=== PATIENT | male | born 1975 | race Caucasian/White ===

== ENCOUNTER 2016-02-01 12:52 | Outpatient (RCR) | payer MEDICARE, MEDICAID ==
[~2016-02-01 12:52] MED LIST: AC325T; AC325T PO; AC500T PO; ACET325T49 PO; ACET500C4 PO; ACHD5005 PO; ALPR.25T PO; ALPR0.2550 PO; AMIT25TA9 PO; AMOX500C2 PO; BACL10TA PO; BALS750C PO; CEFP250T3 PO; CIPR500T78 PO; CLAR-19 PO; CNC1KV INJ; CPR500T; CYAN100053 IJ; DIPH-424 PO; DOXY25TA46 PO; ECHINACEA PO; FAMO-144 PO; FAMO10TA43 PO; FAMO20TA5 PO; FERR-84 PO; FERR240T9 PO; GABA-488 PO; GABA600T2 PO; GABAPENTIN PO; GFCD10B PO; GFN600TCR PO; GUAI100S PO; HYDR-31; HYDR-34 PO; HYDR-3454 PO; HYDR-3816 PO; HYOS0.1216 PO; IBUP800T26 PO; IRON PO; KCL20TCR; LEVO250T11 PO; LORA1TAB PO; LVF500T; MAGN400T29 PO; MAGN400T6 PO; MERCAPTOPURINE; METH4TAB PO; METR500T PO; MSL250CCR; MSL250CCR PO; MULT-187 PO; MULT-974 PO; MULT1TAB53 PO; MULT1TAB59 PO; Mercaptopurine; NF-ESOM40C; OMEP20CA12 PO; OMEP20CA6 PO; OMEP40CA36 PO; OXYC-109 PO; OXYC-12 PO; OXYC1TAB87 PO; OXYCOTIN PO; PHEN-640 PO; PNT40TEC PO; POLY17PO6 PO; PRD10T PO; PRD20T PO; PRD5T PO; PRED10TA PO; PRED20TA PO; PRILOSEC; PRM25T PO; SCR1T1 PO; SODI100G DT; SODI100P15 PO; SUCR1TAB PO; TRM50T PO; TYLENOL; ZLP5T; ZLP5T PO; ZOLP5TAB6 PO; [UNRECOGNIZED DRUG - CODE] DT; [UNRECOGNIZED DRUG - CODE] PO; [UNRECOGNIZED DRUG - OTHER]; blue goo TOP; iron PO
--- OUTSIDE RECORDS SUMMARY | 2016-02-01 12:56 | XMS REPORT | Continuity of Care Document ---
Author Author [facility] Organization [facility] Address Unknown Phone Unavailable Care Team Providers Care Dress Operator Name Role Phone Julio Jo III PCP [phone] Source Comments Some departments are not documenting in the electronic medical record. If you do not see the information that you expected, contact Release of Information in the Health Information Management department at [phone] for further assistance in locating additional records.[facility] Active Allergies and Adverse Reactions Allergen Noted Date Severity Reactions Comments Adhesive Tape (Rosins) 12/25/2013 ITCHING Fortaz 12/25/2013 UNKNOWN Latex 12/25/2013 UNKNOWN Sulfa (Sulfonamide 12/25/2013 UNKNOWN Antibiotics) Current Medications Prescription Sig. Disp. Refills Start End Date Status Date acetaminophen (TYLENOL) Take 1,000 mg by mouth Active 500 mg tablet every 6 hours as needed. ALPRAZolam (XANAX) 0.25 Take 0.25 mg by mouth Active mg tablet three times daily as needed. cyanocobalamin (VITAMIN Inject 1,000 mcg to Active B-12, RUBRAMIN) 1,000 area(s) as directed every mcg/mL injection 30 days. guaiFENesin LA (MUCINEX) Take 600-1,200 mg by Active 600 mg tablet mouth twice daily as needed. MULTIVITAMIN WITH Take 1 Tab by mouth Active MINERALS (MULTIVITAMIN & daily. MINERAL FORMULA PO) Ferrous Sulfate 134 mg Take 1 Tab by mouth Active (27 mg iron) tab daily. Echinacea 400 mg cap Take 1 Cap by mouth. Active omeprazole DR(+) Take 40 mg by mouth Active (PRILOSEC) 40 mg capsule daily. sucralfate (CARAFATE) 1 Take 1 g by mouth three Active gram tablet times daily. zolpidem (AMBIEN) 5 mg Take 5 mg by mouth at Active tablet bedtime as needed. balsalazide(+) (COLAZAL) Take 2,250 mg by mouth Active 750 mg cap three times daily. oxyCODONE-acetaminophen Take 1 Tab by mouth every 20 Tab 0 01/10/20 Active (PERCOCET; ENDOCET) 6 hours as needed Max 12 14 10-325 mg tablet tabs/day Active Problems Problem Noted Date Impulse control disorder, unspecified 01/01/2014 Crohn disease (HCC) 12/25/2013 Social History Tobacco Use Types Packs/Day Years Used Date Current Every Day Smoker Cigarettes 0.5 Started: 12/25/1998 Tobacco Cessation: Ready to Quit: Yes; Counseling Given: Yes Comments: Alcohol Use Drinks/Week oz/Week Comments Yes 2 Standard 1.0 Social drinks or equivalent Last Filed Vital Signs Vital Sign Reading Time Taken Blood Pressure 110/70 01/09/2014 11:20 AM LUBRICATING SPECIALIST Pulse 78 01/09/2014 11:20 AM LUBRICATING SPECIALIST Temperature 36.6 C (97.8 F) 01/09/2014 11:20 AM LUBRICATING SPECIALIST Respiratory Rate - - Height 1.753 m (5' 9") 12/25/2013 8:09 PM CDT Weight 50.803 kg (112 lb) 01/08/2014 4:00 AM LUBRICATING SPECIALIST Body Mass Index 16.53 01/08/2014 4:00 AM LUBRICATING SPECIALIST Oxygen Saturation 100% 01/09/2014 11:20 AM LUBRICATING SPECIALIST Plan of Care Health Maintenance Due Date Last Done Comments Physical (Comprehensive) 1984 Exam Pertussis Vaccine 1988 Tetanus Vaccine 1994 Influenza Vaccine 10/27/2015 Results from Last 3 Months Not on file
[2016-02-01 13:24] LABS: BASOPHILS % (AUTO) 0 % (0-10); EOSINOPHILS % (AUTO) 0 % (0-10); LYMPHOCYTES # (AUTO) 1.7 X 10^3 (1.0-4.0); LYMPHOCYTES % (AUTO) 11 % (12-44); MEAN CORPUSCULAR HEMOGLOBIN 34 PG (25-34); MEAN CORPUSCULAR HGB CONC 35 G/DL (32-36); MEAN CORPUSCULAR VOLUME 98 FL (80-99); MEAN PLATELET VOLUME 9.2 FL (7.4-10.4); MONOCYTES # (AUTO) 0.8 X 10^3 (0.0-1.0); MONOCYTES % (AUTO) 5 % (0-12); NEUTROPHILS % (AUTO) 83 % (42-75); PLATELET COUNT 391 10^3/uL (130-400); RED BLOOD COUNT 4.59 10^6/uL (4.35-5.85); RED CELL DISTRIBUTION WIDTH 15.1 % (10.0-14.5); WHITE BLOOD COUNT 14.5 10^3/uL (4.3-11.0)
[2016-02-01 14:02] LABS: ALANINE AMINOTRANSFERASE 19 U/L (0-55); ANION GAP 9 MMOL/L (5-14); ASPARTATE AMINO TRANSFERASE 15 U/L (5-34); BILIRUBIN,TOTAL 0.3 MG/DL (0.1-1.0); BLOOD UREA NITROGEN 6 MG/DL (7-18); BUN/CREATININE RATIO 9; CARBON DIOXIDE 27 MMOL/L (21-32); CHLORIDE 108 MMOL/L (98-107); GFR ESTIMATED > 60; GLUCOSE 96 MG/DL (70-105); LACTATE DEHYDROGENASE 154 U/L (125-220); POTASSIUM 3.6 MMOL/L (3.6-5.0); SODIUM 144 MMOL/L (135-145)
== END 2016-05-01 | disposition home or self-care (01) ==
LOC: ONC 12:52
PROVIDERS: ATTEND Internal Medicine Hematology & Oncology
DX: C85.80 Other specified types of non-Hodgkin lymphoma, unspecified site (principal); D50.9 Iron deficiency anemia, unspecified; E53.8 Deficiency of other specified B group vitamins; K50.90 Crohn's disease, unspecified, without complications; K21.9 Gastro-esophageal reflux disease without esophagitis; D47.3 Essential (hemorrhagic) thrombocythemia; D72.829 Elevated white blood cell count, unspecified; Z92.21 Personal history of antineoplastic chemotherapy; Z79.899 Other long term (current) drug therapy
CPT/HCPCS: 36415; 80053; 83615; 85025; 99213

== ENCOUNTER → 2016-03-19 | Outpatient (CLI) | payer MEDICARE, MEDICAID ==
[~2016-03-19] MED LIST changes: +ADAL40PE2 SQ; +ASCO-262 PO; +BUDE9TAB PO; +DICY10CA59 PO; +DOCU-143 PO; +FAMO20TA3 PO; +HYDR-3812 PO; +MESA800T PO; +METO10TA3 PO; +PRED5TAB PO
--- OUTSIDE RECORDS SUMMARY | 2016-03-19 12:04 | XMS REPORT | Continuity of Care Document ---
Author Author [facility] Organization [facility] Address Unknown Phone Unavailable Care Team Providers Care Sound Cutter Name Role Phone Julio Jo III PCP [phone] Source Comments Some departments are not documenting in the electronic medical record. If you do not see the information that you expected, contact Release of Information in the Health Information Management department at [phone] for further assistance in locating additional records.[facility] Active Allergies and Adverse Reactions Allergen Noted [...] Taken Blood Pressure 110/70 01/09/2014 11:20 AM GRAIN OILSEED OR PASTURE FARM MANAGER Pulse 78 01/09/2014 11:20 AM GRAIN OILSEED OR PASTURE FARM MANAGER Temperature 36.6 C (97.8 F) 01/09/2014 11:20 AM GRAIN OILSEED OR PASTURE FARM MANAGER Respiratory Rate - - Height 1.753 m (5' 9") 12/25/2013 8:09 PM CDT Weight 50.803 kg (112 lb) 01/08/2014 4:00 AM GRAIN OILSEED OR PASTURE FARM MANAGER Body Mass Index 16.53 01/08/2014 4:00 AM GRAIN OILSEED OR PASTURE FARM MANAGER Oxygen Saturation 100% 01/09/2014 11:20 AM GRAIN OILSEED OR PASTURE FARM MANAGER Plan of Care Health Maintenance Due Date Last Done Comments Physical (Comprehensive) 1984 Exam Pertussis Vaccine 1988 Tetanus Vaccine 1994 Influenza Vaccine 10/27/2015 Results from Last 3 Months Not on file
--- NOTE | 2016-03-19 13:02 | Diagnostic Imaging Report ---
EXAMINATION: Scrotal ultrasound. INDICATION: Right testicular lump. FINDINGS: Spectral and color flow imaging of the testicles was performed. There are no prior studies available for comparison. Both testicles are identified. The right testicle measures 3.2 x 1.8 x 2.1 cm while the left testicle is estimated to be 3.6 x 1.6 x 2.2 cm. There is no evidence for a solid testicular mass and there is good blood flow to each testicle. There is no sign of torsion. There is no solid or cystic mass involving the epididymides. There is no evidence for epididymitis either. There is no hydrocele formation. IMPRESSION: There is no evidence for a solid testicular mass and there is no sign of torsion. Dictated by: Dictated on workstation # [id number]
== END ==
LOC: RAD 12:00
PROVIDERS: ATTEND Internal Medicine
DX: N50.9 Disorder of male genital organs, unspecified (principal)
CPT/HCPCS: 76870

== ENCOUNTER → 2016-03-30 | Outpatient (CLI) | payer MEDICARE, MEDICAID ==
--- OUTSIDE RECORDS SUMMARY | 2016-03-30 14:50 | XMS REPORT | Continuity of Care Document ---
Author Author [facility] Organization [facility] Address Unknown Phone Unavailable Care Team Providers Care Infectious Disease Technician Name Role Phone Julio Jo III PCP [phone] Source Comments Some departments are not documenting in the electronic medical record. If you do not see the information that you expected, contact Release of Information in the Health Information Management department at [phone] for further assistance in locating additional records.[facility] Active Allergies and Adverse Reactions Allergen Noted [...] Taken Blood Pressure 110/70 01/09/2014 11:20 AM QUALITY CONTROL HEAD Pulse 78 01/09/2014 11:20 AM QUALITY CONTROL HEAD Temperature 36.6 C (97.8 F) 01/09/2014 11:20 AM QUALITY CONTROL HEAD Respiratory Rate - - Height 1.753 m (5' 9") 12/25/2013 8:09 PM CDT Weight 50.803 kg (112 lb) 01/08/2014 4:00 AM QUALITY CONTROL HEAD Body Mass Index 16.53 01/08/2014 4:00 AM QUALITY CONTROL HEAD Oxygen Saturation 100% 01/09/2014 11:20 AM QUALITY CONTROL HEAD Plan of Care Health Maintenance Due Date Last Done Comments Physical (Comprehensive) 1984 Exam Pertussis Vaccine 1988 Tetanus Vaccine 1994 Influenza Vaccine 10/27/2015 Results from Last 3 Months Not on file
--- NOTE | 2016-03-30 16:12 | Diagnostic Imaging Report ---
INDICATION: Pararectal mass. EXAMINATION: Ultrasound was performed in the routine fashion between the scrotum and anus. FINDINGS: There is a cystic lesion measuring 1.5 x 1.0 x 1.0 cm. There is no solid mass. IMPRESSION: 1.5 x 1.0 cm cyst in the area of clinical question between the scrotum and anus. Dictated by: Dictated on workstation # [id number]
== END ==
LOC: RAD 14:45
PROVIDERS: ATTEND Surgery
DX: K62.9 Disease of anus and rectum, unspecified (principal)
CPT/HCPCS: 76999

== ENCOUNTER → 2016-04-05 | Outpatient (CLI) | payer MEDICARE, MEDICAID ==
--- OUTSIDE RECORDS SUMMARY | 2016-04-05 10:24 | XMS REPORT | Continuity of Care Document ---
Author Author [facility] Organization [facility] Address Unknown Phone Unavailable Care Team Providers Care .Net Architect Name Role Phone Julio Jo III PCP [phone] Source Comments Some departments are not documenting in the electronic medical record. If you do not see the information that you expected, contact Release of Information in the Health Information Management department at [phone] for further assistance in locating additional records.[facility] Active Allergies and Adverse Reactions Allergen Noted [...] Taken Blood Pressure 110/70 01/09/2014 11:20 AM WELT POCKET MACHINE OPERATOR Pulse 78 01/09/2014 11:20 AM WELT POCKET MACHINE OPERATOR Temperature 36.6 C (97.8 F) 01/09/2014 11:20 AM WELT POCKET MACHINE OPERATOR Respiratory Rate - - Height 1.753 m (5' 9") 12/25/2013 8:09 PM CDT Weight 50.803 kg (112 lb) 01/08/2014 4:00 AM WELT POCKET MACHINE OPERATOR Body Mass Index 16.53 01/08/2014 4:00 AM WELT POCKET MACHINE OPERATOR Oxygen Saturation 100% 01/09/2014 11:20 AM WELT POCKET MACHINE OPERATOR Plan of Care Health Maintenance Due Date Last Done Comments Physical (Comprehensive) 1984 Exam Pertussis Vaccine 1988 Tetanus Vaccine 1994 Influenza Vaccine 10/27/2015 Results from Last 3 Months Not on file
== END ==
LOC: RAD 10:20
PROVIDERS: ATTEND Surgery
DX: K62.89 Other specified diseases of anus and rectum (principal)

== ENCOUNTER → 2016-04-11 | Outpatient (CLI) | payer MEDICARE, MEDICAID ==
[~2016-04-11] MED LIST changes: +GADOBUTROL 7.5 MMOL/7.5 ML (GADAVIST) VIAL IV ONE
--- OUTSIDE RECORDS SUMMARY | 2016-04-11 09:23 | XMS REPORT | Continuity of Care Document ---
Author Author [facility] Organization [facility] Address Unknown Phone Unavailable Care Team Providers Care Forge Shop Machine Repairer Name Role Phone Julio Jo III PCP [phone] Source Comments Some departments are not documenting in the electronic medical record. If you do not see the information that you expected, contact Release of Information in the Health Information Management department at [phone] for further assistance in locating additional records.[facility] Active Allergies and Adverse Reactions Allergen Noted [...] Taken Blood Pressure 110/70 01/09/2014 11:20 AM PHYSICAL THERAPY AIDES TEACHER Pulse 78 01/09/2014 11:20 AM PHYSICAL THERAPY AIDES TEACHER Temperature 36.6 C (97.8 F) 01/09/2014 11:20 AM PHYSICAL THERAPY AIDES TEACHER Respiratory Rate - - Height 1.753 m (5' 9") 12/25/2013 8:09 PM CDT Weight 50.803 kg (112 lb) 01/08/2014 4:00 AM PHYSICAL THERAPY AIDES TEACHER Body Mass Index 16.53 01/08/2014 4:00 AM PHYSICAL THERAPY AIDES TEACHER Oxygen Saturation 100% 01/09/2014 11:20 AM PHYSICAL THERAPY AIDES TEACHER Plan of Care Health Maintenance Due Date Last Done Comments Physical (Comprehensive) 1984 Exam Pertussis Vaccine 1988 Tetanus Vaccine 1994 Influenza Vaccine 10/27/2015 Results from Last 3 Months Not on file
--- NOTE | 2016-04-11 12:28 | Diagnostic Imaging Report ---
PROCEDURE: MRI pelvis with and without contrast. TECHNIQUE: Multiplanar, multisequence MRI of the pelvis was performed with and without contrast. INDICATION: Perianal cyst. Painful to sit or walk. FINDINGS: There is a 1.3 x 0.8 x 1 cm cystic lesion seen abutting the right side aspect of the bulbar urethra near the root of the penis in the perineum. This is stable compared to 03/15/2015 exam. This may represent a Cowper's duct cyst or a small urethral diverticulum. The prostate is not significantly enlarged. The urinary bladder appears unremarkable. There is no free fluid or fluid collection in the pelvis. The osseous structures appear unremarkable. There is no fluid collection in the perineum or pelvis to suggest an abscess. Trace amount of fluid in the scrotum is probably physiologic. 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 Dictated by: Dictated on workstation # [id number]
== END ==
LOC: RAD 09:20
PROVIDERS: ATTEND Surgery
DX: K62.89 Other specified diseases of anus and rectum (principal)
CPT/HCPCS: 72197

== ENCOUNTER 2016-06-11 14:12 | Outpatient (CLI) | payer MEDICARE, MEDICAID ==
[~2016-06-11] VITALS: Ht 175.3 cm; Wt 62.2 kg
[~2016-06-11 14:12] MED LIST changes: -ADAL40PE2 SQ; -ASCO-262 PO; -BUDE9TAB PO; -DICY10CA59 PO; -DOCU-143 PO; -FAMO20TA3 PO; -GADOBUTROL 7.5 MMOL/7.5 ML (GADAVIST) VIAL IV ONE; -HYDR-3812 PO; -MESA800T PO; -METO10TA3 PO; -PRED5TAB PO
[2016-06-11 14:18] VITALS: BP 118/77
[2016-06-11] MEDS ORDERED: METO10TA3 PO (15:07)
[2016-06-11] MEDS ORDERED: FAMO20TA3 PO (15:07)
[2016-06-11] MEDS ORDERED: ADAL40PE2 SQ (15:07)
[2016-06-11] MEDS ORDERED: DOCU-143 PO (15:07)
[2016-06-11] MEDS ORDERED: PRED5TAB PO (15:07)
[2016-06-11] MEDS ORDERED: BUDE9TAB PO (15:07)
[2016-06-11] MEDS ORDERED: MESA800T PO (15:07)
[2016-06-11] MEDS ORDERED: DICY10CA59 PO (15:07)
[2016-06-11] MEDS ORDERED: ASCO-262 PO (15:07)
== END 2016-06-11 14:46 | disposition home or self-care (01) ==
LOC: PREOP 14:12
PROVIDERS: ATTEND Surgery
DX: Z01.818 Encounter for other preprocedural examination (principal); Z11.2 Encounter for screening for other bacterial diseases; K62.89 Other specified diseases of anus and rectum
CPT/HCPCS: 87081

== ENCOUNTER 2016-06-15 08:04 | Day surgery (SDC) | payer MEDICARE, MEDICAID ==
[~2016-06-15] VITALS: Ht 175.3 cm; Wt 62.2 kg
[~2016-06-15 08:04] MED LIST changes: +ADAL40PE2 SQ; +ASCO-262 PO; +BUDE9TAB PO; +DICY10CA59 PO; +DOCU-143 PO; +FAMO20TA3 PO; +MESA800T PO; +METO10TA3 PO; +PRED5TAB PO
--- NOTE | 2016-06-15 08:17 | Progress Note-Pre Operative ---
Pre-Operative Progress Note H&P Reviewed The H&P was reviewed, patient examined and no changes noted. Date H&P Reviewed: Jun 15, 2016 Time H&P Reviewed: 08:16 Pre-Operative Diagnosis: perianal cyst MIRA CARO DO Jun 15, 2016 8:17 am
[2016-06-15] MEDS ORDERED: CLINDAMYCIN 600 MG/NS 50 ML IVPB IV ONE (08:30)
[2016-06-15 08:40] VITALS: BP 116/91
[2016-06-15] MEDS: LACTATED RINGERS 1,000 ML IV PRN ×2 (08:40→09:42)
[2016-06-15] MEDS ORDERED: proPOfol 200 MG/20 ML (DIPRIVAN) VIAL IV ONE (08:59)
[2016-06-15] MEDS ORDERED: SEVOFLURANE (ULTANE) 15 ML INHAL SOLN ONE ×4 (08:59→09:38)
[2016-06-15] MEDS ORDERED: LIDOCAINE PF 2% 10 ML (XYLOCAINE) AMP ONE (08:59)
[2016-06-15] MEDS ORDERED: MIDAZOLAM 2 MG/2 ML (VERSED) VIAL ONE (09:00)
[2016-06-15] MEDS ORDERED: fentaNYL INJECTION 100 MCG/2 ML AMP ONE (09:00)
[2016-06-15] MEDS ORDERED: BUP/EPI 0.25% 1:200,000 (MARCAINE) 30 ML VIAL ONE (09:04)
[2016-06-15] MEDS ORDERED: BUPIVACAINE 0.25% 30 ML (SENSORCAINE) VIAL ONE (09:15)
[2016-06-15] MEDS ORDERED: LIDOCAINE 1% INJ 20 ML (XYLOCAINE) VIAL ONE (09:15)
[2016-06-15] MEDS ORDERED: HYDROCORTISONE 100 MG/2 ML (Solu-CORTEF) VIAL ONE (09:21)
[2016-06-15] MEDS ORDERED: LACTATED RINGERS 2,000 ML IV ONE (09:38)
[2016-06-15] MEDS ORDERED: ONDANSETRON 4 MG/2 ML (SDV) Z0FRAN ONE (09:38)
[2016-06-15] MEDS ORDERED: BUPIVACAINE 0.25% 30 ML (SENSORCAINE) VIAL INJ ONE (09:45)
[2016-06-15] MEDS ORDERED: LIDOCAINE 1% INJ 20 ML (XYLOCAINE) VIAL INJ ONE (09:45)
[2016-06-15] MEDS ORDERED: NEO/POLY/BAC (NEOSPORIN) OINT 15 GM TUBE ONE (09:51)
--- NOTE | 2016-06-15 10:05 | Progress Note-Post Operative ---
Post-Operative Progess Note Surgeon (s)/Propagator Laborer (s) Surgeon MIRA CARO DO Propagator Laborer: TAMANNA NWAGWU Pre-Operative Diagnosis perianal cyst Post-Operative Diagnosis SAME Post-Op Procedure Note Date of Procedure: Jun 15, 2016 Name of Procedure Performed: EXCISION PERIANAL CYST [id number] Description of the Procedure: SEE NOTE Findings of the Procedure SEE NOTE Anesthesia Type GENERAL Estimated blood loss (mL): MINIMAL Specimen(s) collected/removed CYST MIRA CARO DO Jun 15, 2016 10:05 am
[2016-06-15] MEDS ORDERED: morphine INJ 10 MG/ML 1ML (SYR OR VIAL) ONE (10:10)
[2016-06-15] MEDS: morphine INJ 10 MG/ML 1ML (SYR OR VIAL) IVP PRN ×2 (10:14→10:23)
[2016-06-15] MEDS ORDERED: HYDR-3812 PO (10:15)
--- NOTE | 2016-06-15 10:18 | Discharge Inst-Simple/Standard ---
Discharge Inst-Standard Discharge Medications New, Converted or Re-Newed RX: RX on Chart Patient Instructions/Follow Up Plan of Care/Instructions/FU: Follow up with Dr. Vega in 2 weeks Take a tub bath or a shower for a few minutes after each bowel movement. Keep wound clean and dry. If any questions or concerns or changes, call the clinic Activity as Tolerated: No Discharge Diet: No Restrictions Other Inst to Patient Follow up Appt: Make appointment for 2 weeks. Instructions: No lifting greater than 10 pounds. No strenuous activity. May shower in 24 hours, no tub bath or soaking. Use incentive spirometer at home as directed. No Smoking Skin/Wound Care: Take a tub bath or a shower for a few minutes after each bowel movement. Keep wound clean and dry. Symptoms to Report: Appetite Changes, Extremity Discoloration, Numbness/Tingling, Swelling Increased , Bleeding Excessive, Eyesight Changes, Pain Increased, Urine Color Change, Constipation(Persistent), Fever over 101 degree F, Pain/Pressure in chest, Urinating Difficulty, Cough Up/Vomit Blood, Heart Beat Irreg/Pounding, Pain/ Pressure in jaw, Vaginal Bleeding Increase, Cramps in feet or legs, Lightheadedness, Pain/Pressure in shoulder, Diarrhea(Persistent), Memory Changes Suddenly, Questions/Concerns, Weight gain consecutive days, Dizziness/ Fainting, Nausea/Vomiting, Shortness of Breath, Weight gain over 2 pounds If questions or concerns contact your physician Or seek help at emergency department. NIELS JONES APRN Jun 15, 2016 10:18 am
[2016-06-15] MEDS: HYDROmorphone (DILAUDID) 2 MG/ML VIAL IVP PRN ×2 (10:30→10:40)
[2016-06-15] MEDS ORDERED: HYDROmorphone (DILAUDID) 2 MG/ML VIAL IVP PRN (10:30)
[2016-06-15] MEDS ORDERED: ONDANSETRON 4 MG/2 ML (SDV) Z0FRAN IVP PRN ×2 (10:30→10:45)
[2016-06-15] MEDS ORDERED: HYDROmorphone (DILAUDID) 2 MG/ML VIAL ONE (10:41)
[2016-06-15] MEDS ORDERED: KETOROLAC 30 MG/ML VIAL IVP ONE (10:45)
[2016-06-15] MEDS ORDERED: fentaNYL INJECTION 100 MCG/2 ML AMP IVP PRN (10:45)
[2016-06-15] MEDS ORDERED: morphine INJ 10 MG/ML 1ML (SYR OR VIAL) IVP PRN (10:45)
[2016-06-15 11:15] VITALS: BP 126/76
[2016-06-15] MEDS ORDERED: HYDROcodone/APAP 5 MG/325 MG (LORTAB) TAB PO ONE (11:30)
[2016-06-15 11:45] VITALS: BP 112/77
[2016-06-15 12:15] VITALS: BP 118/78
--- NOTE | 2016-06-15 14:59 | OPERATIVE REPORT ---
DATE OF SERVICE: 06/15/2016 PREOPERATIVE DIAGNOSIS: Perianal cyst. POSTOPERATIVE DIAGNOSIS: Perianal cyst. PROCEDURE: Excision perianal cyst 1.5 x 1 x 1 cm subcutaneous tissue. SURGEON: Dr. Vega ANESTHESIA: General. ESTIMATED BLOOD LOSS: Minimal. BEAMING INSPECTOR: Norman Gaxiola assisted with retraction, dissection and closure. INDICATIONS: The patient is a 41-year-old male who had a cyst previously drained in this area. He had an MRI demonstrating a cyst. He was seen by urology due to location and they recommended removal by general surgery. The patient was explained the risks and benefits of procedure and wished to proceed. Consent was on chart. PROCEDURE: The patient was taken to the operating suite, was placed in lithotomy position. He was prepped and draped in sterile fashion. Timeout was performed. local anesthetic of 0.5% Marcaine and 1% lidocaine in 50:50 ratio was used to anesthetize the area. An elliptical incision was made around the cystic area. Also there is a small divot in the skin which was from previous incision and drainage which was removed. Cautery was used to dissect down around the cystic area and removed. Overall size approximately 1.5 x 1 x 1 cm. There still feels to be a little bit of scar tissue present but the palpable mass has been removed. The patient had the wound irrigated with copious amounts of irrigation. The skin was then closed using 3-0 chromic in simple interrupted fashion. The area was washed and dried and sterile bandage was applied. The patient tolerated the procedure well without any complications and was taken to the recovery room in stable condition. Job ID: [id number] DocumentID: [id number] Dictated Date: 06/15/2016 10:55:24 Distribution Accounting Clerk Date: 06/15/2016 11:07:29 Dictated By: DO AGUSTÍN JAUREGUI
== END 2016-06-15 12:15 | disposition home or self-care (01) ==
LOC: SDC 08:04
PROVIDERS: ATTEND Surgery
DX: K62.89 Other specified diseases of anus and rectum (principal)
CPT/HCPCS: 88304; 94664

== ENCOUNTER 2017-01-30 13:17 | Outpatient (RCR) | payer MEDICARE, MEDICAID ==
[~2017-01-30 13:17] MED LIST changes: -HYDR-3816 PO
== END 2017-04-30 | disposition home or self-care (01) ==
LOC: ONC 13:17
PROVIDERS: ATTEND Internal Medicine Hematology & Oncology
DX: C85.80 Other specified types of non-Hodgkin lymphoma, unspecified site (principal); D50.9 Iron deficiency anemia, unspecified; E53.8 Deficiency of other specified B group vitamins; K50.90 Crohn's disease, unspecified, without complications; K21.9 Gastro-esophageal reflux disease without esophagitis; D47.3 Essential (hemorrhagic) thrombocythemia; D72.829 Elevated white blood cell count, unspecified; Z92.21 Personal history of antineoplastic chemotherapy; Z79.899 Other long term (current) drug therapy
CPT/HCPCS: 99213

== ENCOUNTER 2017-06-05 15:54 | Inpatient (IN) | payer MEDICARE, MEDICAID ==
[~2017-06-05] VITALS: Ht 175.3 cm; Wt 65.5 kg
[2017-06-05] VITALS (9 sets, daily range): BP systolic 96–117; BP diastolic 54–89
[~2017-06-05 15:54] MED LIST changes: -DOXY25TA46 PO; +UNISOM25 M1 PO
--- NOTE | 2017-06-05 16:12 | ED General ---
General Stated Complaint: 102.6 TEMP Source of Information: Patient Exam Limitations: No Limitations History of Present Illness Date Seen by Provider: Jun 05, 2017 Time Seen by Provider: 16:02 Initial Comments Here by CLAUDIA from Dr. Jo's office. Patient apparently was seen there today for fever and cough. He was found to have a blood pressure of 70/30 and a fever of 102.6 with a heart rate in the 120. Patient was recommended to be evaluated in the ER and he opted to come by POV. Patient arrives with a blood pressure in the 70s over 40s with respiratory distress. Does have history of Crohn's disease and is on Humira. Patient complains of cough and shortness of breath. Does admit to fever. Apparently has been sick for a couple of days. Denies nausea or vomiting. Timing/Duration: 2-3 Days, Getting Worse Severity: Moderate, Severe Associated Systoms: No Chest Pain; Cough, Fever/Chills; No Nausea/Vomiting; Shortness of Air, Weakness Allergies and Home Medications Allergies Coded Allergies: ceftazidime (Verified Allergy, Intermediate, RASH, 06/15/16) nalbuphine (Unverified Allergy, Mild, RASH, 03/29/06) Iodinated Contrast Media - Oral and (Verified Allergy, Unknown, HIVES, 05/01) Sulfa (Sulfonamide Antibiotics) (Verified Allergy, Unknown, 03/29/06) latex (Verified Allergy, Unknown, 05/03/15) strawberry (Unverified Allergy, Unknown, 12/18/13) FROM UNCODED ALLERGIES Uncoded Allergies: TAPE (Allergy, Unknown, 03/29/06) Home Medications Acetaminophen 325 Mg Tablet, 650 MG PO Q6H PRN for PAIN/FEVER, (Reported) take 2 (325mg) TABS Adalimumab 40 Mg/0.8 Ml Pen.ij.kit, 40 MG SQ every other week, (Reported) Ascorbate Calcium 500 Mg Tablet, 500 MG PO DAILY, (Reported) Budesonide 9 Mg Tabdr...er, 9 MG PO DAILY, (Reported) Cyanocobalamin 1,000 Mcg/Ml Inj, 1,000 MCG INJ MONTHLY, (Reported) Dicyclomine HCl 10 Mg Capsule, 10 MG PO ACHS, (Reported) Docusate Sodium 100 Mg Capsule, 100 MG PO BID, (Reported) Doxylamine Succinate 25 Mg Tablet, 25 MG PO HS PRN for SLEEP, (Reported) Famotidine 20 Mg Tablet, 20 MG PO HS, (Reported) Gabapentin 600 Mg Tablet, 600 MG PO TID, (Reported) Hydrocodone Bit/Acetaminophen 1 Each Tablet, 1 EA PO Q4-6HR PRN for PAIN- MODERATE TO SEVERE Prescribed by: NIELS PATEL NWAGW on 06/15/16 1015 Lorazepam 1 Mg Tablet, 1.5 MG PO HS, (Reported) take 1 1/2 of 1 mg tab Magnesium Oxide 400 Mg Tablet, 400 MG PO DAILY, (Reported) Mesalamine 800 Mg Tablet.dr, 2,400 MG PO BID, (Reported) take 3 (800mg) tabs Metoclopramide HCl 10 Mg Tablet, 10 MG PO ACHS, (Reported) Multivitamin 1 Each Tablet, 1 TAB PO DAILY, (Reported) Omeprazole 40 Mg Capsule.dr, 40 MG PO BID, (Reported) Polyethylene Glycol 3350 17 Gm Powd.pack, 17 GM PO BID PRN for CONSTIPATION Prescribed by: ALON LUNA on 05/19/15 2217 Prednisone 5 Mg Tablet, 5 MG PO DAILY, (Reported) Sucralfate 1 Gm Tablet, 1 GM PO TID, (Reported) Patient Home Medication List Home Medication List Reviewed: Yes Review of Systems Constitutional: see HPI, chills, fever, weakness EENTM: no symptoms reported Respiratory: see HPI, cough, dyspnea on exertion, short of breath, wheezing Cardiovascular: no symptoms reported Gastrointestinal: No abdominal pain, No nausea, No vomiting Genitourinary: no symptoms reported Musculoskeletal: back pain; No muscle pain Skin: change in color (redness over the body) Psychiatric/Neurological: Denies Headache, Denies Numbness; Weakness Hematologic/Lymphatic: No Symptoms Reported All Other Systems Reviewed Negative Unless Noted: Yes Past Nqqwdcn-Egrrjf-Zpnkax Hx Past Med/Social Hx: Reviewed Nursing Past Med/Soc Hx Patient Social History Alcohol Use: Occasionally Uses Alcohol Beverage of Choice: Beer Recreational Drug Use: No Smoking Status: Current Everyday Smoker Type Used: Cigarettes Recent Foreign Travel: No Contact w/Someone Who Travel: No Recent Hopitalizations: No Immunizations Up To Date Date of Pneumonia Vaccine: Feb 25, 2015 Date of Influenza Vaccine: Feb 25, 2015 Seasonal Allergies Seasonal Allergies: No Past Medical History Surgeries: Yes Abdominal, Appendectomy, Bowel Surgery, Gallbladder Respiratory: No Neurological: Yes Traumatic Brain Injury Reproductive Disorders: No Sexually Transmitted Disease: No Gastrointestinal: Yes Crohns Disease Musculoskeletal: Yes Arthritis Cancer: Yes Lymphoma Personality Disorder Adverse Reaction/Blood Tranf: No Family Medical History Reviewed Nursing Family Hx No Family History of: Abdominal aortic aneurysm [place]'s disease Alcoholism Aphasia Cancer Cancer of colon Cataract Chest pain Congenital heart disease Congestive heart failure Cystic fibrosis Dementia Dysphagia Family history: Allergy Family history: Alzheimer's disease Family history: Arthritis Family history: Asthma Family history: Breast disease Family history: Cardiovascular disease Family history: Coronary thrombosis Family history: Diabetes mellitus Family history: Gastrointestinal disease Family history: Glaucoma Family history: Hypertension Family history: Osteoporosis Family history: Thyroid disorder Headache Hearing loss Heart disease Hereditary disease History of - anemia History of - disorder History of - respiratory disease History of drug abuse Human immunodeficiency virus (HIV) seropositivity Hypercholesterolemia Infertile Kidney disease Malignant neoplasm of lung Myocardial infarction Parkinson's disease Prostate cancer Psychotic disorder Seizure disorder Stroke Tuberculosis Visual impairment No Pertinent Family Hx Physical Exam-Suspected Sepsis Physical Exam Vital Signs Vital Signs - First Documented 06/05/17 16:17 Temp 101.7 Pulse 145 Resp 28 B/P (MAP) 75/47 (56) Pulse Ox 94 O2 Delivery Nasal Cannula O2 Flow Rate 2.00 Capillary Refill : General Appearance: Moderate Distress, Thin Eyes: Bilateral Eye PERRL, Bilateral Eye EOMI, Bilateral Eye Other (redness of the eyes bilateral) HEENT: PERRL/EOMI, Other (dry mucous membranes) Neck: Full Range of Motion, Non Tender, Supple Respiratory: Crackles, Expiration, Inspiration, Respiratory Distress Cardiovascular: No Murmur, Tachycardia Gastrointestinal: Non Tender, Soft Back: No CVA Tenderness, Other Extremity: Normal Range of Motion, Non Tender Neurologic/Psychiatric: Alert, Oriented x3, No Motor/Sensory Deficits Skin: normal color, warm/dry Focused Exam Lactate Level 06/05/17 16:15: Lactic Acid Level 3.98*H 06/05/17 18:15: Lactic Acid Level 2.08*H Lactic Acid Level Laboratory Tests Test 06/05/17 16:15 06/05/17 18:15 Lactic Acid Level 3.98 MMOL/L (0.50-2.00) *H 2.08 MMOL/L (0.50-2.00) *H Procedures/Interventions Lumen: triple Central Line Procedure: betadine prep Position: internal jugular (R) Anesthesia: Lidocaine Volume Anesthetic (ccs): 4 Complications: none Post Position: sutured, good blood return, position confirmed w/ CXR Place the ultrasound guidance time 1 stick with good flash and flush. Sutured. Tolerated procedure well with no complications. Chest x-ray confirms good position without pneumothorax. Progress/Results/Core Measures Suspected Sepsis SIRS Temperature: Pulse: Respiratory Rate: Laboratory Tests 06/05/17 16:15: White Blood Count 43.3*H Blood Pressure / Mean: 06/05/17 16:15: Lactic Acid Level 3.98*H 06/05/17 18:15: Lactic Acid Level 2.08*H Laboratory Tests 06/05/17 16:15: Creatinine 1.54H, INR Comment 1.0, Platelet Count 259, Total Bilirubin 1.1H Results/Orders Lab Results Laboratory Tests Test 06/05/17 16:15 06/05/17 18:15 Range/Units White Blood Count 43.3 *H 4.3-11.0 10^3/uL Red Blood Count 4.10 L 4.35-5.85 10^6/uL Hemoglobin 14.8 13.3-17.7 G/DL Hematocrit 41 40-54 % Mean Corpuscular Volume 100 H 80-99 FL Mean Corpuscular Hemoglobin 36 H 25-34 PG Mean Corpuscular Hemoglobin Concent 36 32-36 G/DL Red Cell Distribution Width 15.4 H 10.0-14.5 % Platelet Count 259 130-400 10^3/uL Mean Platelet Volume 10.3 7.4-10.4 FL Neutrophils (%) (Auto) 85 H 42-75 % Lymphocytes (%) (Auto) 6 L 12-44 % Monocytes (%) (Auto) 10 0-12 % Eosinophils (%) (Auto) 0 0-10 % Basophils (%) (Auto) 0 0-10 % Neutrophils # (Auto) 36.6 H 1.8-7.8 X 10^3 Lymphocytes # (Auto) 2.5 1.0-4.0 X 10^3 Monocytes # (Auto) 4.1 H 0.0-1.0 X 10^3 Eosinophils # (Auto) 0.0 0.0-0.3 10^3/uL Basophils # (Auto) 0.1 0.0-0.1 10^3/uL Neutrophils % (Manual) 50 % Lymphocytes % (Manual) 11 % Monocytes % (Manual) 11 % Eosinophils % (Manual) 0 % Basophils % (Manual) 1 % Metamyelocytes % 1 % Band Neutrophils 26 % Target Cells SLIGHT [place] Bodies MODERATE Prothrombin Time 13.7 12.2-14.7 SEC INR Comment 1.0 0.8-1.4 Activated Partial Thromboplast Time 34 24-35 SEC Sodium Level 133 L 135-145 MMOL/L Potassium Level 3.4 L 3.6-5.0 MMOL/L Chloride Level 95 L 98-107 MMOL/L Carbon Dioxide Level 19 L 21-32 MMOL/L Anion Gap 19 H 5-14 MMOL/L Blood Urea Nitrogen 15 7-18 MG/DL Creatinine 1.54 H 0.60-1.30 MG/DL Estimat Glomerular Filtration Rate 50 BUN/Creatinine Ratio 10 Glucose Level 84 70-105 MG/DL Lactic Acid Level 3.98 *H 2.08 *H 0.50-2.00 MMOL/L Calcium Level 8.4 L 8.5-10.1 MG/DL Total Bilirubin 1.1 H 0.1-1.0 MG/DL Aspartate Amino Transf (AST/SGOT) 24 5-34 U/L Alanine Aminotransferase (ALT/SGPT) 27 0-55 U/L Alkaline Phosphatase 85 40-136 U/L Total Protein 6.9 6.4-8.2 GM/DL Albumin 4.1 3.2-4.5 GM/DL My Orders Orders - ALON LUNA MD Cbc With Automated Diff (06/05/17 16:) Comprehensive Metabolic Panel (06/05/17 16:) Lactic Acid Analyzer (06/05/17 16:) Blood Culture (06/05/17 16:) Sputum Culture (06/05/17 16:) Ua Culture If Indicated (06/05/17 16:) Protime With Inr (06/05/17 16:) Partial Thromboplastin Time (06/05/17 16:) Chest 1 View, Ap/Pa Only (06/05/17 16:) O2 (06/05/17 16:) Saline Lock/Iv-Start (06/05/17 16:) Saline Lock/Iv-Start (06/05/17 16:01) Vital Signs Adult Sepsis Patie Q1H (06/05/17 16:01) Remove Rings In Anticipation O (06/05/17 16:01) Saline Lock/Iv-Start (06/05/17 16:01) Ns Iv 1000 Ml (Sodium Chloride 0.9%) (06/05/17 16:01) Manual Differential (06/05/17 16:15) Saline Lock/Iv-Start (06/05/17 16:51) Ns Iv 1000 Ml (Sodium Chloride 0.9%) (06/05/17 16:51) Norepinephrine (Levophed) (06/05/17 17:00) Ns (Ivpb) (Sodium Chloride 0.9%) (06/05/17 16:49) Norepinephrine (Levophed) (06/05/17 16:49) Piperacillin Sodium/Tazobactam (Zosyn Vi (06/05/17 17:30) Chest 1 View, Ap/Pa Only (06/05/17 17:30) Albuterol/Ipra Inhalation Soln (Duoneb I (06/05/17 17:30) Svn Sm Volume Nebulizer Rt-Rfs (06/05/17 17:30) Morphine Injection (Morphine Injection (06/05/17 17:35) Medications Given in ED Current Medications Medications Dose Ordered Sig/Sudheer Route Start Time Stop Time Status Last Admin Dose Admin Albuterol/ Ipratropium 3 ml ONCE ONCE INH 06/05/17 17:30 06/05/17 17:32 DC 06/05/17 18:01 3 ML Piperacillin Sod/ Tazobactam Sod 4.5 gm/Dextrose 100 ml @ 200 mls/hr ONCE ONCE IV 06/05/17 17:30 06/05/17 17:59 DC 06/05/17 17:51 200 MLS/HR Vital Signs/I&O 06/05/17 06/05/17 06/05/17 06/05/17 16:17 16:27 17:25 18:01 Temp 101.7 100.9 Pulse 145 134 Resp 28 30 B/P (MAP) 75/47 (56) 100/73 Pulse Ox 94 94 93 95 O2 Delivery Nasal Cannula Nasal Cannula Nasal Cannula Nasal Cannula O2 Flow Rate 2.00 2.00 2.00 4.00 4/11/18 18:23 Pulse 132 Resp 24 B/P (MAP) 100/59 Pulse Ox 92 O2 Delivery Nasal Cannula O2 Flow Rate 4.00 Capillary Refill : Progress Note : Progress Note Seen and evaluated. Septic shock order set initiated as patient's initial blood pressure is 70s over 40s. Normal saline 2 L bolus initiated which will exceeded the 30 mL/kg requirement. Monitor patient. Lactic acid noted to be elevated. Patient has declining blood pressure despite fluids. Patient will require pressors. Central line required. Consents signed and on chart. Central line placed at 1730. Tolerated procedure well with no complications. Third liter of normal saline initiated. Patient has been placed on O2 due to declining oxygen saturations. Does have history of COPD. RT DuoNeb ordered. Patient has been complaining of back pain throughout ER stay. Levophed started at 5 mcg/m and morphine 4 mg IV ordered. I did discuss the case with Dr. Jimenez at 1749. She accepts patient for admission. Dr. Schulz is unavailable for consult currently in eICU will be consulted. All findings concerns were discussed with the patient's mother who agrees with the plan. Patient's status is no compressions but mother is okay with the intubation if needed. She also understands the critical nature of this patient and that despite aggressive therapy, this may have poor outcome. She is more concerned about patient's comfort and understands the critical nature and aggressive therapy may not work. She would consider palliative and/or comfort care if deemed appropriate by the medical provider. Diagnostic Imaging Diagonstic Imaging: Xray Plain Films/CT/US/NM/MRI: chest Comments %(RAD)RES..mtdd.print.filter("cj")[facility] %(RAD)RES..mtdd.print.filter("cj")[place], [place] NAME: CATRACHO BEASLEY [facility] REC#: [id number] PT STATUS: REG ER : 1975 PHYSICIAN: ALON LUNA MD ADMIT DATE: 06/05/17/ER Draft Date of Exam:06/05/17 CHEST 1 VIEW, AP/PA ONLY INDICATION: Fever and cough. COMPARISON: 12/22/2014. FINDINGS: A single frontal view of the chest was obtained. The heart size is normal. The pulmonary vessels appear unremarkable. There is no pneumothorax, mediastinal widening, or pleural fluid. There are findings suggestive of COPD. There is moderate infiltrate in the left upper lobe. There is suspicion for minimal infiltrate seen in the lingula as well. There is a 12 mm nodular density in the medial right lower lung adjacent to the descending interlobar artery which may represent overlapping soft tissues; however, a nodule is not entirely excluded. The right lung is otherwise clear. IMPRESSION: 1. There is new left upper lobe and minimal lingular pneumonia. A short-term followup study is recommended to document resolution. 2. There is a 12 mm nodular density in the medial right lung base, possibly related to overlapping structures; however, a pulmonary nodule is not excluded. This area should be reevaluated at the time of the followup exam. If the findings do not resolve, a CT scan may be warranted. Report given to Dr. Luna at 4:42 p.m. 06/05/2017/kathy Dictated on workstation # [id number] Dict: 06/05/17 1632 Trans: 06/05/17 1704 [id number] Interpreted by: ILIANA BOO DO Electronically signed by: Diagonstic Imaging: Xray Plain Films/CT/US/NM/MRI: chest Comments NAME: CATRACHO BEASLEY [facility] REC#: [id number] PT STATUS: REG ER : 1975 PHYSICIAN: ALON LUNA MD ADMIT DATE: 06/05/17/ER Signed Date of Exam: 06/05/17 CHEST 1 VIEW, AP/PA ONLY INDICATION: Central line placement. COMPARISON: 06/05/2017 at 4:52 PM. FINDINGS: Right IJ central venous catheter has tip terminating at the superior cavoatrial junction. No pneumothorax. Left upper lobe heterogeneous consolidations are again noted. No pleural effusion or pneumothorax. Heart is normal in size. Numerous surgical clips are present in the left upper quadrant of the abdomen. IMPRESSION: 1. Appropriately positioned right IJ central venous catheter tip near the superior cavoatrial junction. No pneumothorax. 2. Left upper lobe heterogeneous consolidations are likely due to pneumonia superimposed on emphysema. Dictated by: Dictated on workstation # [id number] Dict: 06/05/171741 Trans: 06/05/171747 Interpreted by: VERONICA ALBA MD Electronically signed by: VERONICA ALBA MD 06/05/171747 Departure Communication (Admissions) Time/Spoke to Admitting Phy: 17:49 Impression Primary Impression: Septic shock Additional Impressions: Pneumonia Qualified Codes: J18.1 - Lobar pneumonia, unspecified organism Hypoxia Disposition: ADMITTED INPATIENT Condition: Critical Admissions Decision to Admit Reason: Admit from ER (General) Decision to Admit/Date: Jun 05, 2017 Time/Decision to Admit Time: 17:49 Departure-Patient Inst. Referrals: JUSTICE JO DO (PCP/Family) Primary Care Physician ALON LUNA MD Jun 05, 2017 16:12
[2017-06-05 16:21] LABS: BASOPHILS # (AUTO) 0.1 10^3/uL (0.0-0.1); BASOPHILS % (AUTO) 0 % (0-10); EOSINOPHILS % (AUTO) 0 % (0-10); HEMATOCRIT 41 % (40-54); HEMOGLOBIN 14.8 G/DL (13.3-17.7); LYMPHOCYTES # (AUTO) 2.5 X 10^3 (1.0-4.0); LYMPHOCYTES % (AUTO) 6 % (12-44); MEAN CORPUSCULAR HEMOGLOBIN 36 PG (25-34); MEAN CORPUSCULAR HGB CONC 36 G/DL (32-36); MEAN CORPUSCULAR VOLUME 100 FL (80-99); MEAN PLATELET VOLUME 10.3 FL (7.4-10.4); MONOCYTES # (AUTO) 4.1 X 10^3 (0.0-1.0); MONOCYTES % (AUTO) 10 % (0-12); NEUTROPHILS # (AUTO) 36.6 X 10^3 (1.8-7.8); NEUTROPHILS % (AUTO) 85 % (42-75); PLATELET COUNT 259 10^3/uL (130-400); RED CELL DISTRIBUTION WIDTH 15.4 % (10.0-14.5)
[2017-06-05 16:29] LABS: WHITE BLOOD COUNT 43.3 10^3/uL (4.3-11.0)
[2017-06-05 16:32] LABS: PROTHROMBIN TIME PATIENT 13.7 SEC (12.2-14.7)
[2017-06-05] MEDS: NS IV 1000 ML 1,000 ML IV SCH ×4 (16:32→20:20)
[2017-06-05 16:42] LABS: ALBUMIN 4.1 GM/DL (3.2-4.5); BILIRUBIN,TOTAL 1.1 MG/DL (0.1-1.0); CALCIUM 8.4 MG/DL (8.5-10.1); CREATININE SERUM 1.54 MG/DL (0.60-1.30); POTASSIUM 3.4 MMOL/L (3.6-5.0); TOTAL PROTEIN 6.9 GM/DL (6.4-8.2)
--- NOTE | 2017-06-05 16:43 | Diagnostic Imaging Report ---
INDICATION: Fever and cough. COMPARISON: 12/22/2014. FINDINGS: A single frontal view of the chest was obtained. The heart size is normal. The pulmonary vessels appear unremarkable. There is no pneumothorax, mediastinal widening, or pleural fluid. There are findings suggestive of COPD. There is moderate infiltrate in the left upper lobe. There is suspicion for minimal infiltrate seen in the lingula as well. There is a 12 mm nodular density in the medial right lower lung adjacent to the descending interlobar artery which may represent overlapping soft tissues; however, a nodule is not entirely excluded. The right lung is otherwise clear. IMPRESSION: 1. There is new left upper lobe and minimal lingular pneumonia. A short-term followup study is recommended to document resolution. 2. There is a 12 mm nodular density in the medial right lung base, possibly related to overlapping structures; however, a pulmonary nodule is not excluded. This area should be reevaluated at the time of the followup exam. If the findings do not resolve, a CT scan may be warranted. Report given to Dr. Yanes at 4:42 p.m. 06/05/2017/cb Dictated by: Dictated on workstation # [id number]
[2017-06-05 16:49] LABS: BAND NEUTROPHILS 26 %; BASOPHILS % (MANUAL) 1 %; EOSINOPHILS % (MANUAL) 0 %; LYMPHOCYTES % (MANUAL) 11 %; METAMYELOCYTES % 1 %; MONOCYTES % (MANUAL) 11 %; NEUTROPHILS % (MANUAL) 50 %
[2017-06-05] MEDS ORDERED: NOREPINEPHRINE 4 MG/4 ML (LEVOPHED) AMP IV ONE (16:49)
[2017-06-05] MEDS ORDERED: NS (IVPB) 250 ML ONE (16:49)
[2017-06-05 16:50] LABS: HOWELL-JOLLY BODIES MODERATE; TARGET CELLS SLIGHT
[2017-06-05] MEDS ORDERED: NOREPINEPHRINE 4 MG in NS (IVPB) 250 ML IV SCH (17:00)
[2017-06-05] MEDS ORDERED: PIPERACILLIN SODIUM/TAZOBACTAM 4.5 GM in D5W 100 ML IVPB 100 ML IV ONE (17:30)
[2017-06-05] MEDS ORDERED: RT-ALBUTEROL/IPRATROPIUM 3 ML (DUONEB) VIAL INH ONE (17:30)
[2017-06-05] MEDS ORDERED: morphine INJ 10 MG/ML 1ML (SYR OR VIAL) IVP STA (17:35)
--- NOTE | 2017-06-05 17:47 | Diagnostic Imaging Report ---
INDICATION: Central line placement. COMPARISON: 06/05/2017 at 4:52 PM. FINDINGS: Right IJ central venous catheter has tip terminating at the superior cavoatrial junction. No pneumothorax. Left upper lobe heterogeneous consolidations are again noted. No pleural effusion or pneumothorax. Heart is normal in size. Numerous surgical clips are present in the left upper quadrant of the abdomen. IMPRESSION: 1. Appropriately positioned right IJ central venous catheter tip near the superior cavoatrial junction. No pneumothorax. 2. Left upper lobe heterogeneous consolidations are likely due to pneumonia superimposed on emphysema. Dictated by: Dictated on workstation # [id number]
[2017-06-05] MEDS ORDERED: morphine INJ 4 MG/ML 1 ML (VIAL/SYRINGE) IV PRN (19:30)
[2017-06-05] MEDS ORDERED: CATHETER FLUSH 10 ML SYR IV PRN (19:30)
[2017-06-05] MEDS ORDERED: VANCOMYCIN 1500 MG/NS 500 ML IVPB IV NR ×2 (19:30)
[2017-06-05] MEDS ORDERED: ONDANSETRON 4 MG/2 ML (SDV) Z0FRAN IV PRN (19:30)
[2017-06-05] MEDS ORDERED: NS IV PRN (19:30)
[2017-06-05] MEDS ORDERED: LIDOCAINE UROJET 2% GEL 10 ML PKG ONE (19:43)
[2017-06-05] MEDS ORDERED: fentaNYL INJECTION 100 MCG/2 ML AMP ONE (21:13)
[2017-06-05] MEDS ORDERED: RT-ALBUTEROL/IPRATROPIUM 3 ML (DUONEB) VIAL INH PRN (21:15)
[2017-06-05] MEDS: fentaNYL INJECTION 100 MCG/2 ML AMP IVP PRN ×2 (21:20→23:19)
[2017-06-05] MEDS: RT-ALBUTEROL/IPRATROPIUM 3 ML (DUONEB) VIAL INH SCH (21:58)
[2017-06-06] VITALS (27 sets, daily range): BP systolic 95–136; BP diastolic 62–91
[2017-06-06] MEDS: NOREPINEPHRINE 4 MG in NS (IVPB) 250 ML IV SCH ×3 (00:07→22:11)
[2017-06-06] MEDS: PIPERACILLIN SODIUM/TAZOBACTAM 4.5 GM in NS (IVPB) 100 ML IV SCH ×3 (00:07→16:26)
[2017-06-06] MEDS: NS IV 1000 ML 1,000 ML IV SCH ×6 (00:08→21:14)
[2017-06-06] MEDS: fentaNYL INJECTION 100 MCG/2 ML AMP IVP PRN ×12 (00:13→22:58)
[2017-06-06 00:48] LABS: BILIRUBIN,URINE NEGATIVE (NEGATIVE); CLARITY,URINE CLEAR; COLOR,URINE YELLOW; GLUCOSE, URINE (UA) NEGATIVE (NEGATIVE); KETONES,URINE NEGATIVE (NEGATIVE); LEUKOCYTE ESTERASE ,URINE NEGATIVE (NEGATIVE); NITRITE,URINE NEGATIVE (NEGATIVE); PH,URINE 5 (5-9); PROTEIN,URINE NEGATIVE (NEGATIVE); UROBILINOGEN,URINE NORMAL (NORMAL)
[2017-06-06 00:59] LABS: BACTERIA,URINE NEGATIVE /HPF; RBC,URINE RARE /HPF; SQUAMOUS EPITHELIAL CELL,UR RARE /HPF
[2017-06-06] MEDS: RT-ALBUTEROL/IPRATROPIUM 3 ML (DUONEB) VIAL INH SCH ×6 (01:03→22:31)
[2017-06-06] MEDS: PHENYLEPHRINE INJECTION 10 MG in NS (IVPB) 250 ML IV SCH ×6 (01:52→21:14)
[2017-06-06 03:48] LABS: BASOPHILS # (AUTO) 0.1 10^3/uL (0.0-0.1); BASOPHILS % (AUTO) 0 % (0-10); EOSINOPHILS % (AUTO) 0 % (0-10); HEMATOCRIT 34 % (40-54); HEMOGLOBIN 12.2 G/DL (13.3-17.7); LYMPHOCYTES # (AUTO) 1.7 X 10^3 (1.0-4.0); LYMPHOCYTES % (AUTO) 4 % (12-44); MEAN CORPUSCULAR HEMOGLOBIN 36 PG (25-34); MEAN CORPUSCULAR HGB CONC 36 G/DL (32-36); MEAN CORPUSCULAR VOLUME 101 FL (80-99); MONOCYTES % (AUTO) 6 % (0-12); NEUTROPHILS # (AUTO) 42.9 X 10^3 (1.8-7.8); NEUTROPHILS % (AUTO) 90 % (42-75); PLATELET COUNT 222 10^3/uL (130-400); RED BLOOD COUNT 3.38 10^6/uL (4.35-5.85); RED CELL DISTRIBUTION WIDTH 15.6 % (10.0-14.5)
[2017-06-06 03:55] LABS: WHITE BLOOD COUNT 47.6 10^3/uL (4.3-11.0)
[2017-06-06 04:00] LABS: ABG BASE EXCESS -3.8 MMOL/L (-2.5-2.5); ABG OXYGEN SATURATION 93 % (94-100); ABG PCO2 38 MMHG (35-45); ABG PH 7.36 (7.37-7.43); ABG PO2 73 MMHG (79-93); ABG TCO2 21.9 MMOL/L (21.0-31.0)
[2017-06-06 04:01] LABS: ALLENS TEST YES-POS; INSPIRED O2 40% BIPAP; PATIENT TEMP 98.3; VENTILATOR NO
[2017-06-06 04:14] LABS: ALANINE AMINOTRANSFERASE 27 U/L (0-55); ALBUMIN 3.3 GM/DL (3.2-4.5); ALKALINE PHOSPHATASE 66 U/L (40-136); BILIRUBIN,TOTAL 0.8 MG/DL (0.1-1.0); BUN/CREATININE RATIO 13; CALCIUM 6.8 MG/DL (8.5-10.1); CARBON DIOXIDE 18 MMOL/L (21-32); CHLORIDE 111 MMOL/L (98-107); CREATININE SERUM 0.61 MG/DL (0.60-1.30); GFR ESTIMATED > 60; GLUCOSE 113 MG/DL (70-105); MAGNESIUM 1.1 MG/DL (1.8-2.4); PHOSPHORUS 2.9 MG/DL (2.3-4.7); POTASSIUM 3.4 MMOL/L (3.6-5.0); SODIUM 139 MMOL/L (135-145); TOTAL PROTEIN 5.4 GM/DL (6.4-8.2)
[2017-06-06] MEDS: MAGNESIUM 1 GM/100 ML IVPB 100 ML IV SCH ×4 (06:21→10:38)
[2017-06-06] MEDS: POTASSIUM CL 10MEQ/50ML IVPB 50 ML IV SCH ×2 (06:21→07:45)
--- NOTE | 2017-06-06 08:08 | Diagnostic Imaging Report ---
INDICATION: Pneumonia COMPARISON: 06/05/2017 FINDINGS: A midlung infiltrate on the left showed progressive extend from prior. This is likely some increasing and developing infrahilar infiltrate in the right lower lung as a new finding. Background COPD chronic. A right IJ is at the lower SVC. IMPRESSION: Findings suggest worsened bilateral pneumonia greater left. Dictated by: Dictated on workstation # [id number]
--- NOTE | 2017-06-06 10:56 | History & Physical-Hospitalist ---
History of Present Illness HPI/Chief Complaint CC: Septic shock HPI: This is a 42-year-old white male with history of traumatic brain injury that has a guardian and Crohn's disease on immunosuppressants presented to the ER with altered mental status and hypoxia. He was found to have septic shock with blood pressure of systolic of 60 hypoxia that improved on IV fluid resuscitation and pressor therapy. Patient did not require intubation and he is a DO NOT RESUSCITATE given the quality of life he has had in the past and the suffering that may cause him for lack of quality of life return. He is much improved today still has a cough and I reviewed chest x-ray and labs with white count noted to be about the same as yesterday. He does smoke so smoking cessation counseling initiated. Home medication reconciliation is yet to be completed. He reports chronic low back pain. His primary care provider is Dr. Jo. He reports a cough that is been present for about a week that worsened with fever and declined rapidly. Source: patient, RN/MD, caregiver Exam Limitations: no limitations Date Seen 06/06/17 Time Seen by Provider: 10:00 Attending Physician Contreras Jo DO PCP Contreras Jo DO Referring Physician Date of Admission Jun 05, 2017 at 18:12 Home Medications & Allergies Home Medications Reviewed patient Home Medication Reconciliation performed by pharmacy medication reconciliations mobile sales technician and/or nursing. Patients Allergies have been reviewed. Allergies Allergies Coded Allergies ceftazidime (Verified Allergy, Intermediate, RASH, 06/15/16) nalbuphine (Unverified Allergy, Mild, RASH, 03/29/06) Iodinated Contrast- Oral and IV Dye (Verified Allergy, Unknown, HIVES, 05/02/15) Sulfa (Sulfonamide Antibiotics) (Verified Allergy, Unknown, 03/29/06) latex (Verified Allergy, Unknown, 05/03/15) strawberry (Unverified Allergy, Unknown, 12/18/13) FROM UNCODED ALLERGIES Uncoded Allergies TAPE ( Allergy, Unknown, 03/29/06) Past Glblhtq-Roukwf-Beksfc Hx Past Med/Social Hx: Reviewed Nursing Past Med/Soc Hx, Reviewed and Corrections made Patient Social History Marrital Status: single Employed/Student: unemployed Alcohol Use: Occasionally Uses Number of Drinks Today: AA Alcohol Beverage of Choice: Beer Recreational Drug Use: No Smoking Status: Current Everyday Smoker Type Used: Cigarettes Physical Abuse Screen: No Sexual Abuse: No Recent Foreign Travel: No Contact w/other who traveled: No Recent Hopitalizations: No Recent Infectious Disease Expo: No Immunizations Up To Date Date of Pneumonia Vaccine: Feb 25, 2015 Date of Influenza Vaccine: Feb 25, 2015 Seasonal Allergies Seasonal Allergies: No Past Medical History Surgeries: Abdominal, Appendectomy, Bowel Surgery, Gallbladder Respiratory: COPD Neurological: Traumatic Brain Injury Reproductive: No Sexually Transmitted Disease: No Gastrointestinal: Crohns Disease Musculoskeletal: Arthritis, Fractures Cancer: Lymphoma 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 ) Adverse Reaction to Blood Allen: No Family History Reviewed Nursing Family Hx No Family History of: Abdominal aortic aneurysm Ankit's disease Alcoholism Aphasia Cancer Cancer of colon Cataract Chest pain Congenital heart disease Congestive heart failure Cystic fibrosis Dementia Dysphagia Family history: Allergy Family history: Alzheimer's disease Family history: Arthritis Family history: Asthma Family history: Breast disease Family history: Cardiovascular disease Family history: Coronary thrombosis Family history: Diabetes mellitus Family history: Gastrointestinal disease Family history: Glaucoma Family history: Hypertension Family history: Osteoporosis Family history: Thyroid disorder Headache Hearing loss Heart disease Hereditary disease History of - anemia History of - disorder History of - respiratory disease History of drug abuse Human immunodeficiency virus (HIV) seropositivity Hypercholesterolemia Infertile Kidney disease Malignant neoplasm of lung Myocardial infarction Parkinson's disease Prostate cancer Psychotic disorder Seizure disorder Stroke Tuberculosis Visual impairment Diabetes Review of Systems Constitutional: see HPI, chills, diaphoresis, dizziness, fever, malaise EENTM: no symptoms reported Respiratory: cough, short of breath, wheezing Cardiovascular: no symptoms reported Gastrointestinal: loss of appetite, nausea Genitourinary: decreased output Musculoskeletal: back pain Skin: no symptoms reported Psychiatric/Neurological: No Symptoms Reported All Other Systems Reviewed Negative Unless Noted: Yes Physical Exam Physical Exam Vital Signs Vital Signs - First Documented 06/05/17 06/05/17 16:17 19:55 Temp 101.7 Pulse 145 Resp 28 B/P (MAP) 75/47 (56) Pulse Ox 94 O2 Delivery Nasal Cannula O2 Flow Rate 2.00 FiO2 70 Capillary Refill : Less Than 3 Seconds General Appearance: No Apparent Distress, WD/WN, Anxious, Chronically ill HEENT: PERRL/EOMI, Normal ENT Inspection, Pharynx Normal Neck: Full Range of Motion, Normal Inspection, Non Tender, Supple Respiratory: Crackles, Decreased Breath Sounds, Wheezing Cardiovascular: Regular Rate, Rhythm, No Edema, No Gallop, No JVD, No Murmur, Normal Peripheral Pulses Gastrointestinal: Normal Bowel Sounds, No Organomegaly, Non Tender, Soft Back: Normal Inspection, No CVA Tenderness, No Vertebral Tenderness Extremity: Normal Capillary Refill, Normal Inspection, Normal Range of Motion, Non Tender, No Calf Tenderness Neurologic/Psychiatric: Alert, No Motor/Sensory Deficits, Normal Mood/Affect, riffler tender II-XII Norm as Tested, Other (chronic poor recall) Results Results/Procedures Labs Laboratory Tests 06/05/17 16:15 06/06/17 03:30 Patient resulted labs reviewed. Assessment/Plan Admission Diagnosis Assessment: Septic shock Pneumonia History of lymphoma with ruptured intestine Crohn's disease on immunosuppressants Current smoker Severe leukocytosis Plan: Continue IV fluids Broad-spectrum antibiotics Maintain ICU status High risk for intubation DO NOT RESUSCITATE noted and will abide by that but short-term intubation if the possibility of recovery is approved Smoking cessation Reconcile home meds but hold immunosuppressants Admission Status: Inpatient Order (span 2 midnights) Reason for Inpatient Admission: septic shock from pneumonia Diagnosis/Problems Diagnosis/Problems (1) Septic shock Status: Acute (2) Pneumonia Status: Acute Qualifiers: Pneumonia type: due to unspecified organism Laterality: bilateral Lung location: lower lobe of lung Qualified Codes: J18.1 - Lobar pneumonia, unspecified organism (3) Smoker Status: Chronic (4) Crohn disease Status: Chronic Qualifiers: Gastrointestinal tract location: unspecified location Digestive disease complication type: unspecified complication Qualified Codes: K50.919 - Crohn' s disease, unspecified, with unspecified complications (5) Immunosuppressed status Status: Chronic (6) Personal history of lymphoma Status: Chronic (7) Leukocytosis Status: Acute Qualifiers: Leukocytosis type: leukemoid reaction Qualified Codes: D72.823 - Leukemoid reaction Clinical Quality Measures DVT/VTE Risk/Contraindication: Risk Factor Score Per Nursin RFS Level Per Nursing on Admit: 1=Low/No VTE PPX MEHDI AMBROCIO DO Jun 06, 2017 10:56
--- OUTSIDE RECORDS SUMMARY | 2017-06-06 11:10 | XMS REPORT | Clinical Summary ---
Author Author [facility] Organization [facility] Address Unknown Phone Unavailable Care Team Providers Care Manager Search Name Role Phone Contreras Jo MD PCP Anum Bain MD Unavailable Yarely Patterson RN Unavailable Unavailable Source Comments Some departments are not documenting in the electronic medical record. If you do not see the information that you expected, contact Release of Information in the Health Information Management department at [phone] for further assistance in locating additional records.[facility] Allergies Active Allergy Reactions Severity Noted Date Comments Adhesive Tape (Rosins) ITCHING 12/25/2013 Ceftazidime UNKNOWN 12/25/2013 Latex UNKNOWN 12/25/2013 Sulfa (Sulfonamide UNKNOWN 12/25/2013 Antibiotics) Current Medications Prescription Sig. Disp. Refills [...] disorder, unspecified 01/01/2014 Crohn disease (HCC) 12/25/2013 Family History * Patient is adopted Medical History Relation Name Comments Ulcerative Colitis Mother Relation Name Status Comments Mother Social History Tobacco Use Types Packs/Day Years Used Date Current Every Day Smoker Cigarettes 0.5 Started: 12/25/1998 Tobacco Cessation: Ready to Quit: Yes; Counseling Given: Yes Alcohol Use Drinks/Week oz/Week Comments Yes 2 Standard 1.0 Social drinks or equivalent Sex Assigned at Date Recorded Not on file Last Filed Vital Signs Vital Sign Reading Time Taken Blood Pressure 110/70 01/09/2014 11:20 AM [employer] Pulse 78 01/09/2014 11:20 AM [employer] Temperature 36.6 C (97.8 F) 01/09/2014 11:20 AM [employer]IST Respiratory Rate - - Oxygen Saturation 100% 01/09/2014 11:20 AM [employer]IST Inhaled Oxygen - - Concentration Weight 50.8 kg (112 lb) 01/08/2014 4:00 AM [employer] G[employer]IST Height 175.3 cm (5' 9") 12/25/2013 8:09 PM CDT Body Mass Index 16.54 01/08/2014 4:00 AM [employer] Plan of Treatment Health Maintenance Due Date Last Done Comments PHYSICAL (COMPREHENSIVE) 1984 EXAM PERTUSSIS VACCINE 1988 HIV SCREENING 1992 TETANUS VACCINE 1994 INFLUENZA VACCINE 11/25/2017 Results Not on filefrom Last 3 Months
[2017-06-06] MEDS ORDERED: DICY10CA12 PO (11:14)
[2017-06-06] MEDS ORDERED: MESA800T3 PO (11:14)
[2017-06-06] MEDS ORDERED: POLY17PO6 PO (11:14)
[2017-06-06] MEDS ORDERED: HYOS-20 PO (11:14)
[2017-06-06] MEDS ORDERED: PRD10T PO (11:14)
[2017-06-06] MEDS ORDERED: ADAL40PE SC (11:14)
--- OUTSIDE RECORDS SUMMARY | 2017-06-06 11:19 | XMS REPORT | Continuity of Care Document ---
Author Author [facility] Organization [facility] Address Unknown Phone Unavailable Allergies Active Description Code Type Severity Reaction Onset Reported/Identified Relationship to Patient Clinical Status Yes nalbuphine [id number] Drug Allergy Mild RASH 03/29/2006 Yes ceftazidime [id number] Drug Allergy Unknown N/A 03/29/2006 Yes ceftazidime (anhydrous) [id number] Drug Allergy Unknown N/A 03/29/2006 Yes Sulfa (Sulfonamide Antibiotics) [id number] Drug Allergy Unknown N/A 2006 Yes TAPE TAPE Unknown N/A 03/29/2006 Yes strawberry [id number] Drug Allergy Unknown N/A 12/18/2013 Yes Iodinated Contrast Media - IV Dye [id number] Drug Allergy Unknown HIVES 08/2015 Yes Iodinated Contrast Media - Oral and [id number] Drug Allergy Unknown HIVES 05/02/2015 Yes Iodinated Contrast- Oral and IV Dye [id number] Drug Allergy Unknown HIVES 05/02/2015 Yes latex [id number] Drug Allergy Unknown N/A 05/03/2015 Yes ceftazidime [id number] Drug Allergy Moderate RASH 06/15/2016 Medications There is no data. Problems Date Dx Coded Attending Type Code Diagnosis Diagnosed By 11/17/2008 Ot 200.73 11/17/2008 Ot 266.2 11/17/2008 Ot 555.9 11/17/2008 Ot 579.3 11/17/2008 Ot V45.72 12/29/2008 Ot 723.1 12/29/2008 Ot V57.1 01/19/2009 Ot 202.00 01/19/2009 Ot 555.9 01/19/2009 Ot 579.3 01/19/2009 Ot V45.72 01/19/2009 Ot V58.69 04/23/2009 Ot 555.9 04/23/2009 Ot 569.3 11/16/2009 Ot 555.9 11/16/2009 Ot 560.1 11/16/2009 Ot 789.09 11/26/2009 Ot 263.9 11/26/2009 Ot 555.9 11/26/2009 Ot 936 11/26/2009 Ot E000.8 11/26/2009 Ot E915 11/26/2009 Ot V10.79 11/26/2009 Ot V15.81 04/29/2010 Ot 202.80 04/29/2010 Ot 263.9 04/29/2010 Ot 305.00 04/29/2010 Ot 305.1 04/29/2010 Ot 555.2 04/29/2010 Ot 936 04/29/2010 Ot E915 04/29/2010 Ot V15.81 05/19/2010 Ot 202.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 SOLID ORGAN U 05/19/2010 Ot 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 05/19/2010 Ot 301.51 CHR FACTITIOUS ILLNESS 05/19/2010 Ot 301.7 ANTISOCIAL PERSONALITY 05/19/2010 Ot 305.00 ALCOHOL ABUSE-UNSPEC 05/19/2010 Ot 305.1 TOBACCO USE DISORDER 05/19/2010 Ot 305.80 ANTIDEPRESS ABUSE-UNSPEC 05/19/2010 Ot 307.52 PICA 05/19/2010 Ot 555.0 REG ENTERITIS , SM INTEST 05/19/2010 Ot 569.41 RECTAL ANAL ULCER 05/19/2010 Ot 863.45 RECTUM INJURY-CLOSED 05/19/2010 Ot 936 FB IN INTESTINE COLON 05/19/2010 Ot E958.8 SUICIDE/SELF -INJURY NEC 05/19/2010 Ot V45.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 05/19/2010 Ot V45.79 ACQRD ABSENCE OF OTH ORGAN 05/19/2010 Ot V88.11 ACQUIRED TOTAL ABSENCE OF PANCREAS 03/22/2011 Ot 465.9 ACUTE URI NOS 03/22/2011 Ot 780.96 GENERALIZED PAIN 03/22/2011 Ot 786.2 COUGH 03/22/2011 Ot 789.09 ABDOMINAL PAIN, OTHER SPECIFIED SITE 03/22/2011 Ot 791.9 ABN URINE FINDINGS NEC 03/22/2011 Ot V58.69 OTH MED,LT, CURRENT USE 04/24/2011 Ot 202.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 SOLID ORGAN U 04/24/2011 Ot 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 04/24/2011 Ot 300.00 ANXIETY STATE NOS 04/24/2011 Ot 301.9 PERSONALITY DISORDER NOS 04/24/2011 Ot 305.03 ALCOHOL ABUSE-IN REMISS 04/24/2011 Ot 555.0 REG ENTERITIS , SM INTEST 04/24/2011 Ot 799.4 CACHEXIA 04/24/2011 Ot V15.82 HISTORY OF TOBACCO USE 04/24/2011 Ot V45.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 07/10/2011 Ot 112.0 THRUSH 07/10/2011 Ot 202.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 SOLID ORGAN U 07/10/2011 Ot 276.51 DEHYDRATION 07/10/2011 Ot 555.9 REGIONAL ENTERITIS NOS 07/10/2011 Ot V58.69 OTH MED,LT, CURRENT USE 07/10/2011 Ot V87.41 PERSONAL HISTORY OF ANTINEOPLASTIC CHEMO 01/19/2013 ADDIS MENDOZA, EVELINA Arrington Ot 211.4 BENIGN NEOPL RECTUM/ANUS 01/19/2013 ADDIS MENDOZA, EVELINA Arrington Ot 555.9 REGIONAL ENTERITIS NOS 02/20/2013 JUSTICE SAHA DO Ot 202.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 SOLID ORGAN U 02/20/2013 JUSTICE SAHA DO Ot 238.71 ESSENTIAL THROMBOCYTHEMIA 02/20/2013 JUSTICE SAHA DO Ot 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 02/20/2013 JUSTICE SAHA DO Ot 263.1 MALNUTRITION MILD DEGREE 02/20/2013 JUSTICE SAHA DO Ot 276.8 HYPOPOTASSEMIA 02/20/2013 JUSTICE SAHA DO Ot 285.1 AC POSTHEMORRHAG ANEMIA 02/20/2013 JUSTICE SAHA DO Ot 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 02/20/2013 JUSTICE SAHA DO Ot 458.9 HYPOTENSION NOS 02/20/2013 JUSTICE SAHA DO Ot 530.11 REFLUX ESOPHAGITIS 02/20/2013 JUSTICE SAHA DO Ot 530.20 ULCER OF ESOPHAGUS W/O BLEEDING 02/20/2013 JUSTICE SAHA DO Ot 533.40 CHR PEPTIC ULCER W HEM 02/20/2013 JUSTICE SAHA DO Ot 535.50 UNSP GASTRITIS GASTRODUODENITIS W/O ME 02/20/2013 JUSTICE SAHA DO Ot 555.9 REGIONAL ENTERITIS NOS 02/20/2013 JUSTICE SAHA DO Ot 560.1 PARALYTIC ILEUS 02/20/2013 JUSTICE SAHA DO Ot 568.0 PERITONEAL LGOAVWEUC-KIDD-PP/INF 02/20/2013 JUSTICE SAHA DO Ot 575.11 CHRONIC CHOLECYSTITIS 02/20/2013 JUSTICE SAHA DO Ot 997.49 OTHER DIGESTIVE SYSTEM COMPLICATIONS 02/20/2013 JUSTICE SAHA DO Ot E932.0 ADV EFF CORTICOSTEROIDS 02/20/2013 JUSTICE SAHA DO Ot V15.82 HISTORY OF TOBACCO USE 02/20/2013 JUSTICE SAHA DO Ot V45.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 03/12/2013 FINN MILLER DO Ot 238.71 ESSENTIAL THROMBOCYTHEMIA 03/12/2013 FINN MILLER DO Ot 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 03/12/2013 FINN MILLER DO Ot 263.1 MALNUTRITION MILD DEGREE 03/12/2013 FINN MILLER DO Ot 280.9 IRON DEFIC ANEMIA NOS 03/12/2013 FINN MILLER DO Ot 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 03/12/2013 FINN MILLER DO Ot 305.00 ALCOHOL ABUSE-UNSPEC 03/12/2013 FINN MILLER DO Ot 305.1 TOBACCO USE DISORDER 03/12/2013 FINN MILLER DO Ot 555.9 REGIONAL ENTERITIS NOS 03/12/2013 FINN MILLER DO Ot 566 ANAL RECTAL ABSCESS 03/12/2013 FINN MILLER DO Ot 729.1 MYALGIA AND MYOSITIS NOS 03/12/2013 FINN MILLER DO Ot E932.0 ADV EFF CORTICOSTEROIDS 03/12/2013 FINN MILLER DO Ot V10.79 HX-LYMPHATIC MALIGN NEC 03/12/2013 FINN MILLER DO Ot V12.71 PERSONAL HISTORY OF PEPTIC ULCER DISEASE 03/12/2013 FINN MILLER DO Ot V58.65 LONG-TERM(CURRENT)USE OF STEROIDS 05/11/2013 MICHELLE RIZZO MD Ot 202.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 SOLID ORGAN U 05/11/2013 MICHELLE RIZZO MD Ot 238.71 ESSENTIAL THROMBOCYTHEMIA 05/11/2013 MICHELLE RIZZO MD Ot 266.2 B-COMPLEX DEFIC NEC 05/11/2013 MICHELLE RIZZO MD Ot 280.9 IRON DEFIC ANEMIA NOS 05/11/2013 MICHELLE RIZZO MD Ot 288.60 LEUKOCYTOSIS, UNSPECIFIED 05/11/2013 MICHELLE RIZZO MD Ot 530.81 ESOPHAGEAL REFLUX 05/11/2013 MICHELLE RIZZO MD Ot 555.9 REGIONAL ENTERITIS NOS 05/11/2013 MICHELLE RIZZO MD Ot 787.02 NAUSEA ALONE 05/11/2013 MICHELLE RIZZO MD Ot V58.69 OTH MED,LT,CURRENT USE 05/18/2013 ADDIS MENDOZA, EVELINA Arrington Ot 535.50 UNSP GASTRITIS GASTRODUODENITIS W/O ME 05/18/2013 ADDIS MENDOZA, EVELINA Arrington Ot V12.71 PERSONAL HISTORY OF PEPTIC ULCER DISEASE 08/25/2013 MICHELLE RIZZO MD Ot 202.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 SOLID ORGAN U 08/25/2013 MICHELLE RIZZO MD Ot 238.71 ESSENTIAL THROMBOCYTHEMIA 08/25/2013 MICHELLE RIZZO MD Ot 266.2 B-COMPLEX DEFIC NEC 08/25/2013 MICHELLE RIZZO MD Ot 280.9 IRON DEFIC ANEMIA NOS 08/25/2013 MICHELLE RIZZO MD Ot 288.60 LEUKOCYTOSIS, UNSPECIFIED 08/25/2013 MICHELLE RIZZO MD Ot 530.81 ESOPHAGEAL REFLUX 08/25/2013 MICHELLE RIZZO MD Ot 555.9 REGIONAL ENTERITIS NOS 08/25/2013 MICHELLE RIZZO MD Ot V58.69 OTH MED,LT,CURRENT USE 08/25/2013 MICHELLE RIZZO MD Ot V87.41 PERSONAL HISTORY OF ANTINEOPLASTIC CHEMO 12/25/2013 JUSTICE SAHA DO Ot 202.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 SOLID ORGAN U 12/25/2013 JUSTICE SAHA DO Ot 263.1 MALNUTRITION MILD DEGREE 12/25/2013 JUSTICE SAHA DO Ot 280.9 IRON DEFIC ANEMIA NOS 12/25/2013 JUSTICE SAHA DO Ot 301.9 PERSONALITY DISORDER NOS 12/25/2013 JUSTICE SAHA DO Ot 305.1 TOBACCO USE DISORDER 12/25/2013 SAHA DO, JUSTICE J Ot 555.0 REG ENTERITIS, SM INTEST 12/25/2013 JUSTICE SAHA DO Ot 560.89 INTESTINAL OBSTRUCT NEC 12/25/2013 JUSTICE SAHA DO Ot 560.9 12/25/2013 JUSTICE SAHA DO Ot 780.52 INSOMNIA, UNSPECIFIED 12/25/2013 JUSTICE SAHA DO Ot 799.02 HYPOXEMIA 12/25/2013 JUSTICE SAHA DO Ot 799.4 CACHEXIA 12/25/2013 JUSTICE SAHA DO Ot V45.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 02/04/2014 MATTHIAS MENDOZA, MICHELLE Ot 202.80 02/04/2014 MATTHIAS MENDOZA, MICHELLE Ot 238.71 02/04/2014 MATTHIAS MENDOZA, MICHELLE Ot 266.2 02/04/2014 MATTHIAS MENDOZA, MICHELLE Ot 280.9 02/04/2014 MATTHIAS MENDOZA, MICHELLE Ot 288.60 02/04/2014 MATTHIAS MENDOZA, MICHELLE Ot 530.81 02/04/2014 MATTHIAS MENDOZA, MICHELLE Ot 555.9 02/04/2014 MATTHIAS MENDOZA, MICHELLE Ot V58.69 02/04/2014 MATTHIAS MENDOZA, MICHELLE Ot V87.41 02/10/2014 MATTHIAS MENDOZA, MICHELLE Ot 202.80 02/10/2014 MATTHIAS MENDOZA, MICHELLE Ot 238.71 02/10/2014 MATTHIAS MENDOZA, MICHELLE Ot 266.2 02/10/2014 MATTHIAS MENDOZA, MICHELLE Ot 280.9 02/10/2014 MATTHIAS MENDOZA, MICHELLE Ot 288.60 02/10/2014 MATTHIAS MENDOZA, [facility] Ot 530.81 02/10/2014 MATTHIAS MENDOZA, [facility] Ot 555.9 02/10/2014 MATTHIAS MENDOZA, [facility] Ot V58.69 02/10/2014 MATTHIAS MENDOZA, MICHELLE Ot V87.41 02/11/2014 MATTHIAS MENDOZA, [employer] Ot 202.80 02/11/2014 MATTHIAS MENDOZA, [employer] Ot 238.71 02/11/2014 MATTHIAS MENDOZA, [employer] Ot 266.2 02/11/2014 MATTHIAS MENDOZA, [facility] Ot 280.9 02/11/2014 MATTHIAS MENDOZA, [employer] Ot 288.60 02/11/2014 MATTHIAS MENDOZA, [facility]ITT[facility] Ot 530.81 02/11/2014 MATTHIAS MENDOZA, [facility]ITT[facility] Ot 555.9 02/11/2014 MATTHIAS MENDOZA, [facility]ITT[facility] Ot V58.69 02/11/2014 MATTHIAS MENDOZA, [facility]ITT[facility] Ot V87.41 03/25/2014 MATTHIAS MENDOZA, [facility]ITT[facility] Ot 202.80 03/25/2014 MATTHIAS MENDOZA, [facility]ITT[facility] Ot 238.71 03/25/2014 MATTHIAS MENDOZA, [facility]ITT[facility] Ot 266.2 03/25/2014 MATTHIAS MENDOZA, [facility] Ot 280.9 03/25/2014 MATTHIAS MENDOZA, [facility] Ot 288.60 03/25/2014 MATTHIAS MENDOZA, [facility]ITT[facility] Ot 530.81 03/25/2014 MATTHIAS MENDOZA, [facility] Ot 555.9 03/25/2014 MATTHIAS MENDOZA, [facility] Ot V58.69 03/25/2014 MATTHIAS MENDOZA, [facility]ITT[facility] Ot V87.41 03/26/2014 MATTHIAS MENDOZA, [facility]ITT[facility] Ot 202.80 03/26/2014 MATTHIAS MENDOZA, [facility]ITT[facility] Ot 238.71 03/26/2014 MATTHIAS MENDOZA, [facility]ITT[facility] Ot 266.2 03/26/2014 MATTHIAS MENDOZA, [facility]ITT[facility] Ot 280.9 03/26/2014 MATTHIAS MENDOZA, [facility]ITT[facility] Ot 288.60 03/26/2014 MATTHIAS MENDOZA, [facility] Ot 530.81 03/26/2014 MATTHIAS MENDOZA, [facility]ITT[facility] Ot 555.9 03/26/2014 MATTHIAS MENDOZA, [facility]ITT[facility] Ot V58.69 03/26/2014 MATTHIAS MENDOZA, BRITT[facility]OLINE Ot V87.41 04/21/2014 Ot 200.73 04/21/2014 Ot 266.2 04/21/2014 Ot 555.9 04/21/2014 Ot 579.3 04/21/2014 Ot V45.72 04/21/2014 Ot 721.3 04/21/2014 Ot 202.80 04/21/2014 Ot 266.2 04/21/2014 Ot 555.9 04/21/2014 Ot 579.3 04/21/2014 Ot V58.69 04/21/2014 Ot 571.8 04/21/2014 Ot 789.00 04/21/2014 Ot 202.80 04/21/2014 Ot 555.9 04/21/2014 Ot 579.3 04/21/2014 Ot V58.69 04/21/2014 Ot 202.80 04/21/2014 Ot 288.60 04/21/2014 Ot 555.9 04/21/2014 Ot 579.3 04/21/2014 Ot V58.69 04/21/2014 Ot 202.80 04/21/2014 Ot 287.5 04/21/2014 Ot 288.60 04/21/2014 Ot 300.00 04/21/2014 Ot 555.9 04/21/2014 Ot V58.69 04/21/2014 Ot V87.41 04/21/2014 Ot 202.80 04/21/2014 Ot 789.00 04/21/2014 Ot 486 04/21/2014 Ot 555.9 04/21/2014 ADDIS MENDOZA, EVELINA Arrington Ot V72.84 04/21/2014 FINN MILLER DO Ot 566 04/21/2014 ADDIS MENDOZA, EVELINA Arrington Ot V72.84 04/21/2014 MATTHIAS MENDOZA, MICHELLE Ot 202.80 04/21/2014 MATTHIAS MENDOZA, MICHELLE Ot 238.71 04/21/2014 MATTHIAS MENDOZA, MICHELLE Ot 266.2 04/21/2014 MATTHIAS MENDOZA, MICHELLE Ot 280.9 04/21/2014 MATTHIAS MENDOZA, MICHELLE Ot 288.60 04/21/2014 MATTHIAS MENDOZA, [employer] Ot 530.81 04/21/2014 MATTHIAS MENDOZA, [facility] Ot 555.9 04/21/2014 MATTHIAS MENDOZA, [employer] Ot V58.69 04/21/2014 MATTHIAS MENDOZA, [employer] Ot V87.41 04/21/2014 ADDIS MENDOZA, EVELINA Arrington Ot V72.84 05/11/2014 MATTHIAS MENDOZA, [employer]OL[employer] Ot 202.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 SOLID ORGAN U 05/11/2014 MATTHIAS MENDOZA, MICHELLE Ot 238.71 ESSENTIAL THROMBOCYTHEMIA 05/11/2014 MATTHIAS MENDOZA, MICHELLE Ot 266.2 B-COMPLEX DEFIC NEC 05/11/2014 MATTHIAS MENDOZA, MICHELLE Ot 280.9 IRON DEFIC ANEMIA NOS 05/11/2014 MATTHIAS MENDOZA, MICHELLE Ot 288.60 LEUKOCYTOSIS, UNSPECIFIED 05/11/2014 MATTHIAS MENDOZA, MICHELLE Ot 530.81 ESOPHAGEAL REFLUX 05/11/2014 MATTHIAS MENDOZA, [facility] Ot 555.9 REGIONAL ENTERITIS NOS 05/11/2014 MATTHIAS MENDOZA, [facility] Ot V58.69 OT MED,LT,CURRENT USE 05/11/2014 MATTHIAS MENDOZA, [facility] Ot V87.41 PERSONAL HISTORY OF ANTINEOPLASTIC CHEMO 05/20/2014 Ot 555.0 05/20/2014 Ot 789.00 06/02/2014 Ot 721.3 06/02/2014 Ot 202.80 06/02/2014 Ot 266.2 06/02/2014 Ot 555.9 06/02/2014 Ot 579.3 06/02/2014 Ot V58.69 06/02/2014 Ot 571.8 06/02/2014 Ot 789.00 06/02/2014 Ot 202.80 06/02/2014 Ot 555.9 06/02/2014 Ot 579.3 06/02/2014 Ot V58.69 06/02/2014 Ot 202.80 06/02/2014 Ot 288.60 06/02/2014 Ot 555.9 06/02/2014 Ot 579.3 06/02/2014 Ot V58.69 06/02/2014 Ot 202.80 06/02/2014 Ot 287.5 06/02/2014 Ot 288.60 06/02/2014 Ot 300.00 06/02/2014 Ot 555.9 06/02/2014 Ot V58.69 06/02/2014 Ot V87.41 06/02/2014 Ot 202.80 06/02/2014 Ot 789.00 06/02/2014 Ot 486 06/02/2014 Ot 555.9 06/02/2014 ADDIS MENDOZA, EVELINA Arrington Ot V72.84 06/02/2014 FINN MILLER DO Ot 566 06/02/2014 ADDIS MENDOZA, EVELINA Arrington Ot V72.84 06/02/2014 ADDIS MENDOZA, EVELINA Arrington Ot V72.84 06/02/2014 Ot 555.0 06/02/2014 Ot 789.00 06/02/2014 MATTHIAS MENDOZA, [facility] Ot 202.80 06/02/2014 MATTHIAS MENDOZA, [facility] Ot 238.71 06/02/2014 MATTHIAS MENDOZA, [facility] Ot 266.2 06/02/2014 MATTHIAS MENDOZA, BRITT-CAROLINE Ot 280.9 06/02/2014 MATTHIAS MENDOZA, BRITT-CAROLINE Ot 288.60 06/02/2014 MATTHIAS MENDOZA, BRITT[facility]CAROLINE Ot 530.81 06/02/2014 MATTHIAS MENDOZA, BRITT[facility]CAROLINE Ot 555.9 06/02/2014 MATTHIAS MENDOZA, BRITT-CAROLINE Ot V58.69 06/02/2014 MATTHIAS MENDOZA, BRITT[facility]CAROLINE Ot V87.41 06/29/2014 FINN MILLER DO Ot 789.00 07/28/2014 ADDIS MENDOZA, EVELINA Arrington Ot 535.50 UNSP GASTRITIS GASTRODUODENITIS W/O ME 07/28/2014 ADDIS MENDOZA, EVELINA Arrington Ot 783.21 LOSS OF WEIGHT 07/29/2014 MATTHIAS MENDOZA, [facility]OL[facility] Ot 202.80 07/29/2014 MATTHIAS MENDOZA, [employer] Ot 238.71 07/29/2014 MATTHIAS MENDOZA, MICHELLE Ot 266.2 07/29/2014 MATTHIAS MENDOZA, BRITT-CAROLINE Ot 280.9 07/29/2014 MATTHIAS MENDOZA, BRITT[facility]CAROLINE Ot 288.60 07/29/2014 MATTHIAS MENDOZA, BRITT-CAROLINE Ot 530.81 07/29/2014 MATTHIAS MENDOZA, BRITT-CAROLINE Ot 555.9 07/29/2014 MATTHIAS MENDOZA, BRITT-CAROLINE Ot V58.69 07/29/2014 MATTHIAS MENDOZA, [employer] Ot V87.41 08/04/2014 MATTHIAS MENDOZA, [employer] Ot 202.80 08/04/2014 MATTHIAS MENDOZA, [employer]WIND[employer]OLINE Ot 238.71 08/04/2014 MATTHIAS MENDOZA, BRITT-CAROLINE Ot 266.2 08/04/2014 MATTHIAS MENDOZA, BRITT-CAROLINE Ot 280.9 08/04/2014 MATTHIAS MENDOZA, BRITT-CAROLINE Ot 288.60 08/04/2014 MATTHIAS MENDOZA, BRITT-CAROLINE Ot 530.81 08/04/2014 MATTHIAS MENDOZA, BRITT-CAROLINE Ot 555.9 08/04/2014 MATTHIAS MENDOZA, BRITT-CAROLINE Ot V58.69 08/04/2014 MATTHIAS MENDOZA, BRITT-CAROLINE Ot V87.41 08/05/2014 MATTHIAS MENDOZA, BRITT-CAROLINE Ot 202.80 08/05/2014 MATTHIAS MENDOZA, BRITT-CAROLINE Ot 238.71 08/05/2014 MATTHIAS MENDOZA, BRITT-CAROLINE Ot 266.2 08/05/2014 MATTHIAS MENDOZA, BRITT-CAROLINE Ot 280.9 08/05/2014 MATTHIAS MENDOZA, BRITT-CAROLINE Ot 288.60 08/05/2014 MATTHIAS MENDOZA, BRITT-CAROLINE Ot 530.81 08/05/2014 MATTHIAS MENDOZA, BRITT-CAROLINE Ot 555.9 08/05/2014 MATTHIAS MENDOZA, BRITT-CAROLINE Ot V58.69 08/05/2014 MATTHIAS MENDOZA, BRITT[facility]CAROLINE Ot V87.41 08/17/2014 FINN MILLER DO Ot 789.00 09/14/2014 GIUSEPPE PEREZ Ot 692.6 DERMATITIS DUE TO PLANT 09/16/2014 MATTHIAS MENDOZA, BRITT-CAROLINE Ot 202.80 09/16/2014 MATTHIAS MENDOZA, BRITT-CAROLINE Ot 238.71 09/16/2014 MATTHIAS MENDOZA, BRITT-CAROLINE Ot 266.2 09/16/2014 MATTHIAS MENDOZA, BRITT-CAROLINE Ot 280.9 09/16/2014 MATTHIAS MENDOZA, BRITT-CAROLINE Ot 288.60 09/16/2014 MATTHIAS MENDOZA, BRITT[facility]ORLINE Ot 530.81 09/16/2014 MATTHIAS MENDOZA, BRITT-CAROLINE Ot 555.9 09/16/2014 MATTHIAS MENDOZA, BRITT-CAROLINE Ot V58.69 09/16/2014 MATTHIAS MENDOZA, BRITT-CAROLINE Ot V87.41 09/24/2014 MATTHIAS MENDOZA, BRITT-CAROLINE Ot 202.80 09/24/2014 MATTHIAS MENDOZA, BRITT-CAROLINE Ot 238.71 09/24/2014 MATTHIAS MENDOZA, BRITT-CAROLINE Ot 266.2 09/24/2014 MATTHIAS MENDOZA, BRITT-CAROLINE Ot 280.9 09/24/2014 MATTHIAS MENDOZA, BRITT-CAROLINE Ot 288.60 09/24/2014 MATTHIAS MENDOZA, BRITT-CAROLINE Ot 530.81 09/24/2014 MATTHIAS MENDOZA, BRITT-CAROLINE Ot 555.9 09/24/2014 MATTHIAS MENDOZA, BRITT-CAROLINE Ot V58.69 09/24/2014 MATTHIAS MENDOZA, BRITT-CAROLINE Ot V87.41 10/11/2014 Ot 202.80 10/11/2014 Ot 266.2 10/11/2014 Ot 555.9 10/11/2014 Ot 579.3 10/11/2014 Ot V58.69 10/11/2014 Ot 571.8 10/11/2014 Ot 789.00 10/11/2014 Ot 202.80 10/11/2014 Ot 555.9 10/11/2014 Ot 579.3 10/11/2014 Ot V58.69 10/11/2014 Ot 202.80 10/11/2014 Ot 288.60 10/11/2014 Ot 555.9 10/11/2014 Ot 579.3 10/11/2014 Ot V58.69 10/11/2014 Ot 202.80 10/11/2014 Ot 287.5 10/11/2014 Ot 288.60 10/11/2014 Ot 300.00 10/11/2014 Ot 555.9 10/11/2014 Ot V58.69 10/11/2014 Ot V87.41 10/11/2014 Ot 202.80 10/11/2014 Ot 789.00 10/11/2014 Ot 486 10/11/2014 Ot 555.9 10/11/2014 ADDIS MENDOZA, EVELINA Arrington Ot V72.84 10/11/2014 FINN MILLER DO Ot 566 10/11/2014 ADDIS MENDOZA, EVELINA Arrington Ot V72.84 10/11/2014 ADDIS MENDOZA, EVELINA Arrington Ot V72.84 10/11/2014 Ot 555.0 10/11/2014 Ot 789.00 10/11/2014 MATTHIAS MENDOZA, [facility]ER[facility]OLINE Ot 202.80 10/11/2014 MATTHIAS MENDOZA, [facility] Ot 238.71 10/11/2014 MATTHIAS MENDOZA, [facility] Ot 266.2 10/11/2014 MATTHIAS MENDOZA, [facility] Ot 280.9 10/11/2014 MATTHIAS MENDOZA, [facility] Ot 288.60 10/11/2014 MATTHIAS MENDOZA, [facility] Ot 530.81 10/11/2014 MATTHIAS MENDOZA, [facility] Ot 555.9 10/11/2014 MATTHIAS MENDOZA, [facility] Ot V58.69 10/11/2014 MATTHIAS MENDOZA, [facility] Ot V87.41 10/11/2014 FINN MILLER DO Ot 789.00 10/11/2014 ADDIS MENDOZA, EVELINA Arrington Ot V72.84 10/11/2014 JUSTICE SAHA DO Ot 692.9 10/15/2014 JUSTICE SAHA DO Ot 041.86 HELICOBACTER PYLORI [H. 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 10/15/2014 JUSTICE SAHA DO Ot 305.1 TOBACCO USE DISORDER 10/15/2014 JUSTICE SAHA DO Ot 490 BRONCHITIS NOS 10/15/2014 JUSTICE SAHA DO Ot 535.50 UNSP GASTRITIS GASTRODUODENITIS W/O ME 10/15/2014 JUSTICE SAHA DO Ot 789.06 10/15/2014 JUSTICE SAHA DO, Ot V12.79 PERSONAL HISTORY OTH SPEC DIGESTIVE SYST 10/15/2014 JUSTICE SAHA DO, Ot V45.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 10/15/2014 JUSTICE SAHA DO, Ot V58.65 LONG-TERM(CURRENT)USE OF STEROIDS 11/02/2014 MICHELLE RIZZO MD Ot 202.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 SOLID ORGAN U 11/02/2014 MICHELLE RIZZO MD Ot 238.71 ESSENTIAL THROMBOCYTHEMIA 11/02/2014 MICHELLE RIZZO MD Ot 266.2 B-COMPLEX DEFIC NEC 11/02/2014 MICHELLE RIZZO MD Ot 280.9 IRON DEFIC ANEMIA NOS 11/02/2014 MICHELLE RIZZO MD Ot 288.60 LEUKOCYTOSIS, UNSPECIFIED 11/02/2014 MICHELLE RIZZO MD Ot 530.81 ESOPHAGEAL REFLUX 11/02/2014 MICHELLE RIZZO MD Ot 555.9 REGIONAL ENTERITIS NOS 11/02/2014 MICHELLE RIZZO MD Ot V58.69 OTH MED,LT,CURRENT USE 11/02/2014 MICHELLE RIZZO MD Ot V87.41 PERSONAL HISTORY OF ANTINEOPLASTIC CHEMO 11/02/2014 JUSTICE SAHA DO Ot 692.9 11/04/2014 JUSTICE SAHA DO Ot 692.9 11/16/2014 JUSTICE SAHA DO Ot 041.86 11/16/2014 JUSTICE SAHA DO, Ot 202.80 11/16/2014 JUSTICE SAHA DO Ot 255.0 11/16/2014 JUSTICE SAHA DO Ot 263.1 11/16/2014 JUSTICE SAHA DO Ot 305.1 11/16/2014 JUSTICE SAHA DO Ot 530.81 11/16/2014 JUSTICE SAHA DO Ot 535.50 11/16/2014 JUSTICE SAHA DO Ot 555.9 11/16/2014 JUSTICE SAHA DO Ot V10.05 11/16/2014 JUSTICE SAHA DO Ot V12.71 11/16/2014 JUSTICE SAHA DO Ot V45.72 11/16/2014 JUSTICE SAHA DO Ot V45.79 11/16/2014 JUSTICE SAHA DO Ot V58.65 11/16/2014 JUSTICE SAHA DO Ot V87.41 11/16/2014 JUSTICE SAHA DO Ot V88.12 11/16/2014 JUSTICE SAHA DO Ot 041.86 HELICOBACTER PYLORI [H. 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 11/16/2014 JUSTICE SAHA DO Ot 530.81 ESOPHAGEAL REFLUX 11/16/2014 JUSTICE SAHA DO Ot 535.50 UNSP GASTRITIS GASTRODUODENITIS W/O ME 11/16/2014 JUSTICE SAHA DO Ot 555.9 REGIONAL ENTERITIS NOS 11/16/2014 JUSTICE SAHA DO Ot V10.05 HX OF COLONIC MALIGNANCY 11/16/2014 JUSTICE SAHA DO Ot V12.71 PERSONAL HISTORY OF PEPTIC ULCER DISEASE 11/16/2014 JUSTICE SAHA DO Ot V45.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 11/16/2014 JUSTICE ASHA DO Ot V45.79 ACQRD ABSENCE OF OTH ORGAN 11/16/2014 JUSTICE SAHA DO Ot V58.65 LONG-TERM(CURRENT)USE OF STEROIDS 11/16/2014 JUSTICE SAHA DO Ot V87.41 PERSONAL HISTORY OF ANTINEOPLASTIC CHEMO 11/16/2014 JUSTICE SAHA DO Ot 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 12/22/2014 Ot 202.80 12/22/2014 Ot 266.2 12/22/2014 Ot 555.9 12/22/2014 Ot 579.3 12/22/2014 Ot V58.69 12/22/2014 Ot 571.8 12/22/2014 Ot 789.00 12/22/2014 Ot 202.80 12/22/2014 Ot 555.9 12/22/2014 Ot 579.3 12/22/2014 Ot V58.69 12/22/2014 Ot 202.80 12/22/2014 Ot 288.60 12/22/2014 Ot 555.9 12/22/2014 Ot 579.3 12/22/2014 Ot V58.69 12/22/2014 Ot 202.80 12/22/2014 Ot 287.5 12/22/2014 Ot 288.60 12/22/2014 Ot 300.00 12/22/2014 Ot 555.9 12/22/2014 Ot V58.69 12/22/2014 Ot V87.41 12/22/2014 Ot 202.80 12/22/2014 Ot 789.00 12/22/2014 Ot 486 12/22/2014 Ot 555.9 12/22/2014 ADDIS MENDOZA, EVELINA Arrington Ot V72.84 12/22/2014 FINN MILLER DO Ot 566 12/22/2014 ADDIS MENDOZA, EVELINA Arrington Ot V72.84 12/22/2014 EVELINA MANCINI MD Ot V72.84 12/22/2014 Ot 555.0 12/22/2014 Ot 789.00 12/22/2014 FINN MILLER DO Ot 789.00 12/22/2014 EVELINA MANCINI MD Ot V72.84 12/22/2014 JUSTICE SAHA DO Ot 692.9 12/22/2014 MATTHIAS MENDOZA, BALWINDER-CAROLINE Ot 202.80 12/22/2014 MATTHIAS MENDOZA, BRITT-CAROLINE Ot 238.71 12/22/2014 MATTHIAS MENDOZA, BALWINDER-CAROLINE Ot 266.2 12/22/2014 MATTHIAS MENDOZA, BRITT-CAROLINE Ot 280.9 12/22/2014 MATTHIAS MENDOZA, BRITT-CAROLINE Ot 288.60 12/22/2014 MATTHIAS MENDOZA, BRITT-CAROLINE Ot 530.81 12/22/2014 MATTHIAS MENDOZA, BALWINDER-CAROLINE Ot 555.9 12/22/2014 MATTHIAS MENDOZA, BALWINDER-CAROLINE Ot V58.69 12/22/2014 MATTHIAS MENDOZA, MICHELLE Ot V87.41 01/12/2015 JUSTICE SAHA DO Ot Z00.00 01/14/2015 ADDIS MENDOZA, EVELINA Arrington Ot K50.90 CROHN'S DISEASE, UNSPECIFIED, WITHOUT CO 01/14/2015 ADDIS MENDOZA, EVELINA Arrington Ot K60.3 ANAL FISTULA 01/26/2015 MATTHIAS MENDOZA, MICHELLE Ot 202.80 01/26/2015 MATTHIAS MENDOZA, BALWINDER-CAROLINE Ot 238.71 01/26/2015 MATTHIAS MENODZA, BALWINDER-CAROLINE Ot 266.2 01/26/2015 MATTHIAS MENDOZA, MICHELLE Ot 280.9 01/26/2015 MATTHIAS MENDOZA, MICHELLE Ot 288.60 01/26/2015 MATTHIAS MENDOZA, BALWINDER-CAROLINE Ot 530.81 01/26/2015 MATTHIAS MENDOZA, BALWINDER-CAROLINE Ot 555.9 01/26/2015 MATTHIAS MENDOZA, BALWINDER-CAROLINE Ot V58.69 01/26/2015 MATTHIAS MENDOZA, BALWINDER-CAROLINE Ot V87.41 01/28/2015 JUSTICE SAHA DO Ot Z00.00 02/03/2015 MATTHIAS MENDOZA, BALWINDER-CAROLINE Ot 202.80 02/03/2015 MATTHIAS MENDOZA, BALWINDER-CAROLINE Ot 238.71 02/03/2015 MATTHIAS MENDOZA, BALWINDER-CAROLINE Ot 266.2 02/03/2015 MATTHIAS MENDOZA, BRITT-CAROLINE Ot 280.9 02/03/2015 MATTHIAS MENDOZA, BALWINDER-CAROLINE Ot 288.60 02/03/2015 MATTHIAS MENDOZA, BALWINDER-CAROLINE Ot 530.81 02/03/2015 MATTHIAS MENDOZA, BRITT-CAROLINE Ot 555.9 02/03/2015 MATTHIAS MENDOZA, MICHELLE Ot V58.69 02/03/2015 MATTHIAS MENDOZA, MICHELLE Ot V87.41 03/23/2015 MATTHIAS MENDOZA, MICHELLE Ot C85.80 03/23/2015 MATTHIAS MENDOZA, MICHELLE Ot D47.3 03/23/2015 MATTHIAS MENDOZA, MICHELLE Ot D50.9 03/23/2015 MATTHIAS MENDOZA, MICHELLE Ot D72.829 03/23/2015 MATTHIAS MENDOZA, MICHELLE Ot E53.8 03/23/2015 MATTHIAS MENDOZA, MICHELLE Ot K21.9 03/23/2015 MATTHIAS MENDOZA, MICHELLE Ot K50.90 03/23/2015 MATTHIAS MENDOZA, MICHELLE Ot Z79.899 03/23/2015 MATTHIAS MENDOZA, MICHELLE Ot Z92.21 04/08/2015 ADDIS MENDOZA, EVELINA Arrington Ot K61.1 04/13/2015 ADDIS MENDOZA, EVELINA Arrington Ot K61.1 05/03/2015 MATTHIAS MENDOZA, MICHELLE Castro 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, UNSPE 05/03/2015 MATTHIAS MENDOZA, MICHELLE Ot D47.3 ESSENTIAL (HEMORRHAGIC) THROMBOCYTHEMIA 05/03/2015 MATTHIAS MENDOZA, IMCHELLE Ot D50.9 IRON DEFICIENCY ANEMIA, UNSPECIFIED 05/03/2015 MATTHIAS MENDOZA, MICHELLE Ot D72.829 ELEVATED WHITE BLOOD CELL COUNT, UNSPECI 05/03/2015 MATTHIAS MENDOZA, MICHELLE Ot 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 05/03/2015 MATTHIAS MENDOZA, MICHELLE Ot K21.9 GASTRO-ESOPHAGEAL REFLUX DISEASE WITHOUT 05/03/2015 MATTHIAS MENDOZA, MICHELLE Ot K50.90 CROHN'S DISEASE, UNSPECIFIED, WITHOUT CO 05/03/2015 MATTHIAS MENDOZA, MICHELLE Castro 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 05/03/2015 MATTHIAS MENDOZA, MICHELLE Ot Z92.21 PERSONAL HISTORY OF ANTINEOPLASTIC CHEMO 05/03/2015 LIZZ MENDOZA, RACHAEL Hong Ot N50.8 OTHER SPECIFIED DISORDERS OF MALE GENITA 05/06/2015 MATTHIAS MENDOZA, MICHELLE Ot C85.80 05/06/2015 MATTHIAS MENDOZA, MICHELLE Ot D47.3 05/06/2015 MATTHIAS MENDOZA, MICHELLE Ot D50.9 05/06/2015 MATTHIAS MENDOZA, MICHELLE Ot D72.829 05/06/2015 MATTHIAS MENDOZA, MICHELLE Ot E53.8 05/06/2015 MATTHIAS MENDOZA, MICHELLE Ot K21.9 05/06/2015 MATTHIAS MENDOZA, MICHELLE Ot K50.90 05/06/2015 MATTHIAS MENDOZA, MICHELLE Ot Z79.899 05/06/2015 MATTHIAS MENDOZA, MIHCELLE Ot Z92.21 05/19/2015 JEREMY MENDOZA, ALON Blanco Ot F17.210 NICOTINE DEPENDENCE, CIGARETTES, UNCOMPL 05/19/2015 JEREMY MENDOZA, ALON Blanco Ot F79 UNSPECIFIED INTELLECTUAL DISABILITIES 05/19/2015 JEREMY MENDOZA, ALON Blanco Ot K50.90 CROHN'S DISEASE, UNSPECIFIED, WITHOUT CO 05/19/2015 JEREMY MENDOZA, ALON Blanco Ot K59.00 CONSTIPATION, UNSPECIFIED 05/19/2015 JEREMY MENDOZA, ALON Blanco Ot K76.9 LIVER DISEASE, UNSPECIFIED 05/19/2015 Ot 202.80 05/19/2015 Ot 555.9 05/19/2015 Ot 579.3 05/19/2015 Ot V58.69 05/19/2015 Ot 202.80 05/19/2015 Ot 288.60 05/19/2015 Ot 555.9 05/19/2015 Ot 579.3 05/19/2015 Ot V58.69 05/19/2015 Ot 202.80 05/19/2015 Ot 287.5 05/19/2015 Ot 288.60 05/19/2015 Ot 300.00 05/19/2015 Ot 555.9 05/19/2015 Ot V58.69 05/19/2015 Ot V87.41 05/19/2015 Ot 202.80 05/19/2015 Ot 789.00 05/19/2015 Ot 486 05/19/2015 Ot 555.9 05/19/2015 ADDIS MENDOZA, EVELINA Arrington Ot V72.84 05/19/2015 FINN MILLER DO Ot 566 05/19/2015 ADDIS MENDOZA, EVELINA Arrington Ot V72.84 05/19/2015 ADDIS MENDOZA, EVELINA Arrington Ot V72.84 05/19/2015 Ot 555.0 05/19/2015 Ot 789.00 05/19/2015 FINN MILLER DO Ot 789.00 05/19/2015 ADDIS MENDOZA, EVELINA Arrington Ot V72.84 05/19/2015 YIFAN GREENWOOD, JUSTICE Kim Ot 692.9 05/19/2015 YIFAN GREENWOOD, JUSTICE Kim Ot Z00.00 05/19/2015 ADDIS MENDOZA, EVELINA Arrington Ot Z01.818 05/19/2015 ADDIS MENDOZA, EVELINA M Ot K60.3 05/19/2015 ADDIS MENDOZA, EVELINA M Ot K61.0 05/19/2015 ADDIS MENDOZA, EVELINA M Ot K61.1 05/19/2015 LIZZ MENDOZA, RACHAEL Hong Ot N36.1 05/19/2015 LIZZ MENDOZA, RACHAEL A Ot Z01.818 05/19/2015 LIZZ MENDOZA, RACHAEL A Ot Z11.2 05/19/2015 MATTHIAS MENDOZA, [facility] Ot C85.80 05/19/2015 MATTHIAS MENDOZA, [facility] Ot D47.3 05/19/2015 MATTHIAS MENDOZA, [facility] Ot D50.9 05/19/2015 MATTHIAS MENDOZA, [facility] Ot D72.829 05/19/2015 MATTHIAS MENDOZA, [facility] Ot E53.8 05/19/2015 MATTHIAS MENDZOA, [facility] Ot K21.9 05/19/2015 MATTHIAS MENDOZA, [facility] Ot K50.90 05/19/2015 MATTHIAS MENDOZA, [facility] Ot Z79.899 05/19/2015 MATTHIAS MENDOZA, [facility] Ot Z92.21 05/20/2015 JEREMY MENDOZA, ALON D Ot F17.210 05/20/2015 JEREMY MENDOZA, ALON D Ot F79 05/20/2015 JEREMY MENDOZA, ALON D Ot K50.90 05/20/2015 JEREMY MENDOZA, ALON D Ot K59.00 05/20/2015 JEREMY MENDOZA, ALON D Ot K76.9 05/23/2015 Ot 202.80 05/23/2015 Ot 555.9 05/23/2015 Ot 579.3 05/23/2015 Ot V58.69 05/23/2015 Ot 202.80 05/23/2015 Ot 288.60 05/23/2015 Ot 555.9 05/23/2015 Ot 579.3 05/23/2015 Ot V58.69 05/23/2015 Ot 202.80 05/23/2015 Ot 287.5 05/23/2015 Ot 288.60 05/23/2015 Ot 300.00 05/23/2015 Ot 555.9 05/23/2015 Ot V58.69 05/23/2015 Ot V87.41 05/23/2015 Ot 202.80 05/23/2015 Ot 789.00 05/23/2015 Ot 486 05/23/2015 Ot 555.9 05/23/2015 ADDIS MENDOZA, EVELINA M Ot V72.84 05/23/2015 FINN MILLER DO Ot 566 05/23/2015 ADDIS MENDOZA, EVELINA M Ot V72.84 05/23/2015 ADDIS MENDOZA, EVELINA M Ot V72.84 05/23/2015 Ot 555.0 05/23/2015 Ot 789.00 05/23/2015 FINN MILLER DO Ot 789.00 05/23/2015 ADDIS MENDOZA, EVELINA M Ot V72.84 05/23/2015 JUSTICE SAHA DO Ot 692.9 05/23/2015 JUSTICE SAHA DO Ot Z00.00 05/23/2015 ADDIS MENDOZA, EVELINA M Ot Z01.818 05/23/2015 ADDIS MENDOZA, EVELINA M Ot K60.3 05/23/2015 ADDIS MENDOZA, EVELINA M Ot K61.0 05/23/2015 ADDIS MENDOZA, EVELINA M Ot K61.1 05/23/2015 LIZZ MENDOZA, RACHAEL Hong Ot N36.1 05/23/2015 LIZZ MENDOZA, RACHAEL A Ot Z01.818 05/23/2015 LIZZ MENDOZA, RACHAEL A Ot Z11.2 05/23/2015 MATTHIAS MENDOZA, [facility] Ot C85.80 05/23/2015 MATTHIAS MENDOZA, [facility] Ot D47.3 05/23/2015 MATTHIAS MENDOZA, [facility] Ot D50.9 05/23/2015 MATTHIAS MENDOZA, [facility] Ot D72.829 05/23/2015 MATTHIAS MENDOZA, [facility] Ot E53.8 05/23/2015 MATTHIAS MENDOZA, [facility] Ot K21.9 05/23/2015 MATTHIAS MENDOZA, [facility] Ot K50.90 05/23/2015 MATTHIAS MENDOZA, [facility] Ot Z79.899 05/23/2015 MATTHIAS MENDOZA, [facility] Ot Z92.21 05/24/2015 JUSITCE SAHA DO Ot K59.00 06/16/2015 JUSTCIE SAHA DO Ot K59.00 CONSTIPATION, UNSPECIFIED 06/24/2015 JUSTICE SAHA DO Ot K59.00 CONSTIPATION, UNSPECIFIED 09/26/2015 Ot 555.9 REGIONAL ENTERITIS NOS 09/26/2015 Ot 569.3 11/15/2015 Ot 202.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 SOLID ORGAN U 11/15/2015 Ot 287.5 THROMBOCYTOPENIA NOS 11/15/2015 Ot 288.60 LEUKOCYTOSIS , UNSPECIFIED 11/15/2015 Ot 300.00 ANXIETY STATE NOS 11/15/2015 Ot 555.9 REGIONAL ENTERITIS NOS 11/15/2015 Ot V58.69 OTH MED,LT, CURRENT USE 11/15/2015 Ot V87.41 PERSONAL HISTORY OF ANTINEOPLASTIC CHEMO 11/15/2015 Ot 202.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 SOLID ORGAN U 11/15/2015 Ot 789.00 ABDOMINAL PAIN, UNSPECIFIED SITE 11/15/2015 Ot 486 PNEUMONIA, ORGANISM NOS 11/15/2015 Ot 555.9 REGIONAL ENTERITIS NOS 11/15/2015 ADDIS MENDOZA, EVELINA Arrington Ot V72.84 EXAM PRE-OPERATIVE NOS 11/15/2015 FINN MILLER DO Ot 566 ANAL RECTAL ABSCESS 11/15/2015 ADDIS MENDOZA, EVELINA Arrington Ot V72.84 EXAM PRE-OPERATIVE NOS 11/15/2015 ADDIS MENDOZA, EVELINA Arrington Ot V72.84 EXAM PRE-OPERATIVE NOS 11/15/2015 Ot 555.0 REG ENTERITIS , SM INTEST 11/15/2015 Ot 789.00 ABDOMINAL PAIN, UNSPECIFIED SITE 11/15/2015 FINN MILLER DO Ot 789.00 ABDOMINAL PAIN, UNSPECIFIED SITE 11/15/2015 ADDIS MENDOZA, EVELINA Arrington Ot V72.84 EXAM PRE-OPERATIVE NOS 11/15/2015 JUSTICE SAHA DO Ot 692.9 DERMATITIS NOS 11/15/2015 JUSTICE SAHA DO Ot Z00.00 ENCNTR FOR GENERAL ADULT MEDICAL EXAM W/ 11/15/2015 ADDIS MENDOZA, EVELINA Arrington Ot Z01.818 ENCOUNTER FOR OTHER PREPROCEDURAL EXAMIN 11/15/2015 ADDIS MENDOZA, EVELINA Arrington Ot K60.3 ANAL FISTULA 11/15/2015 ADDIS MENDOZA, EVELINA Arrington Ot K61.0 ANAL ABSCESS 11/15/2015 ADDIS MENDOZA, EVELINA Arrington Ot K61.1 RECTAL ABSCESS 11/15/2015 LIZZ MENDOZA, RACHAEL Hong Ot N36.1 URETHRAL DIVERTICULUM 11/15/2015 LIZZ MENDOZA, RACHAEL Hong Ot Z01.818 ENCOUNTER FOR OTHER PREPROCEDURAL EXAMIN 11/15/2015 LIZZ MENDOZA, RACHAEL Hong Ot Z11.2 ENCOUNTER FOR SCREENING FOR OTHER BACTER 11/15/2015 MICHELLE RIZZO MD, Ot 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, UNSPE 11/15/2015 MICHELLE RIZZO MD Ot D47.3 ESSENTIAL (HEMORRHAGIC) THROMBOCYTHEMIA 11/15/2015 MICHELLE RIZZO MD Ot D50.9 IRON DEFICIENCY ANEMIA, UNSPECIFIED 11/15/2015 MICHELLE RIZZO MD Ot D72.829 ELEVATED WHITE BLOOD CELL COUNT, UNSPECI 11/15/2015 MICHELLE RIZZO MD Ot 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 11/15/2015 MICHELLE RIZZO MD Ot K21.9 GASTRO-ESOPHAGEAL REFLUX DISEASE WITHOUT 11/15/2015 MICHELLE RIZZO MD Ot K50.90 CROHN'S DISEASE, UNSPECIFIED, WITHOUT CO 11/15/2015 MICHELLE RIZZO MD Ot Z79.899 OTHER LONG-TERM (CURRENT) DRUG THERAPY 11/15/2015 MICHELLE RIZZO MD Ot Z92.21 PERSONAL HISTORY OF ANTINEOPLASTIC CHEMO 11/15/2015 JUSTICE SAHA DO Ot K59.00 CONSTIPATION, UNSPECIFIED 11/15/2015 MITESH WARNER APRN Ot K59.00 CONSTIPATION, UNSPECIFIED 11/15/2015 MITESH WARNER APRN Ot Z90.49 ACQUIRED ABSENCE OF OTHER SPECIFIED PART 11/16/2015 MITESH WARNER APRN Ot K59.00 CONSTIPATION, UNSPECIFIED 11/16/2015 WARNER, PETER J [employer]ATE Ot Z90.49 ACQUIRED ABSENCE OF OTHER SPECIFIED PART 11/17/2015 DEON MENDOZA, YI Hope Ot F17.210 NICOTINE DEPENDENCE, CIGARETTES, UNCOMPL 11/17/2015 DEON MENDOZA, YI Hope Ot F79 UNSPECIFIED INTELLECTUAL DISABILITIES 11/17/2015 YI CHAVARRIA MD Ot K50.90 CROHN'S DISEASE, UNSPECIFIED, WITHOUT CO 11/17/2015 YI CHAVARRIA MD Ot K59.00 CONSTIPATION, UNSPECIFIED 11/17/2015 YI CHAVARRIA MD Ot Z90.49 ACQUIRED ABSENCE OF OTHER SPECIFIED PART 11/21/2015 Ot 202.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 SOLID ORGAN U 11/21/2015 Ot 287.5 THROMBOCYTOPENIA NOS 11/21/2015 Ot 288.60 LEUKOCYTOSIS , UNSPECIFIED 11/21/2015 Ot 300.00 ANXIETY STATE NOS 11/21/2015 Ot 555.9 REGIONAL ENTERITIS NOS 11/21/2015 Ot V58.69 OTH MED,LT, CURRENT USE 11/21/2015 Ot V87.41 PERSONAL HISTORY OF ANTINEOPLASTIC CHEMO 11/21/2015 Ot 202.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 SOLID ORGAN U 11/21/2015 Ot 789.00 ABDOMINAL PAIN, UNSPECIFIED SITE 11/21/2015 Ot 486 PNEUMONIA, ORGANISM NOS 11/21/2015 Ot 555.9 REGIONAL ENTERITIS NOS 11/21/2015 ADDIS MENDOZA, EVELINA Arrington Ot V72.84 EXAM PRE-OPERATIVE NOS 11/21/2015 FINN MILLER DO Ot 566 ANAL RECTAL ABSCESS 11/21/2015 ADDIS MENDOZA, EVELINA Arrington Ot V72.84 EXAM PRE-OPERATIVE NOS 11/21/2015 ADDIS MENDOZA, EVELINA Arrington Ot V72.84 EXAM PRE-OPERATIVE NOS 11/21/2015 Ot 555.0 REG ENTERITIS , SM INTEST 11/21/2015 Ot 789.00 ABDOMINAL PAIN, UNSPECIFIED SITE 11/21/2015 FINN MILLER DO Ot 789.00 ABDOMINAL PAIN, UNSPECIFIED SITE 11/21/2015 ADDIS MENDOZA, EVELINA Arrington Ot V72.84 EXAM PRE-OPERATIVE NOS 11/21/2015 JUSTICE SAHA DO Ot 692.9 DERMATITIS NOS 11/21/2015 JUSTICE SAHA DO Ot Z00.00 ENCNTR FOR GENERAL ADULT MEDICAL EXAM W/ 11/21/2015 ADDIS MENDOZA, EVELINA Arrington Ot Z01.818 ENCOUNTER FOR OTHER PREPROCEDURAL EXAMIN 11/21/2015 ADDIS MENDOZA, EVELINA Arrington Ot K60.3 ANAL FISTULA 11/21/2015 ADDIS MENDOZA, EVELINA Arrington Ot K61.0 ANAL ABSCESS 11/21/2015 ADDIS MENDOZA, EVELINA Arrington Ot K61.1 RECTAL ABSCESS 11/21/2015 LIZZ MENDOZA, RACHAEL Hong Ot N36.1 URETHRAL DIVERTICULUM 11/21/2015 LIZZ MENDOZA, RACHAEL Hong Ot Z01.818 ENCOUNTER FOR OTHER PREPROCEDURAL EXAMIN 11/21/2015 RACHAEL ZAMUDIO MD Ot Z11.2 ENCOUNTER FOR SCREENING FOR OTHER BACTER 11/21/2015 MICHELLE RIZZO MD, Ot 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, UNSPE 11/21/2015 MICHELLE RIZZO MD, Ot D47.3 ESSENTIAL (HEMORRHAGIC) THROMBOCYTHEMIA 11/21/2015 MICHELLE RIZZO MD Ot D50.9 IRON DEFICIENCY ANEMIA, UNSPECIFIED 11/21/2015 MICHELLE RIZZO MD Ot D72.829 ELEVATED WHITE BLOOD CELL COUNT, UNSPECI 11/21/2015 MICHELLE RIZZO MD Ot 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 11/21/2015 MICHELLE RIZZO MD Ot K21.9 GASTRO-ESOPHAGEAL REFLUX DISEASE WITHOUT 11/21/2015 MICHELLE RIZZO MD, Ot K50.90 CROHN'S DISEASE, UNSPECIFIED, WITHOUT CO 11/21/2015 MICHELLE RIZZO MD, Ot Z79.899 OTHER LONG-TERM (CURRENT) DRUG THERAPY 11/21/2015 MICHELLE RIZZO MD Ot Z92.21 PERSONAL HISTORY OF ANTINEOPLASTIC CHEMO 11/21/2015 JUSTICE SAHA DO Ot K59.00 CONSTIPATION, UNSPECIFIED 11/22/2015 YI CHAVARRIA MD Ot F17.210 NICOTINE DEPENDENCE, CIGARETTES, UNCOMPL 11/22/2015 YI CHAVARRIA MD Ot F79 UNSPECIFIED INTELLECTUAL DISABILITIES 11/22/2015 YI CHAVARRIA MD Ot K50.90 CROHN'S DISEASE, UNSPECIFIED, WITHOUT CO 11/22/2015 YI CHAVARRIA MD Ot K59.00 CONSTIPATION, UNSPECIFIED 11/22/2015 YI CHAVARRIA MD Ot Z90.49 ACQUIRED ABSENCE OF OTHER SPECIFIED PART 01/31/2016 MICHELLE RIZZO MD, Ot 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, UNSPE 01/31/2016 MICHELLE RIZZO MD, Ot D47.3 ESSENTIAL (HEMORRHAGIC) THROMBOCYTHEMIA 01/31/2016 MICHELLE RIZZO MD, Ot D50.9 IRON DEFICIENCY ANEMIA, UNSPECIFIED 01/31/2016 MICHELLE RIZZO MD, Ot D72.829 ELEVATED WHITE BLOOD CELL COUNT, UNSPECI 01/31/2016 MICHELLE RIZZO MD Ot 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 01/31/2016 MICHELLE RIZZO MD, Ot K21.9 GASTRO-ESOPHAGEAL REFLUX DISEASE WITHOUT 01/31/2016 MICHELLE RIZZO MD, Ot K50.90 CROHN'S DISEASE, UNSPECIFIED, WITHOUT CO 01/31/2016 MICHELLE RIZOZ MD, Ot 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 01/31/2016 MICHELLE RIZZO MD, Ot Z92.21 PERSONAL HISTORY OF ANTINEOPLASTIC CHEMO 02/02/2016 MICHELLE RIZZO MD, Ot 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, UNSPE 02/02/2016 MICHELLE RIZZO MD Ot D47.3 ESSENTIAL (HEMORRHAGIC) THROMBOCYTHEMIA 02/02/2016 MICHELLE RIZZO MD, Ot D50.9 IRON DEFICIENCY ANEMIA, UNSPECIFIED 02/02/2016 MICHELLE RIZZO MD, Ot D72.829 ELEVATED WHITE BLOOD CELL COUNT, UNSPECI 02/02/2016 MICHELLE RIZZO MD, Ot 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 02/02/2016 MICHELLE RIZZO MD, Ot K21.9 GASTRO-ESOPHAGEAL REFLUX DISEASE WITHOUT 02/02/2016 MICHELLE RIZZO MD, Ot K50.90 CROHN'S DISEASE, UNSPECIFIED, WITHOUT CO 02/02/2016 MICHELLE RIZZO MD, Ot Z79.899 OTHER LONG-TERM (CURRENT) DRUG THERAPY 02/02/2016 MICHELLE RIZZO MD Ot Z92.21 PERSONAL HISTORY OF ANTINEOPLASTIC CHEMO 03/19/2016 Ot 202.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 SOLID ORGAN U 03/19/2016 Ot 287.5 THROMBOCYTOPENIA NOS 03/19/2016 Ot 288.60 LEUKOCYTOSIS , UNSPECIFIED 03/19/2016 Ot 300.00 ANXIETY STATE NOS 03/19/2016 Ot 555.9 REGIONAL ENTERITIS NOS 03/19/2016 Ot V58.69 OTH MED,LT, CURRENT USE 03/19/2016 Ot V87.41 PERSONAL HISTORY OF ANTINEOPLASTIC CHEMO 03/19/2016 Ot 202.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 SOLID ORGAN U 03/19/2016 Ot 789.00 ABDOMINAL PAIN, UNSPECIFIED SITE 03/19/2016 Ot 486 PNEUMONIA, ORGANISM NOS 03/19/2016 Ot 555.9 REGIONAL ENTERITIS NOS 03/19/2016 ADDIS MENDOZA, EVELINA Arrington Ot V72.84 EXAM PRE-OPERATIVE NOS 03/19/2016 FINN MILLER DO Ot 566 ANAL RECTAL ABSCESS 03/19/2016 ADDIS MENDOZA, EVELINA Arrington Ot V72.84 EXAM PRE-OPERATIVE NOS 03/19/2016 ADDIS MENDOZA, EVELINA Arrington Ot V72.84 EXAM PRE-OPERATIVE NOS 03/19/2016 Ot 555.0 REG ENTERITIS , SM INTEST 03/19/2016 Ot 789.00 ABDOMINAL PAIN, UNSPECIFIED SITE 03/19/2016 FINN MILLER DO Ot 789.00 ABDOMINAL PAIN, UNSPECIFIED SITE 03/19/2016 ADDIS MENDOZA, EVELINA Arrington Ot V72.84 EXAM PRE-OPERATIVE NOS 03/19/2016 JUSTICE SAHA DO Ot 692.9 DERMATITIS NOS 03/19/2016 JUSTICE SAHA DO Ot Z00.00 ENCNTR FOR GENERAL ADULT MEDICAL EXAM W/ 03/19/2016 ADDIS MENDOZA, EVELINA Arrington Ot Z01.818 ENCOUNTER FOR OTHER PREPROCEDURAL EXAMIN 03/19/2016 ADDIS MENDOZA, EVELINA Arrington Ot K60.3 ANAL FISTULA 03/19/2016 ADDIS MENDOZA, EVELINA Arrington Ot K61.0 ANAL ABSCESS 03/19/2016 ADDIS MENDOZA, EVELINA Arrington Ot K61.1 RECTAL ABSCESS 03/19/2016 LIZZ MENDOZA, RACHAEL Hong Ot N36.1 URETHRAL DIVERTICULUM 03/19/2016 LIZZ MENDOZA, RACHAEL Hong Ot Z01.818 ENCOUNTER FOR OTHER PREPROCEDURAL EXAMIN 03/19/2016 LIZZ MENDOZA, RACHAEL Hong Ot Z11.2 ENCOUNTER FOR SCREENING FOR OTHER BACTER 03/19/2016 MATTHIAS MENDOZA, MICHELLE Ot 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, UNSPE 03/19/2016 MICHELLE RIZZO MD, Ot D47.3 ESSENTIAL (HEMORRHAGIC) THROMBOCYTHEMIA 03/19/2016 MICHELLE RIZZO MD, Ot D50.9 IRON DEFICIENCY ANEMIA, UNSPECIFIED 03/19/2016 MICHELLE RIZZO MD, Ot D72.829 ELEVATED WHITE BLOOD CELL COUNT, UNSPECI 03/19/2016 MICHELLE RIZZO MD, Ot 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 03/19/2016 MICHELLE RIZZO MD, Ot K21.9 GASTRO-ESOPHAGEAL REFLUX DISEASE WITHOUT 03/19/2016 MICHELLE RIZZO MD, Ot K50.90 CROHN'S DISEASE, UNSPECIFIED, WITHOUT CO 03/19/2016 MICHELLE RIZZO MD, Ot Z79.899 OTHER LONG-TERM (CURRENT) DRUG THERAPY 03/19/2016 MICHELLE RIZZO MD, Ot Z92.21 PERSONAL HISTORY OF ANTINEOPLASTIC CHEMO 03/19/2016 JUSTICE SAHA DO Ot K59.00 CONSTIPATION, UNSPECIFIED 03/20/2016 MICHELLE RIZZO MD, Ot 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, UNSPE 03/20/2016 MICHELLE RIZZO MD, Ot D47.3 ESSENTIAL (HEMORRHAGIC) THROMBOCYTHEMIA 03/20/2016 MICHELLE RIZZO MD, Ot D50.9 IRON DEFICIENCY ANEMIA, UNSPECIFIED 03/20/2016 MICHELLE RIZZO MD, Ot D72.829 ELEVATED WHITE BLOOD CELL COUNT, UNSPECI 03/20/2016 MICHELLE RIZZO MD, Ot 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 03/20/2016 MICHELLE RIZZO MD, Ot K21.9 GASTRO-ESOPHAGEAL REFLUX DISEASE WITHOUT 03/20/2016 MICHELLE RIZZO MD, Ot K50.90 CROHN'S DISEASE, UNSPECIFIED, WITHOUT CO 03/20/2016 MICHELLE RIZZO MD, Ot Z79.899 OTHER LONG-TERM (CURRENT) DRUG THERAPY 03/20/2016 MICHELLE RIZZO MD, Ot Z92.21 PERSONAL HISTORY OF ANTINEOPLASTIC CHEMO 03/20/2016 JUSTICE SAHA DO Ot N50.9 DISORDER OF MALE GENITAL ORGANS, UNSPECI 03/23/2016 MICHELLE RIZZO MD, Ot 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, UNSPE 03/23/2016 MICHELLE RIZZO MD, Ot D47.3 ESSENTIAL (HEMORRHAGIC) THROMBOCYTHEMIA 03/23/2016 MICHELLE RIZZO MD, Ot D50.9 IRON DEFICIENCY ANEMIA, UNSPECIFIED 03/23/2016 MICHELLE RIZZO MD, Ot D72.829 ELEVATED WHITE BLOOD CELL COUNT, UNSPECI 03/23/2016 MICHELLE RIZZO MD, Ot 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 03/23/2016 MICHELLE RIZZO MD, Ot K21.9 GASTRO-ESOPHAGEAL REFLUX DISEASE WITHOUT 03/23/2016 MICHELLE RIZZO MD, Ot K50.90 CROHN'S DISEASE, UNSPECIFIED, WITHOUT CO 03/23/2016 MICHELLE RIZZO MD, Ot 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 03/23/2016 MICHELLE RIZZO MD, Ot Z92.21 PERSONAL HISTORY OF ANTINEOPLASTIC CHEMO 04/05/2016 MIRA CARO DO Ot K62.9 DISEASE OF ANUS AND RECTUM, UNSPECIFIED 04/10/2016 MIRA CARO DO Ot K62.89 OTHER SPECIFIED DISEASES OF ANUS AND REC 04/12/2016 MIRA CARO DO Ot K62.89 OTHER SPECIFIED DISEASES OF ANUS AND REC 04/18/2016 JUSTICE SAHA DO Ot N50.9 DISORDER OF MALE GENITAL ORGANS, UNSPECI 04/23/2016 MIRA CARO DO Ot K62.9 DISEASE OF ANUS AND RECTUM, UNSPECIFIED 04/23/2016 JUSTICE SAHA DO Ot N50.9 DISORDER OF MALE GENITAL ORGANS, UNSPECI 04/26/2016 MIRA CARO DO Ot K62.9 DISEASE OF ANUS AND RECTUM, UNSPECIFIED 05/01/2016 MICHELLE RIZZO MD, Ot 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, UNSPE 05/01/2016 MICHELLE RIZZO MD, Ot D47.3 ESSENTIAL (HEMORRHAGIC) THROMBOCYTHEMIA 05/01/2016 MICHELLE RIZZO MD, Ot D50.9 IRON DEFICIENCY ANEMIA, UNSPECIFIED 05/01/2016 MICHELLE RIZZO MD, Ot D72.829 ELEVATED WHITE BLOOD CELL COUNT, UNSPECI 05/01/2016 MICHELLE RIZZO MD, Ot 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 05/01/2016 MATTHIAS MENDOZA, MICHELLE Ot K21.9 GASTRO-ESOPHAGEAL REFLUX DISEASE WITHOUT 05/01/2016 MATTHIAS MENDOZA, MICHELLE Ot K50.90 CROHN'S DISEASE, UNSPECIFIED, WITHOUT CO 05/01/2016 MICHELLE RIZZO MD Ot 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 05/01/2016 MICHELLE RIZZO MD Ot Z92.21 PERSONAL HISTORY OF ANTINEOPLASTIC CHEMO 05/09/2016 MIRA CARO DO Ot K62.89 OTHER SPECIFIED DISEASES OF ANUS AND REC 06/11/2016 MIRA CARO DO Ot K62.89 OTHER SPECIFIED DISEASES OF ANUS AND REC 06/11/2016 MIRA CARO DO Ot Z01.818 ENCOUNTER FOR OTHER PREPROCEDURAL EXAMIN 06/11/2016 MIRA CARO DO Ot Z11.2 ENCOUNTER FOR SCREENING FOR OTHER BACTER 06/13/2016 MIRA CARO DO Ot K62.89 OTHER SPECIFIED DISEASES OF ANUS AND REC 06/13/2016 MIRA CARO DO Ot Z01.818 ENCOUNTER FOR OTHER PREPROCEDURAL EXAMIN 06/13/2016 MIRA CARO DO Ot Z11.2 ENCOUNTER FOR SCREENING FOR OTHER BACTER 06/15/2016 Ot 789.00 ABDOMINAL PAIN, UNSPECIFIED SITE 06/15/2016 Ot 486 PNEUMONIA, ORGANISM NOS 06/15/2016 Ot 555.9 REGIONAL ENTERITIS NOS 06/15/2016 ADDIS MENDOZA, EVELINA Arrington Ot V72.84 EXAM PRE-OPERATIVE NOS 06/15/2016 FINN MILLER DO Ot 566 ANAL RECTAL ABSCESS 06/15/2016 ADDIS MENDOZA, EVELINA Arrington Ot V72.84 EXAM PRE-OPERATIVE NOS 06/15/2016 EVELINA MANCINI MD Ot V72.84 EXAM PRE-OPERATIVE NOS 06/15/2016 Ot 555.0 REG ENTERITIS , SM INTEST 06/15/2016 Ot 789.00 ABDOMINAL PAIN, UNSPECIFIED SITE 06/15/2016 FINN MILLER DO Ot 789.00 ABDOMINAL PAIN, UNSPECIFIED SITE 06/15/2016 ADDIS MENDOZA, EVELINA Arrington Ot V72.84 EXAM PRE-OPERATIVE NOS 06/15/2016 JUSTICE SAHA DO Ot 692.9 DERMATITIS NOS 06/15/2016 JUSTICE SAHA DO Ot Z00.00 ENCNTR FOR GENERAL ADULT MEDICAL EXAM W/ 06/15/2016 ADDIS MENDOZA, EVELINA Arrington Ot Z01.818 ENCOUNTER FOR OTHER PREPROCEDURAL EXAMIN 06/15/2016 ADDIS MENDOZA, EVELINA Arrington Ot K60.3 ANAL FISTULA 06/15/2016 ADDIS MENDOZA, EVELINA Arrington Ot K61.0 ANAL ABSCESS 06/15/2016 ADDIS MENDOZA, EVELINA Arrington Ot K61.1 RECTAL ABSCESS 06/15/2016 LIZZ MENDOZA, RACHAEL Hong Ot N36.1 URETHRAL DIVERTICULUM 06/15/2016 LIZZ MENDOZA, RACHAEL Hong Ot Z01.818 ENCOUNTER FOR OTHER PREPROCEDURAL EXAMIN 06/15/2016 LIZZ MENDOZA, RACHAEL Hong Ot Z11.2 ENCOUNTER FOR SCREENING FOR OTHER BACTER 06/15/2016 JUSTICE SAHA DO Ot K59.00 CONSTIPATION, UNSPECIFIED 06/15/2016 JUSTICE SAHA DO Ot N50.9 DISORDER OF MALE GENITAL ORGANS, UNSPECI 06/15/2016 MIRA CARO DO Ot K62.9 DISEASE OF ANUS AND RECTUM, UNSPECIFIED 06/15/2016 MIRA CARO DO Ot K62.89 OTHER SPECIFIED DISEASES OF ANUS AND REC 06/15/2016 MIRA CARO DO Ot K62.89 OTHER SPECIFIED DISEASES OF ANUS AND REC 06/15/2016 MICHELLE RIZZO MD, Ot 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, UNSPE 06/15/2016 MICHELLE RIZZO MD, Ot D47.3 ESSENTIAL (HEMORRHAGIC) THROMBOCYTHEMIA 06/15/2016 MICHELLE RIZZO MD, Ot D50.9 IRON DEFICIENCY ANEMIA, UNSPECIFIED 06/15/2016 MICHELLE RIZZO MD, Ot D72.829 ELEVATED WHITE BLOOD CELL COUNT, UNSPECI 06/15/2016 MICHELLE RIZZO MD, Ot 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 06/15/2016 MICHELLE RIZZO MD, Ot K21.9 GASTRO-ESOPHAGEAL REFLUX DISEASE WITHOUT 06/15/2016 MICHELLE RIZZO MD, Ot K50.90 CROHN'S DISEASE, UNSPECIFIED, WITHOUT CO 06/15/2016 MICHELLE RIZZO MD, Ot 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 06/15/2016 MICHELLE RIZZO MD Ot Z92.21 PERSONAL HISTORY OF ANTINEOPLASTIC CHEMO 06/15/2016 MICHELLE RIZZO MD, Ot 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, UNSPE 06/15/2016 MICHELLE RIZZO MD, Ot D47.3 ESSENTIAL (HEMORRHAGIC) THROMBOCYTHEMIA 06/15/2016 MICHELLE RIZZO MD, Ot D50.9 IRON DEFICIENCY ANEMIA, UNSPECIFIED 06/15/2016 MICHELLE RIZZO MD, Ot D72.829 ELEVATED WHITE BLOOD CELL COUNT, UNSPECI 06/15/2016 MICHELLE RIZZO MD Ot 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 06/15/2016 MICHELLE RIZZO MD, Ot K21.9 GASTRO-ESOPHAGEAL REFLUX DISEASE WITHOUT 06/15/2016 MICHELLE RIZZO MD, Ot K50.90 CROHN'S DISEASE, UNSPECIFIED, WITHOUT CO 06/15/2016 MICHELLE RIZZO MD, Ot Z79.899 OTHER LONG-TERM (CURRENT) DRUG THERAPY 06/15/2016 MICHELLE RIZZO MD, Ot Z92.21 PERSONAL HISTORY OF ANTINEOPLASTIC CHEMO 06/15/2016 MIRA CARO DO Ot K62.89 OTHER SPECIFIED DISEASES OF ANUS AND REC 06/17/2016 MIRA CARO DO Ot K62.89 OTHER SPECIFIED DISEASES OF ANUS AND REC 06/17/2016 MIRA CARO DO Ot Z01.818 ENCOUNTER FOR OTHER PREPROCEDURAL EXAMIN 06/17/2016 MIRA CARO DO Ot Z11.2 ENCOUNTER FOR SCREENING FOR OTHER BACTER 06/21/2016 MIRA CARO DO Ot K62.89 OTHER SPECIFIED DISEASES OF ANUS AND REC 07/26/2016 Ot 555.9 REGIONAL ENTERITIS NOS 07/26/2016 Ot 569.3 07/28/2016 MIRA CARO DO Ot K62.89 OTHER SPECIFIED DISEASES OF ANUS AND REC 08/31/2016 MIRA CARO DO Ot K62.89 OTHER SPECIFIED DISEASES OF ANUS AND REC 09/25/2016 Ot 202.80 09/25/2016 Ot 288.50 09/25/2016 Ot 780.6 09/25/2016 Ot V58.69 01/31/2017 MICHELLE RIZZO MD, Ot 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, UNSPE 01/31/2017 MICHELLE RIZZO MD Ot D47.3 ESSENTIAL (HEMORRHAGIC) THROMBOCYTHEMIA 01/31/2017 MICHELLE RIZZO MD Ot D50.9 IRON DEFICIENCY ANEMIA, UNSPECIFIED 01/31/2017 MICHELLE RIZZO MD Ot D72.829 ELEVATED WHITE BLOOD CELL COUNT, UNSPECI 01/31/2017 MICHELLE RIZZO MD Ot 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 01/31/2017 MICHELLE RIZZO MD Ot K21.9 GASTRO-ESOPHAGEAL REFLUX DISEASE WITHOUT 01/31/2017 MICHELLE RIZZO MD Ot K50.90 CROHN'S DISEASE, UNSPECIFIED, WITHOUT CO 01/31/2017 MICHELLE RIZZO MD, Ot Z79.899 OTHER LONG-TERM (CURRENT) DRUG THERAPY 01/31/2017 MICHELLE RIZZO MD, Ot Z92.21 PERSONAL HISTORY OF ANTINEOPLASTIC CHEMO 03/19/2017 MICHELLE RIZZO MD, Ot 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, UNSPE 03/19/2017 MICHELLE RIZZO MD Ot D47.3 ESSENTIAL (HEMORRHAGIC) THROMBOCYTHEMIA 03/19/2017 MICHELLE RIZZO MD, Ot D50.9 IRON DEFICIENCY ANEMIA, UNSPECIFIED 03/19/2017 MICHELLE RIZZO MD Ot D72.829 ELEVATED WHITE BLOOD CELL COUNT, UNSPECI 03/19/2017 MICHELLE RIZZO MD Ot 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 03/19/2017 MICHELLE RIZZO MD, Ot K21.9 GASTRO-ESOPHAGEAL REFLUX DISEASE WITHOUT 03/19/2017 MICHELLE RIZZO MD Ot K50.90 CROHN'S DISEASE, UNSPECIFIED, WITHOUT CO 03/19/2017 MICHELLE RIZZO MD Ot Z79.899 OTHER LONG-TERM (CURRENT) DRUG THERAPY 03/19/2017 MICHELLE RIZZO MD Ot Z92.21 PERSONAL HISTORY OF ANTINEOPLASTIC CHEMO 03/26/2017 MICHELLE RIZZO MD, Ot 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, UNSPE 03/26/2017 MICHELLE RIZZO MD Ot D47.3 ESSENTIAL (HEMORRHAGIC) THROMBOCYTHEMIA 03/26/2017 XUN MD, BRITT-CAROLINE Ot D50.9 IRON DEFICIENCY ANEMIA, UNSPECIFIED 03/26/2017 MICHELLE RIZZO MD Ot D72.829 ELEVATED WHITE BLOOD CELL COUNT, UNSPECI 03/26/2017 MICHELLE RIZZO MD Ot 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 03/26/2017 MICHELLE RIZZO MD Ot K21.9 GASTRO-ESOPHAGEAL REFLUX DISEASE WITHOUT 03/26/2017 MICHELLE RIZZO MD Ot K50.90 CROHN'S DISEASE, UNSPECIFIED, WITHOUT CO 03/26/2017 MICHELLE RIZZO MD, Ot 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 03/26/2017 MICHELLE RIZZO MD, Ot Z92.21 PERSONAL HISTORY OF ANTINEOPLASTIC CHEMO 04/30/2017 MICHELLE RIZZO MD, Ot 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, UNSPE 04/30/2017 MICHELLE RIZZO MD Ot D47.3 ESSENTIAL (HEMORRHAGIC) THROMBOCYTHEMIA 04/30/2017 MICHELLE RIZZO MD, Ot D50.9 IRON DEFICIENCY ANEMIA, UNSPECIFIED 04/30/2017 MICHELLE RIZZO MD Ot D72.829 ELEVATED WHITE BLOOD CELL COUNT, UNSPECI 04/30/2017 MICHELLE RIZZO MD, Ot 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 04/30/2017 MICHELLE RIZZO MD, Ot K21.9 GASTRO-ESOPHAGEAL REFLUX DISEASE WITHOUT 04/30/2017 MICHELLE RIZZO MD Ot K50.90 CROHN'S DISEASE, UNSPECIFIED, WITHOUT CO 04/30/2017 MICHELLE RIZZO MD, Ot Z79.899 OTHER LONG-TERM (CURRENT) DRUG THERAPY 04/30/2017 MICHELLE RIZZO MD, Ot Z92.21 PERSONAL HISTORY OF ANTINEOPLASTIC CHEMO 05/01/2017 MICHELLE RIZZO MD, Ot 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, UNSPE 05/01/2017 MICHELLE RIZZO MD Ot D47.3 ESSENTIAL (HEMORRHAGIC) THROMBOCYTHEMIA 05/01/2017 MICHELLE RIZZO MD Ot D50.9 IRON DEFICIENCY ANEMIA, UNSPECIFIED 05/01/2017 MICHELLE RIZZO MD Ot D72.829 ELEVATED WHITE BLOOD CELL COUNT, UNSPECI 05/01/2017 MICHELLE RIZZO MD Ot 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 05/01/2017 MICHELLE RIZZO MD Ot K21.9 GASTRO-ESOPHAGEAL REFLUX DISEASE WITHOUT 05/01/2017 MICHELLE RIZZO MD Ot K50.90 CROHN'S DISEASE, UNSPECIFIED, WITHOUT CO 05/01/2017 MICHELLE RIZZO MD Ot Z79.899 OTHER LONG-TERM (CURRENT) DRUG THERAPY 05/01/2017 MICHELLE RIZZO MD Ot Z92.21 PERSONAL HISTORY OF ANTINEOPLASTIC CHEMO 05/06/2017 MICHELLE RIZZO MD Ot 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, UNSPE 05/06/2017 MICHELLE RIZZO MD, Ot D47.3 ESSENTIAL (HEMORRHAGIC) THROMBOCYTHEMIA 05/06/2017 MICHELLE RIZZO MD, Ot D50.9 IRON DEFICIENCY ANEMIA, UNSPECIFIED 05/06/2017 MICHELLE RIZZO MD Ot D72.829 ELEVATED WHITE BLOOD CELL COUNT, UNSPECI 05/06/2017 MICHELLE RIZZO MD Ot 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 05/06/2017 MICHELLE RIZZO MD Ot K21.9 GASTRO-ESOPHAGEAL REFLUX DISEASE WITHOUT 05/06/2017 MICHELLE RIZZO MD Ot K50.90 CROHN'S DISEASE, UNSPECIFIED, WITHOUT CO 05/06/2017 MICHELLE RIZZO MD, Ot 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 05/06/2017 MICHELLE RIZZO MD Ot Z92.21 PERSONAL HISTORY OF ANTINEOPLASTIC CHEMO 06/05/2017 Ot 555.9 REGIONAL ENTERITIS NOS 06/05/2017 ADDIS MENDOZA, EVELINA Arrington Ot V72.84 EXAM PRE-OPERATIVE NOS 06/05/2017 FINN MILLER DO Ot 566 ANAL RECTAL ABSCESS 06/05/2017 ADDIS MENDOZA, EVELINA Arrington Ot V72.84 EXAM PRE-OPERATIVE NOS 06/05/2017 EVELINA MANCINI MD Ot V72.84 EXAM PRE-OPERATIVE NOS 06/05/2017 Ot 555.0 REG ENTERITIS , SM INTEST 06/05/2017 Ot 789.00 ABDOMINAL PAIN, UNSPECIFIED SITE 06/05/2017 FINN MILLER DO Ot 789.00 ABDOMINAL PAIN, UNSPECIFIED SITE 06/05/2017 ADDIS MENDOZA, EVELINA Arrington Ot V72.84 EXAM PRE-OPERATIVE NOS 06/05/2017 JUSTICE SAHA DO Ot 692.9 DERMATITIS NOS 06/05/2017 JUSTICE SAHA DO, Ot Z00.00 ENCNTR FOR GENERAL ADULT MEDICAL EXAM W/ 06/05/2017 ADDIS MENDOZA, EVELINA Arrington Ot Z01.818 ENCOUNTER FOR OTHER PREPROCEDURAL EXAMIN 06/05/2017 ADDIS MENDOZA, EVELINA Arrington Ot K60.3 ANAL FISTULA 06/05/2017 ADDIS MENDOZA, EVELINA Arrington Ot K61.0 ANAL ABSCESS 06/05/2017 ADDIS MENDOZA, EVELINA Arrington Ot K61.1 RECTAL ABSCESS 06/05/2017 LIZZ MENDOZA, RACHAEL Hong Ot N36.1 URETHRAL DIVERTICULUM 06/05/2017 LIZZ MENDOZA, RACHAEL Hong Ot Z01.818 ENCOUNTER FOR OTHER PREPROCEDURAL EXAMIN 06/05/2017 RACHAEL ZAMUDIO MD, Ot Z11.2 ENCOUNTER FOR SCREENING FOR OTHER BACTER 06/05/2017 JUSTICE ASHA DO Ot K59.00 CONSTIPATION, UNSPECIFIED 06/05/2017 JUSTICE SAHA DO Ot N50.9 DISORDER OF MALE GENITAL ORGANS, UNSPECI 06/05/2017 MIRA CARO DO Ot K62.9 DISEASE OF ANUS AND RECTUM, UNSPECIFIED 06/05/2017 MIRA CARO DO Ot K62.89 OTHER SPECIFIED DISEASES OF ANUS AND REC 06/05/2017 MIRA CARO DO Ot K62.89 OTHER SPECIFIED DISEASES OF ANUS AND REC 06/05/2017 MICHELLE RIZZO MD Ot 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, UNSPE 06/05/2017 MICHELLE RIZZO MD, Ot D47.3 ESSENTIAL (HEMORRHAGIC) THROMBOCYTHEMIA 06/05/2017 MICHELLE RIZZO MD, Ot D50.9 IRON DEFICIENCY ANEMIA, UNSPECIFIED 06/05/2017 MICHELLE RIZZO MD, Ot D72.829 ELEVATED WHITE BLOOD CELL COUNT, UNSPECI 06/05/2017 MICHELLE RIZZO MD, Ot 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 06/05/2017 MICHELLE RIZZO MD Ot K21.9 GASTRO-ESOPHAGEAL REFLUX DISEASE WITHOUT 06/05/2017 MICHELLE RIZZO MD, Ot K50.90 CROHN'S DISEASE, UNSPECIFIED, WITHOUT CO 06/05/2017 MATTHIAS MENDOZA, BRODIECAROLINE Ot Z79.899 OTHER LONG-TERM (CURRENT) DRUG THERAPY 06/05/2017 MATTHIAS MENDOZA, BRODIECAROLINE Ot Z92.21 PERSONAL HISTORY OF ANTINEOPLASTIC CHEMO 06/05/2017 Ot 555.9 REGIONAL ENTERITIS NOS 06/05/2017 ADDIS MENDOZA, EVELINA Arrington Ot V72.84 EXAM PRE-OPERATIVE NOS 06/05/2017 FINN MILLER DO Ot 566 ANAL RECTAL ABSCESS 06/05/2017 ADDIS MENDOZA, EVELINA Arrington Ot V72.84 EXAM PRE-OPERATIVE NOS 06/05/2017 ADDIS MENDOZA, EVELINA Arrington Ot V72.84 EXAM PRE-OPERATIVE NOS 06/05/2017 Ot 555.0 REG ENTERITIS , SM INTEST 06/05/2017 Ot 789.00 ABDOMINAL PAIN, UNSPECIFIED SITE 06/05/2017 FINN MILLER DO Ot 789.00 ABDOMINAL PAIN, UNSPECIFIED SITE 06/05/2017 ADDIS MENDOZA, EVELINA Arrington Ot V72.84 EXAM PRE-OPERATIVE NOS 06/05/2017 JUSTICE SAHA DO Ot 692.9 DERMATITIS NOS 06/05/2017 JUSTICE SAHA DO Ot Z00.00 ENCNTR FOR GENERAL ADULT MEDICAL EXAM W/ 06/05/2017 ADDIS MENDOZA, EVELINA Arrington Ot Z01.818 ENCOUNTER FOR OTHER PREPROCEDURAL EXAMIN 06/05/2017 ADDIS MENDOZA, EVELINA Arrington Ot K60.3 ANAL FISTULA 06/05/2017 ADDIS MENDOZA, EVELINA Arrington Ot K61.0 ANAL ABSCESS 06/05/2017 ADDIS MENDOZA, EVELINA Arrington Ot K61.1 RECTAL ABSCESS 06/05/2017 LIZZ MENDOZA, RACHAEL Hong Ot N36.1 URETHRAL DIVERTICULUM 06/05/2017 LIZZ MENDOZA, RACHAEL Hong Ot Z01.818 ENCOUNTER FOR OTHER PREPROCEDURAL EXAMIN 06/05/2017 RACHAEL ZAMUDIO MD Ot Z11.2 ENCOUNTER FOR SCREENING FOR OTHER BACTER 06/05/2017 JUSTICE SAHA DO Ot K59.00 CONSTIPATION, UNSPECIFIED 06/05/2017 JUSTICE SAHA DO Ot N50.9 DISORDER OF MALE GENITAL ORGANS, UNSPECI 06/05/2017 MIRA CARO DO Ot K62.9 DISEASE OF ANUS AND RECTUM, UNSPECIFIED 06/05/2017 MIRA CARO DO Ot K62.89 OTHER SPECIFIED DISEASES OF ANUS AND REC 06/05/2017 MIRA CARO DO Ot K62.89 OTHER SPECIFIED DISEASES OF ANUS AND REC 06/05/2017 MICHELLE RIZZO MD, Ot 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, UNSPE 06/05/2017 MICHELLE RIZZO MD Ot D47.3 ESSENTIAL (HEMORRHAGIC) THROMBOCYTHEMIA 06/05/2017 MICHELLE RIZZO MD Ot D50.9 IRON DEFICIENCY ANEMIA, UNSPECIFIED 06/05/2017 MICHELLE RIZZO MD Ot D72.829 ELEVATED WHITE BLOOD CELL COUNT, UNSPECI 06/05/2017 MICHELLE RIZZO MD Ot 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 06/05/2017 MICHELLE RIZZO MD Ot K21.9 GASTRO-ESOPHAGEAL REFLUX DISEASE WITHOUT 06/05/2017 MICHELLE RIZZO MD Ot K50.90 CROHN'S DISEASE, UNSPECIFIED, WITHOUT CO 06/05/2017 MICHELLE RIZZO MD Ot Z79.899 OTHER LONG-TERM (CURRENT) DRUG THERAPY 06/05/2017 MICHELLE RIZZO MD Ot Z92.21 PERSONAL HISTORY OF ANTINEOPLASTIC CHEMO 06/05/2017 Ot 555.9 REGIONAL ENTERITIS NOS 06/05/2017 ADDIS MENDOZA, EVELINA Arrington Ot V72.84 EXAM PRE-OPERATIVE NOS 06/05/2017 FINN MILLER DO Ot 566 ANAL RECTAL ABSCESS 06/05/2017 ADDIS MENDOZA, EVELINA Arrington Ot V72.84 EXAM PRE-OPERATIVE NOS 06/05/2017 EVELINA MANCINI MD Ot V72.84 EXAM PRE-OPERATIVE NOS 06/05/2017 Ot 555.0 REG ENTERITIS , SM INTEST 06/05/2017 Ot 789.00 ABDOMINAL PAIN, UNSPECIFIED SITE 06/05/2017 FINN MILLER DO Ot 789.00 ABDOMINAL PAIN, UNSPECIFIED SITE 06/05/2017 ADDIS MENDOZA, EVELINA Arrington Ot V72.84 EXAM PRE-OPERATIVE NOS 06/05/2017 JUSTICE SAHA DO Ot 692.9 DERMATITIS NOS 06/05/2017 JUSTICE SAHA DO Ot Z00.00 ENCNTR FOR GENERAL ADULT MEDICAL EXAM W/ 06/05/2017 ADDIS MENDOZA, EVELINA Arrington Ot Z01.818 ENCOUNTER FOR OTHER PREPROCEDURAL EXAMIN 06/05/2017 ADDIS MENDOZA, EVELINA Arrington Ot K60.3 ANAL FISTULA 06/05/2017 ADDIS MENDOZA, EVELINA Arrington Ot K61.0 ANAL ABSCESS 06/05/2017 ADDIS MENDOZA, EVELINA Arrington Ot K61.1 RECTAL ABSCESS 06/05/2017 LIZZ MENDOZA, RACHAEL Hong Ot N36.1 URETHRAL DIVERTICULUM 06/05/2017 LIZZ MENDOZA, RACHAEL Hong Ot Z01.818 ENCOUNTER FOR OTHER PREPROCEDURAL EXAMIN 06/05/2017 LIZZ MENDOZA, RACHAEL Hong Ot Z11.2 ENCOUNTER FOR SCREENING FOR OTHER BACTER 06/05/2017 JUSTICE SAHA DO Ot K59.00 CONSTIPATION, UNSPECIFIED 06/05/2017 JUSTICE SAHA DO Ot N50.9 DISORDER OF MALE GENITAL ORGANS, UNSPECI 06/05/2017 MIRA CARO DO Ot K62.9 DISEASE OF ANUS AND RECTUM, UNSPECIFIED 06/05/2017 MIRA CARO DO Ot K62.89 OTHER SPECIFIED DISEASES OF ANUS AND REC 06/05/2017 MIRA CARO DO Ot K62.89 OTHER SPECIFIED DISEASES OF ANUS AND REC 06/05/2017 MICHELLE RIZZO MD Ot 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, UNSPE 06/05/2017 MICHELLE RIZZO MD, Ot D47.3 ESSENTIAL (HEMORRHAGIC) THROMBOCYTHEMIA 06/05/2017 MICHELLE RIZZO MD, Ot D50.9 IRON DEFICIENCY ANEMIA, UNSPECIFIED 06/05/2017 MICHELLE RIZZO MD, Ot D72.829 ELEVATED WHITE BLOOD CELL COUNT, UNSPECI 06/05/2017 MICHELLE RIZZO MD Ot 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 06/05/2017 MICHELLE RIZZO MD, Ot K21.9 GASTRO-ESOPHAGEAL REFLUX DISEASE WITHOUT 06/05/2017 MICHELLE RIZZO MD, Ot K50.90 CROHN'S DISEASE, UNSPECIFIED, WITHOUT CO 06/05/2017 MICHELLE RIZZO MD, Ot Z79.899 OTHER LONG-TERM (CURRENT) DRUG THERAPY 06/05/2017 MICHELLE RIZZO MD, Ot Z92.21 PERSONAL HISTORY OF ANTINEOPLASTIC CHEMO 06/05/2017 Ot 555.9 REGIONAL ENTERITIS NOS 06/05/2017 ADDIS MENDOZA, EVELINA Arringotn Ot V72.84 EXAM PRE-OPERATIVE NOS 06/05/2017 FINN MILLER DO Ot 566 ANAL RECTAL ABSCESS 06/05/2017 ADDIS MENDOZA, EVELINA Arrington Ot V72.84 EXAM PRE-OPERATIVE NOS 06/05/2017 ADDIS MENDOZA, EVELINA Arrington Ot V72.84 EXAM PRE-OPERATIVE NOS 06/05/2017 Ot 555.0 REG ENTERITIS , SM INTEST 06/05/2017 Ot 789.00 ABDOMINAL PAIN, UNSPECIFIED SITE 06/05/2017 FINN MILLER DO Ot 789.00 ABDOMINAL PAIN, UNSPECIFIED SITE 06/05/2017 ADDIS MENDOZA, EVELINA Arrington Ot V72.84 EXAM PRE-OPERATIVE NOS 06/05/2017 JUSTICE SAHA DO Ot 692.9 DERMATITIS NOS 06/05/2017 JUSTICE SAHA DO Ot Z00.00 ENCNTR FOR GENERAL ADULT MEDICAL EXAM W/ 06/05/2017 ADDIS MENDOZA, EVELINA Arrington Ot Z01.818 ENCOUNTER FOR OTHER PREPROCEDURAL EXAMIN 06/05/2017 ADDIS MENDOZA, EVELINA Arrington Ot K60.3 ANAL FISTULA 06/05/2017 ADDIS MENDOZA, EVELINA Arrington Ot K61.0 ANAL ABSCESS 06/05/2017 ADDIS MENDOZA, EVELINA Arrington Ot K61.1 RECTAL ABSCESS 06/05/2017 LIZZ MENDOZA, RAHCAEL Hong Ot N36.1 URETHRAL DIVERTICULUM 06/05/2017 LIZZ MENDOZA, RACHAEL Hong Ot Z01.818 ENCOUNTER FOR OTHER PREPROCEDURAL EXAMIN 06/05/2017 LIZZ MENDOZA, RACHAEL Hong Ot Z11.2 ENCOUNTER FOR SCREENING FOR OTHER BACTER 06/05/2017 JUSTICE SAHA DO Ot K59.00 CONSTIPATION, UNSPECIFIED 06/05/2017 JUSTICE SAHA DO Ot N50.9 DISORDER OF MALE GENITAL ORGANS, UNSPECI 06/05/2017 MIRA CARO DO Ot K62.9 DISEASE OF ANUS AND RECTUM, UNSPECIFIED 06/05/2017 MIRA CARO DO Ot K62.89 OTHER SPECIFIED DISEASES OF ANUS AND REC 06/05/2017 MIRA CARO DO Ot K62.89 OTHER SPECIFIED DISEASES OF ANUS AND REC 06/05/2017 MICHELLE RIZZO MD, Ot 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, UNSPE 06/05/2017 MICHELLE RIZZO MD, Ot D47.3 ESSENTIAL (HEMORRHAGIC) THROMBOCYTHEMIA 06/05/2017 MICHELLE RIZZO MD Ot D50.9 IRON DEFICIENCY ANEMIA, UNSPECIFIED 06/05/2017 MICHELLE RIZZO MD, Ot D72.829 ELEVATED WHITE BLOOD CELL COUNT, UNSPECI 06/05/2017 MICHELLE RIZZO MD Ot 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 06/05/2017 MICHELLE RIZZO MD Ot K21.9 GASTRO-ESOPHAGEAL REFLUX DISEASE WITHOUT 06/05/2017 MICHELLE RIZZO MD, Ot K50.90 CROHN'S DISEASE, UNSPECIFIED, WITHOUT CO 06/05/2017 MICHELLE RIZZO MD, Ot 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 06/05/2017 MICHELLE RIZZO MD, Ot Z92.21 PERSONAL HISTORY OF ANTINEOPLASTIC CHEMO 06/05/2017 Ot 555.9 REGIONAL ENTERITIS NOS 06/05/2017 ADDIS MENDOZA, EVELINA Arrington Ot V72.84 EXAM PRE-OPERATIVE NOS 06/05/2017 FINN MILLER DO Ot 566 ANAL RECTAL ABSCESS 06/05/2017 ADDIS MENDOZA, EVELINA Arrington Ot V72.84 EXAM PRE-OPERATIVE NOS 06/05/2017 EVELINA MANCINI MD Ot V72.84 EXAM PRE-OPERATIVE NOS 06/05/2017 Ot 555.0 REG ENTERITIS , SM INTEST 06/05/2017 Ot 789.00 ABDOMINAL PAIN, UNSPECIFIED SITE 06/05/2017 FINN MILLER DO Ot 789.00 ABDOMINAL PAIN, UNSPECIFIED SITE 06/05/2017 ADDIS MENDOZA, EVELINA Arrington Ot V72.84 EXAM PRE-OPERATIVE NOS 06/05/2017 JUSTICE SAHA DO Ot 692.9 DERMATITIS NOS 06/05/2017 JUSTICE SAHA DO Ot Z00.00 ENCNTR FOR GENERAL ADULT MEDICAL EXAM W/ 06/05/2017 ADDIS MENDOZA, EVELINA Arrington Ot Z01.818 ENCOUNTER FOR OTHER PREPROCEDURAL EXAMIN 06/05/2017 ADDIS MENDOZA, EVELINA Arrington Ot K60.3 ANAL FISTULA 06/05/2017 ADDIS MENDOZA, EVELINA Arrington Ot K61.0 ANAL ABSCESS 06/05/2017 ADDIS MENDOZA, EVELINA Arrington Ot K61.1 RECTAL ABSCESS 06/05/2017 LIZZ MENDOZA, RACHAEL Hong Ot N36.1 URETHRAL DIVERTICULUM 06/05/2017 LIZZ MENDOZA, RACHAEL Hong Ot Z01.818 ENCOUNTER FOR OTHER PREPROCEDURAL EXAMIN 06/05/2017 RACHAEL ZAMUDIO MD, Ot Z11.2 ENCOUNTER FOR SCREENING FOR OTHER BACTER 06/05/2017 JUSTICE SAHA DO Ot K59.00 CONSTIPATION, UNSPECIFIED 06/05/2017 JUSTICE SAHA DO Ot N50.9 DISORDER OF MALE GENITAL ORGANS, UNSPECI 06/05/2017 MIRA CARO DO Ot K62.9 DISEASE OF ANUS AND RECTUM, UNSPECIFIED 06/05/2017 MIRA CARO DO Ot K62.89 OTHER SPECIFIED DISEASES OF ANUS AND REC 06/05/2017 MIRA CARO DO, Ot K62.89 OTHER SPECIFIED DISEASES OF ANUS AND REC 06/05/2017 MICHELLE RIZZO MD, Ot 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, UNSPE 06/05/2017 MICHELLE RIZZO MD, Ot D47.3 ESSENTIAL (HEMORRHAGIC) THROMBOCYTHEMIA 06/05/2017 MICHELLE RIZZO MD, Ot D50.9 IRON DEFICIENCY ANEMIA, UNSPECIFIED 06/05/2017 MICHELLE RIZZO MD, Ot D72.829 ELEVATED WHITE BLOOD CELL COUNT, UNSPECI 06/05/2017 MICHELLE RIZZO MD, Ot 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 06/05/2017 MICHELLE RIZZO MD, Ot K21.9 GASTRO-ESOPHAGEAL REFLUX DISEASE WITHOUT 06/05/2017 MICHELLE RIZZO MD, Ot K50.90 CROHN'S DISEASE, UNSPECIFIED, WITHOUT CO 06/05/2017 MICHELLE RIZZO MD, Ot Z79.899 OTHER LONG-TERM (CURRENT) DRUG THERAPY 06/05/2017 MICHELLE RIZZO MD, Ot Z92.21 PERSONAL HISTORY OF ANTINEOPLASTIC CHEMO Procedures Code Description Performed By Performed On 45.25 CLOSED ENDOSCOPIC BIOPSY OF LARGE INTEST 04/27/2009 38.93 VENOUS CATHETERIZATION NEC 05/03/2010 99.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 05/04/2010 45.23 COLONOSCOPY 05/07/2010 45.23 COLONOSCOPY 05/10/2010 45.16 ESOPHAGOGASTRODUODENOSCOPY [ EGD] W/CLOSE 02/12/2013 51.23 LAPAROSCOPIC CHOLECYSTECTOMY 02/18/2013 54.51 LAPAROSCOP LYSIS-PERITONEAL ADHES 02/18/2013 48.81 PERIRECTAL INCISION 03/10/2013 45.16 ESOPHAGOGASTRODUODENOSCOPY [ EGD] W/CLOSE 10/14/2014 45.16 ESOPHAGOGASTRODUODENOSCOPY [ EGD] W/CLOSE 11/13/2014 Results Test Result Range Complete blood count (CBC) with automated white blood cell (WBC) differential - 11/15/15 21:46 Blood leukocytes automated count (number/volume) 12.3 10*3/uL 4.3-11.0 Blood erythrocytes automated count (number/volume) 4.51 10*6/uL 4.35-5.85 Venous blood hemoglobin measurement (mass/volume) 16.2 g/dL 13.3-17.7 Blood hematocrit (volume fraction) 45 % 40-54 Automated erythrocyte mean corpuscular volume 100 [foz_us] 80-99 Automated erythrocyte mean corpuscular hemoglobin (mass per erythrocyte) 36 pg 25-34 Automated erythrocyte mean corpuscular hemoglobin concentration measurement ( mass/volume) 36 g/dL 32-36 Automated erythrocyte distribution width ratio 17.0 % 10.0-14.5 Automated blood platelet count (count/volume) 401 10*3/uL 130-400 Automated blood platelet mean volume measurement 9.6 [foz_us] 7.4-10.4 Automated blood neutrophils/100 leukocytes 73 % 42-75 Automated blood lymphocytes/100 leukocytes 16 % 12-44 Blood monocytes/100 leukocytes 10 % 0-12 Automated blood eosinophils/100 leukocytes 0 % 0-10 Automated blood basophils/100 leukocytes 0 % 0-10 Blood neutrophils automated count (number/volume) 9.0 10*3 1.8-7.8 Blood lymphocytes automated count (number/volume) 1.9 10*3 1.0-4.0 Blood monocytes automated count (number/volume) 1.3 10*3 0.0-1.0 Automated eosinophil count 0.1 10*3/uL 0.0-0.3 Automated blood basophil count (count/volume) 0.0 10*3/uL 0.0-0.1 Comprehensive metabolic panel - 11/15/15 21:46 Serum or plasma sodium measurement (moles/volume) 139 mmol/L 135-145 Serum or plasma potassium measurement (moles/volume) 4.1 mmol/L 3.6-5.0 Serum or plasma chloride measurement (moles/volume) 103 mmol/L 98-107 Carbon dioxide 23 mmol/L 21-32 Serum or plasma anion gap determination (moles/volume) 13 mmol/L 5-14 Serum or plasma urea nitrogen measurement (mass/volume) 9 mg/dL 7-18 Serum or plasma creatinine measurement (mass/volume) 0.67 mg/dL 0.60-1.30 Serum or plasma urea nitrogen/creatinine mass ratio 13 NRG Serum or plasma creatinine measurement with calculation of estimated glomerular filtration rate > NRG Serum or plasma glucose measurement (mass/volume) 81 mg/dL 70-105 Serum or plasma calcium measurement (mass/volume) 8.9 mg/dL 8.5-10.1 Serum or plasma total bilirubin measurement (mass/volume) 0.4 mg/dL 0.1-1.0 Serum or plasma alkaline phosphatase measurement (enzymatic activity/volume) 100 U/L 40-136 Serum or plasma aspartate aminotransferase measurement (enzymatic activity/ volume) 15 U/L 5-34 Serum or plasma alanine aminotransferase measurement (enzymatic activity/volume ) 42 U/L 0-55 Serum or plasma protein measurement (mass/volume) 6.5 g/dL 6.4-8.2 Serum or plasma albumin measurement (mass/volume) 4.2 g/dL 3.2-4.5 Lipase - 11/15/15 21:46 Lipase 9 U/L 8-78 Complete urinalysis with reflex to culture - 11/15/15 22:25 Urine color determination YELLOW NRG Urine clarity determination CLEAR NRG Urine pH measurement by test strip 7 5-9 Specific gravity of urine by test strip 1.005 1.016- 1.022 Urine protein assay by test strip, semi-quantitative NEGATIVE NEGATIVE Urine glucose detection by automated test strip NEGATIVE NEGATIVE Erythrocytes detection in urine sediment by light microscopy 1+ NEGATIVE Urine ketones detection by automated test strip NEGATIVE NEGATIVE Urine nitrite detection by test strip NEGATIVE NEGATIVE Urine total bilirubin detection by test strip NEGATIVE NEGATIVE Urine urobilinogen measurement by automated test strip (mass/volume) NORMAL NORMAL Urine leukocyte esterase detection by dipstick NEGATIVE NEGATIVE Automated urine sediment erythrocyte count by microscopy (number/high power field) [HPF] NRG Automated urine sediment leukocyte count by microscopy (number/high power field ) NONE NRG Bacteria detection in urine sediment by light microscopy NONE NRG Crystals detection in urine sediment by light microscopy NONE NRG Casts detection in urine sediment by light microscopy NONE NRG Mucus detection in urine sediment by light microscopy NEGATIVE NRG Complete urinalysis with reflex to culture NO NRG Methicillin resistant Staphylococcus aureus (MRSA) screening culture - 14:46 Methicillin resistant Staphylococcus aureus (MRSA) screening culture NEG NRG Complete blood count (CBC) with automated white blood cell (WBC) differential - 06/05/17 16:15 Blood leukocytes automated count (number/volume) 43.3 10*3/uL 4.3-11.0 Blood erythrocytes automated count (number/volume) 4.10 10*6/uL 4.35-5.85 Venous blood hemoglobin measurement (mass/volume) 14.8 g/dL 13.3-17.7 Blood hematocrit (volume fraction) 41 % 40-54 Automated erythrocyte mean corpuscular volume 100 [foz_us] 80-99 Automated erythrocyte mean corpuscular hemoglobin (mass per erythrocyte) 36 pg 25-34 Automated erythrocyte mean corpuscular hemoglobin concentration measurement ( mass/volume) 36 g/dL 32-36 Automated erythrocyte distribution width ratio 15.4 % 10.0-14.5 Automated blood platelet count (count/volume) 259 10*3/uL 130-400 Automated blood platelet mean volume measurement 10.3 [foz_us] 7.4-10.4 Automated blood neutrophils/100 leukocytes 85 % 42-75 Automated blood lymphocytes/100 leukocytes 6 % 12-44 Blood monocytes/100 leukocytes 10 % 0-12 Automated blood eosinophils/100 leukocytes 0 % 0-10 Automated blood basophils/100 leukocytes 0 % 0-10 Blood neutrophils automated count (number/volume) 36.6 10*3 1.8-7.8 Blood lymphocytes automated count (number/volume) 2.5 10*3 1.0-4.0 Blood monocytes automated count (number/volume) 4.1 10*3 0.0-1.0 Automated eosinophil count 0.0 10*3/uL 0.0-0.3 Automated blood basophil count (count/volume) 0.1 10*3/uL 0.0-0.1 PT panel in platelet poor plasma by coagulation assay - 06/05/17 16:15 Prothrombin time (PT) in platelet poor plasma by coagulation assay 13.7 s 12.2-14.7 INR in platelet poor plasma or blood by coagulation assay 1.0 0.8-1.4 Activated partial thromboplastin time (aPTT) in platelet poor plasma bycoagulation assay - 06/05/17 16:15 Activated partial thromboplastin time (aPTT) in platelet poor plasma bycoagulation assay 34 s 24-35 Blood lactic acid measurement (moles/volume) - 06/05/17 16:15 Blood lactic acid measurement (moles/volume) 3.98 mmol/L 0.50-2.00 Comprehensive metabolic panel - 06/05/17 16:15 Serum or plasma sodium measurement (moles/volume) 133 mmol/L 135-145 Serum or plasma potassium measurement (moles/volume) 3.4 mmol/L 3.6-5.0 Serum or plasma chloride measurement (moles/volume) 95 mmol/L 98-107 Carbon dioxide 19 mmol/L 21-32 Serum or plasma anion gap determination (moles/volume) 19 mmol/L 5-14 Serum or plasma urea nitrogen measurement (mass/volume) 15 mg/dL 7-18 Serum or plasma creatinine measurement (mass/volume) 1.54 mg/dL 0.60-1.30 Serum or plasma urea nitrogen/creatinine mass ratio 10 NRG Serum or plasma creatinine measurement with calculation of estimated glomerular filtration rate 50 NRG Serum or plasma glucose measurement (mass/volume) 84 mg/dL 70-105 Serum or plasma calcium measurement (mass/volume) 8.4 mg/dL 8.5-10.1 Serum or plasma total bilirubin measurement (mass/volume) 1.1 mg/dL 0.1-1.0 Serum or plasma alkaline phosphatase measurement (enzymatic activity/volume) 85 U/L 40-136 Serum or plasma aspartate aminotransferase measurement (enzymatic activity/ volume) 24 U/L 5-34 Serum or plasma alanine aminotransferase measurement (enzymatic activity/volume ) 27 U/L 0-55 Serum or plasma protein measurement (mass/volume) 6.9 g/dL 6.4-8.2 Serum or plasma albumin measurement (mass/volume) 4.1 g/dL 3.2-4.5 Blood manual differential performed detection - 06/05/17 16:15 Blood monocytes/100 leukocytes 11 % NRG Manual blood segmented neutrophils/100 leukocytes 50 % NRG Blood band neutrophils/100 leukocytes 26 % NRG Manual blood lymphocytes/100 leukocytes 11 % NRG Manual eosinophils/100 leukocytes in nose 0 % NRG Manual blood basophils/100 leukocytes 1 % NRG Manual blood metamyelocytes/100 leukocytes 1 % NRG Blood target cells detection by light microscopy SLIGHT NRG Blood [place] bodies detection by light microscopy MODERATE NRG Serum or plasma lactate measurement (moles/volume) - 06/05/17 18:15 Serum or plasma lactate measurement (moles/volume) 2.08 mmol/L 0.50-2.00 Complete urinalysis with reflex to culture - 06/06/17 00:20 Urine color determination YELLOW NRG Urine clarity determination CLEAR NRG Urine pH measurement by test strip 5 5-9 Specific gravity of urine by test strip 1.015 1.016- 1.022 Urine protein assay by test strip, semi-quantitative NEGATIVE NEGATIVE Urine glucose detection by automated test strip NEGATIVE NEGATIVE Erythrocytes detection in urine sediment by light microscopy 2+ NEGATIVE Urine ketones detection by automated test strip NEGATIVE NEGATIVE Urine nitrite detection by test strip NEGATIVE NEGATIVE Urine total bilirubin detection by test strip NEGATIVE NEGATIVE Urine urobilinogen measurement by automated test strip (mass/volume) NORMAL NORMAL Urine leukocyte esterase detection by dipstick NEGATIVE NEGATIVE Automated urine sediment erythrocyte count by microscopy (number/high power field) RARE NRG Automated urine sediment leukocyte count by microscopy (number/high power field ) NONE NRG Bacteria detection in urine sediment by light microscopy NEGATIVE NRG Squamous epithelial cells detection in urine sediment by light microscopy RARE NRG Crystals detection in urine sediment by light microscopy NONE NRG Casts detection in urine sediment by light microscopy NONE NRG Mucus detection in urine sediment by light microscopy SMALL NRG Complete urinalysis with reflex to culture NO NRG Complete blood count (CBC) with automated white blood cell (WBC) differential - 06/06/17 03:30 Blood leukocytes automated count (number/volume) 47.6 10*3/uL 4.3-11.0 Blood erythrocytes automated count (number/volume) 3.38 10*6/uL 4.35-5.85 Venous blood hemoglobin measurement (mass/volume) 12.2 g/dL 13.3-17.7 Blood hematocrit (volume fraction) 34 % 40-54 Automated erythrocyte mean corpuscular volume 101 [foz_us] 80-99 Automated erythrocyte mean corpuscular hemoglobin (mass per erythrocyte) 36 pg 25-34 Automated erythrocyte mean corpuscular hemoglobin concentration measurement ( mass/volume) 36 g/dL 32-36 Automated erythrocyte distribution width ratio 15.6 % 10.0-14.5 Automated blood platelet count (count/volume) 222 10*3/uL 130-400 Automated blood platelet mean volume measurement 10.0 [foz_us] 7.4-10.4 Automated blood neutrophils/100 leukocytes 90 % 42-75 Automated blood lymphocytes/100 leukocytes 4 % 12-44 Blood monocytes/100 leukocytes 6 % 0-12 Automated blood eosinophils/100 leukocytes 0 % 0-10 Automated blood basophils/100 leukocytes 0 % 0-10 Blood neutrophils automated count (number/volume) 42.9 10*3 1.8-7.8 Blood lymphocytes automated count (number/volume) 1.7 10*3 1.0-4.0 Blood monocytes automated count (number/volume) 3.0 10*3 0.0-1.0 Automated eosinophil count 0.0 10*3/uL 0.0-0.3 Automated blood basophil count (count/volume) 0.1 10*3/uL 0.0-0.1 Blood lactic acid measurement (moles/volume) - 06/06/17 03:30 Blood lactic acid measurement (moles/volume) 2.30 mmol/L 0.50-2.00 Comprehensive metabolic panel - 06/06/17 03:30 Serum or plasma sodium measurement (moles/volume) 139 mmol/L 135-145 Serum or plasma potassium measurement (moles/volume) 3.4 mmol/L 3.6-5.0 Serum or plasma chloride measurement (moles/volume) 111 mmol/L 98-107 Carbon dioxide 18 mmol/L 21-32 Serum or plasma anion gap determination (moles/volume) 10 mmol/L 5-14 Serum or plasma urea nitrogen measurement (mass/volume) 8 mg/dL 7-18 Serum or plasma creatinine measurement (mass/volume) 0.61 mg/dL 0.60-1.30 Serum or plasma urea nitrogen/creatinine mass ratio 13 NRG Serum or plasma creatinine measurement with calculation of estimated glomerular filtration rate > NRG Serum or plasma glucose measurement (mass/volume) 113 mg/dL 70-105 Serum or plasma calcium measurement (mass/volume) 6.8 mg/dL 8.5-10.1 Serum or plasma total bilirubin measurement (mass/volume) 0.8 mg/dL 0.1-1.0 Serum or plasma alkaline phosphatase measurement (enzymatic activity/volume) 66 U/L 40-136 Serum or plasma aspartate aminotransferase measurement (enzymatic activity/ volume) 24 U/L 5-34 Serum or plasma alanine aminotransferase measurement (enzymatic activity/volume ) 27 U/L 0-55 Serum or plasma protein measurement (mass/volume) 5.4 g/dL 6.4-8.2 Serum or plasma albumin measurement (mass/volume) 3.3 g/dL 3.2-4.5 Serum or plasma phosphate measurement (mass/volume) - 06/06/17 03:30 Serum or plasma phosphate measurement (mass/volume) 2.9 mg/dL 2.3-4.7 Magnesium - 06/06/17 03:30 Magnesium 1.1 mg/dL 1.8-2.4 Arterial blood gas measurement - 06/06/17 03:50 Blood pCO2 38 mm[Hg] 35-45 Blood pO2 73 mm[Hg] 79-93 Arterial blood bicarbonate measurement (moles/volume) 21 mmol/L 23-27 Arterial blood base excess by calculation -3.8 mmol/L - 2.5-2.5 Arterial blood oxygen saturation measurement 93 % 94-100 * Inhaled oxygen flow rate 40% BIPAP NRG Arterial blood pH measurement with patient temperature correction 7.36 7.37-7.43 Arterial blood carbon dioxide, total measurement (moles/volume) 21.9 mmol/L 21.0-31.0 Body site LRAD NRG Assessment of wrist artery patency prior to arterial puncture YES- POS NRG Setting of ventilation mode NO NRG Measurement of body temperature 98.3 NRG Serum or plasma lactate measurement (moles/volume) - 06/06/17 05:45 Serum or plasma lactate measurement (moles/volume) 2.23 mmol/L 0.50-2.00 Encounters ACCT No. Visit Date/Time Discharge Status Pt. Type Provider Facility Loc./Unit Complaint [id number] 05/01/2017 00:31:00 05/01/2017 23:59:59 CLS Preadmit MATTHIAS MENDOZA, MICHELLE Hernadez [facility] ONC OV [id number] 01/30/2017 13:17:00 04/30/2017 00:01:00 DIS Outpatient MICHELLE RIZZO MD [facility] ONC OV [id number] 06/15/2016 08:04:00 06/15/2016 12:15:00 DIS Outpatient MIRA CARO DO [facility] SDC CYST MICAH-ANAL AREA [id number] 06/11/2016 14:12:00 06/11/2016 14:46:00 DIS Outpatient MIRA CARO DO [facility] PREOP EXC CYST MICAH-ANAL AREA [id number] 02/01/2016 12:52:00 05/01/2016 00:01:00 DIS Outpatient MICHELLE RIZZO MD [facility] ONC OV [id number] 04/11/2016 09:20:00 04/11/2016 23:59:59 CLS Outpatient MIRA CARO DO [facility] RAD PERIANAL CYST [id number] 04/05/2016 10:20:00 04/05/2016 23:59:59 CLS Outpatient MIRA CARO DO [facility] RAD PERIANAL CYST [id number] 03/30/2016 14:45:00 03/30/2016 23:59:59 CLS Outpatient MIRA CARO DO [facility] RAD PERIRECTAL MASS [id number] 03/19/2016 12:00:00 03/19/2016 23:59:59 CLS Outpatient JUSTICE SAHA DO [facility] RAD R TESTICULAR LESION [id number] 11/17/2015 16:02:00 11/17/2015 17:40:00 DIS Emergency YI CHAVARRIA MD [facility] ER CONSTIPATION [id number] 11/15/2015 20:41:00 11/15/2015 22:52:00 DIS Emergency MITESH WARNER APRN [facility] ER CONSTIPATION [id number] 05/23/2015 10:50:00 05/23/2015 23:59:59 CLS Outpatient JUSTICE SAHA DO [facility] RAD CONSTIPATION [id number] 05/19/2015 20:47:00 05/19/2015 23:02:00 DIS Emergency ALON LUNA MD [facility] ER CONSTIPATION [id number] 05/03/2015 07:05:00 05/03/2015 10:45:00 DIS Outpatient RACHAEL ZAMUDIO MD [facility] SDC URETHREAL DIVERTICULUM [id number] 05/02/2015 14:57:00 05/02/2015 23:59:59 CLS Outpatient RACHAEL ZAMUDIO MD [facility] PREOP URETHERAL DIVERTICULUM [id number] 2015 08:38:00 2015 23:59:59 CLS Outpatient EVELINA MANCINI MD [facility] RAD PERIRECTAL ABCESS [id number] 02/23/2015 14:53:00 02/23/2015 23:59:59 CLS Outpatient EVELINA MANCINI MD [facility] RAD PERANUAL FISTULA [id number] 02/02/2015 12:32:00 02/02/2015 23:59:59 CLS Outpatient MICHELLE RIZZO MD [facility] ONC OV [id number] 01/14/2015 10:54:00 01/14/2015 19:50:00 DIS Outpatient EVELINA MANCINI MD [facility] SDC FISTULA [id number] 01/13/2015 14:08:00 01/13/2015 23:59:59 CLS Outpatient EVELINA MANCINI MD [facility] PREOP EXAM UNDER ANES. [id number] 12/22/2014 11:02:00 12/22/2014 23:59:59 CLS Outpatient JUSTICE SAHA DO [facility] RAD GENERAL ADULT MEDICAL EXAM [id number] 11/13/2014 02:35:00 11/16/2014 18:55:00 DIS Inpatient JUSTICE SAHA DO [facility] SURGICAL ENTERITIS; LEUKOCYTOSIS;HX OF CROHN'S;HX OF COLON [id number] 08/04/2014 13:37:00 11/02/2014 00:01:00 DIS Outpatient MICHELLE RIZZO MD [facility] ONC OV [id number] 10/13/2014 13:50:00 10/15/2014 14:17:00 DIS Inpatient JUSTICE SAHA DO [facility] SURGICAL INTRACTABLE ABD PAIN [id number] 09/30/2014 17:10:00 09/30/2014 23:59:59 CLS Outpatient JUSTICE SAHA DO [facility] LAB DERMATITIS [id number] 09/14/2014 21:35:00 09/14/2014 22:43:00 DIS Emergency GIUSEPPE PEREZ [facility] ER ALLERGIC REACTION TO POISON AJ [id number] 07/28/2014 12:05:00 07/28/2014 15:30:00 DIS Outpatient EVELINA MANCINI MD [facility] SDC WEIGHT LOSS [id number] 07/22/2014 05:53:00 07/22/2014 23:59:59 CLS Outpatient EVELINA MANCINI MD [facility] PREOP WEIGHT LOSS [id number] 06/02/2014 08:20:00 06/02/2014 23:59:59 CLS Outpatient FINN MILLER DO [facility] RAD ABD PAIN [id number] 02/10/2014 14:13:00 02/10/2014 23:59:59 CLS Outpatient MICHELLE RIZZO MD [facility] ONC OV [id number] 12/22/2013 11:00:00 12/25/2013 17:50:00 DIS Inpatient JUSTICE SAHA DO [facility] 4TH SBO [id number] 12/23/2013 07:53:00 12/23/2013 23:59:59 CLS Outpatient EVELINA MANCINI MD [facility] PREOP RECTAL BLEEDING [id number] 08/19/2013 14:10:00 08/25/2013 00:01:00 DIS Outpatient MICHELLE RIZZO MD [facility] ONC OV [id number] 05/18/2013 08:33:00 05/18/2013 11:18:00 DIS Outpatient EVELINA MANCINI MD [facility] SDC MULTIPLE ULCERS [id number] 05/13/2013 07:33:00 05/13/2013 23:59:59 CLS Outpatient EVELINA MANCINI MD [facility] PREOP MULTIPLE ULCERS [id number] 05/08/2013 14:36:00 05/11/2013 00:01:00 DIS Outpatient MICHELLE RIZZO MD [facility] ONC OV [id number] 03/10/2013 09:35:00 03/12/2013 19:20:00 DIS Inpatient FINN MILLER DO [facility] SURGICAL MICAH RECTAL ABSCESS [id number] 03/09/2013 16:28:00 03/09/2013 23:59:59 CLS Outpatient FINN MILLER DO [facility] RAD MICAH RECTAL ABCESS [id number] 02/11/2013 15:20:00 02/20/2013 13:40:00 DIS Inpatient JUSTICE SAHA DO [facility] SURGICAL GI BLEED [id number] 01/19/2013 10:02:00 01/19/2013 13:30:00 DIS [facility] [id number] 01/15/2013 07:11:00 01/15/2013 23:59:59 CLS Outpatient EVELINA MANCINI MD [facility] PREOP RECTAL BLEED [id number] 06/05/2017 18:12:00 ACT Inpatient JUSTICE SAHA DO [facility] ICU SEPTIC SHOCK, LEFT LUNGULAR PNA [id number] 06/02/2014 08:20:00 Document Registration [id number] 06/02/2014 08:20:00 Document Registration [id number] 06/02/2014 08:20:00 Document Registration [id number] 06/02/2014 08:20:00 Document Registration [id number] 06/02/2014 08:19:00 Document Registration [id number] 06/02/2014 08:19:00 Document Registration [id number] 06/02/2014 08:19:00 Document Registration [id number] 06/02/2014 08:19:00 Document Registration [id number] 04/21/2014 10:50:00 Document Registration [id number] 04/18/2011 15:40:00 Document Registration [id number] 04/03/2011 13:30:00 Document Registration [id number] 03/22/2011 19:22:00 Document Registration [id number] 11/08/2010 12:59:00 Document Registration [id number] 10/11/2010 13:49:00 Document Registration [id number] 05/03/2010 13:47:00 Document Registration [id number] 04/26/2010 08:30:00 Document Registration [id number] 01/31/2010 14:10:00 Document Registration [id number] 01/04/2010 12:58:00 Document Registration [id number] 11/19/2009 19:37:00 Document Registration [id number] 11/16/2009 20:58:00 Document Registration [id number] 10/07/2009 13:09:00 Document Registration [id number] 07/19/2009 13:54:00 Document Registration [id number] 02/08/2009 16:00:00 Document Registration [id number] 01/18/2009 13:25:00 Document Registration [id number] 12/29/2008 14:50:00 Document Registration [id number] 11/18/2008 00:00:00 Document Registration [id number] 10/14/2008 13:07:00 Document Registration [id number] 09/03/2006 19:54:00 Document Registration [id number] 11/13/2014 01:49:16 ACT Document Registration
[2017-06-06] MEDS: ENOXAPARIN 40 MG/0.4 ML (LOVENOX) SYR SC SCH (11:45)
--- NOTE | 2017-06-06 11:52 | Physical Therapy Evaluation ---
PT Evaluation-General Medical Diagnosis Admission Date Jun 05, 2017 at 18:12 Medical Diagnosis: SEPTIC SHOCK Onset Date: Jun 05, 2017 Therapy Diagnosis Therapy Diagnosis: debility Height/Weight Height (Feet): 5 Height (Inches): 9.00 Weight (Pounds): 132 Weight (Ounces): 0.0 Precautions Precautions/Isolations: Fall Prevention, Standard Precautions Weight Bear Status Right Lower Extremity: Right Full Weight Bearing Left Lower Extremity: Left Full Weight Bearing Referral Physician: Tony Reason for Referral: Evaluation/Treatment Medical History Pertinent Medical History: Lymphoma, Smoking, TBI Additional Medical History Crohn's, personality disorder Current History Ed via POV with fever, cough and decreased BP Reviewed History: Yes Social History Home: Single Level Current Living Status: Other Family Prior/[facility] Prior Level of Function Functional [place] Measure 0=Not Assessed/NA 4=Minimal Assistance 1=Total Assistance 5=Supervision or Setup 2=Maximal Assistance 6=Modified [place] 3=Moderate Assistance 7=Complete [place] Bed Mobility: 7 Transfers (B,C,W/C) (FIM): 7 Gait: 7 PT Evaluation-Current Subjective Patient agrees to OOB. Pain Numeric Pain Scale: 0-No Pain Location: No Pain Reported Objective Patient Orientation: Confused (impulsive) Problem Solving: Fair Attachments: Oxygen, Rg Catheter, IV ROM/Strength ROM Lower Extremities bilateral LE WNL Strength Lower Extremities 4-/5 grossly bilaterally (patient was too anxious to formally perform MMT) Integumentary/Posture Integumentary refer to nursing notes Bowel Incontinence: No Bladder Incontinence: Rg Cath Posture WFL Neuromuscular (Tone, Coordination, Reflexes) grossly intact Sensory Vision: Functional Hearing: Functional Sensation Right Lower Extremit: Intact Sensation Left Lower Extremity: Intact Transfers Functional [place] Measure 0=Not Assessed/NA 4=Minimal Assistance 1=Total Assistance 5=Supervision or Setup 2=Maximal Assistance 6=Modified [place] 3=Moderate Assistance 7=Complete [place] Transfers (B, C, W/C) (FIM): 7 Scootin Rollin Supine to/from Sit: 7 Sit to/from Stand: 7 Gait Mode of Locomotion: Walk Anticipated Mode of Locomotion: Walk Gait (FIM): 1 Distance (FIM): 1=up to 49 ft Distance: 3 steps Gait Level of Assist: 7 Gait Assistive Device: None Balance Sitting Static: Normal Sitting Dynamic: Normal Standing Static: Fair Standing Dynamic: Fair Assessment/Needs 42 y.o. male, is currently on vapotherm and limited with distance mobility. Patient is at independent PLOF with gross motor skills at this time. PT will continue to monitor patient's progress to ensure safe return to home. Rehab Potential: Guarded Post Rehab Potential-Barriers: compliance PT Short Term Goals Short Term Goals Time Frame: Jun 07, 2017 Transfers (B,C,W/C) (FIM): 7 PT Plan Treatment/Plan Treatment Plan: Continue Plan of Care Treatment Plan: Education, Functional Activity Mally, Gait, Safety Treatment Duration: Jun 07, 2017 Frequency: 2 times per week Estimated Hrs Per Day: .25 hour per day Patient and/or Family Agrees t: Yes Safety Risks/Education Patient Education: Safety Issues Teaching Recipient: Patient Teaching Methods: Discussion Response to Teaching: Reinforcement Needed Time/GCodes Time In: 1105 Time Out: 1124 Total Billed Treatment Time: 19 Total Billed Treatment 1 visit EVHighC 19 min JOVANI BUTLER PT Jun 06, 2017 11:52
--- OUTSIDE RECORDS SUMMARY | 2017-06-06 11:58 | XMS REPORT | Clinical Summary ---
Author Author [facility] Organization [facility] Address Unknown Phone Unavailable Care Team Providers Care Assistant Athletic Trainer Name Role Phone Contreras Jo MD PCP Anum Bain MD Unavailable Yarely Patterson RN Unavailable Unavailable Source Comments Some departments are not documenting in the electronic medical record. If you do not see the information that you expected, contact Release of Information in the Health Information Management department at [phone] for further assistance in locating additional records.[facility] Allergies Active Allergy Reactions Severity Noted Date [...] Taken Blood Pressure 110/70 01/09/2014 11:20 AM CERTIFIED ALCOHOL DRUG COUNSELOR Pulse 78 01/09/2014 11:20 AM CERTIFIED ALCOHOL DRUG COUNSELOR Temperature 36.6 C (97.8 F) 01/09/2014 11:20 AM CERTIFIED ALCOHOL DRUG COUNSELOR Respiratory Rate - - Oxygen Saturation 100% 01/09/2014 11:20 AM CERTIFIED ALCOHOL DRUG COUNSELOR Inhaled Oxygen - - Concentration Weight 50.8 kg (112 lb) 01/08/2014 4:00 AM CERTIFIED ALCOHOL DRUG COUNSELOR Height 175.3 cm (5' 9") 12/25/2013 8:09 PM CDT Body Mass Index 16.54 01/08/2014 4:00 AM CERTIFIED ALCOHOL DRUG COUNSELOR Plan of Treatment Health Maintenance Due Date Last Done Comments PHYSICAL (COMPREHENSIVE) 1984 EXAM PERTUSSIS VACCINE 1988 HIV SCREENING 1992 TETANUS VACCINE 1994 INFLUENZA VACCINE 11/25/2017 Results Not on filefrom Last 3 Months
[2017-06-06] MEDS ORDERED: ASCO-262 PO (12:01)
[2017-06-06] MEDS ORDERED: HYDR28.3 TP (12:01)
[2017-06-06] MEDS ORDERED: NPB.9O TP (12:01)
[2017-06-06] MEDS ORDERED: MULT-26 PO (12:01)
[2017-06-06] MEDS ORDERED: [UNRECOGNIZED DRUG - CODE] PO (12:01)
[2017-06-06] MEDS ORDERED: MICO45PO TP (12:01)
[2017-06-06] MEDS ORDERED: GUAI-585 PO (12:01)
[2017-06-06] MEDS ORDERED: BLUE GOO TOP (12:01)
[2017-06-06] MEDS ORDERED: FAMO20TA3 PO (12:01)
[2017-06-06] MEDS ORDERED: [UNRECOGNIZED DRUG - CODE] MM (12:01)
[2017-06-06] MEDS ORDERED: DIPH25CA79 PO (12:01)
--- OUTSIDE RECORDS SUMMARY | 2017-06-06 12:05 | XMS REPORT | Continuity of Care Document ---
Author Author [facility] Organization [facility] Address Unknown Phone Unavailable Allergies Active Description Code Type Severity Reaction Onset Reported/Identified Relationship to Patient Clinical Status Yes nalbuphine [id number] Drug Allergy Mild RASH 03/29/2006 Yes ceftazidime [id number] Drug Allergy Unknown N/A 03/29/2006 Yes ceftazidime (anhydrous) [id number] Drug Allergy Unknown N/A 03/29/2006 Yes Sulfa (Sulfonamide Antibiotics) [id number] Drug Allergy Unknown N/A 2006 Yes TAPE TAPE Unknown N/A 03/29/2006 Yes strawberry [id number] Drug Allergy Unknown N/A 12/18/2013 Yes Iodinated Contrast Media - IV Dye [id number] Drug Allergy Unknown HIVES 08/2015 Yes Iodinated Contrast Media - Oral and [id number] Drug Allergy Unknown HIVES 05/02/2015 Yes Iodinated Contrast- Oral and IV Dye [id number] Drug Allergy Unknown HIVES 05/02/2015 Yes latex [id number] Drug Allergy Unknown N/A 05/03/2015 Yes ceftazidime [id number] Drug Allergy Moderate RASH 06/15/2016 Medications There [...] 535.50 UNSP GASTRITIS GASTRODUODENITIS W/O ME 02/20/2013 JUSITCE SAHA DO Ot 555.9 REGIONAL ENTERITIS NOS 02/20/2013 JUSTICE SAHA DO Ot 560.1 PARALYTIC ILEUS 02/20/2013 JUSTICE SAHA DO Ot 568.0 PERITONEAL [id number]/INF 02/20/2013 JUSTICE SAHA DO Ot 575.11 CHRONIC [...] MENDOZA, BALWINDER-CAROLINE Ot 266.2 02/11/2014 MATTHIAS MENDOZA, ABLWINDER-CAROLINE Ot 280.9 02/11/2014 MATTHIAS MENDOZA, BALWINDER-CAROLINE Ot 288.60 02/11/2014 MATTHIAS MENDOZA, BRITT-CAROLINE Ot 530.81 02/11/2014 MATTHIAS MENDOZA, BRITT-CAROLINE Ot 555.9 02/11/2014 MATTHIAS MENDOZA, BRITT-CAROLINE Ot V58.69 02/11/2014 MATTHIAS MENDOZA, BRITT-CAROLINE Ot V87.41 03/25/2014 MATTHIAS MENDOZA, BRITT-CAROLINE Ot 202.80 03/25/2014 MATTHIAS MENDOZA, BIRTT-CAROLINE Ot 238.71 03/25/2014 MATTHIAS MENDOZA, BRITT-CAROLINE Ot [...] Ot 530.81 ESOPHAGEAL REFLUX 05/11/2014 MATTHIAS MENDOZA, [facility] Ot 555.9 REGIONAL ENTERITIS NOS 05/11/2014 MATTHIAS MENDOZA, [facility] Ot V58.69 OT MED,LT,CURRENT USE 05/11/2014 MATTHIAS MENDOZA, [facility] Ot V87.41 PERSONAL HISTORY OF ANTINEOPLASTIC CHEMO [...] 555.0 06/02/2014 Ot 789.00 06/02/2014 MATTHIAS MEND[facility]ZA, [facility] Ot 202.80 06/02/2014 MATTHIAS MENDOZA, [facility] Ot 238.71 06/02/2014 MATTHIAS MENDOZA, [facility] Ot 266.2 06/02/2014 MATTHIAS MENDOZA, BRITT-CAROLINE Ot 280.9 06/02/2014 MATTHIAS MENDOZA, BRITT-CAROLINE Ot 288.60 06/02/2014 MATTHIAS MENDOZA, BRITT-CAROLINE Ot 530.81 06/02/2014 MATTHIAS MENDOZA, BRITT-CAROLINE Ot 555.9 06/02/2014 MATTHIAS MENDOZA, BRITT-CAROLINE Ot V58.69 06/02/2014 MATTHIAS MENDOZA, BRITT-CAROLINE Ot V87.41 06/29/2014 FINN MILLER DO Ot 789.00 07/28/2014 ADDIS MENDOZA, EVELINA Arrington Ot 535.50 UNSP GASTRITIS GASTRODUODENITIS W/O ME 07/28/2014 ADDIS EMNDOZA, EVELINA Arrington Ot 783.21 LOSS OF WEIGHT [...] MENDOZA, BRITT-CAROLINE Ot 288.60 09/16/2014 MATTHIAS MENDOZA, BRITT-CAROLINE Ot 530.81 09/16/2014 MATTHIAS MENDOZA, BRITT-CAROLINE Ot 555.9 09/16/2014 MATTHIAS MENDOZA, BRITT-CAROLINE Ot V58.69 09/16/2014 MATTHIAS MENDOZA, BRITT-CAROLINE Ot V87.41 09/24/2014 MATTHIAS MENDOZA, BRITT-CAROLINE Ot 202.80 09/24/2014 MATTHIAS MENDOZA, BRITT-CAROLINE Ot 238.71 09/24/2014 MATTHIAS MENDOZA, BRITT-CAROLINE Ot 266.2 09/24/2014 MATTHIAS MENDOZA, BRITT-CAROLINE Ot 280.9 09/24/2014 MATTHIAS MENDOZA, RBITT-CAROLINE Ot 288.60 09/24/2014 MATTHIAS MENDOZA, BRITT-CAROLINE Ot [...] MENDOZA, BALWINDERCAROLINE Ot 202.80 10/11/2014 MATTHIAS MENDOZA, [facility] Ot 238.71 10/11/2014 MATTHIAS MENDOZA, [facility] Ot 266.2 10/11/2014 MATTHIAS MENDOZA, [facility] Ot 280.9 10/11/2014 MATTHIAS MENDOZA, [facility] Ot 288.60 10/11/2014 MATTHIAS MENDOZA, [facility] Ot 530.81 10/11/2014 MATTHIAS MENDOZA, [facility] Ot 555.9 10/11/2014 MATTHIAS MENDOZA, [facility] Ot V58.69 10/11/2014 MATTHIAS MENDOZA, [facility] Ot V87.41 10/11/2014 FINN MILLER DO Ot [...] ACQRD ABSENCE INTESTINE - LARGE/SMALL 11/16/2014 JUSTICE SAHA DO Ot V45.79 ACQRD ABSENCE OF OTH [...] FINN MILLER DO Ot 566 12/22/2014 ADDIS EMNDOZA, EVELINA Arrington Ot V72.84 12/22/2014 EVELINA MANCINI [...] MATTHIAS MENDOZA, BALWINDER-CAROLINE Ot 238.71 01/26/2015 MATTHIAS MENDOZA, BALWINDER-CAROLINE Ot 266.2 01/26/2015 MATTHIAS MENDOZA, MICHELLE [...] D47.3 ESSENTIAL (HEMORRHAGIC) THROMBOCYTHEMIA 05/03/2015 MATTHIAS MENDOZA, MICHELLE Ot D50.9 IRON DEFICIENCY ANEMIA, UNSPECIFIED 05/03/2015 MATTHIAS MENDOZA, MICHELLE Ot D72.829 ELEVATED WHITE BLOOD CELL COUNT, UNSPECI 05/03/2015 MATTHIAS MENDOZA, MICHELLE Ot 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 05/03/2015 MATTHIAS MENDOZA, MICHELLE Ot K21.9 GASTRO-ESOPHAGEAL REFLUX DISEASE WITHOUT 05/03/2015 MATTHIAS MENDOZA, MICHELLE Ot K50.90 CROHN'S DISEASE, UNSPECIFIED, WITHOUT CO 05/03/2015 MATTHIAS MENDOZA, MICHELLE Castro Z79.899 OTHER PRESS DEPARTMENT MANAGER (CURRENT) DRUG THERAPY 05/03/2015 MATTHIAS MENDOZA, MICHELLE [...] MENDOZA, MICHELLE Ot Z79.899 05/06/2015 MATTHIAS MENDOZA, MICHELLE Ot Z92.21 05/19/2015 JEREMY MENDOZA, ALON Blanco [...] RACHAEL A Ot Z11.2 05/19/2015 MATTHIAS MENDOZA, [facility] Ot C85.80 05/19/2015 MATTHIAS MENDOZA, [facility] Ot D47.3 05/19/2015 MATTHIAS MENDOZA, [facility] Ot D50.9 05/19/2015 MATTHIAS MENDOZA, [facility] Ot D72.829 05/19/2015 MATTHIAS MENDOZA, [facility] Ot E53.8 05/19/2015 MATTHIAS MENDOZA, [facility] Ot K21.9 05/19/2015 MATTHIAS MENDOZA, [facility] Ot K50.90 05/19/2015 MATTHIAS MENDOZA, [facility] Ot Z79.899 05/19/2015 MATTHIAS MENDOZA, [facility] Ot Z92.21 05/20/2015 JEREMY MENDOZA, ALON D [...] RACHAEL A Ot Z11.2 05/23/2015 MATTHIAS MENDOZA, [facility] Ot C85.80 05/23/2015 MATTHIAS MENDOZA, [facility] Ot D47.3 05/23/2015 MATTHIAS MENDOZA, [facility] Ot D50.9 05/23/2015 MATTHIAS MENDOZA, [facility] Ot D72.829 05/23/2015 MATTHIAS MENDOZA, [facility] Ot E53.8 05/23/2015 MATTHIAS MENDOZA, [facility] Ot K21.9 05/23/2015 MATTHIAS MENDOZA, [facility] Ot K50.90 05/23/2015 MATTHIAS MENDOZA, [facility] Ot Z79.899 05/23/2015 MATTHIAS MENDOZA, [facility] Ot Z92.21 05/24/2015 JUSTICE SAHA DO Ot K59.00 06/16/2015 JUSTICE SAHA DO Ot K59.00 CONSTIPATION, UNSPECIFIED 06/24/2015 [...] 11/15/2015 MICHELLE RIZZO MD Ot Z79.899 OTHER CUSTODIAL (CURRENT) DRUG THERAPY 11/15/2015 MICHELLE RIZZO MD Ot Z92.21 PERSONAL HISTORY OF ANTINEOPLASTIC CHEMO 11/15/2015 JUSTICE SAHA DO Ot K59.00 CONSTIPATION, UNSPECIFIED 11/15/2015 MITESH WARNER APRN Ot K59.00 CONSTIPATION, UNSPECIFIED 11/15/2015 MITESH WARNER APRN Ot Z90.49 ACQUIRED ABSENCE OF OTHER SPECIFIED PART 11/16/2015 MITESH WARNER APRN Ot K59.00 CONSTIPATION, UNSPECIFIED 11/16/2015 WARNER, PETER J CARPENTER INSPECTOR Ot Z90.49 ACQUIRED ABSENCE OF OTHER SPECIFIED [...] 11/21/2015 MICHELLE RIZZO MD, Ot Z79.899 OTHER CUSTODIAL (CURRENT) DRUG THERAPY 11/21/2015 MICHELLE RIZZO MD [...] CROHN'S DISEASE, UNSPECIFIED, WITHOUT CO 01/31/2016 MICHELLE RIZZO MD, Ot Z79.899 OTHER PRESS DEPARTMENT MANAGER (CURRENT) DRUG THERAPY 01/31/2016 MICHELLE RIZZO MD, [...] 02/02/2016 MICHELLE RIZZO MD, Ot Z79.899 OTHER CUSTODIAL (CURRENT) DRUG THERAPY 02/02/2016 MICHELLE RIZZO MD [...] 03/19/2016 MICHELLE RIZZO MD, Ot Z79.899 OTHER CUSTODIAL (CURRENT) DRUG THERAPY 03/19/2016 MICHELLE RIZZO MD, [...] 03/20/2016 MICHELLE RIZZO MD, Ot Z79.899 OTHER CUSTODIAL (CURRENT) DRUG THERAPY 03/20/2016 MICHELLE RIZZO MD, Ot Z92.21 PERSONAL HISTORY OF ANTINEOPLASTIC CHEMO 03/20/2016 JUSTICE SAHA DO Ot N50.9 DISORDER OF MALE GENITAL ORGANS, UNSPECI 03/23/2016 MICHELLE RIZZO MD, Ot 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, UNSPE 03/23/2016 MICHELLE RZIZO MD, Ot D47.3 ESSENTIAL (HEMORRHAGIC) THROMBOCYTHEMIA 03/23/2016 [...] 03/23/2016 MICHELLE RIZZO MD, Ot Z79.899 OTHER PRESS DEPARTMENT MANAGER (CURRENT) DRUG THERAPY 03/23/2016 MICHELLE RIZZO MD, [...] Ot K21.9 GASTRO-ESOPHAGEAL REFLUX DISEASE WITHOUT 05/01/2016 MATTHAIS MENDOZA, MICHELLE Ot K50.90 CROHN'S DISEASE, UNSPECIFIED, WITHOUT CO 05/01/2016 MICHELLE RIZZO MD Ot Z79.899 OTHER PRESS DEPARTMENT MANAGER (CURRENT) DRUG THERAPY 05/01/2016 MICHELLE RIZZO MD [...] SAHA DO Ot K59.00 CONSTIPATION, UNSPECIFIED 06/15/2016 JSUTICE SAHA DO Ot N50.9 DISORDER OF MALE [...] 06/15/2016 MICHELLE RIZZO MD, Ot Z79.899 OTHER PRESS DEPARTMENT MANAGER (CURRENT) DRUG THERAPY 06/15/2016 MICHELLE RIZZO MD [...] 06/15/2016 MICHELLE RIZZO MD, Ot Z79.899 OTHER CUSTODIAL (CURRENT) DRUG THERAPY 06/15/2016 MICHELLE RIZZO MD, [...] 01/31/2017 MICHELLE RIZZO MD, Ot Z79.899 OTHER CUSTODIAL (CURRENT) DRUG THERAPY 01/31/2017 MICHELLE RIZZO MD, [...] 03/19/2017 MICHELLE RIZZO MD Ot Z79.899 OTHER CUSTODIAL (CURRENT) DRUG THERAPY 03/19/2017 MICHELLE RIZZO MD [...] 03/26/2017 MICHELLE RIZZO MD, Ot Z79.899 OTHER PRESS DEPARTMENT MANAGER (CURRENT) DRUG THERAPY 03/26/2017 MICHELLE RIZZO MD, [...] 04/30/2017 MICHELLE RIZZO MD, Ot Z79.899 OTHER CUSTODIAL (CURRENT) DRUG THERAPY 04/30/2017 MICHELLE RIZZO MD, [...] 05/01/2017 MICHELLE RIZZO MD Ot Z79.899 OTHER CUSTODIAL (CURRENT) DRUG THERAPY 05/01/2017 MICHELLE RIZZO MD [...] 05/06/2017 MICHELLE RIZZO MD, Ot Z79.899 OTHER PRESS DEPARTMENT MANAGER (CURRENT) DRUG THERAPY 05/06/2017 MICHELLE RIZZO MD [...] MD, Ot D47.3 ESSENTIAL (HEMORRHAGIC) THROMBOCYTHEMIA 06/05/2017 MCIHELLE RIZZO MD, Ot D50.9 IRON DEFICIENCY ANEMIA, UNSPECIFIED 06/05/2017 MICHELLE RIZZO MD, Ot D72.829 ELEVATED WHITE BLOOD CELL COUNT, UNSPECI 06/05/2017 MICHELLE RIZZO MD, Ot 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 06/05/2017 MICHELLE RIZZO MD Ot K21.9 GASTRO-ESOPHAGEAL REFLUX DISEASE WITHOUT 06/05/2017 MICHELLE RIZZO MD, Ot K50.90 CROHN'S DISEASE, UNSPECIFIED, WITHOUT CO 06/05/2017 MATTHIAS MENDOZA, BRODIECAROLINE Ot Z79.899 OTHER CUSTODIAL (CURRENT) DRUG THERAPY 06/05/2017 MATTHIAS MENDOZA, BRODIECAROLINE [...] OF MALE GENITAL ORGANS, UNSPECI 06/05/2017 MIRA CAOR DO Ot K62.9 DISEASE OF ANUS AND [...] 06/05/2017 MICHELLE RIZZO MD Ot Z79.899 OTHER CUSTODIAL (CURRENT) DRUG THERAPY 06/05/2017 MICHELLE RIZZO MD [...] SPECIFIED DISEASES OF ANUS AND REC 06/05/2017 MRIA ACRO DO Ot K62.89 OTHER SPECIFIED DISEASES OF [...] 06/05/2017 MICHELLE RIZZO MD, Ot Z79.899 OTHER CUSTODIAL (CURRENT) DRUG THERAPY 06/05/2017 MICHELLE RIZZO MD, [...] EVELINA Arrington Ot K60.3 ANAL FISTULA 06/05/2017 DADIS MENDOZA, EVELINA Arrington Ot K61.0 ANAL ABSCESS [...] 06/05/2017 MICHELLE RIZZO MD, Ot Z79.899 OTHER PRESS DEPARTMENT MANAGER (CURRENT) DRUG THERAPY 06/05/2017 MICHELLE RIZZO MD, [...] 06/05/2017 MICHELLE RIZZO MD, Ot Z79.899 OTHER CUSTODIAL (CURRENT) DRUG THERAPY 06/05/2017 MICHELLE RIZZO MD, Ot Z92.21 PERSONAL HISTORY OF ANTINEOPLASTIC CHEMO 06/06/2017 Ot 555.9 REGIONAL ENTERITIS NOS 06/06/2017 ADDIS MENDOZA, EVELINA Arrington Ot V72.84 EXAM PRE-OPERATIVE NOS 06/06/2017 ANGELA GREENWOOD, ANTONTIE Ot 566 ANAL RECTAL ABSCESS 06/06/2017 ADDIS MENDOZA, EVELINA Arrington Ot V72.84 EXAM PRE-OPERATIVE NOS 06/06/2017 ADDIS MENDOZA, EVELINA Arrington Ot V72.84 EXAM PRE-OPERATIVE NOS 06/06/2017 Ot 555.0 REG ENTERITIS , SM INTEST 06/06/2017 Ot 789.00 ABDOMINAL PAIN, UNSPECIFIED SITE 06/06/2017 ANGELA GREENWOOD, FINN Ot 789.00 ABDOMINAL PAIN, UNSPECIFIED SITE 06/06/2017 ADDIS MENDOZA, EVELINA Arrington Ot V72.84 EXAM PRE-OPERATIVE NOS 06/06/2017 JUSTICE SAHA DO Ot 692.9 DERMATITIS NOS 06/06/2017 JUSTICE SAHA DO Ot Z00.00 ENCNTR FOR GENERAL ADULT MEDICAL EXAM W/ 06/06/2017 ADDIS MENDOZA, EVELINA Arrington Ot Z01.818 ENCOUNTER FOR OTHER PREPROCEDURAL EXAMIN 06/06/2017 ADDIS MENDOZA, EVELINA Arrington Ot K60.3 ANAL FISTULA 06/06/2017 ADDIS MENDOZA, EVELINA Arrington Ot K61.0 ANAL ABSCESS 06/06/2017 ADDIS MENDOZA, EVELINA Arrington Ot K61.1 RECTAL ABSCESS 06/06/2017 LIZZ MENDOZA, RACHAEL Hong Ot N36.1 URETHRAL DIVERTICULUM 06/06/2017 LIZZ MENDOZA, RACHAEL Hong Ot Z01.818 ENCOUNTER FOR OTHER PREPROCEDURAL EXAMIN 06/06/2017 LIZZ MENDOZA, RACHAEL Hong Ot Z11.2 ENCOUNTER FOR SCREENING FOR OTHER BACTER 06/06/2017 UJSTICE SAHA DO Ot K59.00 CONSTIPATION, UNSPECIFIED 06/06/2017 JUSTICE SAHA DO Ot N50.9 DISORDER OF MALE GENITAL ORGANS, UNSPECI 06/06/2017 MIRA CARO DO Ot K62.9 DISEASE OF ANUS AND RECTUM, UNSPECIFIED 06/06/2017 MIRA CARO DO Ot K62.89 OTHER SPECIFIED DISEASES OF ANUS AND REC 06/06/2017 MIRA CARO DO Ot K62.89 OTHER SPECIFIED DISEASES OF ANUS AND REC 06/06/2017 MATTHIAS MENDOZA, MICHELLE Ot 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, UNSPE 06/06/2017 MICHELLE RIZZO MD, Ot D47.3 ESSENTIAL (HEMORRHAGIC) THROMBOCYTHEMIA 06/06/2017 MICHELLE RIZZO MD, Ot D50.9 IRON DEFICIENCY ANEMIA, UNSPECIFIED 06/06/2017 MICHELLE RIZZO MD, Ot D72.829 ELEVATED WHITE BLOOD CELL COUNT, UNSPECI 06/06/2017 MICHELLE RIZZO MD, Ot 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 06/06/2017 MICHELLE RIZZO MD, Ot K21.9 GASTRO-ESOPHAGEAL REFLUX DISEASE WITHOUT 06/06/2017 MICHELLE RIZZO MD, Ot K50.90 CROHN'S DISEASE, UNSPECIFIED, WITHOUT CO 06/06/2017 MICHELLE RIZZO MD, Ot Z79.899 OTHER PRESS DEPARTMENT MANAGER (CURRENT) DRUG THERAPY 06/06/2017 MICHELLE RIZZO MD, Ot Z92.21 PERSONAL HISTORY [...] detection by light microscopy SLIGHT NRG Blood [place] bodies detection by light microscopy MODERATE NRG [...] Status Pt. Type Provider Facility Loc./Unit Complaint [id number] 05/01/2017 00:31:00 05/01/2017 23:59:59 CLS Preadmit MICHELLE RIZZO MD [facility] ONC OV [id number] 01/30/2017 13:17:00 04/30/2017 00:01:00 DIS Outpatient MICHELLE RIZZO MD [facility] ONC OV [id number] 06/15/2016 08:04:00 06/15/2016 12:15:00 DIS Outpatient MIRA CARO DO [facility] SDC CYST MICAH-ANAL AREA [id number] 06/11/2016 14:12:00 06/11/2016 14:46:00 DIS Outpatient MIRA CARO DO [facility] PREOP EXC CYST MICAH-ANAL AREA [id number] 02/01/2016 12:52:00 05/01/2016 00:01:00 DIS Outpatient MICHELLE RIZZO MD [facility] ONC OV [id number] 04/11/2016 09:20:00 04/11/2016 23:59:59 CLS Outpatient MIRA CARO DO [facility] RAD PERIANAL CYST [id number] 04/05/2016 10:20:00 04/05/2016 23:59:59 CLS Outpatient MIRA CARO DO [facility] RAD PERIANAL CYST [id number] 03/30/2016 14:45:00 03/30/2016 23:59:59 CLS Outpatient VANIA GREENWOOD MIRA Francis [facility] RAD PERIRECTAL MASS [id number] 03/19/2016 12:00:00 03/19/2016 23:59:59 CLS Outpatient JUSTICE SAHA DO [facility] RAD R TESTICULAR LESION [id number] 11/17/2015 16:02:00 11/17/2015 17:40:00 DIS Emergency YI CHAVARRIA MD [facility] ER CONSTIPATION [id number] 11/15/2015 20:41:00 11/15/2015 22:52:00 DIS Emergency MITESH WARNER APRN [facility] ER CONSTIPATION [id number] 05/23/2015 10:50:00 05/23/2015 23:59:59 CLS Outpatient JUSTICE SAHA DO [facility] RAD CONSTIPATION [id number] 05/19/2015 20:47:00 05/19/2015 23:02:00 DIS Emergency ALON LUNA MD [facility] ER CONSTIPATION [id number] 05/03/2015 07:05:00 05/03/2015 10:45:00 DIS Outpatient RACHAEL ZAMUDIO MD [facility] SDC URETHREAL DIVERTICULUM [id number] 05/02/2015 14:57:00 05/02/2015 23:59:59 CLS Outpatient RACHAEL ZAMUDIO MD [facility] PREOP URETHERAL DIVERTICULUM [id number] 2015 08:38:00 2015 23:59:59 CLS Outpatient EVELINA MANCINI MD [facility] RAD PERIRECTAL ABCESS [id number] 02/23/2015 14:53:00 02/23/2015 23:59:59 CLS Outpatient EVELINA MANCINI MD [facility] RAD PERANUAL FISTULA [id number] 02/02/2015 12:32:00 02/02/2015 23:59:59 CLS Outpatient MICHELLE RIZZO MD [facility] ONC OV [id number] 01/14/2015 10:54:00 01/14/2015 19:50:00 DIS [facility] [id number] 01/13/2015 14:08:00 01/13/2015 23:59:59 CLS Outpatient EVELINA MANCINI MD [facility] PREOP EXAM UNDER ANES. [id number] 12/22/2014 11:02:00 12/22/2014 23:59:59 CLS Outpatient JUSTICE SAHA DO [facility] RAD GENERAL ADULT MEDICAL EXAM [id number] 11/13/2014 02:35:00 11/16/2014 18:55:00 DIS Inpatient JUSTICE SAHA DO [facility] SURGICAL ENTERITIS; LEUKOCYTOSIS;HX OF CROHN'S;HX OF COLON [id number] 08/04/2014 13:37:00 11/02/2014 00:01:00 DIS Outpatient MICHELLE RIZZO MD [facility] ONC OV [id number] 10/13/2014 13:50:00 10/15/2014 14:17:00 DIS Inpatient JUSTICE SAHA DO [facility] SURGICAL INTRACTABLE ABD PAIN [id number] 09/30/2014 17:10:00 09/30/2014 23:59:59 CLS Outpatient JUSTICE SAHA DO [facility] LAB DERMATITIS [id number] 09/14/2014 21:35:00 09/14/2014 22:43:00 DIS Emergency GIUSEPPE PEREZ [facility] ER ALLERGIC REACTION TO POISON AJ [id number] 07/28/2014 12:05:00 07/28/2014 15:30:00 DIS Outpatient EVELINA MANCINI MD [facility] WEIGHT LOSS [id number] 07/22/2014 05:53:00 07/22/2014 23:59:59 CLS Outpatient EVELINA MANCINI MD [facility] PREOP WEIGHT LOSS [id number] 06/02/2014 08:20:00 06/02/2014 23:59:59 CLS Outpatient FINN MILLER DO [facility] RAD ABD PAIN [id number] 02/10/2014 14:13:00 02/10/2014 23:59:59 CLS Outpatient MICHELLE RIZZO MD [facility] ONC OV [id number] 12/22/2013 11:00:00 12/25/2013 17:50:00 DIS Inpatient JUSTICE SAHA DO [facility] 4TH SBO [id number] 12/23/2013 07:53:00 12/23/2013 23:59:59 CLS Outpatient EVELINA MANCINI MD [facility] PREOP RECTAL BLEEDING [id number] 08/19/2013 14:10:00 08/25/2013 00:01:00 DIS Outpatient MICHELLE RIZZO MD [facility] ONC OV [id number] 05/18/2013 08:33:00 05/18/2013 11:18:00 DIS Outpatient EVELINA MANCINI MD [facility] SDC MULTIPLE ULCERS [id number] 05/13/2013 07:33:00 05/13/2013 23:59:59 CLS Outpatient EVELINA MANCINI MD [facility] PREOP MULTIPLE ULCERS [id number] 05/08/2013 14:36:00 05/11/2013 00:01:00 DIS Outpatient MICHELLE RIZZO MD [facility] ONC OV [id number] 03/10/2013 09:35:00 03/12/2013 19:20:00 DIS Inpatient FINN MILLER DO [facility] SURGICAL MICAH RECTAL ABSCESS [id number] 03/09/2013 16:28:00 03/09/2013 23:59:59 CLS Outpatient FINN MILLER DO [facility] RAD MICAH RECTAL ABCESS [id number] 02/11/2013 15:20:00 02/20/2013 13:40:00 DIS Inpatient JUSTICE SAHA DO [facility] SURGICAL GI BLEED [id number] 01/19/2013 10:02:00 01/19/2013 13:30:00 DIS Outpatient EVELINA MANCINI MD [facility] SDC RECTAL BLEED [id number] 01/15/2013 07:11:00 01/15/2013 23:59:59 CLS Outpatient EVELINA MANCINI MD [facility] PREOP RECTAL BLEED [id number] 06/05/2017 18:12:00 ACT Inpatient JUSTICE SAHA DO [facility] ICU SEPTIC SHOCK, LEFT LUNGULAR PNA [id number] 06/02/2014 08:20:00 Document Registration [id number] 06/02/2014 08:20:00 Document Registration [id number] 06/02/2014 08:20:00 Document Registration [id number] 06/02/2014 08:20:00 Document Registration [id number] 06/02/2014 08:19:00 Document Registration [id number] 06/02/2014 08:19:00 Document Registration [id number] 06/02/2014 08:19:00 Document Registration [id number] 06/02/2014 08:19:00 Document Registration [id number] 04/21/2014 10:50:00 Document Registration [id number] 04/18/2011 15:40:00 Document Registration [id number] 04/03/2011 13:30:00 Document Registration [id number] 03/22/2011 19:22:00 Document Registration [id number] 11/08/2010 12:59:00 Document Registration [id number] 10/11/2010 13:49:00 Document Registration [id number] 05/03/2010 13:47:00 Document Registration [id number] 04/26/2010 08:30:00 Document Registration [id number] 01/31/2010 14:10:00 Document Registration [id number] 01/04/2010 12:58:00 Document Registration [id number] 11/19/2009 19:37:00 Document Registration [id number] 11/16/2009 20:58:00 Document Registration [id number] 10/07/2009 13:09:00 Document Registration [id number] 07/19/2009 13:54:00 Document Registration [id number] 02/08/2009 16:00:00 Document Registration [id number] 01/18/2009 13:25:00 Document Registration [id number] 12/29/2008 14:50:00 Document Registration [id number] 11/18/2008 00:00:00 Document Registration [id number] 10/14/2008 13:07:00 Document Registration [id number] 09/03/2006 19:54:00 Document Registration [id number] 11/13/2014 01:49:16 ACT Document Registration
[2017-06-06] MEDS ORDERED: guaiFENesin (MUCINEX) 600 MG TAB PO PRN (12:30)
[2017-06-06] MEDS ORDERED: NON-FORMULARY MEDICATION 1 EA EA (Polyethylene Glycol 3350 (Miralax) 17 GM) PO PRN (12:30)
[2017-06-06] MEDS ORDERED: MENTHOL MM PRN (12:30)
[2017-06-06] MEDS ORDERED: DOXYLAMINE SUCCINATE 25 MG PO PRN (12:30)
[2017-06-06] MEDS ORDERED: MICONAZOLE 2% POWDER (DESENEX AF) 90 GM TP PRN (12:30)
[2017-06-06] MEDS ORDERED: NON-FORMULARY MEDICATION 1 EA EA (Diphenhydramine HCl (Benadryl) 25 MG) PO PRN (12:30)
[2017-06-06] MEDS ORDERED: NON-FORMULARY MEDICATION 1 EA EA (Hyoscyamine Sulfate 0.125 MG) PO PRN (12:30)
[2017-06-06] MEDS ORDERED: POLYETHYLENE GLYCOL 17 GM (MIRALAX) PACK PO PRN (13:00)
[2017-06-06] MEDS ORDERED: HYOSCYAMINE 0.125 MG (LEVSIN) TAB PO PRN (13:15)
[2017-06-06] MEDS ORDERED: diphenhydrAMINE 25 MG TAB (BENADRYL) PO PRN (13:30)
[2017-06-06] MEDS: methylPREDNISolone 40 MG/ML (Solu-MEDROL) VIAL IV SCH ×2 (14:10→21:06)
[2017-06-06] MEDS: GABAPENTIN 600 MG (NEURONTIN) TAB PO SCH ×2 (14:10→21:05)
[2017-06-06] MEDS ORDERED: METOCLOPRAMIDE HCL 10 MG PO SCH (16:00)
[2017-06-06] MEDS: DICYCLOMINE 10 MG (BENTYL) CAP PO SCH ×2 (16:26→21:06)
[2017-06-06] MEDS: MESALAMINE DR 400 MG (ASACOL/DELZICOL) TAB/CAPS PO SCH (16:26)
[2017-06-06] MEDS: METOCLOPRAMIDE 10 MG (REGLAN) TAB PO SCH ×2 (16:26→21:06)
[2017-06-06] MEDS ORDERED: VANCOMYCIN 1 GM/NS 250 ML IVPB IV SCH ×2 (19:30)
[2017-06-06] MEDS: DOCUSATE SODIUM 100 MG (COLACE) CAP PO SCH (20:46)
[2017-06-06] MEDS ORDERED: NON-FORMULARY MEDICATION 1 EA EA (Omeprazole 40 MG) PO SCH (21:00)
[2017-06-06] MEDS ORDERED: NON-FORMULARY MEDICATION 1 EA EA (Famotidine (Acid Reducer (FAMOTIDINE)) 20 MG) PO SCH (21:00)
[2017-06-06] MEDS ORDERED: MESALAMINE PO SCH (21:00)
[2017-06-06] MEDS: ACETAMINOPHEN 325 MG TABLET PO PRN (21:06)
[2017-06-06] MEDS: FAMOTIDINE 20 MG (PEPCID) TABLET PO SCH (21:06)
[2017-06-06] MEDS: PANTOPRAZOLE 40 MG (PROTONIX) TAB PO SCH (21:06)
[2017-06-07] VITALS (15 sets, daily range): BP systolic 89–129; BP diastolic 53–87
[2017-06-07] MEDS: fentaNYL INJECTION 100 MCG/2 ML AMP IVP PRN ×4 (01:01→08:36)
[2017-06-07] MEDS: PHENYLEPHRINE INJECTION 10 MG in NS (IVPB) 250 ML IV SCH ×3 (01:01→11:20)
[2017-06-07] MEDS: PIPERACILLIN SODIUM/TAZOBACTAM 4.5 GM in NS (IVPB) 100 ML IV SCH ×4 (01:13→23:51)
[2017-06-07] MEDS: NS IV 1000 ML 1,000 ML IV SCH ×2 (01:56→11:21)
[2017-06-07] MEDS: RT-ALBUTEROL/IPRATROPIUM 3 ML (DUONEB) VIAL INH SCH ×6 (02:28→22:28)
[2017-06-07 04:28] LABS: BASOPHILS % (AUTO) 0 % (0-10); EOSINOPHILS % (AUTO) 0 % (0-10); HEMATOCRIT 31 % (40-54); HEMOGLOBIN 11.2 G/DL (13.3-17.7); LYMPHOCYTES # (AUTO) 0.4 X 10^3 (1.0-4.0); LYMPHOCYTES % (AUTO) 1 % (12-44); MEAN CORPUSCULAR HEMOGLOBIN 36 PG (25-34); MEAN CORPUSCULAR HGB CONC 36 G/DL (32-36); MEAN CORPUSCULAR VOLUME 99 FL (80-99); MEAN PLATELET VOLUME 10.3 FL (7.4-10.4); MONOCYTES % (AUTO) 3 % (0-12); NEUTROPHILS # (AUTO) 36.2 X 10^3 (1.8-7.8); NEUTROPHILS % (AUTO) 96 % (42-75); PLATELET COUNT 201 10^3/uL (130-400); RED BLOOD COUNT 3.12 10^6/uL (4.35-5.85); RED CELL DISTRIBUTION WIDTH 15.4 % (10.0-14.5)
[2017-06-07 04:30] LABS: WHITE BLOOD COUNT 37.7 10^3/uL (4.3-11.0)
[2017-06-07 04:45] LABS: BUN/CREATININE RATIO 9; CALCIUM 7.7 MG/DL (8.5-10.1); CARBON DIOXIDE 20 MMOL/L (21-32); CHLORIDE 107 MMOL/L (98-107); CREATININE SERUM 0.58 MG/DL (0.60-1.30); GFR ESTIMATED > 60; GLUCOSE 188 MG/DL (70-105); MAGNESIUM 2.3 MG/DL (1.8-2.4); PHOSPHORUS 1.2 MG/DL (2.3-4.7); POTASSIUM 2.7 MMOL/L (3.6-5.0); SODIUM 137 MMOL/L (135-145)
[2017-06-07] MEDS: ACETAMINOPHEN 325 MG TABLET PO PRN (05:03)
[2017-06-07] MEDS ORDERED: MAGNESIUM 1 GM/100 ML IVPB 100 ML IV SCH (06:00)
[2017-06-07] MEDS ORDERED: KCL 20 MEQ TAB (K-DUR) PO SCH (06:00)
[2017-06-07] MEDS ORDERED: POTASSIUM CL 10MEQ/50ML IVPB 50 ML IV SCH (06:00)
[2017-06-07] MEDS: DICYCLOMINE 10 MG (BENTYL) CAP PO SCH ×4 (06:14→20:37)
[2017-06-07] MEDS: POTASSIUM CL 10MEQ/50ML IVPB 50 ML IV SCH ×6 (06:14→11:47)
[2017-06-07] MEDS: PANTOPRAZOLE 40 MG (PROTONIX) TAB PO SCH ×2 (06:14→13:14)
[2017-06-07] MEDS: MULTIVIT W/MINERALS TAB (THERAGRAN M) PO SCH (06:15)
[2017-06-07] MEDS: METOCLOPRAMIDE 10 MG (REGLAN) TAB PO SCH ×4 (06:15→20:37)
[2017-06-07] MEDS: MESALAMINE DR 400 MG (ASACOL/DELZICOL) TAB/CAPS PO SCH ×2 (06:15→17:11)
[2017-06-07] MEDS: ASCORBIC ACID (VIT C) 500 MG TABLET PO SCH (06:15)
--- NOTE | 2017-06-07 08:30 | Diagnostic Imaging Report ---
INDICATION: Followup pneumonia. TIME OF EXAM: 3:18 AM Correlation is made with prior study one day earlier. FINDINGS: Right-sided line remains in place. Infiltrate left perihilar and left upper lobe persists but does appear to be slightly improved. The right lung is clear. No effusion or pneumothorax is seen. IMPRESSION: Partial clearing of left-sided infiltrate when compared with exam one day earlier. Dictated by: Dictated on workstation # [id number]
[2017-06-07] MEDS: GABAPENTIN 600 MG (NEURONTIN) TAB PO SCH ×3 (08:34→20:37)
[2017-06-07] MEDS: MAGNESIUM OXIDE (MAG-OX)400 MG TAB PO SCH (08:34)
[2017-06-07] MEDS: methylPREDNISolone 40 MG/ML (Solu-MEDROL) VIAL IV SCH (08:35)
[2017-06-07] MEDS ORDERED: NON-FORMULARY MEDICATION 1 EA EA (Ascorbate Calcium (Vitamin C) 500 MG) PO SCH (09:00)
[2017-06-07] MEDS ORDERED: NON-FORMULARY MEDICATION 1 EA EA (Magnesium Oxide 400 MG) PO SCH (09:00)
[2017-06-07] MEDS ORDERED: [UNRECOGNIZED DRUG - OTHER] PO SCH (09:00)
[2017-06-07] MEDS ORDERED: BUDESONIDE 9 MG PO SCH (09:00)
--- NOTE | 2017-06-07 09:25 | Physical Therapy Daily Note ---
PT Daily Note-Current Subjective Patient agrees to PT. Pain Numeric Pain Scale: 5-Moderate Pain Location: Medial Location Body Site: Back Pain Description: Ache Mental Status Patient Orientation: Normal For Age Attachments: Oxygen (vapotherm), Rg Catheter, IV Transfers Functional [place] Measure 0=Not Assessed/NA 4=Minimal Assistance 1=Total Assistance 5=Supervision or Setup 2=Maximal Assistance 6=Modified [place] 3=Moderate Assistance 7=Complete IndependenceIRFPAI Quality Coding Scale 6 Independent with activity with or without an assistive device 5 Patient requires set up or clean up by helper. Patient completes activity by themselves 4 Supervision or touching assist (CGA). [place] provide cues , steadying assist 3 The helper provides less than half the effort to complete the activity 2 The helper provides more than half the effort to complete the activity 1 Dependent. The helper does all the effort to complete an activity 7 Patient refused to complete or attempt activity 9 The patient did not perform the activity before the current illness or injury 88 Not attempted due to Medical conditions or safety concerns Transfers (B, C, W/C) (FIM): 7 Scootin Rollin Supine to/from Sit: 7 Sit to/from Stand: 7 Bed to/from Chair: 7 Patient is independently safe with all mobility. Patient is limited only by attachments. Weight Bearing Right Lower Extremity: Right Full Weight Bearing Left Lower Extremity: Left Full Weight Bearing Assessment Patient is up in recliner with needs met. Patient is currently at independent PLOF with limitations in ambulation due to attachments. Patient's SAO2 decrease with activity on vapotherm. PT to dismiss patient from services due to independent LOF. PT Short Term Goals Short Term Goals Time Frame: Jun 07, 2017 Transfers (B,C,W/C) (FIM): 7 PT Plan Treatment/Plan Treatment Plan: Discontinue PT, goals met Treatment Plan: Education, Functional Activity Mally, Gait, Safety Treatment Duration: Jun 07, 2017 Frequency: 2 times per week Estimated Hrs Per Day: .25 hour per day Patient and/or Family Agrees t: Yes Time/GCodes Time In: 820 Time Out: 830 Total Billed Treatment Time: 10 Total Billed Treatment 1 visit FA 10 min JOVANI BUTLER PT Jun 07, 2017 09:25
[2017-06-07] MEDS ORDERED: predniSONE 20 MG TAB PO ONE (10:45)
[2017-06-07] MEDS: DOCUSATE SODIUM 100 MG (COLACE) CAP PO SCH ×2 (11:19→20:37)
--- NOTE | 2017-06-07 11:39 | Progress Note-Hospitalist ---
Subjective HPI/CC On Admission Date Seen by Provider: Jun 07, 2017 Time Seen by Provider: 10:00 CC: Septic shock HPI: This is a 42-year-old white male with history of traumatic brain injury that has a guardian and Crohn's disease on immunosuppressants presented to the ER with altered mental status and hypoxia. He was found to have septic shock with blood pressure of systolic of 60 hypoxia that improved on IV fluid resuscitation and pressor therapy. Patient did not require intubation and he is a DO NOT RESUSCITATE given the quality of life he has had in the past and the suffering that may cause him for lack of quality of life return. He is much improved today still has a cough and I reviewed chest x-ray and labs with white count noted to be about the same as yesterday. He does smoke so smoking cessation counseling initiated. Home medication reconciliation is yet to be completed. He reports chronic low back pain. His primary care provider is Dr. Jo. He reports a cough that is been present for about a week that worsened with fever and declined rapidly. Subjective/Events-last exam Patient doing much better and desperately wants to go home but his white count is still 37,000 and overall must wean off oxygen and continue IV antibiotics and then will likely discharge tomorrow Home oxygen evaluation will be completed to evaluate the need for oxygen required at home at discharge Smoking cessation counseled Asks for fentanyl IV by name and watches his infuse so the nurse is very concerned about dependency so I attempted Tylenol of which he said he needed hydrocodone so at least I did do that Patient overall much improved and has not required pressor therapy Will transition off of Solu-Medrol IV to prednisone by mouth Review of Systems Musculoskeletal: back pain Focused Exam Lactate Level 06/05/17 18:15: Lactic Acid Level 2.08*H 06/06/17 03:30: Lactic Acid Level 2.30*H 06/06/17 05:45: Lactic Acid Level 2.23*H Objective Exam Vital Signs Vital Signs Date Time Temp Pulse Resp B/P (MAP) Pulse Ox O2 Delivery O2 Flow Rate FiO2 06/05/17 16:17 101.7 145 28 75/47 (56) 94 Nasal Cannula 2.00 06/05/17 19:55 70 Capillary Refill : Less Than 3 Seconds General Appearance: No Apparent Distress, WD/WN, Chronically ill, Thin Respiratory: Lungs Clear, Normal Breath Sounds, Decreased Breath Sounds Cardiovascular: Regular Rate, Rhythm, No Edema Neurologic/Psychiatric: Alert, Normal Mood/Affect Results/Procedures Lab Laboratory Tests 06/07/17 04:20 Patient resulted labs reviewed. Assessment/Plan Assessment and Plan Assess & Plan/Chief Complaint Assessment: Septic shock Pneumonia Smoker Crohn's disease on immunosuppression Severe leukocytosis Dehydration COPD with exacerbation Plan: Transfer to fourth floor Ambulate Home O2 evaluation Hopefully discharge tomorrow Check labs in a.m. Continue IV antibiotics Continue nebulized treatments DC fentanyl Hydrocodone for pain Diagnosis/Problems Diagnosis/Problems (1) Septic shock Status: Resolved (2) Pneumonia Status: Acute Qualifiers: Pneumonia type: due to unspecified organism Laterality: bilateral Lung location: lower lobe of lung Qualified Codes: J18.1 - Lobar pneumonia, unspecified organism (3) Smoker Status: Chronic (4) Crohn disease Status: Chronic Qualifiers: Gastrointestinal tract location: unspecified location Digestive disease complication type: unspecified complication Qualified Codes: K50.919 - Crohn' s disease, unspecified, with unspecified complications (5) Immunosuppressed status Status: Chronic (6) Personal history of lymphoma Status: Chronic (7) Leukocytosis Status: Acute Qualifiers: Leukocytosis type: leukemoid reaction Qualified Codes: D72.823 - Leukemoid reaction Clinical Quality Measures DVT/VTE Risk/Contraindication: Risk Factor Score Per Nursin RFS Level Per Nursing on Admit: 1=Low/No VTE PPX MEHDI AMBROCIO DO Jun 07, 2017 11:39
[2017-06-07] MEDS: HYDROcodone/APAP 5 MG/325 MG (LORTAB) TAB PO PRN ×3 (11:46→20:37)
[2017-06-07] MEDS: KCL 10 MEQ TAB (MICRO K) PO SCH ×2 (13:14→17:11)
[2017-06-07] MEDS: ENOXAPARIN 40 MG/0.4 ML (LOVENOX) SYR SC SCH (13:14)
[2017-06-07] MEDS ORDERED: TROUGH ORDER-PHARMACY XX NR (18:30)
[2017-06-07] MEDS: VANCOMYCIN 1500 MG/NS 500 ML IVPB IV SCH ×2 (20:36)
[2017-06-07] MEDS: predniSONE 20 MG TAB PO SCH (20:37)
[2017-06-07] MEDS: FAMOTIDINE 20 MG (PEPCID) TABLET PO SCH (20:37)
[2017-06-08] VITALS: BP 121/75
[2017-06-08] MEDS: RT-ALBUTEROL/IPRATROPIUM 3 ML (DUONEB) VIAL INH SCH ×3 (02:11→10:43)
[2017-06-08 04:00] VITALS: BP 124/78
[2017-06-08 06:14] LABS: BASOPHILS % (AUTO) 0 % (0-10); EOSINOPHILS % (AUTO) 0 % (0-10); HEMATOCRIT 30 % (40-54); HEMOGLOBIN 10.9 G/DL (13.3-17.7); LYMPHOCYTES # (AUTO) 0.8 X 10^3 (1.0-4.0); LYMPHOCYTES % (AUTO) 3 % (12-44); MEAN CORPUSCULAR HEMOGLOBIN 36 PG (25-34); MEAN CORPUSCULAR HGB CONC 36 G/DL (32-36); MEAN CORPUSCULAR VOLUME 99 FL (80-99); MEAN PLATELET VOLUME 10.8 FL (7.4-10.4); MONOCYTES # (AUTO) 1.1 X 10^3 (0.0-1.0); MONOCYTES % (AUTO) 4 % (0-12); NEUTROPHILS # (AUTO) 25.4 X 10^3 (1.8-7.8); NEUTROPHILS % (AUTO) 93 % (42-75); PLATELET COUNT 214 10^3/uL (130-400); RED BLOOD COUNT 3.05 10^6/uL (4.35-5.85); RED CELL DISTRIBUTION WIDTH 15.5 % (10.0-14.5); WHITE BLOOD COUNT 27.2 10^3/uL (4.3-11.0)
[2017-06-08] MEDS: MESALAMINE DR 400 MG (ASACOL/DELZICOL) TAB/CAPS PO SCH (06:17)
[2017-06-08] MEDS: METOCLOPRAMIDE 10 MG (REGLAN) TAB PO SCH ×2 (06:18→11:15)
[2017-06-08] MEDS: MULTIVIT W/MINERALS TAB (THERAGRAN M) PO SCH (06:18)
[2017-06-08] MEDS: PANTOPRAZOLE 40 MG (PROTONIX) TAB PO SCH ×2 (06:18→12:17)
[2017-06-08] MEDS: DICYCLOMINE 10 MG (BENTYL) CAP PO SCH ×2 (06:18→11:15)
[2017-06-08] MEDS: ASCORBIC ACID (VIT C) 500 MG TABLET PO SCH (06:18)
[2017-06-08] MEDS: KCL 10 MEQ TAB (MICRO K) PO SCH ×2 (06:18→12:17)
[2017-06-08] MEDS: HYDROcodone/APAP 5 MG/325 MG (LORTAB) TAB PO PRN ×2 (06:18→10:42)
[2017-06-08] MEDS: VANCOMYCIN 1500 MG/NS 500 ML IVPB IV SCH ×2 (06:19)
[2017-06-08 06:40] LABS: ALANINE AMINOTRANSFERASE 19 U/L (0-55); ALBUMIN 3.4 GM/DL (3.2-4.5); ALKALINE PHOSPHATASE 103 U/L (40-136); BILIRUBIN,TOTAL 0.7 MG/DL (0.1-1.0); BUN/CREATININE RATIO 7; CALCIUM 8.5 MG/DL (8.5-10.1); CARBON DIOXIDE 21 MMOL/L (21-32); CHLORIDE 108 MMOL/L (98-107); CREATININE SERUM 0.54 MG/DL (0.60-1.30); GFR ESTIMATED > 60; GLUCOSE 124 MG/DL (70-105); POTASSIUM 3.4 MMOL/L (3.6-5.0); SODIUM 139 MMOL/L (135-145); TOTAL PROTEIN 5.9 GM/DL (6.4-8.2)
[2017-06-08 08:00] VITALS: BP 125/77
[2017-06-08] MEDS: DOCUSATE SODIUM 100 MG (COLACE) CAP PO SCH (09:01)
[2017-06-08] MEDS: MAGNESIUM OXIDE (MAG-OX)400 MG TAB PO SCH (09:01)
[2017-06-08] MEDS: predniSONE 20 MG TAB PO SCH (09:01)
[2017-06-08] MEDS: GABAPENTIN 600 MG (NEURONTIN) TAB PO SCH ×2 (09:01→13:49)
[2017-06-08] MEDS: PIPERACILLIN SODIUM/TAZOBACTAM 4.5 GM in NS (IVPB) 100 ML IV SCH (09:11)
--- NOTE | 2017-06-08 10:13 | Diagnostic Imaging Report ---
EXAM: CHEST PA/LAT (2 VIEW) INDICATION: Cough. Rales on chest exam. COMPARISON: Chest radiograph 06/07/2017. FINDINGS: Normal heart size and central pulmonary vascularity. There is increasing interstitial and airspace opacity in the right upper lobe. The interstitium is diffusely prominent, similar to the prior exam. Small left pleural effusion is new. No pneumothorax. No acute osseous findings. Surgical clips in the upper abdomen. IMPRESSION: Increasing interstitial and airspace opacity in the right upper lobe. New, small left pleural effusion. Remainder stable. Dictated by: Dictated on workstation # [id number]
[2017-06-08] MEDS: ENOXAPARIN 40 MG/0.4 ML (LOVENOX) SYR SC SCH (11:16)
[2017-06-08] MEDS ORDERED: ACHD5005 PO (11:31)
[2017-06-08] MEDS ORDERED: PRED10TA22 PO (11:31)
[2017-06-08] MEDS ORDERED: POTA10CA43 PO (11:31)
[2017-06-08] MEDS ORDERED: AMOX-358 PO (11:31)
--- NOTE | 2017-06-08 11:36 | Discharge Summary-Hospitalist ---
Diagnosis/Chief Complaint Date of Admission Jun 05, 2017 at 18:12 Date of Discharge Discharge Date: Jun 08, 2017 Admission Diagnosis Assessment: Septic shock Pneumonia History of lymphoma with ruptured intestine Crohn's disease on immunosuppressants Current smoker Severe leukocytosis Plan: Continue IV fluids Broad-spectrum antibiotics Maintain ICU status High risk for intubation DO NOT RESUSCITATE noted and will abide by that but short-term intubation if the possibility of recovery is approved Smoking cessation Reconcile home meds but hold immunosuppressants Discharge Diagnosis Assessment: Septic shock Pneumonia Smoker Crohn's disease on immunosuppression Severe leukocytosis Dehydration COPD with exacerbation Plan: Transfer to fourth floor Ambulate Home O2 evaluation Hopefully discharge tomorrow Check labs in a.m. Continue IV antibiotics Continue nebulized treatments DC fentanyl Hydrocodone for pain (1) Septic shock Status: Resolved (2) Pneumonia Status: Acute (3) Smoker Status: Chronic (4) Crohn disease Status: Chronic (5) Immunosuppressed status Status: Chronic (6) Personal history of lymphoma Status: Chronic (7) Leukocytosis Status: Acute Discharge Summary Discharge Physical Exam Allergies: Coded Allergies: ceftazidime (Verified Allergy, Intermediate, RASH, 06/15/16) nalbuphine (Unverified Allergy, Mild, RASH, 03/29/06) Iodinated Contrast- Oral and IV Dye (Verified Allergy, Unknown, HIVES, 05/01) Sulfa (Sulfonamide Antibiotics) (Verified Allergy, Unknown, 03/29/06) latex (Verified Allergy, Unknown, 05/03/15) strawberry (Unverified Allergy, Unknown, 12/18/13) FROM UNCODED ALLERGIES Uncoded Allergies: TAPE (Allergy, Unknown, 03/29/06) Vitals & I&Os Vital Signs Date Time Temp Pulse Resp B/P (MAP) Pulse Ox O2 Delivery O2 Flow Rate FiO2 06/08/17 10:43 95 Nasal Cannula 2.00 06/08/17 08:00 97.6 86 22 125/77 (93) 06/07/17 10:00 45 General Appearance: Alert, Oriented X3, Cooperative HEENT: Atraumatic, PERRLA Respiratory: Clear to Auscultation, Normal Air Movement Cardiovascular: Regular Rate, Normal S1, Normal S2 Abdominal: Normal Bowel Sounds, Soft Neuro: Normal Gait, Normal Speech, Strength at 5/5 X4 Ext Psych/Mental Status: Mental Status NL, Mood NL Hospital Course Hospital course: Patient had a standard hospital course when he was admitted for septic shock from pneumonia which required aggressive IV fluid resuscitation and pressor therapy and ICU stay. He did not require intubation. Due to history of Crohn's disease and immunosuppression status he was classified as extremely ill and his family was updated on the possibility of imminent . He was deemed to DO NOT RESUSCITATE but short-term intubation if it would be able to help him in recovery would have been approved by the family. Smoking cessation was counseled immunosuppression was held and patient was dosed with steroids for exacerbation of COPD along with impaired antibiotics. Pt is very complex given the immunosuppression requirement for severe Crohn's disease that cannot be held long-term. Overall he improved dramatically and at time of discharge his white count was 27,000 down from 47, 000 on admission and he will have close follow-up with Dr. Jo to recheck complete blood count to assure it is back to normal. Overall he was much improved but has high risk for severe illness if that should occur again and prognosis will once again be hearted. Labs (last 24 hrs) Laboratory Tests 06/07/17 18:30: Vancomycin Level Trough < 0.4L 06/08/17 05:25: White Blood Count 27.2H, Red Blood Count 3.05L, Hemoglobin 10.9L, Hematocrit 30L , Mean Corpuscular Volume 99, Mean Corpuscular Hemoglobin 36H, Mean Corpuscular Hemoglobin Concent 36, Red Cell Distribution Width 15.5H, Platelet Count 214, Mean Platelet Volume 10.8H, Neutrophils (%) (Auto) 93H, Lymphocytes (%) (Auto) 3L, Monocytes (%) (Auto) 4, Eosinophils (%) (Auto) 0, Basophils (%) (Auto) 0, Neutrophils # (Auto) 25.4H, Lymphocytes # (Auto) 0.8L, Monocytes # (Auto) 1.1H, Eosinophils # (Auto) 0.0, Basophils # (Auto) 0.0, Sodium Level 139, Potassium Level 3.4L, Chloride Level 108H, Carbon Dioxide Level 21, Anion Gap 10, Blood Urea Nitrogen 4L, Creatinine 0.54L, Estimat Glomerular Filtration Rate > 60, BUN /Creatinine Ratio 7, Glucose Level 124H, Calcium Level 8.5, Total Bilirubin 0.7 , Aspartate Amino Transf (AST/SGOT) 16, Alanine Aminotransferase (ALT/SGPT) 19, Alkaline Phosphatase 103, Total Protein 5.9L, Albumin 3.4 Microbiology 06/05/17 Blood Culture - Preliminary, Resulted No growth Patient resulted labs reviewed. Pending Labs Laboratory Tests 06/08/17 05:25: White Blood Count 27.2, Red Blood Count 3.05, Hemoglobin 10.9, Hematocrit 30, Mean Corpuscular Volume 99, Mean Corpuscular Hemoglobin 36, Mean Corpuscular Hemoglobin Concent 36, Red Cell Distribution Width 15.5, Platelet Count 214, Mean Platelet Volume 10.8, Neutrophils (%) (Auto) 93, Lymphocytes (%) (Auto) 3, Monocytes (%) (Auto) 4, Eosinophils (%) (Auto) 0, Basophils (%) (Auto) 0, Neutrophils # (Auto) 25.4, Lymphocytes # (Auto) 0.8, Monocytes # (Auto) 1.1, Eosinophils # (Auto) 0.0, Basophils # (Auto) 0.0, Sodium Level 139, Potassium Level 3.4, Chloride Level 108, Carbon Dioxide Level 21, Anion Gap 10, Blood Urea Nitrogen 4, Creatinine 0.54, Estimat Glomerular Filtration Rate > 60, BUN/ Creatinine Ratio 7, Glucose Level 124, Calcium Level 8.5, Total Bilirubin 0.7, Aspartate Amino Transf (AST/SGOT) 16, Alanine Aminotransferase (ALT/SGPT) 19, Alkaline Phosphatase 103, Total Protein 5.9, Albumin 3.4 Discussion & Recommendations Discharge Planning: <30 minutes discharge planning Discharge Home Medications: Active Scripts Active Augmentin 875-125 Tablet (Amoxicillin/Potassium Clav) 1 Each Tablet 1 Each PO BID Prednisone 10 Mg Tab.ds.pk 10 Mg PO BID Potassium Chloride 10 Meq Capsule.er 10 Meq PO BID Hydrocodone/Acetaminophen 5/325mg Tablet (Acetaminophen/Hydrocodone Bitart) 1 Tab Tab 1 Tab PO Q4H PRN Reported Robitussin Cough-Cold Cf Liq (Guaifenesin/D-Methorphan Hb/PE) 118 Ml Liquid PO UD PRN Ricola (Menthol) 4.8 Mg Lozenge 1 Tab MM UD PRN Hydrocortisone 28.35 Gm Cream..g. TP UD PRN 1% Triple Antibiotic Ointment (Neomycin/Polymyxin/Bacitracin) 0.9 Gm Oint TP UD PRN Mucus Relief (Guaifenesin) 600 Mg Tab.er.12h 600 Mg PO BID PRN Benadryl (Diphenhydramine HCl) 25 Mg Capsule 25 Mg PO UD PRN Desenex (Miconazole Nitrate) 43 Gm Powder TP UD PRN [Blue Goo] TOP QID PRN Vitamin C (Ascorbate Calcium) 500 Mg Tablet 500 Mg PO DAILY Acid Show Host/Hostess (FAMOTIDINE) (Famotidine) 20 Mg Tablet 20 Mg PO HS Certavite Sr-Antioxidant Tab (Multivit-Min/FA/Lycopene/Lut) 1 Each Tablet 1 Tab PO DAILY Miralax (Polyethylene Glycol 3350) 17 Gm Powd.pack 17 Gm PO DAILY PRN Dicyclomine HCl 10 Mg Capsule 10 Mg PO ACHS Humira (Adalimumab) 40 Mg/0.8 Ml Pen.ij.kit 40 Mg SC EVERY 2 WEEKS Mesalamine 800 Mg Tablet.dr 2,400 Mg PO BID TAKES 3 (800MG) TABLETS Prednisone 10 Mg Tab 10 PO UD 15MG DAILY X 1 WEEK 10MG DAILY X 1 WEEK 5MG EVERY OTHER DAY X 1 WEEK THEN DC START DATE 05-17-17 STOP DATE 06-20-17 Hyoscyamine Sulfate 0.125 Mg Tablet 0.125 Mg PO Q6H PRN Metoclopramide HCl 10 Mg Tablet 10 Mg PO ACHS Colace (Docusate Sodium) 100 Mg Capsule 100 Mg PO BID Uceris (Budesonide) 9 Mg Tabdr...er 9 Mg PO DAILY Unisom (Doxylamine Succinate) 25 Mg Tablet 25 Mg PO HS PRN Acetaminophen 325 Mg Tablet 650 Mg PO Q6H PRN TAKES 2 (325MG) TABLETS Cyanocobalamin Injection (Cyanocobalamin) 1,000 Mcg/Ml Inj 1,000 Mcg INJ MONTHLY Magnesium Oxide 400 Mg Tablet 400 Mg PO DAILY Omeprazole 40 Mg Capsule.dr 40 Mg PO BID Gabapentin 600 Mg Tablet 600 Mg PO TID Instructions to patient/family Please see electronic discharge instructions given to patient. Clinical Quality Measures DVT/VTE Risk/Contraindication: Risk Factor Score Per Nursin RFS Level Per Nursing on Admit: 1=Low/No VTE PPX Problem Qualifiers (1) Pneumonia: Pneumonia type: due to unspecified organism Laterality: bilateral Lung location: lower lobe of lung Qualified Codes: J18.1 - Lobar pneumonia, unspecified organism (2) Crohn disease: Gastrointestinal tract location: unspecified location Digestive disease complication type: unspecified complication Qualified Codes: K50.919 - Crohn' s disease, unspecified, with unspecified complications (3) Leukocytosis: Leukocytosis type: leukemoid reaction Qualified Codes: D72.823 - Leukemoid reaction MEHDI AMBROCIO DO Jun 08, 2017 11:36
[2017-06-08 12:00] VITALS: BP 127/80
[2017-06-09] MEDS ORDERED: TROUGH ORDER-PHARMACY XX NR (06:30)
[2017-06-25] MEDS ORDERED: CYANOCOBALAMIN INJ 1000 MCG/ML IM SCH (09:00)
== END 2017-06-08 14:20 | disposition home or self-care (01) | DRG 871 ==
LOC: EDUNIT# 15:54 → ER 15:56 → ICU 18:12 → 4TH 06-07 14:15
PROVIDERS: ADMIT Internal Medicine; ATTEND Internal Medicine
PROC: 02HV33Z Insertion of Infusion Device into Superior Vena Cava, Percutaneous Approach (ICD-10-PCS; principal; 2017-06-05)
DX: A41.9 Sepsis, unspecified organism (principal); R65.21 Severe sepsis with septic shock; J18.9 Pneumonia, unspecified organism; J44.0 Chronic obstructive pulmonary disease with (acute) lower respiratory infection; J44.1 Chronic obstructive pulmonary disease with (acute) exacerbation; K50.90 Crohn's disease, unspecified, without complications; C83.33 Diffuse large B-cell lymphoma, intra-abdominal lymph nodes; Z66 Do not resuscitate; E86.0 Dehydration; R09.02 Hypoxemia; D72.829 Elevated white blood cell count, unspecified; F17.210 Nicotine dependence, cigarettes, uncomplicated; M19.91 Primary osteoarthritis, unspecified site; F60.9 Personality disorder, unspecified; R63.0 Anorexia; R11.0 Nausea; M54.5 Low back pain; Z87.820 Personal history of traumatic brain injury; Z79.899 Other long term (current) drug therapy
CPT/HCPCS: 36415; 71045; 71046; 80048; 80053; 80202; 81000; 82805; 83605; 83735; 84100; 85007; 85025; 85027; 85610; 85730; 87040; 94640; 94660; 94760; 96361; 96365; 96367; 96375

== ENCOUNTER → 2017-06-10 | Outpatient (CLI) | payer MEDICARE, MEDICAID ==
[~2017-06-10] MED LIST changes: +ADAL40PE SC; +AMOX-358 PO; +BLUE GOO TOP; +DICY10CA12 PO; +DIPH25CA79 PO; +GUAI-585 PO; +HYDR28.3 TP; +HYOS-20 PO; +MESA800T3 PO; +MICO45PO TP; +MULT-26 PO; +NPB.9O TP; +POTA10CA43 PO; +PRED10TA22 PO; +[UNRECOGNIZED DRUG - CODE] MM; +[UNRECOGNIZED DRUG - CODE] PO
[2017-06-10 08:46] LABS: BASOPHILS # (AUTO) 0.1 10^3/uL (0.0-0.1); BASOPHILS % (AUTO) 1 % (0-10); EOSINOPHILS % (AUTO) 0 % (0-10); HEMATOCRIT 38 % (40-54); HEMOGLOBIN 13.4 G/DL (13.3-17.7); LYMPHOCYTES # (AUTO) 2.2 X 10^3 (1.0-4.0); LYMPHOCYTES % (AUTO) 22 % (12-44); MEAN CORPUSCULAR HEMOGLOBIN 35 PG (25-34); MEAN CORPUSCULAR HGB CONC 35 G/DL (32-36); MEAN CORPUSCULAR VOLUME 100 FL (80-99); MONOCYTES # (AUTO) 1.3 X 10^3 (0.0-1.0); MONOCYTES % (AUTO) 13 % (0-12); NEUTROPHILS # (AUTO) 6.6 X 10^3 (1.8-7.8); NEUTROPHILS % (AUTO) 64 % (42-75); PLATELET COUNT 341 10^3/uL (130-400); RED BLOOD COUNT 3.85 10^6/uL (4.35-5.85); WHITE BLOOD COUNT 10.2 10^3/uL (4.3-11.0)
[2017-06-10 09:06] LABS: ALANINE AMINOTRANSFERASE 23 U/L (0-55); ALBUMIN 3.7 GM/DL (3.2-4.5); ALKALINE PHOSPHATASE 73 U/L (40-136); BILIRUBIN,TOTAL 0.5 MG/DL (0.1-1.0); BUN/CREATININE RATIO 12; CARBON DIOXIDE 29 MMOL/L (21-32); CHLORIDE 105 MMOL/L (98-107); CREATININE SERUM 0.57 MG/DL (0.60-1.30); GFR ESTIMATED > 60; GLUCOSE 76 MG/DL (70-105); POTASSIUM 3.1 MMOL/L (3.6-5.0); SODIUM 144 MMOL/L (135-145); TOTAL PROTEIN 6.6 GM/DL (6.4-8.2)
== END ==
LOC: LAB 08:35
PROVIDERS: ATTEND Internal Medicine
DX: D72.823 Leukemoid reaction (principal); E87.6 Hypokalemia
CPT/HCPCS: 36415; 80053; 85025

== ENCOUNTER → 2017-07-29 | Outpatient (CLI) | payer MEDICARE, MEDICAID ==
--- NOTE | 2017-07-29 13:09 | Diagnostic Imaging Report ---
PROCEDURE: CT chest without contrast. TECHNIQUE: Multiple contiguous axial images were obtained through the chest without the use of intravenous contrast. INDICATION: Pulmonary infiltrate. FINDINGS: There is bilateral centrilobular emphysema. There is no pleural or pericardial fluid. There is no pneumothorax. Heart size is normal. There is no pathologically enlarged adenopathy in the chest. There is no pneumothorax. There is no pathologically enlarged adenopathy in the chest. There are multiple calcified granulomas in the liver. Postsurgical changes of a splenectomy. The visualized pancreas and kidneys are unremarkable. The osseous structures are unremarkable. IMPRESSION: Bilateral centrilobular emphysema. No residual pulmonary nodules masses or infiltrates. Dictated by: Dictated on workstation # [id number]
== END ==
LOC: RAD 11:19
PROVIDERS: ATTEND Internal Medicine
DX: J43.9 Emphysema, unspecified (principal); R91.8 Other nonspecific abnormal finding of lung field
CPT/HCPCS: 71250

== ENCOUNTER 2017-11-05 10:57 | Observation (INO) | payer MEDICARE, MEDICAID ==
[~2017-11-05] VITALS: Ht 175.3 cm; Wt 57.3 kg
[2017-11-05] MEDS ORDERED: RT-ALBUTEROL/IPRATROPIUM 3 ML (DUONEB) VIAL INH ONE (11:30)
[2017-11-05] MEDS ORDERED: KETOROLAC 30 MG/ML VIAL IVP ONE (11:30)
[2017-11-05 11:58] LABS: BASOPHILS % (AUTO) 0 % (0-10); EOSINOPHILS % (AUTO) 0 % (0-10); HEMATOCRIT 40 % (40-54); HEMOGLOBIN 14.2 G/DL (13.3-17.7); LYMPHOCYTES # (AUTO) 2.9 X 10^3 (1.0-4.0); LYMPHOCYTES % (AUTO) 20 % (12-44); MEAN CORPUSCULAR HEMOGLOBIN 34 PG (25-34); MEAN CORPUSCULAR HGB CONC 35 G/DL (32-36); MEAN CORPUSCULAR VOLUME 98 FL (80-99); MONOCYTES # (AUTO) 1.3 X 10^3 (0.0-1.0); MONOCYTES % (AUTO) 9 % (0-12); NEUTROPHILS # (AUTO) 10.2 X 10^3 (1.8-7.8); NEUTROPHILS % (AUTO) 70 % (42-75); PLATELET COUNT 381 10^3/uL (130-400); RED BLOOD COUNT 4.12 10^6/uL (4.35-5.85); RED CELL DISTRIBUTION WIDTH 17.1 % (10.0-14.5); WHITE BLOOD COUNT 14.4 10^3/uL (4.3-11.0)
[2017-11-05] MEDS ORDERED: RT-IPRATROPIUM (ATROVENT) 0.5MG/2.5ML AMP IH ONE (12:08)
[2017-11-05] MEDS ORDERED: RT-ALBUTEROL SULF 2.5 MG/3 ML PRE-MIX VIAL ONE (12:08)
[2017-11-05 12:12] LABS: BUN/CREATININE RATIO 12; CALCIUM 9.7 MG/DL (8.5-10.1); CARBON DIOXIDE 24 MMOL/L (21-32); CHLORIDE 105 MMOL/L (98-107); CREATININE SERUM 0.66 MG/DL (0.60-1.30); GFR ESTIMATED > 60; GLUCOSE 85 MG/DL (70-105); POTASSIUM 3.6 MMOL/L (3.6-5.0); SODIUM 140 MMOL/L (135-145)
[2017-11-05 12:13] LABS: ALANINE AMINOTRANSFERASE 12 U/L (0-55); ALBUMIN 4.1 GM/DL (3.2-4.5); ALKALINE PHOSPHATASE 88 U/L (40-136); BILIRUBIN,TOTAL 0.5 MG/DL (0.1-1.0); TOTAL PROTEIN 6.7 GM/DL (6.4-8.2)
--- NOTE | 2017-11-05 12:16 | Diagnostic Imaging Report ---
EXAMINATION: PA and lateral Chest at 12:22 p.m. INDICATION: Respiratory distress. FINDINGS: The heart size is within normal limits, and the heart does seem less prominent than noted on the prior exam of 06/08/2017. The alveolar/interstitial pulmonary infiltrates seen on the prior study have resolved. The lungs are now generally clear and well aerated. There is no sign of failure, pneumonia, or a pleural effusion to indicate an acute abnormality. The mediastinum is not widened. The osseous structures are intact. Numerous surgical clips are again seen overlying the left upper quadrant. IMPRESSION: The appearance of the chest has improved since the prior exam as both lungs are much better aerated. There is no evidence for active disease at this time. Dictated by: Dictated on workstation # [id number]
[2017-11-05 12:33] LABS: ANISOCYTOSIS SLIGHT; BAND NEUTROPHILS 22 %; LYMPHOCYTES % (MANUAL) 11 %; MONOCYTES % (MANUAL) 1 %; NEUTROPHILS % (MANUAL) 66 %; POIKILOCYTOSIS SLIGHT
--- NOTE | 2017-11-05 12:53 | ED Cough/URI ---
General Chief Complaint: Respiratory Problems Stated Complaint: BACK PAIN;HEADACHE;SOA Nursing Triage Note: pt reports soa/cough/ breathing issues since saturday. Reports saw Dr. Jo and told he had a sinus infection. PT reports he just filled his antibiotics saturday and feels he is getting worse. Pt also reports TRENT and back pain Source: patient Exam Limitations: no limitations History of Present Illness Date Seen by Provider: Nov 05, 2017 Time Seen by Provider: 11:20 Initial Comments Patient is a 42-year-old male who presents to the emergency room with complaints of shortness of breath, cough for the past week. He reports that last he did have an appointment with Dr. Chappell and was treated with a sinus infection. He reports that he just had antibiotics filled yesterday and has been feeling worse since. He also complains of headache, back pain with coughing. Timing/Duration: week Severity/Quality: dry cough Prior Episodes/Possible Cause: no prior episodes Associated Symptoms: headache, nasal congestion, nasal drainage, shortness of breath, wheezing Allergies and Home Medications Allergies Coded Allergies: ceftazidime (Verified Allergy, Intermediate, RASH, 06/15/16) nalbuphine (Unverified Allergy, Mild, RASH, 03/29/06) Iodinated Contrast- Oral and IV Dye (Verified Allergy, Unknown, HIVES, 05/01) Sulfa (Sulfonamide Antibiotics) (Verified Allergy, Unknown, 03/29/06) latex (Verified Allergy, Unknown, 05/03/15) strawberry (Unverified Allergy, Unknown, 12/18/13) FROM UNCODED ALLERGIES Uncoded Allergies: TAPE (Allergy, Unknown, 03/29/06) Home Medications Acetaminophen 325 Mg Tablet, 650 MG PO Q6H PRN for MILD PAIN/FEVER, (Reported) TAKES 2 (325MG) TABLETS Adalimumab 40 Mg/0.8 Ml Pen.ij.kit, 40 MG SC EVERY 2 WEEKS, (Reported) Amoxicillin/Potassium Clav 1 Each Tablet, 1 EACH PO BID Prescribed by: MEHDI AMBROCIO on 06/08/17 1131 Ascorbate Calcium 500 Mg Tablet, 500 MG PO DAILY, (Reported) Budesonide 9 Mg Tabdr...er, 9 MG PO DAILY, (Reported) Cyanocobalamin 1,000 Mcg/Ml Inj, 1,000 MCG INJ MONTHLY, (Reported) Dicyclomine HCl 10 Mg Capsule, 10 MG PO ACHS, (Reported) Diphenhydramine HCl 25 Mg Capsule, 25 MG PO UD PRN for ITCHING, (Reported) Docusate Sodium 100 Mg Capsule, 100 MG PO BID, (Reported) Doxylamine Succinate 25 Mg Tablet, 25 MG PO HS PRN for SLEEP, (Reported) Famotidine 20 Mg Tablet, 20 MG PO HS, (Reported) Gabapentin 600 Mg Tablet, 600 MG PO TID, (Reported) Guaifenesin 600 Mg Tab.er.12h, 600 MG PO BID PRN for CONGESTION, (Reported) Guaifenesin/D-Methorphan Hb/PE 118 Ml Liquid, PO UD PRN for COUGH/COLD, ( Reported) Hydrocodone Bit/Acetaminophen 1 Tab Tab, 1 TAB PO Q4H PRN for PAIN-MODERATE Prescribed by: MEHDI AMBROCIO on 06/08/171130 Hydrocortisone 28.35 Gm Cream..g., TP UD PRN for SKIN, (Reported) 1% Hyoscyamine Sulfate 0.125 Mg Tablet, 0.125 MG PO Q6H PRN for PAIN, (Reported) Magnesium Oxide 400 Mg Tablet, 400 MG PO DAILY, (Reported) Menthol 4.8 Mg Lozenge, 1 TAB MM UD PRN for COUGH, (Reported) Mesalamine 800 Mg Tablet.dr, 2,400 MG PO BID, (Reported) TAKES 3 (800MG) TABLETS Metoclopramide HCl 10 Mg Tablet, 10 MG PO ACHS, (Reported) Miconazole Nitrate 43 Gm Powder, TP UD PRN for FOOT WETNESS AND ODOR, (Reported) Multivit-Min/FA/Lycopene/Lut 1 Each Tablet, 1 TAB PO DAILY, (Reported) Neomycin/Polymyxin/Bacitracin 0.9 Gm Oint, TP UD PRN for SKIN, (Reported) Omeprazole 40 Mg Capsule.dr, 40 MG PO BID, (Reported) Polyethylene Glycol 3350 17 Gm Powd.pack, 17 GM PO DAILY PRN for CONSTIPATION- 2ND LINE, (Reported) Potassium Chloride 10 Meq Capsule.er, 10 MEQ PO BID Prescribed by: MEHDI AMBROCIO on 06/08/171130 Prednisone 10 Mg Tab.ds.pk, 10 MG PO BID Prescribed by: MEHDI AMBROCIO on 06/08/171130 [Blue Goo] , TOP QID PRN for NEEDED, (Reported) Patient Home Medication List Home Medication List Reviewed: Yes Review of Systems Review of Systems Constitutional: see HPI; No chills, No fever EENTM: see HPI, nose congestion, other (headache/sinus pressure) Respiratory: see HPI, cough, short of breath, wheezing Musculoskeletal: see HPI, back pain (upper back pain) All Other Systems Reviewed Negative Unless Noted: Yes Past Cgcvnwx-Yryqqd-Ogjwrh Hx Past Med/Social Hx: Reviewed Nursing Past Med/Soc Hx Patient Social History Alcohol Use: Occasionally Uses Number of Drinks Today: AA Alcohol Beverage of Choice: Beer Recreational Drug Use: No (SMOKES OCCASSIONALLY) Smoking Status: Current Everyday Smoker Type Used: Cigarettes Recent Foreign Travel: No Contact w/Someone Who Travel: No Recent Infectious Disease Expo: No Recent Hopitalizations: No Physical Abuse: No Sexual Abuse: No Mistreated: No Fear: No Immunizations Up To Date Date of Pneumonia Vaccine: Feb 25, 2015 Date of Influenza Vaccine: Feb 25, 2015 Seasonal Allergies Seasonal Allergies: No Past Medical History Surgeries: No (EAR SURGERIES TO PREVENT HEARING LOSS CHILD, 3 BOWEL RESECTIONS, RECTAL ) Abdominal, Appendectomy, Bowel Surgery, Gallbladder, Tonsillectomy Respiratory: No Cardiac: No Neurological: Yes (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 ) Adverse Reaction/Blood Tranf: No Family Medical History Reviewed Nursing Family Hx No Family History of: Abdominal aortic aneurysm Ankit's disease Alcoholism Aphasia Cancer Cancer of colon Cataract Chest pain Congenital heart disease Congestive heart failure Cystic fibrosis Dementia Dysphagia Family history: Allergy Family history: Alzheimer's disease Family history: Arthritis Family history: Asthma Family history: Breast disease Family history: Cardiovascular disease Family history: Coronary thrombosis Family history: Diabetes mellitus Family history: Gastrointestinal disease Family history: Glaucoma Family history: Hypertension Family history: Osteoporosis Family history: Thyroid disorder Headache Hearing loss Heart disease Hereditary disease History of - anemia History of - disorder History of - respiratory disease History of drug abuse Human immunodeficiency virus (HIV) seropositivity Hypercholesterolemia Infertile Kidney disease Malignant neoplasm of lung Myocardial infarction Parkinson's disease Prostate cancer Psychotic disorder Seizure disorder Stroke Tuberculosis Visual impairment Diabetes Physical Exam Vital Signs - First Documented 11/05/17 11:28 Temp 98.7 Pulse 90 Resp 16 B/P (MAP) 133/97 (109) Pulse Ox 94 O2 Delivery Room Air Capillary Refill : Less Than 3 Seconds Height: 5'9.00" Weight: 135lbs. 5.0oz. 61.806065kg; 19.5 BMI Method:Stated General Appearance: WD/WN, no apparent distress HEENT: PERRL/EOMI, normal ENT inspection, TMs normal, pharynx normal Neck: non-tender, full range of motion, supple, normal inspection, carotid bruit Respiratory: chest non-tender, no respiratory distress, no accessory muscle use , decreased breath sounds, wheezing Cardiovascular: normal peripheral pulses, no edema, no gallop, no JVD, no murmur, tachycardia Gastrointestinal: normal bowel sounds, non tender, soft, no organomegaly, no pulsatile mass Extremities: normal range of motion, non-tender, normal inspection, no pedal edema, no calf tenderness, normal capillary refill, pelvis stable Neurologic/Psychiatric: alert, normal mood/affect, oriented x 3 Skin: normal color, warm/dry Progress/Results/Core Measures Suspected Sepsis Recent Fever Within 48 Hours: No Infection Criteria Present: None New/Unexplained Altered Menta: No Sepsis Screen: No Definite Risk SIRS Temperature:98.7 Pulse: 90 Respiratory Rate: 16 Laboratory Tests 11/05/17 11:50: White Blood Count 14.4H Blood Pressure 133 /97 Mean: 109 Laboratory Tests 11/05/17 11:50: Creatinine 0.66, Platelet Count 381, Total Bilirubin 0.5 Results/Orders Lab Results Laboratory Tests Test 11/05/17 11:50 11/05/17 13:32 Range/Units White Blood Count 14.4 H 4.3-11.0 10^3/uL Red Blood Count 4.12 L 4.35-5.85 10^6/uL Hemoglobin 14.2 13.3-17.7 G/DL Hematocrit 40 40-54 % Mean Corpuscular Volume 98 80-99 FL Mean Corpuscular Hemoglobin 34 25-34 PG Mean Corpuscular Hemoglobin Concent 35 32-36 G/DL Red Cell Distribution Width 17.1 H 10.0-14.5 % Platelet Count 381 130-400 10^3/uL Mean Platelet Volume 10.0 7.4-10.4 FL Neutrophils (%) (Auto) 70 42-75 % Lymphocytes (%) (Auto) 20 12-44 % Monocytes (%) (Auto) 9 0-12 % Eosinophils (%) (Auto) 0 0-10 % Basophils (%) (Auto) 0 0-10 % Neutrophils # (Auto) 10.2 H 1.8-7.8 X 10^3 Lymphocytes # (Auto) 2.9 1.0-4.0 X 10^3 Monocytes # (Auto) 1.3 H 0.0-1.0 X 10^3 Eosinophils # (Auto) 0.0 0.0-0.3 10^3/uL Basophils # (Auto) 0.0 0.0-0.1 10^3/uL Neutrophils % (Manual) 66 % Lymphocytes % (Manual) 11 % Monocytes % (Manual) 1 % Band Neutrophils 22 % Poikilocytosis SLIGHT Anisocytosis SLIGHT Macrocytosis SLIGHT D-Dimer < 0.22 0.00-0.49 UG/ML Sodium Level 140 135-145 MMOL/L Potassium Level 3.6 3.6-5.0 MMOL/L Chloride Level 105 98-107 MMOL/L Carbon Dioxide Level 24 21-32 MMOL/L Anion Gap 11 5-14 MMOL/L Blood Urea Nitrogen 8 7-18 MG/DL Creatinine 0.66 0.60-1.30 MG/DL Estimat Glomerular Filtration Rate > 60 BUN/Creatinine Ratio 12 Glucose Level 85 70-105 MG/DL Calcium Level 9.7 8.5-10.1 MG/DL Corrected Calcium 9.6 8.5-10.1 MG/DL Total Bilirubin 0.5 0.1-1.0 MG/DL Aspartate Amino Transf (AST/SGOT) 11 5-34 U/L Alanine Aminotransferase (ALT/SGPT) 12 0-55 U/L Alkaline Phosphatase 88 40-136 U/L Troponin I < 0.30 <0.30 NG/ML Total Protein 6.7 6.4-8.2 GM/DL Albumin 4.1 3.2-4.5 GM/DL Blood Gas Puncture Site LT BRACH Blood Gas Patient Temperature 97.1 Arterial Blood pH 7.54 H 7.37-7.43 Arterial Blood Partial Pressure CO2 25 L 35-45 MMHG Arterial Blood Partial Pressure O2 43 L 79-93 MMHG Arterial Blood HCO3 21 L 23-27 MMOL/L Arterial Blood Total CO2 22.2 21.0-31.0 MMOL/L Arterial Blood Oxygen Saturation 82 L 94-100 % Arterial Blood Base Excess -1.1 -2.5-2.5 MMOL/L Juan Miguel Test YES-POS Blood Gas Ventilator Setting NO Blood Gas Inspired Oxygen ROOM AIR My Orders Orders - BERNOT,VIC Albuterol/Ipra Inhalation Soln (Duoneb I (11/05/17 11:30) Cbc With Automated Diff (11/05/17 11:23) Comprehensive Metabolic Panel (11/05/17 11:23) Chest Pa/Lat (2 View) (11/05/17 11:23) Saline Lock/Iv-Start (11/05/17 11:23) Ketorolac Injection (Toradol Injection) (11/05/17 11:30) Manual Differential (11/05/17 11:50) Ipratropium 0.02% Neb Solution (Atrovent (11/05/17 12:08) Albuterol Pre-Mix Nebs (Rt) (Proventil (11/05/17 12:08) Troponin I (11/05/17 12:47) Ekg Tracing (11/05/17 12:47) Methylprednisolone Sod Succ (Solu-Medrol (11/05/17 13:30) Fentanyl Injection (Sublimaze Injection (11/05/17 13:30) Arterial Blood Gas (11/05/17 13:32) Lorazepam Injection (Ativan Injection) (11/05/17 14:00) Arterial Blood Draw (11/05/17 ) Fibrin Degradation Products (11/05/17 14:01) Ua Culture If Indicated (11/05/17 14:39) Drug Screen Stat (Urine) (11/05/17 14:39) Medications Given in ED Current Medications Medications Dose Ordered Sig/Sudheer Route Start Time Stop Time Status Last Admin Dose Admin Albuterol Sulfate 2.5 mg STK-MED ONCE .ROUTE 11/05/17 12:08 11/05/17 12:12 DC 11/05/17 12:13 15 MG Fentanyl Citrate 50 mcg ONCE ONCE IVP 9/11/18 13:30 11/05/17 13:31 DC 11/05/17 13:40 50 MCG Ipratropium Alba 0.5 mg STK-MED ONCE IH 11/05/17 12:08 11/05/17 12:12 DC 11/05/17 12:13 0.5 MG Lorazepam 0.5 mg ONCE ONCE IVP 11/05/17 14:00 11/05/17 14:01 DC 11/05/17 13:52 0.5 MG Methylprednisolone Sodium Succinate 125 mg ONCE ONCE IVP 11/05/17 13:30 11/05/17 13:31 DC 11/05/17 13:43 125 MG Vital Signs/I&O 11/05/17 11/05/17 11/05/17 11:28 12:02 12:13 Temp 98.7 Pulse 90 Resp 16 B/P (MAP) 133/97 (109) Pulse Ox 94 91 91 O2 Delivery Room Air Room Air Room Air Capillary Refill : Less Than 3 Seconds Blood Pressure Mean: 109 Progress Note : Time: 11:30 Progress Note Patient was given a breathing treatment of DuoNeb. He did have mild improvement of his upper lobes but I believe this opened him up and he now has wheezes throughout all lung bases. Respiratory therapy is starting hour-long treatment right now. Solu-Medrol has been ordered. 1430: Spoke to Dr. CHAVARRIA informed him of the patient's laboratory findings. He agrees with the admission to his services. He recommends getting a urinary drug screen. Patient was informed of plans for admission. Departure Communication (Admissions) Time/Spoke to Admitting Phy: 14:30 Dr. Chavarria with a consult to Dr. Schulz Impression Primary Impression: RESPIRATORY FAILURE, UNSP, UNSP W HYPOXIA OR HYPERCAPNIA Disposition: ADMITTED INPATIENT Condition: Stable/Unchanged Admissions Decision to Admit Reason: Admit from ER (General) Decision to Admit/Date: Nov 05, 2017 Time/Decision to Admit Time: 14:30 Departure-Patient Inst. Referrals: JUSTICE JO DO (PCP/Family) Primary Care Physician VIC AKINS Nov 05, 2017 12:53
[2017-11-05] MEDS ORDERED: fentaNYL INJECTION 100 MCG/2 ML AMP IVP ONE (13:30)
[2017-11-05] MEDS ORDERED: methylPREDNISolone 125 MG (Solu-MEDROL) VIAL IVP ONE (13:30)
[2017-11-05 13:39] LABS: ABG BASE EXCESS -1.1 MMOL/L (-2.5-2.5); ABG OXYGEN SATURATION 82 % (94-100); ABG PCO2 25 MMHG (35-45); ABG PH 7.54 (7.37-7.43); ABG PO2 43 MMHG (79-93); ABG TCO2 22.2 MMOL/L (21.0-31.0)
[2017-11-05 13:40] LABS: ALLENS TEST YES-POS; INSPIRED O2 ROOM AIR; PATIENT TEMP 97.1; VENTILATOR NO
[2017-11-05] MEDS ORDERED: LORazepam INJ 2 MG/ML (ATIVAN) VIAL IVP ONE (14:00)
--- OUTSIDE RECORDS SUMMARY | 2017-11-05 15:26 | XMS REPORT | Clinical Summary ---
Author Author [facility] Organization [facility] Address Unknown Phone Unavailable Care Team Providers Care Advertising Supervisor Name Role Phone Contreras Jo MD PCP Anum Bain MD Unavailable Yarely Patterson RN Unavailable Unavailable Source Comments Some departments are not documenting in the electronic medical record. If you do not see the information that you expected, contact Release of Information in the Health Information Management department at [phone] for further assistance in locating additional records.[facility] Allergies Active Allergy Reactions Severity Noted [...] Taken Blood Pressure 110/70 01/09/2014 11:20 AM HISTOTECHNICIAN Pulse 78 01/09/2014 11:20 AM HISTOTECHNICIAN Temperature 36.6 C (97.8 F) 01/09/2014 11:20 AM HISTOTECHNICIAN Respiratory Rate - - Oxygen Saturation 100% 01/09/2014 11:20 AM HISTOTECHNICIAN Inhaled Oxygen - - Concentration Weight 50.8 kg (112 lb) 01/08/2014 4:00 AM HISTOTECHNICIAN Height 175.3 cm (5' 9") 12/25/2013 8:09 PM CDT Body Mass Index 16.54 01/08/2014 4:00 AM HISTOTECHNICIAN Plan of Treatment Health Maintenance Due Date Last Done Comments PHYSICAL (COMPREHENSIVE) 1984 EXAM PERTUSSIS VACCINE 1988 HIV SCREENING 1992 TETANUS VACCINE 1994 INFLUENZA VACCINE 11/25/2017 Results Not on filefrom Last 3 Months
--- OUTSIDE RECORDS SUMMARY | 2017-11-05 15:35 | XMS REPORT | Continuity of Care Document ---
Author Author [facility] Organization [facility] Address Unknown Phone Unavailable Allergies Active Description Code Type Severity Reaction Onset Reported/Identified Relationship to Patient Clinical Status Yes nalbuphine [id number] Drug Allergy Mild RASH 03/29/2006 Yes ceftazidime [id number] Drug Allergy Unknown N/A 03/29/2006 Yes ceftazidime (anhydrous) [id number] Drug Allergy Unknown N/A 03/29/2006 Yes Sulfa (Sulfonamide Antibiotics) [id number] Drug Allergy Unknown N/A 2006 Yes TAPE TAPE Unknown N/A 03/29/2006 Yes strawberry [id number] Drug Allergy Unknown N/A 12/18/2013 Yes Iodinated Contrast Media - IV Dye [id number] Drug Allergy Unknown HIVES 08/2015 Yes Iodinated Contrast Media - Oral and [id number] Drug Allergy Unknown HIVES 05/02/2015 Yes Iodinated Contrast- Oral and IV Dye [id number] Drug Allergy Unknown HIVES 05/02/2015 Yes latex [id number] Drug Allergy Unknown N/A 05/03/2015 Yes ceftazidime [id number] Drug Allergy Moderate RASH 06/15/2016 Medications There [...] 02/20/2013 JUSTICE SAHA DO Ot 568.0 PERITONEAL [id number] 02/20/2013 JUSTICE SAHA DO Ot 575.11 CHRONIC [...] MATTHIAS MENDOZA, MICHELLE Ot 238.71 02/04/2014 MATTHIAS MENDZOA, MICHELLE Ot 266.2 02/04/2014 MATTHIAS MENDOZA, MICHELLE [...] Ot 530.81 ESOPHAGEAL REFLUX 05/11/2014 [facility] 555.9 REGIONAL ENTERITIS NOS 05/11/2014 MATTHIAS MEND[facility]ZA, [facility] Ot V58.69 OT MED,LT,CURRENT USE 05/11/2014 MATTHIAS MENDOZA, [facility] Ot V87.41 PERSONAL HISTORY OF ANTINEOPLASTIC CHEMO [...] 555.0 06/02/2014 Ot 789.00 06/02/2014 [facility]AS [facility] Ot 202.80 06/02/2014 MATTHIAS MEND[facility]ZA, [facility] Ot 238.71 06/02/2014 MATTHIAS [facility]END[facility]ZA, [facility] Ot 266.2 06/02/2014 MATTHIAS MENDOZA, BRITT-CAROLINE Ot [...] 08/04/2014 MATTHIAS MENDOZA, BALWINDER-CAROLINE Ot 202.80 08/04/2014 MATHTIAS MENDOZA, BALWINDER-CAROLINE Ot 238.71 08/04/2014 MATTHIAS MENDOZA, [...] MENDOZA, BRITT-CAROLINE Ot 280.9 08/05/2014 MATTHIAS MENDOZA, BRITT-CARLOINE Ot 288.60 08/05/2014 MATTHIAS MENDOZA, BRITT-CAROLINE Ot [...] MATTHIAS MENDOZA, BRITT-CAROLINE Ot 280.9 09/16/2014 MATTHIAS MEDNOZA, BRITT-CAROLINE Ot 288.60 09/16/2014 MATTHIAS MENDOZA, BRITT-CAROLINE [...] MENDOZA, BALWINDERCAROLINE Ot 202.80 10/11/2014 MATTHIAS MENDOZA, [facility] Ot 238.71 10/11/2014 MATTHIAS MENDOZA, [facility] Ot 266.2 10/11/2014 MATTHIAS MENDOZA, [facility] Ot 280.9 10/11/2014 MATTHIAS MENDOZA, [facility] Ot 288.60 10/11/2014 MATTHIAS MENDOZA, [facility] Ot 530.81 10/11/2014 MATTHIAS MENDOZA, [facility] Ot 555.9 10/11/2014 MATTHIAS MENDOZA, [facility] Ot V58.69 10/11/2014 MATTHIAS MENDOZA, [facility] Ot V87.41 10/11/2014 FINN MILLER DO [...] 05/03/2015 MATTHIAS MENDOZA, MICHELLE Castro 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 05/03/2015 MATTHIAS MENDOZA, [...] RACHAEL A Ot Z11.2 05/19/2015 MATTHIAS MENDOZA, [facility] Ot C85.80 05/19/2015 MATTHIAS MENDOZA, [facility] Ot D47.3 05/19/2015 MATTHIAS MENDOZA, [facility] Ot D50.9 05/19/2015 MATTHIAS MENDOZA, [facility] Ot D72.829 05/19/2015 MATTHIAS MENDOZA, [facility] Ot E53.8 05/19/2015 MATTHIAS MENDOZA, [facility] Ot K21.9 05/19/2015 MATTHIAS MENDOZA, [facility] Ot K50.90 05/19/2015 MATTHIAS MENDOZA, [facility] Ot Z79.899 05/19/2015 MATTHIAS MENDOZA, [facility] Ot Z92.21 05/20/2015 JEREMY MENDOZA, ALON [...] RACHAEL A Ot Z11.2 05/23/2015 MATTHIAS MENDOZA, [facility] Ot C85.80 05/23/2015 MATTHIAS MENDOZA, [facility] Ot D47.3 05/23/2015 MATTHIAS MENDOZA, [facility] Ot D50.9 05/23/2015 MATTHIAS MENDOZA, [facility] Ot D72.829 05/23/2015 MATTHIAS MENDOZA, [facility] Ot E53.8 05/23/2015 MATTHIAS MENDOZA, [facility] Ot K21.9 05/23/2015 MATTHIAS MENDOZA, [facility] Ot K50.90 05/23/2015 MATTHIAS MENDOZA, [facility] Ot Z79.899 05/23/2015 [facility]AS [facility], [facility] Ot Z92.21 05/24/2015 JUSTICE SAHA DO Ot [...] 11/15/2015 MICHELLE RIZZO MD Ot Z79.899 OTHER SKILLED NURSING (CURRENT) DRUG THERAPY 11/15/2015 MICHELLE RIZZO MD Ot Z92.21 PERSONAL HISTORY OF ANTINEOPLASTIC CHEMO 11/15/2015 JUSTICE SAHA DO Ot K59.00 CONSTIPATION, UNSPECIFIED 11/15/2015 MITESH WRANER APRN Ot K59.00 CONSTIPATION, UNSPECIFIED 11/15/2015 MITESH WARNER APRN Ot Z90.49 ACQUIRED ABSENCE OF OTHER SPECIFIED PART 11/16/2015 MITESH WARNER APRN Ot K59.00 CONSTIPATION, UNSPECIFIED 11/16/2015 WARNER, PETER J MANAGEMENT SPECIALIST Ot Z90.49 ACQUIRED ABSENCE OF OTHER SPECIFIED [...] 11/21/2015 MICHELLE RIZZO MD, Ot Z79.899 OTHER SKILLED NURSING (CURRENT) DRUG THERAPY 11/21/2015 MICHELLE RIZZO MD [...] 01/31/2016 MICHELLE RIZZO MD, Ot 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 01/31/2016 MICHELLE RIZZO [...] 02/02/2016 MICHELLE RIZZO MD, Ot Z79.899 OTHER SKILLED NURSING (CURRENT) DRUG THERAPY 02/02/2016 MICHELLE RIZZO MD [...] OF OTHER SPECIFIED B GROUP 03/19/2016 MICHELLE RZIZO MD, Ot K21.9 GASTRO-ESOPHAGEAL REFLUX DISEASE WITHOUT 03/19/2016 MICHELLE RIZZO MD, Ot K50.90 CROHN'S DISEASE, UNSPECIFIED, WITHOUT CO 03/19/2016 MICHELLE RIZZO MD, Ot Z79.899 OTHER SKILLED NURSING (CURRENT) DRUG THERAPY 03/19/2016 MICHELLE RIZZO MD, [...] 03/20/2016 MICHELLE RIZZO MD, Ot Z79.899 OTHER SKILLED NURSING (CURRENT) DRUG THERAPY 03/20/2016 MICHELLE RIZZO MD, [...] 03/23/2016 MICHELLE RIZZO MD, Ot 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 03/23/2016 MICHELLE RIZZO MD, Ot Z92.21 PERSONAL HISTORY OF ANTINEOPLASTIC CHEMO 04/05/2016 MIRA ACRO DO Ot K62.9 DISEASE OF ANUS AND [...] 05/01/2016 MICHELLE RIZZO MD Ot 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 05/01/2016 MICHELLE RIZZO [...] 06/15/2016 MICHELLE RIZZO MD, Ot 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 06/15/2016 MICHELLE RIZZO [...] 06/15/2016 MICHELLE RIZZO MD, Ot Z79.899 OTHER SKILLED NURSING (CURRENT) DRUG THERAPY 06/15/2016 MICHELLE RIZZO MD, [...] 01/31/2017 MICHELLE RIZZO MD, Ot Z79.899 OTHER SKILLED NURSING (CURRENT) DRUG THERAPY 01/31/2017 MICHELLE RIZZO MD, [...] 03/19/2017 MICHELLE RIZZO MD Ot Z79.899 OTHER SKILLED NURSING (CURRENT) DRUG THERAPY 03/19/2017 MICHELLE RIZZO MD [...] 03/26/2017 MICHELLE RIZZO MD, Ot 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 03/26/2017 MICHELLE RIZZO [...] 04/30/2017 MICHELLE RIZZO MD, Ot Z79.899 OTHER SKILLED NURSING (CURRENT) DRUG THERAPY 04/30/2017 MICHELLE RIZZO MD, [...] 05/01/2017 MICHELLE RIZZO MD Ot Z79.899 OTHER SKILLED NURSING (CURRENT) DRUG THERAPY 05/01/2017 MICHELLE RIZZO MD [...] 05/06/2017 MICHELLE RIZZO MD, Ot 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 05/06/2017 MICHELLE RIZZO [...] MEDICAL EXAM W/ 06/05/2017 ADDIS MENDOZA, EVELINA Arringtno Ot Z01.818 ENCOUNTER FOR OTHER PREPROCEDURAL EXAMIN [...] 06/05/2017 MATTHIAS MENDOZA, BRODIECAROLINE Ot Z79.899 OTHER SKILLED NURSING (CURRENT) DRUG THERAPY 06/05/2017 MATTHIAS MENDOZA, BRODIECAROLINE [...] 06/05/2017 MICHELLE RIZZO MD Ot Z79.899 OTHER SKILLED NURSING (CURRENT) DRUG THERAPY 06/05/2017 MICHELLE RIZZO MD [...] K61.0 ANAL ABSCESS 06/05/2017 ADDIS MENDOZA, EVELINA [place] Ot K61.1 RECTAL ABSCESS 06/05/2017 LIZZ MENDOZA, [...] 06/05/2017 MICHELLE RIZZO MD, Ot Z79.899 OTHER SKILLED NURSING (CURRENT) DRUG THERAPY 06/05/2017 MICHELLE RIZZO MD, [...] 06/05/2017 MICHELLE RIZZO MD, Ot 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 06/05/2017 MICHELLE RIZZO [...] 06/05/2017 MICHELLE RIZZO MD, Ot Z79.899 OTHER SKILLED NURSING (CURRENT) DRUG THERAPY 06/05/2017 MICHELLE RIZZO MD, [...] Arrington Ot K60.3 ANAL FISTULA 06/06/2017 ADDIS MENDOAZ, EVELINA Arrington Ot K61.0 ANAL ABSCESS 06/06/2017 ADDIS MENDOZA, EVELINA Arrington Ot K61.1 RECTAL ABSCESS 06/06/2017 LIZZ MENDOZA, RACHAEL Hong Ot N36.1 URETHRAL DIVERTICULUM 06/06/2017 LIZZ MENDOZA, RACHAEL Hong Ot Z01.818 ENCOUNTER FOR OTHER PREPROCEDURAL EXAMIN 06/06/2017 LIZZ MENDOZA, RACHAEL Hong Ot Z11.2 ENCOUNTER FOR SCREENING FOR OTHER BACTER 06/06/2017 JUSTICE SAHA DO Ot K59.00 CONSTIPATION, UNSPECIFIED 06/06/2017 [...] 06/06/2017 MICHELLE RIZZO MD, Ot 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 06/06/2017 MICHELLE RIZZO MD, Ot Z92.21 PERSONAL HISTORY OF ANTINEOPLASTIC CHEMO 06/07/2017 JUSTICE SAHA DO, Ot A41.9 SEPSIS, UNSPECIFIED ORGANISM 06/07/2017 JUSTICE SAHA DO, Ot 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, INTRA-ABD 06/07/2017 JUSTICE SAHA DO, Ot E86.0 DEHYDRATION 06/07/2017 JUSTICE SAHA DO, Ot F17.210 NICOTINE DEPENDENCE, CIGARETTES, UNCOMPL 06/07/2017 JUSTICE SAHA DO, Ot F60.9 PERSONALITY DISORDER, UNSPECIFIED 06/07/2017 JUSTICE SAHA DO, Ot J18.9 PNEUMONIA, UNSPECIFIED ORGANISM 06/07/2017 JUSTICE SAHA DO, Ot J44.0 CHRONIC OBSTRUCTIVE PULMON DISEASE W ACU 06/07/2017 JUSTICE SAHA DO, Ot J44.1 CHRONIC OBSTRUCTIVE PULMONARY DISEASE W 06/07/2017 JUSTICE SAHA DO, Ot K50.90 CROHN'S DISEASE, UNSPECIFIED, WITHOUT CO 06/07/2017 JUSTICE SAHA DO, Ot M19.91 PRIMARY OSTEOARTHRITIS, UNSPECIFIED SITE 06/07/2017 JUSTICE SAHA DO, Ot M54.5 LOW BACK PAIN 06/07/2017 JUSTICE SAHA DO, Ot R09.02 HYPOXEMIA 06/07/2017 JUSTICE SAHA DO, Ot R11.0 NAUSEA 06/07/2017 JUSTICE SAHA DO, Ot R63.0 ANOREXIA 06/07/2017 JUSTICE SAHA DO, Ot R65.21 SEVERE SEPSIS WITH SEPTIC SHOCK 06/07/2017 JUSTICE SAHA DO, Ot Z66 DO NOT RESUSCITATE 06/07/2017 JUSTICE SAHA DO, Ot 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 06/07/2017 JUSTICE SAHA DO, Ot Z87.820 PERSONAL HISTORY OF TRAUMATIC BRAIN INJU 06/08/2017 JUSTICE SAHA DO, Ot A41.9 SEPSIS, UNSPECIFIED ORGANISM 06/08/2017 JUSTICE SAHA DO, Ot 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, INTRA-ABD 06/08/2017 JUSTICE SAHA DO Ot E86.0 DEHYDRATION 06/08/2017 JUSTICE SAHA DO, Ot F17.210 NICOTINE DEPENDENCE, CIGARETTES, UNCOMPL 06/08/2017 JUSTICE SAHA DO, Ot F60.9 PERSONALITY DISORDER, UNSPECIFIED 06/08/2017 JUSTICE SAHA DO, Ot J18.9 PNEUMONIA, UNSPECIFIED ORGANISM 06/08/2017 JUSTICE SAHA DO, Ot J44.0 CHRONIC OBSTRUCTIVE PULMON DISEASE W ACU 06/08/2017 JUSTICE SAHA DO, Ot J44.1 CHRONIC OBSTRUCTIVE PULMONARY DISEASE W 06/08/2017 JUSTICE SAHA DO, Ot K50.90 CROHN'S DISEASE, UNSPECIFIED, WITHOUT CO 06/08/2017 JUSTICE SAHA DO, Ot M19.91 PRIMARY OSTEOARTHRITIS, UNSPECIFIED SITE 06/08/2017 JUSTICE SAHA DO, Ot M54.5 LOW BACK PAIN 06/08/2017 JUSTICE SAHA DO Ot R09.02 HYPOXEMIA 06/08/2017 JUSTICE SAHA DO, Ot R11.0 NAUSEA 06/08/2017 JUSTICE SAHA DO, Ot R63.0 ANOREXIA 06/08/2017 JUSTICE SAHA DO, Ot R65.21 SEVERE SEPSIS WITH SEPTIC SHOCK 06/08/2017 JUSTICE SAHA DO, Ot Z66 DO NOT RESUSCITATE 06/08/2017 JUSTICE SAHA DO, Ot 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 06/08/2017 JUSTICE SAHA DO, Ot Z87.820 PERSONAL HISTORY OF TRAUMATIC BRAIN INJU 06/08/2017 JUSTICE SAHA DO, Ot A41.9 SEPSIS, UNSPECIFIED ORGANISM 06/08/2017 JUSTICE SAHA DO Ot 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, INTRA-ABD 06/08/2017 JUSTICE SAHA DO, Ot D72.829 ELEVATED WHITE BLOOD CELL COUNT, UNSPECI 06/08/2017 JUSTICE SAHA DO, Ot E86.0 DEHYDRATION 06/08/2017 JUSTICE SAHA DO Ot F17.210 NICOTINE DEPENDENCE, CIGARETTES, UNCOMPL 06/08/2017 JUSTICE SAHA DO, Ot F60.9 PERSONALITY DISORDER, UNSPECIFIED 06/08/2017 JUSTICE SAHA DO, Ot J18.9 PNEUMONIA, UNSPECIFIED ORGANISM 06/08/2017 JUSTICE SAHA DO, Ot J44.0 CHRONIC OBSTRUCTIVE PULMON DISEASE W ACU 06/08/2017 JUSTICE SAHA DO, Ot J44.1 CHRONIC OBSTRUCTIVE PULMONARY DISEASE W 06/08/2017 JUSTICE SAHA DO, Ot K50.90 CROHN'S DISEASE, UNSPECIFIED, WITHOUT CO 06/08/2017 JUSTICE SAHA DO, Ot M19.91 PRIMARY OSTEOARTHRITIS, UNSPECIFIED SITE 06/08/2017 JUSTICE SAHA DO, Ot M54.5 LOW BACK PAIN 06/08/2017 JUSTICE SAHA DO Ot R09.02 HYPOXEMIA 06/08/2017 JUSTICE SAHA DO, Ot R11.0 NAUSEA 06/08/2017 JUSTICE SAHA DO, Ot R63.0 ANOREXIA 06/08/2017 JUSTICE SAHA DO, Ot R65.21 SEVERE SEPSIS WITH SEPTIC SHOCK 06/08/2017 JUSTICE SAHA DO Ot Z66 DO NOT RESUSCITATE 06/08/2017 JUSTICE SAHA DO, Ot Z79.899 OTHER SKILLED NURSING (CURRENT) DRUG THERAPY 06/08/2017 JUSTICE SAHA DO, Ot Z87.820 PERSONAL HISTORY OF TRAUMATIC BRAIN INJU 06/10/2017 Ot 555.9 REGIONAL ENTERITIS NOS 06/10/2017 ADDIS MENDOZA, EVELINA Arrington Ot V72.84 EXAM PRE-OPERATIVE NOS 06/10/2017 FINN MILLER DO Ot 566 ANAL RECTAL ABSCESS 06/10/2017 ADDIS MENDOZA, EVELINA Arrington Ot V72.84 EXAM PRE-OPERATIVE NOS 06/10/2017 EVELINA MANCINI MD Ot V72.84 EXAM PRE-OPERATIVE NOS 06/10/2017 Ot 555.0 REG ENTERITIS , SM INTEST 06/10/2017 Ot 789.00 ABDOMINAL PAIN, UNSPECIFIED SITE 06/10/2017 ANGELA FINN Ot 789.00 ABDOMINAL PAIN, UNSPECIFIED SITE 06/10/2017 ADDIS MENDOZA, EVELINA Arrington Ot V72.84 EXAM PRE-OPERATIVE NOS 06/10/2017 JUSTICE SAHA DO Ot 692.9 DERMATITIS NOS 06/10/2017 JUSTICE SAHA DO Ot Z00.00 ENCNTR FOR GENERAL ADULT MEDICAL EXAM W/ 06/10/2017 ADDIS MENDOZA, EVELINA Arrington Ot Z01.818 ENCOUNTER FOR OTHER PREPROCEDURAL EXAMIN 06/10/2017 ADDIS MENDOZA, EVELINA Arrington Ot K60.3 ANAL FISTULA 06/10/2017 ADDIS MENDOZA, EVELINA Arrington Ot K61.0 ANAL ABSCESS 06/10/2017 ADDIS MENDOZA, EVELINA Arringotn Ot K61.1 RECTAL ABSCESS 06/10/2017 LIZZ MENDOZA, RACHAEL Hong Ot N36.1 URETHRAL DIVERTICULUM 06/10/2017 LIZZ MENDOZA, RACHAEL Hong Ot Z01.818 ENCOUNTER FOR OTHER PREPROCEDURAL EXAMIN 06/10/2017 LIZZ MENDOZA, RACHAEL Hong Ot Z11.2 ENCOUNTER FOR SCREENING FOR OTHER BACTER 06/10/2017 JUSTICE SAHA DO Ot K59.00 CONSTIPATION, UNSPECIFIED 06/10/2017 JUSTICE SAHA DO Ot N50.9 DISORDER OF MALE GENITAL ORGANS, UNSPECI 06/10/2017 MIRA CARO DO Ot K62.9 DISEASE OF ANUS AND RECTUM, UNSPECIFIED 06/10/2017 MIRA CARO DO Ot K62.89 OTHER SPECIFIED DISEASES OF ANUS AND REC 06/10/2017 MIRA CARO DO Ot K62.89 OTHER SPECIFIED DISEASES OF ANUS AND REC 06/10/2017 MICHELLE RIZZO MD Ot 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, UNSPE 06/10/2017 MICHELLE RIZZO MD Ot D47.3 ESSENTIAL (HEMORRHAGIC) THROMBOCYTHEMIA 06/10/2017 MICHELLE RIZZO MD Ot D50.9 IRON DEFICIENCY ANEMIA, UNSPECIFIED 06/10/2017 MICHELLE RIZZO MD Ot D72.829 ELEVATED WHITE BLOOD CELL COUNT, UNSPECI 06/10/2017 MICHELLE RIZZO MD, Ot 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 06/10/2017 MICHELLE RIZZO MD, Ot K21.9 GASTRO-ESOPHAGEAL REFLUX DISEASE WITHOUT 06/10/2017 MICHELLE RIZZO MD, Ot K50.90 CROHN'S DISEASE, UNSPECIFIED, WITHOUT CO 06/10/2017 MICHELLE RIZZO MD, Ot Z79.899 OTHER SKILLED NURSING (CURRENT) DRUG THERAPY 06/10/2017 MICHELLE RIZOZ MD, Ot Z92.21 PERSONAL HISTORY OF ANTINEOPLASTIC CHEMO 06/11/2017 AMBROCIO DO MEHDI Ot 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 06/11/2017 AMBROCIO DO, MEHDI Ot E87.6 HYPOKALEMIA 07/02/2017 AMBROCIO DO, MEHDI Ot 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 07/02/2017 AMBROCIO DO, MEHDI Ot E87.6 HYPOKALEMIA 07/05/2017 AMBROCIO DO, MEHDI Ot 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 07/05/2017 AMBROCIO DO, MEHDI Ot E87.6 HYPOKALEMIA 07/30/2017 JUSTICE SAHA DO, Ot J43.9 EMPHYSEMA, UNSPECIFIED 07/30/2017 JUSTICE SAHA DO Ot R91.8 OTHER NONSPECIFIC ABNORMAL FINDING OF [place]ICHO 08/21/2017 JUSTICE SAHA DO, Ot J43.9 EMPHYSEMA, UNSPECIFIED 08/21/2017 JUSTICE SAHA DO Ot R91.8 OTHER NONSPECIFIC ABNORMAL FINDING OF [place] 08/26/2017 JUSTICE SAHA DO, Ot J43.9 EMPHYSEMA, UNSPECIFIED 08/26/2017 JUSTICE SAHA DO Ot R91.8 OTHER NONSPECIFIC ABNORMAL FINDING OF WICHO Procedures Code Description Performed By Performed On [...] 10/14/2014 45.16 ESOPHAGOGASTRODUODENOSCOPY [ EGD] W/CLOSE 11/13/2014 [id number] INSERTION OF INFUSION DEV INTO SUP VENA 06/05/2017 Results Test Result Range Complete blood count [...] Staphylococcus aureus (MRSA) screening culture NEG NRG Bacterial blood culture - 06/05/17 15:27 Bacterial blood culture NG NRG Complete blood count (CBC) with automated [...] detection by light microscopy SLIGHT NRG Blood Pina-Jovista bodies detection by light microscopy MODERATE NRG Bacterial blood culture - 06/05/17 16:15 Bacterial blood culture NG NRG Serum or plasma lactate measurement (moles/volume) [...] plasma lactate measurement (moles/volume) 2.23 mmol/L 0.50-2.00 Complete blood count (CBC) with automated white blood cell (WBC) differential - 06/07/17 04:20 Blood leukocytes automated count (number/volume) 37.7 10*3/uL 4.3-11.0 Blood erythrocytes automated count (number/volume) 3.12 10*6/uL 4.35-5.85 Venous blood hemoglobin measurement (mass/volume) 11.2 g/dL 13.3-17.7 Blood hematocrit (volume fraction) 31 % 40-54 Automated erythrocyte mean corpuscular volume 99 [foz_us] 80-99 Automated erythrocyte mean corpuscular hemoglobin (mass per erythrocyte) 36 pg 25-34 Automated erythrocyte mean corpuscular hemoglobin concentration measurement ( mass/volume) 36 g/dL 32-36 Automated erythrocyte distribution width ratio 15.4 % 10.0-14.5 Automated blood platelet count (count/volume) 201 10*3/uL 130-400 Automated blood platelet mean volume measurement 10.3 [foz_us] 7.4-10.4 Automated blood neutrophils/100 leukocytes 96 % 42-75 Automated blood lymphocytes/100 leukocytes 1 % 12-44 Blood monocytes/100 leukocytes 3 % 0-12 Automated blood eosinophils/100 leukocytes 0 % 0-10 Automated blood basophils/100 leukocytes 0 % 0-10 Blood neutrophils automated count (number/volume) 36.2 10*3 1.8-7.8 Blood lymphocytes automated count (number/volume) 0.4 10*3 1.0-4.0 Blood monocytes automated count (number/volume) 1.0 10*3 0.0-1.0 Automated eosinophil count 0.0 10*3/uL 0.0-0.3 Automated blood basophil count (count/volume) 0.0 10*3/uL 0.0-0.1 Whole blood basic metabolic panel - 06/07/17 04:20 Serum or plasma sodium measurement (moles/volume) 137 mmol/L 135-145 Serum or plasma potassium measurement (moles/volume) 2.7 mmol/L 3.6-5.0 Serum or plasma chloride measurement (moles/volume) 107 mmol/L 98-107 Carbon dioxide 20 mmol/L 21-32 Serum or plasma anion gap determination (moles/volume) 10 mmol/L 5-14 Serum or plasma urea nitrogen measurement (mass/volume) 5 mg/dL 7-18 Serum or plasma creatinine measurement (mass/volume) 0.58 mg/dL 0.60-1.30 Serum or plasma urea nitrogen/creatinine mass ratio 9 NRG Serum or plasma creatinine measurement with calculation of estimated glomerular filtration rate > NRG Serum or plasma glucose measurement (mass/volume) 188 mg/dL 70-105 Serum or plasma calcium measurement (mass/volume) 7.7 mg/dL 8.5-10.1 Serum or plasma phosphate measurement (mass/volume) - 06/07/17 04:20 Serum or plasma phosphate measurement (mass/volume) 1.2 mg/dL 2.3-4.7 Magnesium - 06/07/17 04:20 Magnesium 2.3 mg/dL 1.8-2.4 Vancomycin trough - 06/07/17 18:30 Vancomycin trough < ug/mL 10.0-20.0 Complete blood count (CBC) with automated white blood cell (WBC) differential - 06/08/17 05:25 Blood leukocytes automated count (number/volume) 27.2 10*3/uL 4.3-11.0 Blood erythrocytes automated count (number/volume) 3.05 10*6/uL 4.35-5.85 Venous blood hemoglobin measurement (mass/volume) 10.9 g/dL 13.3-17.7 Blood hematocrit (volume fraction) 30 % 40-54 Automated erythrocyte mean corpuscular volume 99 [foz_us] 80-99 Automated erythrocyte mean corpuscular hemoglobin (mass per erythrocyte) 36 pg 25-34 Automated erythrocyte mean corpuscular hemoglobin concentration measurement ( mass/volume) 36 g/dL 32-36 Automated erythrocyte distribution width ratio 15.5 % 10.0-14.5 Automated blood platelet count (count/volume) 214 10*3/uL 130-400 Automated blood platelet mean volume measurement 10.8 [foz_us] 7.4-10.4 Automated blood neutrophils/100 leukocytes 93 % 42-75 Automated blood lymphocytes/100 leukocytes 3 % 12-44 Blood monocytes/100 leukocytes 4 % 0-12 Automated blood eosinophils/100 leukocytes 0 % 0-10 Automated blood basophils/100 leukocytes 0 % 0-10 Blood neutrophils automated count (number/volume) 25.4 10*3 1.8-7.8 Blood lymphocytes automated count (number/volume) 0.8 10*3 1.0-4.0 Blood monocytes automated count (number/volume) 1.1 10*3 0.0-1.0 Automated eosinophil count 0.0 10*3/uL 0.0-0.3 Automated blood basophil count (count/volume) 0.0 10*3/uL 0.0-0.1 Comprehensive metabolic panel - 06/08/17 05:25 Serum or plasma sodium measurement (moles/volume) 139 mmol/L 135-145 Serum or plasma potassium measurement (moles/volume) 3.4 mmol/L 3.6-5.0 Serum or plasma chloride measurement (moles/volume) 108 mmol/L 98-107 Carbon dioxide 21 mmol/L 21-32 Serum or plasma anion gap determination (moles/volume) 10 mmol/L 5-14 Serum or plasma urea nitrogen measurement (mass/volume) 4 mg/dL 7-18 Serum or plasma creatinine measurement (mass/volume) 0.54 mg/dL 0.60-1.30 Serum or plasma urea nitrogen/creatinine mass ratio 7 NRG Serum or plasma creatinine measurement with calculation of estimated glomerular filtration rate > NRG Serum or plasma glucose measurement (mass/volume) 124 mg/dL 70-105 Serum or plasma calcium measurement (mass/volume) 8.5 mg/dL 8.5-10.1 Serum or plasma total bilirubin measurement (mass/volume) 0.7 mg/dL 0.1-1.0 Serum or plasma alkaline phosphatase measurement (enzymatic activity/volume) 103 U/L 40-136 Serum or plasma aspartate aminotransferase measurement (enzymatic activity/ volume) 16 U/L 5-34 Serum or plasma alanine aminotransferase measurement (enzymatic activity/volume ) 19 U/L 0-55 Serum or plasma protein measurement (mass/volume) 5.9 g/dL 6.4-8.2 Serum or plasma albumin measurement (mass/volume) 3.4 g/dL 3.2-4.5 Complete blood count (CBC) with automated white blood cell (WBC) differential - 06/10/17 08:42 Blood leukocytes automated count (number/volume) 10.2 10*3/uL 4.3-11.0 Blood erythrocytes automated count (number/volume) 3.85 10*6/uL 4.35-5.85 Venous blood hemoglobin measurement (mass/volume) 13.4 g/dL 13.3-17.7 Blood hematocrit (volume fraction) 38 % 40-54 Automated erythrocyte mean corpuscular volume 100 [foz_us] 80-99 Automated erythrocyte mean corpuscular hemoglobin (mass per erythrocyte) 35 pg 25-34 Automated erythrocyte mean corpuscular hemoglobin concentration measurement ( mass/volume) 35 g/dL 32-36 Automated erythrocyte distribution width ratio 16.0 % 10.0-14.5 Automated blood platelet count (count/volume) 341 10*3/uL 130-400 Automated blood platelet mean volume measurement 10.0 [foz_us] 7.4-10.4 Automated blood neutrophils/100 leukocytes 64 % 42-75 Automated blood lymphocytes/100 leukocytes 22 % 12-44 Blood monocytes/100 leukocytes 13 % 0-12 Automated blood eosinophils/100 leukocytes 0 % 0-10 Automated blood basophils/100 leukocytes 1 % 0-10 Blood neutrophils automated count (number/volume) 6.6 10*3 1.8-7.8 Blood lymphocytes automated count (number/volume) 2.2 10*3 1.0-4.0 Blood monocytes automated count (number/volume) 1.3 10*3 0.0-1.0 Automated eosinophil count 0.0 10*3/uL 0.0-0.3 Automated blood basophil count (count/volume) 0.1 10*3/uL 0.0-0.1 Comprehensive metabolic panel - 06/10/17 08:42 Serum or plasma sodium measurement (moles/volume) 144 mmol/L 135-145 Serum or plasma potassium measurement (moles/volume) 3.1 mmol/L 3.6-5.0 Serum or plasma chloride measurement (moles/volume) 105 mmol/L 98-107 Carbon dioxide 29 mmol/L 21-32 Serum or plasma anion gap determination (moles/volume) 10 mmol/L 5-14 Serum or plasma urea nitrogen measurement (mass/volume) 7 mg/dL 7-18 Serum or plasma creatinine measurement (mass/volume) 0.57 mg/dL 0.60-1.30 Serum or plasma urea nitrogen/creatinine mass ratio 12 NRG Serum or plasma creatinine measurement with calculation of estimated glomerular filtration rate > NRG Serum or plasma glucose measurement (mass/volume) 76 mg/dL 70-105 Serum or plasma calcium measurement (mass/volume) 9.0 mg/dL 8.5-10.1 Serum or plasma total bilirubin measurement (mass/volume) 0.5 mg/dL 0.1-1.0 Serum or plasma alkaline phosphatase measurement (enzymatic activity/volume) 73 U/L 40-136 Serum or plasma aspartate aminotransferase measurement (enzymatic activity/ volume) 14 U/L 5-34 Serum or plasma alanine aminotransferase measurement (enzymatic activity/volume ) 23 U/L 0-55 Serum or plasma protein measurement (mass/volume) 6.6 g/dL 6.4-8.2 Serum or plasma albumin measurement (mass/volume) 3.7 g/dL 3.2-4.5 Encounters ACCT No. Visit Date/Time Discharge Status Pt. Type Provider Facility Loc./Unit Complaint [id number] 07/29/2017 11:19:00 07/29/2017 23:59:59 CLS Outpatient JUSTICE SAHA DO [facility] RAD FOLLOW UP INFILTRATE [id number] 06/10/2017 08:35:00 06/10/2017 23:59:59 CLS Outpatient LOLLY CATALINAI [facility] LAB E87.6 [id number] 06/05/2017 18:12:00 06/08/2017 14:20:00 DIS Inpatient JUSTICE SAHA DO [facility] 4TH SEPTIC SHOCK, LEFT LUNGULAR PNA [id number] 05/01/2017 00:31:00 05/01/2017 23:59:59 CLS Preadmit MICHELLE RIZZO MD [facility] ONC OV [id number] 01/30/2017 13:17:00 04/30/2017 00:01:00 DIS Outpatient MICHELLE RIZZO MD [facility] ONC OV [id number] 06/15/2016 08:04:00 06/15/2016 12:15:00 DIS Outpatient MIRA CARO DO [facility] SDC CYST MICAH-ANAL AREA [id number] 06/11/2016 14:12:00 06/11/2016 14:46:00 DIS Outpatient MIRA CARO DO [facility] PREOP EXC CYST MICAH-ANAL AREA [id number] 02/01/2016 12:52:00 05/01/2016 00:01:00 DIS Outpatient MICHELLE RIZZO MD [facility] ONC OV [id number] 04/11/2016 09:20:00 04/11/2016 23:59:59 CLS Outpatient MIRA CARO DO [facility] RAD PERIANAL CYST [id number] 04/05/2016 10:20:00 04/05/2016 23:59:59 CLS Outpatient MIRA CARO DO [facility] RAD PERIANAL CYST [id number] 03/30/2016 14:45:00 03/30/2016 23:59:59 CLS Outpatient MIRA CARO DO [facility] RAD PERIRECTAL MASS [id number] 03/19/2016 12:00:00 03/19/2016 23:59:59 CLS Outpatient JUSTICE SAHA DO [facility] RAD R TESTICULAR LESION [id number] 11/17/2015 16:02:00 11/17/2015 17:40:00 DIS Emergency YI CHAVARRIA MD [facility] ER CONSTIPATION [id number] 11/15/2015 20:41:00 11/15/2015 22:52:00 DIS Emergency MITESH WARNER APRN [facility] ER CONSTIPATION [id number] 05/23/2015 10:50:00 05/23/2015 23:59:59 CLS Outpatient JUSTICE SAHA DO [facility] RAD CONSTIPATION [id number] 05/19/2015 20:47:00 05/19/2015 23:02:00 DIS Emergency ALON LUNA MD [facility] ER CONSTIPATION [id number] 05/03/2015 07:05:00 05/03/2015 10:45:00 DIS Outpatient RACHAEL ZAMDUIO MD [facility] SDC URETHREAL DIVERTICULUM [id number] 05/02/2015 14:57:00 05/02/2015 23:59:59 CLS Outpatient RACHAEL ZAMUDIO MD [facility] PREOP URETHERAL DIVERTICULUM [id number] 2015 08:38:00 2015 23:59:59 CLS Outpatient EVELINA MANCINI MD [facility] RAD PERIRECTAL ABCESS [id number] 02/23/2015 14:53:00 02/23/2015 23:59:59 CLS Outpatient EVELINA MANCINI MD [facility] RAD PERANUAL FISTULA [id number] 02/02/2015 12:32:00 02/02/2015 23:59:59 CLS Outpatient MICHELLE RIZZO MD [facility] ONC OV [id number] 01/14/2015 10:54:00 01/14/2015 19:50:00 DIS [facility] [id number] 01/13/2015 14:08:00 01/13/2015 23:59:59 CLS Outpatient EVELINA MANCINI MD [facility] PREOP EXAM UNDER ANES. [id number] 12/22/2014 11:02:00 12/22/2014 23:59:59 CLS Outpatient JUSTICE SAHA DO [facility] RAD GENERAL ADULT MEDICAL EXAM [id number] 11/13/2014 02:35:00 11/16/2014 18:55:00 DIS Inpatient JUSTICE SAHA DO [facility] SURGICAL ENTERITIS; LEUKOCYTOSIS;HX OF CROHN'S;HX OF COLON [id number] 08/04/2014 13:37:00 11/02/2014 00:01:00 DIS Outpatient MICHELLE RIZZO MD [facility] ONC OV [id number] 10/13/2014 13:50:00 10/15/2014 14:17:00 DIS Inpatient JUSTICE SAHA DO [facility] SURGICAL INTRACTABLE ABD PAIN [id number] 09/30/2014 17:10:00 09/30/2014 23:59:59 CLS Outpatient JUSTICE SAHA DO [facility] LAB DERMATITIS [id number] 09/14/2014 21:35:00 09/14/2014 22:43:00 DIS Emergency GIUSEPPE PEREZ [facility] ER ALLERGIC REACTION TO POISON AJ [id number] 07/28/2014 12:05:00 07/28/2014 15:30:00 DIS Outpatient EVELINA MANCINI MD [facility] WEIGHT LOSS [id number] 07/22/2014 05:53:00 07/22/2014 23:59:59 CLS Outpatient EVELINA MANCINI MD [facility] PREOP WEIGHT LOSS [id number] 06/02/2014 08:20:00 06/02/2014 23:59:59 CLS Outpatient FINN MILLER DO [facility] RAD ABD PAIN [id number] 02/10/2014 14:13:00 02/10/2014 23:59:59 CLS Outpatient MICHELLE RIZZO MD [facility] ONC OV [id number] 12/22/2013 11:00:00 12/25/2013 17:50:00 DIS Inpatient JUSTICE SAHA DO [facility] 4TH SBO [id number] 12/23/2013 07:53:00 12/23/2013 23:59:59 CLS Outpatient EVELINA MANCINI MD [facility] PREOP RECTAL BLEEDING [id number] 08/19/2013 14:10:00 08/25/2013 00:01:00 DIS Outpatient MICHELLE RIZZO MD [facility] ONC OV [id number] 05/18/2013 08:33:00 05/18/2013 11:18:00 DIS Outpatient EVELINA MANCINI MD [facility] SDC MULTIPLE ULCERS [id number] 05/13/2013 07:33:00 05/13/2013 23:59:59 CLS Outpatient EVELINA MANCINI MD [facility] PREOP MULTIPLE ULCERS [id number] 05/08/2013 14:36:00 05/11/2013 00:01:00 DIS Outpatient MICHELLE RIZZO MD [facility] ONC OV [id number] 03/10/2013 09:35:00 03/12/2013 19:20:00 DIS Inpatient FINN MILLER DO [facility] SURGICAL MICAH RECTAL ABSCESS [id number] 03/09/2013 16:28:00 03/09/2013 23:59:59 CLS Outpatient FINN MILLER DO [facility] RAD MICAH RECTAL ABCESS [id number] 02/11/2013 15:20:00 02/20/2013 13:40:00 DIS Inpatient JUSTICE SAHA DO [facility] SURGICAL GI BLEED [id number] 01/19/2013 10:02:00 01/19/2013 13:30:00 DIS Outpatient EVELINA MANCINI MD [facility] SDC RECTAL BLEED [id number] 01/15/2013 07:11:00 01/15/2013 23:59:59 CLS Outpatient EVELINA MANCINI MD [facility] PREOP RECTAL BLEED [id number] 06/02/2014 08:20:00 Document Registration [id number] 06/02/2014 08:20:00 Document Registration [id number] 06/02/2014 08:20:00 Document Registration [id number] 06/02/2014 08:20:00 Document Registration [id number] 06/02/2014 08:19:00 Document Registration [id number] 06/02/2014 08:19:00 Document Registration [id number] 06/02/2014 08:19:00 Document Registration [id number] 06/02/2014 08:19:00 Document Registration [id number] 04/21/2014 10:50:00 Document Registration [id number] 04/18/2011 15:40:00 Document Registration [id number] 04/03/2011 13:30:00 Document Registration [id number] 03/22/2011 19:22:00 Document Registration [id number] 11/08/2010 12:59:00 Document Registration [id number] 10/11/2010 13:49:00 Document Registration [id number] 05/03/2010 13:47:00 Document Registration [id number] 04/26/2010 08:30:00 Document Registration [id number] 01/31/2010 14:10:00 Document Registration [id number] 01/04/2010 12:58:00 Document Registration [id number] 11/19/2009 19:37:00 Document Registration [id number] 11/16/2009 20:58:00 Document Registration [id number] 10/07/2009 13:09:00 Document Registration [id number] 07/19/2009 13:54:00 Document Registration [id number] 02/08/2009 16:00:00 Document Registration [id number] 01/18/2009 13:25:00 Document Registration [id number] 12/29/2008 14:50:00 Document Registration [id number] 11/18/2008 00:00:00 Document Registration [id number] 10/14/2008 13:07:00 Document Registration [id number] 09/03/2006 19:54:00 Document Registration [id number] 11/13/2014 01:49:16 ACT Document Registration
--- NOTE | 2017-11-05 16:15 | Diagnostic Imaging Report ---
PROCEDURE: CT chest without contrast. TECHNIQUE: Multiple contiguous axial images were obtained through the chest without the use of intravenous contrast. INDICATION: Hypoxia and cough. COMPARISON: Correlation is made with prior CT chest from 07/29/2017. FINDINGS: No axillary lymphadenopathy is identified. No definite mediastinal or hilar lymphadenopathy is detected. No pericardial or pleural fluid is identified. The central airways are patent. There are centrilobular emphysematous changes throughout both lungs. Vague density in the superior segment of the right lower lobe is identified measuring 7 mm, image 29 series 2. Tiny nodule just lateral to this is also noted measuring 3 mm. No other parenchymal opacities are identified. Upper abdomen again demonstrates numerous calcified granulomas throughout the liver. 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 IMPRESSION: 1. Tiny nodule in the superior segment of the right lower lobe as well as vague 7 mm density in the right lower lobe, perhaps minimal infiltrate versus atelectasis or scarring. Followup to confirm clearing could be performed. Remainder of the study is unremarkable. Dictated by: Dictated on workstation # [id number]
[2017-11-05 16:20] VITALS: BP 141/81
[2017-11-05] MEDS ORDERED: CATHETER FLUSH 10 ML SYR IV PRN (16:30)
[2017-11-05 16:45] VITALS: BP 116/68
[2017-11-05 16:57] LABS: BILIRUBIN,URINE NEGATIVE (NEGATIVE); CLARITY,URINE CLEAR; COLOR,URINE YELLOW; GLUCOSE, URINE (UA) NEGATIVE (NEGATIVE); KETONES,URINE NEGATIVE (NEGATIVE); LEUKOCYTE ESTERASE ,URINE 1+ (NEGATIVE); NITRITE,URINE NEGATIVE (NEGATIVE); PH,URINE 7 (5-9); PROTEIN,URINE 1+ (NEGATIVE); UROBILINOGEN,URINE NORMAL (NORMAL)
[2017-11-05] MEDS ORDERED: RT-ALBUTEROL/IPRATROPIUM 3 ML (DUONEB) VIAL ONE (16:57)
[2017-11-05] MEDS ORDERED: RT-ALBUTEROL/IPRATROPIUM 3 ML (DUONEB) VIAL INH PRN (17:00)
[2017-11-05 17:09] LABS: BACTERIA,URINE NEGATIVE /HPF
[2017-11-05 17:11] LABS: AMPHETAMINE SCREEN, URINE NEGATIVE (NEGATIVE); BARBITURATE SCREEN URINE NEGATIVE (NEGATIVE); BENZODIAZEPINES SCREEN URINE POSITIVE (NEGATIVE); CANNABINOID SCREEN, URINE POSITIVE (NEGATIVE); COCAINE SCREEN URINE NEGATIVE (NEGATIVE); METHADONE STAT NEGATIVE (NEGATIVE); METHAMPHETAMINE SCREEN URINE S NEGATIVE (NEGATIVE); OPIATE SCREEN URINE NEGATIVE (NEGATIVE); OXYCODONE STAT NEGATIVE (NEGATIVE); PROPOXYPHENE STAT NEGATIVE (NEGATIVE); TRICYCLIC ANTIDEPRESSANTS SCRE NEGATIVE (NEGATIVE)
[2017-11-05] MEDS: HYDROcodone/APAP 5 MG/325 MG (LORTAB) TAB PO PRN (17:44)
[2017-11-05] MEDS: RT-ALBUTEROL/IPRATROPIUM 3 ML (DUONEB) VIAL INH SCH ×2 (19:01→22:19)
[2017-11-05] MEDS ORDERED: fentaNYL INJECTION 100 MCG/2 ML AMP IVP NR (19:30)
[2017-11-05] MEDS: methylPREDNISolone 125 MG (Solu-MEDROL) VIAL IV SCH (19:42)
[2017-11-05 20:35] VITALS: BP 114/60
[2017-11-05] MEDS: CATHETER FLUSH 10 ML SYR IV SCH (22:41)
[2017-11-05] MEDS ORDERED: MELATONIN 3 MG TABLET ONE (23:55)
[2017-11-06] VITALS: BP 108/58
[2017-11-06] MEDS: methylPREDNISolone 125 MG (Solu-MEDROL) VIAL IV SCH ×2 (00:52→06:10)
[2017-11-06] MEDS: RT-ALBUTEROL/IPRATROPIUM 3 ML (DUONEB) VIAL INH SCH ×6 (01:40→22:14)
[2017-11-06 04:00] VITALS: BP 115/59
[2017-11-06] MEDS: CATHETER FLUSH 10 ML SYR IV SCH ×3 (06:10→21:45)
--- NOTE | 2017-11-06 06:40 | Pulmonary Consultation ---
History of Present Illness History of Present Illness Date of Consultation 11/06/17 06:35 Time Seen by Provider: 06:35 Date of Admission History of Present Illness 42yo presented to ED secondary to worsening SOB, wheezing, and cough. He was dx with sinusitis by Dr. Jo and was given Abx. He continue to worsen despite out patient treatment. Symptoms started about 1 wk ago. Allergies and Home Medications Allergies Coded Allergies: ceftazidime (Verified Allergy, Intermediate, RASH, 06/15/16) nalbuphine (Unverified Allergy, Mild, RASH, 03/29/06) Iodinated Contrast- Oral and IV Dye (Verified Allergy, Unknown, HIVES, 05/01) Sulfa (Sulfonamide Antibiotics) (Verified Allergy, Unknown, 03/29/06) latex (Verified Allergy, Unknown, 05/03/15) strawberry (Unverified Allergy, Unknown, 12/18/13) FROM UNCODED ALLERGIES Uncoded Allergies: TAPE (Allergy, Unknown, 03/29/06) Home Medications Acetaminophen 325 Mg Tablet, 650 MG PO Q6H PRN for PAIN-MILD OR TEMPATURE, ( Reported) TAKES 2 (325MG) TABLETS Albuterol Sulfate 18 Gm Hfa.aer.ad, 2 PUFF INH Q6H PRN for SHORTNESS OF BREATH, (Reported) Ascorbate Calcium 500 Mg Tablet, 500 MG PO DAILY, (Reported) Cefdinir 300 Mg Capsule, 300 MG PO BID Prescribed by: MEHDI AMBROCIO on 11/08/17 1004 Cyanocobalamin 1,000 Mcg/Ml Inj, 1,000 MCG INJ MONTHLY, (Reported) Dicyclomine HCl 10 Mg Capsule, 10 MG PO ACHS, (Reported) Diphenhydramine HCl 25 Mg Capsule, 25 MG PO UD PRN for ITCHING, (Reported) Docusate Sodium 100 Mg Capsule, 100 MG PO BID, (Reported) Doxylamine Succinate 25 Mg Tablet, 25 MG PO HS PRN for SLEEP, (Reported) Famotidine 20 Mg Tablet, 20 MG PO HS, (Reported) Fluticasone/Salmeterol 12 Gm Hfa.aer.ad, 2 PUFF IH BID@08,20 Prescribed by: MEHDI AMBROCIO on 11/08/17 1004 Gabapentin 600 Mg Tablet, 600 MG PO TID, (Reported) Guaifenesin 600 Mg Tab.er.12h, 600 MG PO BID PRN for CONGESTION, (Reported) Guaifenesin/D-Methorphan Hb/PE 118 Ml Liquid, PO UD PRN for COUGH/COLD, ( Reported) Hydrocodone Bit/Acetaminophen 1 Tab Tab, 1 TAB PO Q4H PRN for PAIN-MODERATE Prescribed by: MEHDI AMBROCIO on 11/08/171003 Hydrocortisone 28.35 Gm Cream..g., TP UD PRN for SKIN, (Reported) 1% Hyoscyamine Sulfate 0.125 Mg Tablet, 0.125 MG PO Q6H PRN for PAIN, (Reported) Loperamide HCl 2 Mg Capsule, 4 MG PO BID, (Reported) TAKES 2 (2MG) CAPSULES Loratadine 10 Mg Tablet, 10 MG PO DAILY Prescribed by: MEHDI AMBROCIO on 11/08/171003 Magnesium Oxide 400 Mg Tablet, 400 MG PO DAILY, (Reported) Menthol 4.8 Mg Lozenge, 1 TAB MM UD PRN for COUGH, (Reported) Mesalamine 800 Mg Tablet.dr, 2,400 MG PO BID, (Reported) TAKES 3 (800MG) TABLETS Miconazole Nitrate 43 Gm Powder, TP UD PRN for FOOT WETNESS AND ODOR, (Reported) Montelukast Sodium 10 Mg Tablet, 10 MG PO HS Prescribed by: MEHDI AMBROCIO on 11/08/171003 Multivit-Min/FA/Lycopene/Lut 1 Each Tablet, 1 TAB PO DAILY, (Reported) Neomycin/Polymyxin/Bacitracin 0.9 Gm Oint, TP UD PRN for SKIN, (Reported) Nystatin 100,000 Unit/1 Ml Oral.susp, 5 ML PO Q6HR Prescribed by: MEHDI AMBROCIO on 11/08/171003 Omeprazole 40 Mg Capsule.dr, 40 MG PO BID, (Reported) Polyethylene Glycol 3350 17 Gm Powd.pack, 17 GM PO DAILY PRN for CONSTIPATION- 2ND LINE, (Reported) Prednisone 10 Mg Tab.ds.pk, 10 MG PO DAILY Take 6 tabs(60mg)daily,decrease by 1 tab(10MG)daily. Prescribed by: MEHDI AMBROCIO on 11/08/171003 [Blue Goo] , TOP QID PRN for NEEDED, (Reported) Past Ucgbris-Zzdtnk-Rtuskt Hx Past Med/Social Hx: Reviewed Nursing Past Med/Soc Hx Patient Social History Alcohol Use: Occasionally Uses Number of Drinks Today: AA Alcohol Beverage of Choice: Beer Recreational Drug Use: No (SMOKES OCCASSIONALLY) Smoking Status: Current Everyday Smoker Type Used: Cigarettes Recent Foreign Travel: No Contact w/Someone Who Travel: No Recent Infectious Disease Expo: No Recent Hopitalizations: No Physical Abuse: No Sexual Abuse: No Mistreated: No Fear: No Immunizations Up To Date Date of Pneumonia Vaccine: Feb 25, 2015 Date of Influenza Vaccine: Feb 25, 2015 Seasonal Allergies Seasonal Allergies: No Past Medical History Surgeries: No (EAR SURGERIES TO PREVENT HEARING LOSS CHILD, 3 BOWEL RESECTIONS, RECTAL ) Abdominal, Appendectomy, Bowel Surgery, Gallbladder, Tonsillectomy Respiratory: No Cardiac: No Neurological: Yes (BRAIN DAMAGE FOLLOWING MULTIPLE SURGERIES A CHILD ) Traumatic Brain Injury Reproductive Disorders: No Sexually Transmitted Disease: No Genitourinary: No Gastrointestinal: Yes Crohns Disease Musculoskeletal: Yes (BROKEN LEG INFANT, BILAT BROKEN ELBOWS) Arthritis, Fractures Endocrine: No Cancer: Yes Lymphoma Psychosocial: Yes (PT IS IN [facility]/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 ) Adverse Reaction/Blood Tranf: No Family Medical History Reviewed Nursing Family Hx No Family History of: Abdominal aortic aneurysm Sharp's disease Alcoholism Aphasia Cancer Cancer of colon Cataract Chest pain Congenital heart disease Congestive heart failure Cystic fibrosis Dementia Dysphagia Family history: Allergy Family history: Alzheimer's disease Family history: Arthritis Family history: Asthma Family history: Breast disease Family history: Cardiovascular disease Family history: Coronary thrombosis Family history: Diabetes mellitus Family history: Gastrointestinal disease Family history: Glaucoma Family history: Hypertension Family history: Osteoporosis Family history: Thyroid disorder Headache Hearing loss Heart disease Hereditary disease History of - anemia History of - disorder History of - respiratory disease History of drug abuse Human immunodeficiency virus (HIV) seropositivity Hypercholesterolemia Infertile Kidney disease Malignant neoplasm of lung Myocardial infarction Parkinson's disease Prostate cancer Psychotic disorder Seizure disorder Stroke Tuberculosis Visual impairment Diabetes Review of Systems Time Seen by Provider: 12:19 Constitutional: Fever, Sweats, Weakness, Malaise Respiratory: Cough, Shortness of breath, SOB with excertion, Wheezing, Sputum Cardiovascular: Paroxysmal Noc. Dyspnea Neurological: Weakness Sepsis Event Evaluation Height, Weight, BMI Height: 5'9.00" Weight: 126lbs. 5.0oz. 57.620484hu; 18.7 BMI Method:Stated Exam Exam Vital Signs Date Time Temp Pulse Resp B/P (MAP) Pulse Ox O2 Delivery O2 Flow Rate FiO2 11/06/17 01:42 90 OxyMask 5.00 11/06/17 01:00 107 11/06/17 00:00 97.9 106 20 108/58 (75) 93 OxyMask 4.00 11/05/17 22:20 90 OxyMask 5.00 11/05/17 20:35 97.7 104 20 114/60 (78) 98 OxyMask 4.00 11/05/17 20:00 OxyMask 6.00 11/05/17 19:54 OxyMask 6.00 11/05/17 19:02 90 OxyMask 5.00 11/05/17 19:00 102 11/05/17 17:01 89 OxyMask 4.00 11/05/17 16:45 113 82 11/05/17 16:20 97.5 103 18 141/81 (101) 94 OxyMask 4.00 11/05/17 16:10 98 16 116/68 98 11/05/17 12:13 91 Room Air 11/05/17 12:02 91 Room Air 11/05/17 11:28 98.7 90 16 133/97 (109) 94 Room Air I & O 11/06/17 07:00 Intake Total 1270 ml Balance 1270 ml Height & Weight Height: 5'9.00" Weight: 126lbs. 5.0oz. 57.622699ya; 18.7 BMI Method:Stated General Appearance: Anxious, Mild Distress Neck: Normal Inspection, Non Tender, Supple Respiratory: Accessory Muscle Use, Decreased Breath Sounds Cardiovascular: Regular Rate, Rhythm Capillary Refill: Less Than 3 Seconds Gastrointestinal: normal bowel sounds, non tender, soft, no organomegaly, no pulsatile mass Extremity: Normal Capillary Refill Neurologic/Psychiatric: Alert Skin: Normal Color, Warm/Dry Results Lab Laboratory Tests 11/05/17 11:50 Assessment/Plan Assessment/Plan COPDAE with hypoxemia -Pt will probably need home 02 -Solumedrol -SVNS - DDimer is <0.22 -Pt is requiring 5liters via oxygen mask -CT of chest reviewed Thrush -Start nystatin Lung nodules -Pt will need repeat CT of chest as out patient in 6mo. -Will consider doing out patient bronchoscopy with percepta Pt is complaining of CP and Back pain Hx of lymphoma, and crohn's disease tobacco dependance -Education Marijuana showed AMINA RG DO Nov 06, 2017 06:40
[2017-11-06] MEDS ORDERED: methylPREDNISolone 125 MG (Solu-MEDROL) VIAL IM NR (06:45)
--- NOTE | 2017-11-06 07:18 | Diagnostic Imaging Report ---
INDICATION: Hypoxia. COMPARISON: 11/05/2017. FINDINGS: Single frontal view of the chest demonstrates normal heart size and pulmonary vascularity. The lungs are well aerated and clear. No large pleural effusion or pneumothorax is seen. The visualized osseous structures show no acute abnormalities. IMPRESSION: 1. No acute cardiopulmonary process. Dictated by: Dictated on workstation # [id number]
[2017-11-06] MEDS ORDERED: PIPERACILLIN SODIUM/TAZOBACTAM 4.5 GM in NS (IVPB) 100 ML IV NR (08:30)
--- NOTE | 2017-11-06 08:32 | History & Physical-Hospitalist ---
INGRID WARNER MEDICAL STUDENT 11/06/17 0832: History of Present Illness HPI/Chief Complaint 42 year old male with a history of Crohn's and TBI following surgeries for hearing loss as a child admitted for hypoxia following one week of sinus infection, cough that is improving, and worsening dyspnea. He developed a non productive cough one week ago with two days of fever and chills. Pt saw Dr. Jo that said that patient likely had a sinus infection and prescribed antibiotics. 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 He took one dose of the Levaquin and had acute worsening of dyspnea on Saturday night with a squeezing sensation in the front of his chest. Associated symptoms include headache and 10/10 knife-like bilateral back pain that comes and goes. Pt wishes for better pain control. He presented to the ED 11/05 following worsening of his dyspnea. He received duonebs and solumedrol injection and has been breathing better since. He follows with Dr. Baig for his Crohns. Source: patient Exam Limitations: no limitations Date Seen 11/06/17 Time Seen by Provider: 07:45 Attending Physician Donnie Blackwood MD PCP Contreras Jo DO Referring Physician Date of Admission Nov 05, 2017 at 15:20 Home Medications & Allergies Home Medications Reviewed patient Home Medication Reconciliation performed by pharmacy medication reconciliations mechanical test technician and/or nursing. Patients Allergies have been reviewed. Allergies Allergies Coded Allergies ceftazidime (Verified Allergy, Intermediate, RASH, 06/15/16) nalbuphine (Unverified Allergy, Mild, RASH, 03/29/06) Iodinated Contrast- Oral and IV Dye (Verified Allergy, Unknown, HIVES, 05/02/15) Sulfa (Sulfonamide Antibiotics) (Verified Allergy, Unknown, 03/29/06) latex (Verified Allergy, Unknown, 05/03/15) strawberry (Unverified Allergy, Unknown, 12/18/13) FROM UNCODED ALLERGIES Uncoded Allergies TAPE ( Allergy, Unknown, 03/29/06) Past Hvxcimn-Ffipds-Eoobam Hx Past Med/Social Hx: Reviewed Nursing Past Med/Soc Hx Patient Social History Alcohol Use: Occasionally Uses Number of Drinks Today: AA Alcohol Beverage of Choice: Beer Recreational Drug Use: No (SMOKES OCCASSIONALLY) Smoking Status: Current Everyday Smoker (1/2 PPD x 20 years) Type Used: Cigarettes Physical Abuse Screen: No Sexual Abuse: No Recent Foreign Travel: No Contact w/other who traveled: No Recent Hopitalizations: No Recent Infectious Disease Expo: No Immunizations Up To Date Date of Pneumonia Vaccine: Feb 25, 2015 Date of Influenza Vaccine: Feb 25, 2015 Seasonal Allergies Seasonal Allergies: No Past Medical History Surgeries: Abdominal, Appendectomy, Bowel Surgery, Gallbladder, Tonsillectomy Respiratory: COPD Neurological: Traumatic Brain Injury Reproductive: No Sexually Transmitted Disease: No Gastrointestinal: Crohns Disease Musculoskeletal: Arthritis, Fractures Cancer: Lymphoma Psychosocial: Personality Disorder History of Blood Disorders: Yes (DIC X3 TIMES. ) Adverse Reaction to Blood Allen: No Family History Reviewed Nursing Family Hx No Family History of: Abdominal aortic aneurysm Ankit's disease Alcoholism Aphasia Cancer Cancer of colon Cataract Chest pain Congenital heart disease Congestive heart failure Cystic fibrosis Dementia Dysphagia Family history: Allergy Family history: Alzheimer's disease Family history: Arthritis Family history: Asthma Family history: Breast disease Family history: Cardiovascular disease Family history: Coronary thrombosis Family history: Diabetes mellitus Family history: Gastrointestinal disease Family history: Glaucoma Family history: Hypertension Family history: Osteoporosis Family history: Thyroid disorder Headache Hearing loss Heart disease Hereditary disease History of - anemia History of - disorder History of - respiratory disease History of drug abuse Human immunodeficiency virus (HIV) seropositivity Hypercholesterolemia Infertile Kidney disease Malignant neoplasm of lung Myocardial infarction Parkinson's disease Prostate cancer Psychotic disorder Seizure disorder Stroke Tuberculosis Visual impairment Diabetes Review of Systems Constitutional: No chills, No weight gain, No weight loss EENTM: No nose congestion, No throat pain Respiratory: see HPI, cough, short of breath Gastrointestinal: No abdominal pain, No constipation; diarrhea Genitourinary: no symptoms reported Musculoskeletal: back pain Skin: no symptoms reported Physical Exam Physical Exam Vital Signs Vital Signs - First Documented 11/05/17 11/05/17 11:28 16:20 Temp 98.7 Pulse 90 Resp 16 B/P (MAP) 133/97 (109) Pulse Ox 94 O2 Delivery Room Air O2 Flow Rate 4.00 Capillary Refill : Less Than 3 Seconds Height, Weight, BMI Height: 5'9.00" Weight: 126lbs. 5.0oz. 57.388646la; 18.7 BMI Method:Stated General Appearance: No Apparent Distress, WD/WN HEENT: Pharynx Normal (Tongue deviated to right), Moist Mucous Membranes Respiratory: No Accessory Muscle Use, No Respiratory Distress, Crackles (In Right lung base) Cardiovascular: Regular Rate, Rhythm, No Edema, No Murmur, Normal Peripheral Pulses Gastrointestinal: Normal Bowel Sounds Extremity: Normal Capillary Refill Neurologic/Psychiatric: Alert, Oriented x3, Normal Mood/Affect Skin: Normal Color, Warm/Dry Results Results/Procedures Labs Laboratory Tests 11/05/17 11:50 Patient resulted labs reviewed. Assessment/Plan Admission Diagnosis Admission Status: Observation Assessment and Plan 42 yo with history of Crohn's and TBI admitted for hypoxia with leukocytosis clinically improving with duonebs and solumedrol, consistent with asthma exacerbation vs. atypical pneumonia vs pneumonitis. Hypoxia: -On 5 L, satting 90-93% -Duonebs Q4H -5 day steroid course -Pulmonology consulted Leukocytosis: CXRs without indications of PNA. Unlikely to improve given steroids. Crohns: No acute problems Dispo: Remain admitted until decreased need for oxygen. Diagnosis/Problems Diagnosis/Problems (1) Back pain Status: Acute Qualifiers: Back pain location: low back pain Chronicity: unspecified Back pain laterality: unspecified Sciatica laterality: sciatica laterality unspecified (2) TBI (traumatic brain injury) Status: Chronic Qualifiers: Encounter type: sequela Loss of consciousness presence/duration: with LOC of unspecified duration Qualified Codes: S06.9X9S - Unspecified intracranial injury with loss of consciousness of unspecified duration, sequela (3) Leukocytosis Status: Acute (4) RESPIRATORY FAILURE, UNSP, UNSP W HYPOXIA OR HYPERCAPNIA Status: Acute (5) Immunosuppressed status Status: Chronic (6) History of Crohn's disease Status: Acute Clinical Quality Measures DVT/VTE Risk/Contraindication: Risk Factor Score Per Nursin RFS Level Per Nursing on Admit: 2=Moderate MEHDI AMBROCIO DO 11/06/17 1046: History of Present Illness HPI/Chief Complaint CC: Dyspnea HPI: This is a 42yoWM clinic patient of Dr Jo w/h/o lymphoma s/p colon resection remotely, personality disorder requiring correction residence and Crohn's disease in remission on Humira who presented to the ER w/dyspnea. Patient had reported to Dr Jo the day before and placed on Levaquin for cough and coverage for pneumonia due to immunosuppression but he worsened and required admit. Dr Schulz has seen him on consultation and placed him on steroids and Nebs and O2 and smoking cessation was counseled. CT scan revealed nodules. Patient constantly asking for pain meds for vague back pain unrelated to current admit and Dilaudid by name and I spoke to PCP and he does not obtain any narcotics as an outpt and I told him narcs can cause hypoxia so no additional pain meds will be given. Source: patient Exam Limitations: no limitations Time Seen by Provider: 10:00 Home Medications & Allergies Home Medications Reviewed Past Gftqzkh-Zzewdi-Clbull Hx Past Med/Social Hx: Reviewed Nursing Past Med/Soc Hx, Reviewed and Corrections made Patient Social History Marrital Status: single Employed/Student: unemployed Smoking Status: Current Everyday Smoker (1/2 PPD x 20 years) Type Used: Cigarettes Past Medical History Surgeries: Abdominal, Appendectomy, Bowel Surgery, Gallbladder, Tonsillectomy Respiratory: COPD Neurological: Traumatic Brain Injury Gastrointestinal: Crohns Disease Musculoskeletal: Arthritis, Fractures Cancer: Lymphoma Psychosocial: Personality Disorder Family History No Family History of: Abdominal aortic aneurysm Ankit's disease Alcoholism Aphasia Cancer Cancer of colon Cataract Chest pain Congenital heart disease Congestive heart failure Cystic fibrosis Dementia Dysphagia Family history: Allergy Family history: Alzheimer's disease Family history: Arthritis Family history: Asthma Family history: Breast disease Family history: Cardiovascular disease Family history: Coronary thrombosis Family history: Diabetes mellitus Family history: Gastrointestinal disease Family history: Glaucoma Family history: Hypertension Family history: Osteoporosis Family history: Thyroid disorder Headache Hearing loss Heart disease Hereditary disease History of - anemia History of - disorder History of - respiratory disease History of drug abuse Human immunodeficiency virus (HIV) seropositivity Hypercholesterolemia Infertile Kidney disease Malignant neoplasm of lung Myocardial infarction Parkinson's disease Prostate cancer Psychotic disorder Seizure disorder Stroke Tuberculosis Visual impairment Review of Systems Constitutional: malaise, weakness EENTM: no symptoms reported Respiratory: see HPI, cough, short of breath, wheezing Gastrointestinal: no symptoms reported, abdominal pain Genitourinary: no symptoms reported Musculoskeletal: back pain Skin: no symptoms reported Psychiatric/Neurological: Anxiety All Other Systems Reviewed Negative Unless Noted: Yes Physical Exam Physical Exam General Appearance: No Apparent Distress, WD/WN, Chronically ill, Thin Eyes: Bilateral Eye Normal Inspection, Bilateral Eye PERRL HEENT: PERRL/EOMI, TMs Normal, Normal ENT Inspection, Pharynx Normal, Moist Mucous Membranes Neck: Full Range of Motion, Normal Inspection, Non Tender, Supple, Carotid Bruit Respiratory: Chest Non Tender, No Accessory Muscle Use, No Respiratory Distress , Crackles (In Right lung base), Decreased Breath Sounds, Wheezing Cardiovascular: Regular Rate, Rhythm, No Edema, No Gallop, No JVD, No Murmur, Normal Peripheral Pulses Gastrointestinal: Normal Bowel Sounds, No Organomegaly, No Pulsatile Mass, Non Tender, Soft Back: Normal Inspection, No CVA Tenderness, No Vertebral Tenderness Extremity: Normal Capillary Refill, Normal Inspection, Normal Range of Motion, Non Tender, No Calf Tenderness, No Pedal Edema Neurologic/Psychiatric: Alert, Oriented x3, No Motor/Sensory Deficits, Normal Mood/Affect Skin: Normal Color, Warm/Dry Lymphatic: No Adenopathy Assessment/Plan Admission Diagnosis Dyspnea Hypoxia Personality disorder requiring correction residency Crohn's in remission from Humira but held for past week due to URI per PCP h/o lymphoma Vague back pain without source and asking for Dilaudid by name Iv steroids Zosyn Nebs O2 Home O2 evaluation Smoking cessation Admission Status: Observation Diagnosis/Problems Diagnosis/Problems (1) RESPIRATORY FAILURE, UNSP, UNSP W HYPOXIA OR HYPERCAPNIA Status: Acute (2) COPD exacerbation Status: Acute (3) Back pain Status: Acute Qualifiers: Back pain location: low back pain Chronicity: unspecified Back pain laterality: unspecified Sciatica laterality: sciatica laterality unspecified (4) TBI (traumatic brain injury) Status: Chronic Qualifiers: Encounter type: sequela Loss of consciousness presence/duration: with LOC of unspecified duration Qualified Codes: S06.9X9S - Unspecified intracranial injury with loss of consciousness of unspecified duration, sequela (5) Leukocytosis Status: Acute (6) Immunosuppressed status Status: Chronic (7) History of Crohn's disease Status: Acute (8) Personality disorder in adult Status: Chronic (9) Manipulative behavior Status: Chronic (10) Personal history of lymphoma Status: Chronic (11) Marijuana abuse Status: Chronic (12) Smoker Status: Chronic INGRID WARNER MEDICAL STUDENT Nov 06, 2017 08:32 MEHDI AMBROCIO DO Nov 06, 2017 10:46
[2017-11-06 08:54] VITALS: BP 151/63
[2017-11-06] MEDS: HYDROcodone/APAP 5 MG/325 MG (LORTAB) TAB PO PRN ×4 (10:18→23:35)
--- NOTE | 2017-11-06 10:30 | Diagnostic Imaging Report ---
PROCEDURE: US Venous Lower Ext Eliel. TECHNIQUE: Multiple real-time grayscale images were obtained over the lower extremities in various projections, bilaterally. Additional duplex Doppler and color Doppler images were also obtained. INDICATION: Hypoxia. FINDINGS: There is no evidence of a right or left lower extremity DVT. Both lower extremity deep venous systems demonstrate normal compressibility with normal response to augmentation and Valsalva. No fluid collection or mass is detected. IMPRESSION: No evidence of right or left lower extremity DVT. Dictated by: Dictated on workstation # [id number]
[2017-11-06] MEDS ORDERED: LOPE2CAP PO (10:39)
[2017-11-06] MEDS ORDERED: ALBU18HF2 INH (10:39)
[2017-11-06] MEDS ORDERED: LEVO500T80 PO (10:39)
[2017-11-06] MEDS ORDERED: FAMO20TA5 PO (10:39)
[2017-11-06] MEDS ORDERED: MULT-26 PO (10:55)
[2017-11-06] MEDS ORDERED: DOXY25TA50 PO (10:55)
[2017-11-06] MEDS ORDERED: guaiFENesin (MUCINEX) 600 MG TAB PO PRN (11:00)
[2017-11-06] MEDS ORDERED: ACETAMINOPHEN 325 MG TABLET PO PRN (11:00)
[2017-11-06] MEDS ORDERED: MICONAZOLE 2% POWDER (DESENEX AF) 90 GM TP PRN (11:00)
[2017-11-06] MEDS ORDERED: RT-ALBUTEROL SULF 2.5 MG/3 ML PRE-MIX VIAL INH PRN (11:00)
[2017-11-06] MEDS ORDERED: diphenhydrAMINE 25 MG TAB (BENADRYL) PO PRN (11:00)
[2017-11-06] MEDS ORDERED: MENTHOL MM PRN (11:00)
[2017-11-06] MEDS ORDERED: HYOSCYAMINE 0.125 MG (LEVSIN) TAB PO PRN (11:00)
[2017-11-06] MEDS ORDERED: NON-FORMULARY MEDICATION 1 EA EA (Doxylamine Succinate (Sleep Aid) 25 MG) PO PRN (11:00)
[2017-11-06] MEDS: DICYCLOMINE 10 MG (BENTYL) CAP PO SCH ×3 (12:19→21:45)
[2017-11-06] MEDS: methylPREDNISolone 40 MG/ML (Solu-MEDROL) VIAL IV SCH ×3 (12:19→23:45)
[2017-11-06] MEDS: NYSTATIN ORAL SUSP 5 ML UDC PO SCH ×3 (12:19→23:45)
[2017-11-06 12:20] VITALS: BP 124/67
[2017-11-06] MEDS: GABAPENTIN 600 MG (NEURONTIN) TAB PO SCH ×2 (13:37→21:44)
[2017-11-06] MEDS: PIPERACILLIN SODIUM/TAZOBACTAM 4.5 GM in NS (IVPB) 100 ML IV SCH ×2 (14:40→21:45)
[2017-11-06 16:46] VITALS: BP 137/68
[2017-11-06 20:00] VITALS: BP 117/70
[2017-11-06] MEDS ORDERED: POLYETHYLENE GLYCOL 17 GM (MIRALAX) PACK PO PRN (21:00)
[2017-11-06] MEDS: MESALAMINE DR 400 MG (ASACOL/DELZICOL) TAB/CAPS PO SCH (21:43)
[2017-11-06] MEDS: DOCUSATE SODIUM 100 MG (COLACE) CAP PO SCH (21:44)
[2017-11-06] MEDS: MELATONIN 3 MG TABLET PO SCH ×2 (21:44)
[2017-11-06] MEDS: PANTOPRAZOLE 40 MG (PROTONIX) TAB PO SCH (21:44)
[2017-11-06] MEDS: LOPERAMIDE 2 MG (IMODIUM) CAP PO SCH (21:44)
[2017-11-06] MEDS: FAMOTIDINE 20 MG (PEPCID) TABLET PO SCH (21:44)
[2017-11-07 00:07] VITALS: BP 111/56
[2017-11-07] MEDS: RT-ALBUTEROL/IPRATROPIUM 3 ML (DUONEB) VIAL INH SCH ×6 (01:53→22:40)
[2017-11-07 04:08] VITALS: BP 114/56
--- NOTE | 2017-11-07 05:42 | Pulmonary Progress Note ---
Subjective Time Seen by Provider: 05:42 Subjective/Events-last exam no complications noted Sepsis Event Evaluation Height, Weight, BMI Height: 5'9.00" Weight: 126lbs. 5.0oz. 57.435666yw; 18.7 BMI Method:Stated Exam Exam Vital Signs Date Time Temp Pulse Resp B/P (MAP) Pulse Ox O2 Delivery O2 Flow Rate FiO2 11/07/17 04:08 98.5 102 20 114/56 (75) 95 Nasal Cannula 5.00 11/07/17 01:53 93 Nasal Cannula 6.00 11/07/17 01:00 104 11/07/17 00:07 98.6 111 20 111/56 (74) 94 Nasal Cannula 5.00 11/06/17 22:14 93 Nasal Cannula 6.00 11/06/17 20:00 98.2 122 22 117/70 (86) 93 Nasal Cannula 5.00 11/06/17 20:00 Nasal Cannula 6.00 11/06/17 19:14 93 Nasal Cannula 6.00 11/06/17 19:00 111 11/06/17 16:46 97.6 111 22 137/68 (91) 90 Nasal Cannula 5.00 11/06/17 15:28 93 Nasal Cannula 7.00 11/06/17 13:00 101 11/06/17 12:20 98.9 104 20 124/67 (86) 93 Nasal Cannula 5.00 11/06/17 11:41 92 Nasal Cannula 6.00 11/06/17 08:54 97.3 112 20 151/63 (92) 93 Nasal Cannula 5.00 11/06/17 08:00 OxyMask 6.00 11/06/17 07:11 90 Nasal Cannula 5.00 11/06/17 07:00 114 I & O 11/07/17 07:00 Intake Total 1086 ml Balance 1086 ml Height & Weight Height: 5'9.00" Weight: 126lbs. 5.0oz. 57.141686pq; 18.7 BMI Method:Stated General Appearance: No Apparent Distress, WD/WN, Chronically ill, Thin HEENT: PERRL/EOMI, TMs Normal, Normal ENT Inspection, Pharynx Normal, Moist Mucous Membranes Neck: Full Range of Motion, Normal Inspection, Non Tender, Supple, Carotid Bruit Respiratory: Chest Non Tender, No Accessory Muscle Use, No Respiratory Distress , Crackles (In Right lung base), Decreased Breath Sounds, Wheezing Cardiovascular: Regular Rate, Rhythm, No Edema, No Gallop, No JVD, No Murmur, Normal Peripheral Pulses Capillary Refill: Less Than 3 Seconds Gastrointestinal: normal bowel sounds, non tender, soft, no organomegaly, no pulsatile mass Extremity: Normal Capillary Refill, Normal Inspection, Normal Range of Motion, Non Tender, No Calf Tenderness, No Pedal Edema Neurologic/Psychiatric: Alert, Oriented x3, No Motor/Sensory Deficits, Normal Mood/Affect Skin: Normal Color, Warm/Dry Lymphatic: No Adenopathy Results Lab Laboratory Tests 11/05/17 11:50 Assessment/Plan Assessment/Plan COPDAE with hypoxemia -Pt will probably need home 02 -Solumedrol -- change to prednisone -SVNS add advair - DDimer is <0.22 -CT of chest reviewed Thrush -Start nystatin Lung nodules -Pt will need repeat CT of chest as out patient in 6mo. -Will consider doing out patient bronchoscopy with percepta Pt is complaining of CP and Back pain Hx of lymphoma, and crohn's disease tobacco dependance -Education Marijuana use AMINA RG DO Nov 07, 2017 05:42
[2017-11-07] MEDS: HYDROcodone/APAP 5 MG/325 MG (LORTAB) TAB PO PRN ×4 (05:43→20:09)
[2017-11-07] MEDS: PIPERACILLIN SODIUM/TAZOBACTAM 4.5 GM in NS (IVPB) 100 ML IV SCH ×3 (05:43→22:36)
[2017-11-07] MEDS: DICYCLOMINE 10 MG (BENTYL) CAP PO SCH ×4 (05:43→20:14)
[2017-11-07] MEDS: NYSTATIN ORAL SUSP 5 ML UDC PO SCH ×3 (05:43→19:10)
[2017-11-07] MEDS: MULTIVIT W/MINERALS TAB (THERAGRAN M) PO SCH (05:43)
[2017-11-07] MEDS: CATHETER FLUSH 10 ML SYR IV SCH ×3 (06:09→22:37)
[2017-11-07] MEDS: RT-ADVAIR HFA 115/21 MCG PER PUFF IH SCH ×2 (07:30→18:46)
[2017-11-07 08:02] VITALS: BP 106/57
--- NOTE | 2017-11-07 08:23 | Progress Note-Hospitalist ---
INGRID WARNER MEDICAL STUDENT 11/07/17 0823: Subjective HPI/CC On Admission Date Seen by Provider: Nov 07, 2017 Time Seen by Provider: 07:30 CC: Dyspnea HPI: This is a 42yoWM clinic patient of Dr Jo w/h/o lymphoma s/p colon resection remotely, personality disorder requiring alf residence and Crohn's disease in remission on Humira who presented to the ER w/dyspnea. Patient had reported to Dr Jo the day before and placed on Levaquin for cough and coverage for pneumonia due to immunosuppression but he worsened and required admit. Dr Schulz has seen him on consultation and placed him on steroids and Nebs and O2 and smoking cessation was counseled. CT scan revealed nodules. Patient constantly asking for pain meds for vague back pain unrelated to current admit and Dilaudid by name and I spoke to PCP and he does not obtain any narcotics as an outpt and I told him narcs can cause hypoxia so no additional pain meds will be given. Subjective/Events-last exam Pt had no acute events overnight. He slept okay. He states he is breathing comfortably even with a reduction in his oxygen flow rate. It has been 2 days since he has had a BM. No difficulties with urination. Discussed smoking cessation - patient has tried wellbutrin and chantix with thoughts of hurting other people, so he has decided it is better for him to smoke. Focused Exam Respiratory: Lungs Clear, Normal Breath Sounds, No Accessory Muscle Use Cardiovascular: Regular Rate, Rhythm, No Edema, No Gallop, No Murmur, Normal Peripheral Pulses Skin: normal color, warm/dry Objective Exam Vital Signs Vital Signs Date Time Temp Pulse Resp B/P (MAP) Pulse Ox O2 Delivery O2 Flow Rate FiO2 11/07/17 08:02 99.1 108 26 106/57 (73) 98 Nasal Cannula 3.00 Capillary Refill : Less Than 3 Seconds Results/Procedures Lab Patient resulted labs reviewed. Assessment/Plan Assessment and Plan Assess & Plan/Chief Complaint 42 yo with history of Crohn's and TBI admitted for hypoxia with leukocytosis clinically improving with duonebs and solumedrol, consistent with asthma exacerbation vs. atypical pneumonia vs pneumonitis. Hypoxia: -On 5 L, satting 90-93% -Duonebs Q4H -5 day steroid course -Pulmonology consulted Leukocytosis: CXRs without indications of PNA. Unlikely to improve given steroids. Crohns: No acute problems Dispo: Remain admitted until decreased need for oxygen. Diagnosis/Problems Diagnosis/Problems (1) Back pain Status: Acute Qualifiers: Back pain location: low back pain Chronicity: unspecified Back pain laterality: unspecified Sciatica laterality: sciatica laterality unspecified (2) TBI (traumatic brain injury) Status: Chronic Qualifiers: Encounter type: sequela Loss of consciousness presence/duration: with LOC of unspecified duration Qualified Codes: S06.9X9S - Unspecified intracranial injury with loss of consciousness of unspecified duration, sequela (3) Leukocytosis Status: Acute Qualifiers: Leukocytosis type: leukemoid reaction Qualified Codes: D72.823 - Leukemoid reaction (4) RESPIRATORY FAILURE, UNSP, UNSP W HYPOXIA OR HYPERCAPNIA Status: Acute (5) Immunosuppressed status Status: Chronic (6) History of Crohn's disease Status: Acute Clinical Quality Measures DVT/VTE Risk/Contraindication: Risk Factor Score Per Nursin RFS Level Per Nursing on Admit: 2=Moderate MEHDI AMBROCIO DO 11/07/17 1101: Subjective Subjective/Events-last exam patient is doing well wbc 29k due to steroids but due to complex issues will need to monitor at least another day to assure counts decrease No pain is reported Consulted PT to get OOB Review of Systems General: Fatigue Objective Exam General Appearance: No Apparent Distress, WD/WN, Chronically ill, Thin Respiratory: Chest Non Tender, Lungs Clear, Normal Breath Sounds, No Accessory Muscle Use, No Respiratory Distress, Wheezing (subtle at bases) Cardiovascular: Regular Rate, Rhythm, No Edema, No Gallop, No JVD, No Murmur, Normal Peripheral Pulses Extremity: No Normal Capillary Refill, No Normal Inspection, No Normal Range of Motion, No Non Tender, No No Calf Tenderness, No No Pedal Edema, No Calf Tenderness, No Inflammation, No Pedal Edema, No Pelvis Stable, No Slow Capillary Refill, No Swelling, No Other Neurologic/Psychiatric: Alert, Oriented x3, No Motor/Sensory Deficits, Normal Mood/Affect Skin: Normal Color, Warm/Dry Assessment/Plan Assessment and Plan Assess & Plan/Chief Complaint Check wbc tomorrow Continue treatment PO steroids DC IV form PT Diagnosis/Problems Diagnosis/Problems (1) Leukocytosis Status: Acute Assessment & Plan: Increased due to steroid effect, keep 1 more day to assure trend down Qualifiers: Leukocytosis type: leukemoid reaction Qualified Codes: D72.823 - Leukemoid reaction (2) RESPIRATORY FAILURE, UNSP, UNSP W HYPOXIA OR HYPERCAPNIA Status: Acute (3) Back pain Status: Acute Qualifiers: Back pain location: low back pain Chronicity: unspecified Back pain laterality: unspecified Sciatica laterality: sciatica laterality unspecified (4) TBI (traumatic brain injury) Status: Chronic Qualifiers: Encounter type: sequela Loss of consciousness presence/duration: with LOC of unspecified duration Qualified Codes: S06.9X9S - Unspecified intracranial injury with loss of consciousness of unspecified duration, sequela (5) Immunosuppressed status Status: Chronic (6) History of Crohn's disease Status: Acute INGRID WARNER MEDICAL STUDENT Nov 07, 2017 08:23 MEHDI AMBROCIO DO Nov 07, 2017 11:01
--- NOTE | 2017-11-07 08:55 | Discharge Summary-Hospitalist ---
INGRID WARNER MEDICAL STUDENT 11/07/17 0855: Diagnosis/Chief Complaint Date of Admission Nov 05, 2017 at 15:20 Date of Discharge Admission Diagnosis Dyspnea Hypoxia Personality disorder requiring senior living residency Crohn's in remission from Humira but held for past week due to URI per PCP h/o lymphoma Vague back pain without source and asking for Dilaudid by name Iv steroids Zosyn Nebs O2 Home O2 evaluation Smoking cessation Discharge Diagnosis (1) Back pain Status: Acute (2) TBI (traumatic brain injury) Status: Chronic (3) Leukocytosis Status: Acute (4) RESPIRATORY FAILURE, UNSP, UNSP W HYPOXIA OR HYPERCAPNIA Status: Acute (5) Immunosuppressed status Status: Chronic (6) History of Crohn's disease Status: Acute Discharge Summary Discharge Physical Exam Allergies: Coded Allergies: ceftazidime (Verified Allergy, Intermediate, RASH, 06/15/16) nalbuphine (Unverified Allergy, Mild, RASH, 03/29/06) Iodinated Contrast- Oral and IV Dye (Verified Allergy, Unknown, HIVES, 05/01) Sulfa (Sulfonamide Antibiotics) (Verified Allergy, Unknown, 03/29/06) latex (Verified Allergy, Unknown, 05/03/15) strawberry (Unverified Allergy, Unknown, 12/18/13) FROM UNCODED ALLERGIES Uncoded Allergies: TAPE (Allergy, Unknown, 03/29/06) Vitals & I&Os Vital Signs Date Time Temp Pulse Resp B/P (MAP) Pulse Ox O2 Delivery O2 Flow Rate FiO2 11/07/17 08:02 99.1 108 26 106/57 (73) 98 Nasal Cannula 3.00 General Appearance: No Apparent Distress, WD/WN Respiratory: Chest Non Tender, Lungs Clear, Normal Breath Sounds, No Accessory Muscle Use Cardiovascular: Regular Rate, Rhythm, No Edema, No Gallop, No Murmur, Normal Peripheral Pulses Gastrointestinal: Normal Bowel Sounds Extremity: Normal Capillary Refill Skin: Normal Color, Warm/Dry Neurologic/Psychiatric: Alert, Oriented x3 Hospital Course 42 yo M with a history of smoking, TBI, lymphoma, and Crohn's on humira that presented from his senior living where he stays for his personality disorder with one week of cough and shortness of breath consistent with a new diagnosis of COPD and acute exacerbation. Initial labs showed respiratory alkalosis, slight leukocytosis at 14.4, UDS + for THC, and chest CT showed 2 nodules not previously noted. He was placed on oxygen for low saturation, started on solumedrol and and duonebs and pulmonology was consulted. Given concern for immunosuppression and his leukocytosis, zosyn was started on hospital day 1. Venous doppler was obtained to rule out DVT. The pt improved with his breathing treatments and steroids, with prednisone to be completed on 11/09 and discharged without antibiotics. His lung nodules will be followed by Dr. Schulz with CT and potential bronchoscopy on outpatient basis. Pt was also noted to have thrush during admission and placed on Nystatin. Labs (last 24 hrs) Patient resulted labs reviewed. Discharge Home Medications: Active Scripts Active Reported Certavite Sr-Antioxidant Tab (Multivit-Min/FA/Lycopene/Lut) 1 Each Tablet 1 Tab PO DAILY Sleep Aid (Doxylamine Succinate) 25 Mg Tablet 25 Mg PO HS PRN Famotidine 20 Mg Tablet 20 Mg PO HS Loperamide (Loperamide HCl) 2 Mg Capsule 4 Mg PO BID TAKES 2 (2MG) CAPSULES Ventolin Hfa (Albuterol Sulfate) 18 Gm Hfa.aer.ad 2 Puff INH Q6H PRN Levofloxacin 500 Mg Tablet 500 Mg PO HS 7 Days 7 DAY SUPPLY FILLED 11-04-17 Robitussin Cough-Cold Cf Liq (Guaifenesin/D-Methorphan Hb/PE) 118 Ml Liquid PO UD PRN Ricola (Menthol) 4.8 Mg Lozenge 1 Tab MM UD PRN Hydrocortisone 28.35 Gm Cream..g. TP UD PRN 1% Triple Antibiotic Ointment (Neomycin/Polymyxin/Bacitracin) 0.9 Gm Oint TP UD PRN Mucus Relief (Guaifenesin) 600 Mg Tab.er.12h 600 Mg PO BID PRN Benadryl (Diphenhydramine HCl) 25 Mg Capsule 25 Mg PO UD PRN Desenex (Miconazole Nitrate) 43 Gm Powder TP UD PRN [Blue Goo] TOP QID PRN Vitamin C (Ascorbate Calcium) 500 Mg Tablet 500 Mg PO DAILY Miralax (Polyethylene Glycol 3350) 17 Gm Powd.pack 17 Gm PO DAILY PRN Dicyclomine HCl 10 Mg Capsule 10 Mg PO ACHS Humira (Adalimumab) 40 Mg/0.8 Ml Pen.ij.kit 40 Mg SC EVERY 2 WEEKS Mesalamine 800 Mg Tablet.dr 2,400 Mg PO BID TAKES 3 (800MG) TABLETS Hyoscyamine Sulfate 0.125 Mg Tablet 0.125 Mg PO Q6H PRN Colace (Docusate Sodium) 100 Mg Capsule 100 Mg PO BID Uceris (Budesonide) 9 Mg Tabdr...er 9 Mg PO DAILY Acetaminophen 325 Mg Tablet 650 Mg PO Q6H PRN TAKES 2 (325MG) TABLETS Cyanocobalamin Injection (Cyanocobalamin) 1,000 Mcg/Ml Inj 1,000 Mcg INJ MONTHLY Magnesium Oxide 400 Mg Tablet 400 Mg PO DAILY Omeprazole 40 Mg Capsule.dr 40 Mg PO BID Gabapentin 600 Mg Tablet 600 Mg PO TID Instructions to patient/family Please see electronic discharge instructions given to patient. Clinical Quality Measures DVT/VTE Risk/Contraindication: Risk Factor Score Per Nursin RFS Level Per Nursing on Admit: 2=Moderate MEHDI AMBROCIO DO 11/07/17 1102: Discharge Summary Discharge Physical Exam Allergies: Coded Allergies: ceftazidime (Verified Allergy, Intermediate, RASH, 06/15/16) nalbuphine (Unverified Allergy, Mild, RASH, 03/29/06) Iodinated Contrast- Oral and IV Dye (Verified Allergy, Unknown, HIVES, 05/01) Sulfa (Sulfonamide Antibiotics) (Verified Allergy, Unknown, 03/29/06) latex (Verified Allergy, Unknown, 05/03/15) strawberry (Unverified Allergy, Unknown, 12/18/13) FROM UNCODED ALLERGIES Uncoded Allergies: TAPE (Allergy, Unknown, 03/29/06) Discussion & Recommendations Discharge Planning: <30 minutes discharge planning Problem Qualifiers (1) Back pain: Back pain location: low back pain Chronicity: unspecified Back pain laterality: unspecified Sciatica laterality: sciatica laterality unspecified (2) TBI (traumatic brain injury): Encounter type: sequela Loss of consciousness presence/duration: with LOC of unspecified duration Qualified Codes: S06.9X9S - Unspecified intracranial injury with loss of consciousness of unspecified duration, sequela (3) Leukocytosis: Leukocytosis type: leukemoid reaction Qualified Codes: D72.823 - Leukemoid reaction INGRID WARNER MEDICAL STUDENT Nov 07, 2017 08:55 MEHDI AMBROCIO DO Nov 07, 2017 11:02
[2017-11-07] MEDS: MAGNESIUM OXIDE (MAG-OX)400 MG TAB PO SCH (09:07)
[2017-11-07] MEDS: MESALAMINE DR 400 MG (ASACOL/DELZICOL) TAB/CAPS PO SCH ×2 (09:07→20:08)
[2017-11-07] MEDS: PANTOPRAZOLE 40 MG (PROTONIX) TAB PO SCH ×2 (09:07→20:08)
[2017-11-07] MEDS: GABAPENTIN 600 MG (NEURONTIN) TAB PO SCH ×3 (09:08→20:08)
[2017-11-07] MEDS: LOPERAMIDE 2 MG (IMODIUM) CAP PO SCH ×2 (09:08→20:08)
[2017-11-07] MEDS: LORATADINE (CLARITIN) 10 MG TAB PO SCH (09:08)
[2017-11-07] MEDS: predniSONE 20 MG TAB PO SCH (09:08)
[2017-11-07] MEDS: DOCUSATE SODIUM 100 MG (COLACE) CAP PO SCH ×2 (09:08→20:08)
[2017-11-07] MEDS: ASCORBIC ACID (VIT C) 500 MG TABLET PO SCH (09:08)
[2017-11-07] MEDS ORDERED: POLYETHYLENE GLYCOL 17 GM (MIRALAX) PACK PO ONE (09:30)
[2017-11-07 09:35] LABS: BASOPHILS % (AUTO) 0 % (0-10); EOSINOPHILS % (AUTO) 0 % (0-10); HEMATOCRIT 37 % (40-54); HEMOGLOBIN 13.1 G/DL (13.3-17.7); LYMPHOCYTES # (AUTO) 1.7 X 10^3 (1.0-4.0); LYMPHOCYTES % (AUTO) 6 % (12-44); MEAN CORPUSCULAR HEMOGLOBIN 34 PG (25-34); MEAN CORPUSCULAR HGB CONC 35 G/DL (32-36); MEAN CORPUSCULAR VOLUME 97 FL (80-99); MEAN PLATELET VOLUME 9.8 FL (7.4-10.4); MONOCYTES # (AUTO) 2.2 X 10^3 (0.0-1.0); MONOCYTES % (AUTO) 8 % (0-12); NEUTROPHILS # (AUTO) 25.4 X 10^3 (1.8-7.8); NEUTROPHILS % (AUTO) 87 % (42-75); PLATELET COUNT 425 10^3/uL (130-400); RED CELL DISTRIBUTION WIDTH 17.9 % (10.0-14.5); WHITE BLOOD COUNT 29.3 10^3/uL (4.3-11.0)
[2017-11-07] MEDS: POLYETHYLENE GLYCOL 17 GM (MIRALAX) PACK PO ONE ×2 (09:46→13:47)
[2017-11-07 09:59] LABS: ALANINE AMINOTRANSFERASE 12 U/L (0-55); ALBUMIN 3.6 GM/DL (3.2-4.5); ALKALINE PHOSPHATASE 74 U/L (40-136); BILIRUBIN,TOTAL 0.3 MG/DL (0.1-1.0); BUN/CREATININE RATIO 17; CALCIUM 8.9 MG/DL (8.5-10.1); CARBON DIOXIDE 23 MMOL/L (21-32); CHLORIDE 105 MMOL/L (98-107); CREATININE SERUM 0.66 MG/DL (0.60-1.30); GFR ESTIMATED > 60; GLUCOSE 141 MG/DL (70-105); POTASSIUM 3.6 MMOL/L (3.6-5.0); SODIUM 140 MMOL/L (135-145); TOTAL PROTEIN 6.2 GM/DL (6.4-8.2)
[2017-11-07 10:01] LABS: BAND NEUTROPHILS 2 %; EOSINOPHILS % (MANUAL) 0 %; LYMPHOCYTES % (MANUAL) 7 %; MONOCYTES % (MANUAL) 4 %; NEUTROPHILS % (MANUAL) 87 %
[2017-11-07 10:02] LABS: ANISOCYTOSIS SLIGHT; BASOPHILS % (MANUAL) 0 %; TARGET CELLS MODERATE
--- NOTE | 2017-11-07 11:51 | Physical Therapy Evaluation ---
PT Evaluation-General Medical Diagnosis Admission Date Nov 05, 2017 at 15:20 Medical Diagnosis: hypoxia Onset Date: Nov 05, 2017 Therapy Diagnosis Therapy Diagnosis: debility Height/Weight Height (Feet): 5 Height (Inches): 9.00 Weight (Pounds): 126 Weight (Ounces): 5.0 Precautions Precautions/Isolations: Standard Precautions Weight Bear Status Right Lower Extremity: Right Full Weight Bearing Left Lower Extremity: Left Full Weight Bearing Referral Physician: Tony Reason for Referral: Evaluation/Treatment Medical History Pertinent Medical History: COPD, Lymphoma, Smoking, TBI Additional Medical History Crohn's/cancer Current History ED secondary to TRENT and SOA Reviewed History: Yes Social History Home: Care Home Prior/Core FIM Prior Level of Function Functional Stearns Measure 0=Not Assessed/NA 4=Minimal Assistance 1=Total Assistance 5=Supervision or Setup 2=Maximal Assistance 6=Modified Stearns 3=Moderate Assistance 7=Complete Stearns Bed Mobility: 7 Transfers (B,C,W/C) (FIM): 7 Gait: 7 PT Evaluation-Current Subjective Patient states, "I'm going stir crazy." Pain Numeric Pain Scale: 0-No Pain Location: No Pain Reported Objective Patient Orientation: Normal For Age Problem Solving: Fair Attachments: Oxygen (3L) ROM/Strength ROM Lower Extremities bilateral LE WNL Strength Lower Extremities 5/5 grossly bilateral LE Integumentary/Posture Integumentary refer to nursing notes Bowel Incontinence: No Bladder Incontinence: No Posture erect Neuromuscular (Tone, Coordination, Reflexes) grossly intact Sensory Vision: Functional Hearing: Functional Sensation Right Lower Extremit: Intact Sensation Left Lower Extremity: Intact Transfers Functional Stearns Measure 0=Not Assessed/NA 4=Minimal Assistance 1=Total Assistance 5=Supervision or Setup 2=Maximal Assistance 6=Modified Stearns 3=Moderate Assistance 7=Complete Stearns Transfers (B, C, W/C) (FIM): 7 Scootin Rollin Supine to/from Sit: 7 Sit to/from Stand: 7 Gait Mode of Locomotion: Walk Anticipated Mode of Locomotion: Walk Gait (FIM): 7 Distance (FIM): 3=150 ft Distance: >800' Gait Level of Assist: 7 Gait Assistive Device: None Comments/Gait Description no deviation Balance Sitting Static: Normal Sitting Dynamic: Normal Standing Static: Normal Standing Dynamic: Normal Assessment/Needs 42 y.o. male, is currently at independent PLOF with all gross motor skills and does not require skilled PT intervention. Rehab Potential: Fair Post Rehab Potential-Barriers: compliance PT Plan Treatment/Plan Treatment Plan: Continue Plan of Care Treatment Plan: Other Treatment Duration: Nov 07, 2017 Frequency: 1 time per week Estimated Hrs Per Day: .25 hour per day Patient and/or Family Agrees t: Yes Time/GCodes Time In: 1130 Time Out: 1144 Total Billed Treatment Time: 14 Total Billed Treatment 1 visit EVModC 14 min G Codes Necessary: Yes PT/OT Therapy GCodes Therapy Functional Limitation: Physical Therapy Test(s)/Tool used to determine: FIM Functional Limitation-Current Charge Code: MOBCUR Modifier: CH Functional Limitation-Goal Charge Code: MOBGOAL Modifier: CH Functional Limitation-D/C Charge Codes: MOBDC Modifier: CH JOVANI BUTLER PT Nov 07, 2017 11:51
[2017-11-07 12:35] VITALS: BP 121/53
[2017-11-07 16:10] VITALS: BP 117/68
[2017-11-07 20:00] VITALS: BP 115/50
[2017-11-07] MEDS: FAMOTIDINE 20 MG (PEPCID) TABLET PO SCH (20:08)
[2017-11-07] MEDS: MELATONIN 3 MG TABLET PO SCH (20:09)
[2017-11-07] MEDS ORDERED: MONTELUKAST 10 MG (SINGULAIR) TAB PO SCH (21:00)
[2017-11-08] MEDS: NYSTATIN ORAL SUSP 5 ML UDC PO SCH ×3 (00:29→11:28)
[2017-11-08] MEDS: HYDROcodone/APAP 5 MG/325 MG (LORTAB) TAB PO PRN ×3 (00:29→08:52)
[2017-11-08 00:31] VITALS: BP 120/58
[2017-11-08] MEDS: RT-ALBUTEROL/IPRATROPIUM 3 ML (DUONEB) VIAL INH SCH ×3 (02:09→10:53)
[2017-11-08 04:01] VITALS: BP 118/61
[2017-11-08 05:14] LABS: BASOPHILS % (AUTO) 0 % (0-10); EOSINOPHILS % (AUTO) 0 % (0-10); HEMATOCRIT 32 % (40-54); HEMOGLOBIN 11.7 G/DL (13.3-17.7); LYMPHOCYTES # (AUTO) 3.6 X 10^3 (1.0-4.0); LYMPHOCYTES % (AUTO) 21 % (12-44); MEAN CORPUSCULAR HEMOGLOBIN 35 PG (25-34); MEAN CORPUSCULAR HGB CONC 36 G/DL (32-36); MEAN CORPUSCULAR VOLUME 97 FL (80-99); MEAN PLATELET VOLUME 10.3 FL (7.4-10.4); MONOCYTES # (AUTO) 2.2 X 10^3 (0.0-1.0); MONOCYTES % (AUTO) 13 % (0-12); NEUTROPHILS % (AUTO) 66 % (42-75); PLATELET COUNT 383 10^3/uL (130-400); RED BLOOD COUNT 3.33 10^6/uL (4.35-5.85); RED CELL DISTRIBUTION WIDTH 17.5 % (10.0-14.5); WHITE BLOOD COUNT 16.8 10^3/uL (4.3-11.0)
[2017-11-08] MEDS: DICYCLOMINE 10 MG (BENTYL) CAP PO SCH ×2 (05:53→11:29)
[2017-11-08] MEDS: PIPERACILLIN SODIUM/TAZOBACTAM 4.5 GM in NS (IVPB) 100 ML IV SCH (05:53)
[2017-11-08] MEDS: CATHETER FLUSH 10 ML SYR IV SCH (05:54)
[2017-11-08] MEDS: MULTIVIT W/MINERALS TAB (THERAGRAN M) PO SCH (06:00)
[2017-11-08] MEDS: predniSONE 20 MG TAB PO SCH (06:00)
[2017-11-08 06:16] LABS: ALANINE AMINOTRANSFERASE 14 U/L (0-55); ALBUMIN 3.3 GM/DL (3.2-4.5); ALKALINE PHOSPHATASE 85 U/L (40-136); BILIRUBIN,TOTAL 0.3 MG/DL (0.1-1.0); BUN/CREATININE RATIO 19; CALCIUM 8.7 MG/DL (8.5-10.1); CARBON DIOXIDE 23 MMOL/L (21-32); CHLORIDE 106 MMOL/L (98-107); CREATININE SERUM 0.62 MG/DL (0.60-1.30); GFR ESTIMATED > 60; GLUCOSE 95 MG/DL (70-105); POTASSIUM 2.8 MMOL/L (3.6-5.0); SODIUM 140 MMOL/L (135-145); TOTAL PROTEIN 5.5 GM/DL (6.4-8.2)
[2017-11-08 07:51] VITALS: BP 121/56
[2017-11-08] MEDS: ASCORBIC ACID (VIT C) 500 MG TABLET PO SCH (08:06)
[2017-11-08] MEDS: PANTOPRAZOLE 40 MG (PROTONIX) TAB PO SCH (08:11)
[2017-11-08] MEDS: MAGNESIUM OXIDE (MAG-OX)400 MG TAB PO SCH (08:11)
[2017-11-08] MEDS: MESALAMINE DR 400 MG (ASACOL/DELZICOL) TAB/CAPS PO SCH (08:11)
[2017-11-08] MEDS: DOCUSATE SODIUM 100 MG (COLACE) CAP PO SCH (08:11)
[2017-11-08] MEDS: LORATADINE (CLARITIN) 10 MG TAB PO SCH (08:11)
[2017-11-08] MEDS: GABAPENTIN 600 MG (NEURONTIN) TAB PO SCH (08:12)
[2017-11-08] MEDS: LOPERAMIDE 2 MG (IMODIUM) CAP PO SCH (08:17)
--- NOTE | 2017-11-08 08:53 | Discharge Summary-Hospitalist ---
INGRID WARNER MEDICAL STUDENT 11/08/17 0853: Diagnosis/Chief Complaint Date of Admission Nov 05, 2017 at 15:20 Date of Discharge 11/08 Discharge Date: Nov 08, 2017 Admission Diagnosis Dyspnea Hypoxia Personality disorder requiring [facility] residency Crohn's in remission from Humira but held for past week due to URI per PCP h/o lymphoma Vague back pain without source and asking for Dilaudid by name Iv steroids Zosyn Nebs O2 Home O2 evaluation Smoking cessation Discharge Diagnosis COPD acute exacerbation (1) Leukocytosis Status: Acute Assessment & Plan: Elevated due to steroids, but trending down so ready for discharge (2) RESPIRATORY FAILURE, UNSP, UNSP W HYPOXIA OR HYPERCAPNIA Status: Resolved (3) Back pain Status: Resolved (4) TBI (traumatic brain injury) Status: Chronic (5) Immunosuppressed status Status: Chronic (6) History of Crohn's disease Status: Acute Discharge Summary Discharge Physical Exam Allergies: Coded Allergies: ceftazidime (Verified Allergy, Intermediate, RASH, 06/15/16) nalbuphine (Unverified Allergy, Mild, RASH, 03/29/06) Iodinated Contrast- Oral and IV Dye (Verified Allergy, Unknown, HIVES, 05/01) Sulfa (Sulfonamide Antibiotics) (Verified Allergy, Unknown, 03/29/06) latex (Verified Allergy, Unknown, 05/03/15) strawberry (Unverified Allergy, Unknown, 12/18/13) FROM UNCODED ALLERGIES Uncoded Allergies: TAPE (Allergy, Unknown, 03/29/06) Vitals & I&Os Vital Signs Date Time Temp Pulse Resp B/P (MAP) Pulse Ox O2 Delivery O2 Flow Rate FiO2 11/08/17 07:51 98.0 96 18 121/56 (77) 93 Room Air 11/07/17 16:10 3.00 General Appearance: No Apparent Distress, WD/WN HEENT: Pharynx Normal Respiratory: Chest Non Tender, Lungs Clear, Normal Breath Sounds Cardiovascular: Regular Rate, Rhythm, No Murmur Gastrointestinal: Normal Bowel Sounds Extremity: No Pedal Edema Skin: Normal Color, Warm/Dry Neurologic/Psychiatric: Alert, Oriented x3 Hospital Course 42 yo M with a history of smoking, TBI, lymphoma, and Crohn's on humira that [facility] from his [facility] for his personality disorder with one week of cough and shortness of breath consistent with a new diagnosis of COPD and acute exacerbation. Initial labs showed respiratory alkalosis, slight leukocytosis at 14.4, UDS + for THC, and chest CT showed 2 nodules that are chronic. He was placed on oxygen for low saturation, started on solumedrol and and duonebs and pulmonology was consulted. Given concern for immunosuppression and his leukocytosis, zosyn was started on hospital day 1. Venous doppler was obtained to rule out DVT. The pt improved with his breathing treatments and steroids, with prednisone to be completed on 11/09 and discharged with cefdinir to be completed on 11/12 for a 7 day course. His lung nodules will be followed by Dr. Schulz with CT and potential bronchoscopy on outpatient basis. Pt was also noted to have thrush during admission, was placed on Nystatin, and his mouth was clear at discharge. Labs (last 24 hrs) Laboratory Tests 11/07/17 09:30: White Blood Count 29.3H, Red Blood Count 3.80L, Hemoglobin 13.1L, Hematocrit 37L , Mean Corpuscular Volume 97, Mean Corpuscular Hemoglobin 34, Mean Corpuscular Hemoglobin Concent 35, Red Cell Distribution Width 17.9H, Platelet Count 425H, Mean Platelet Volume 9.8, Neutrophils (%) (Auto) 87H, Lymphocytes (%) (Auto) 6L , Monocytes (%) (Auto) 8, Eosinophils (%) (Auto) 0, Basophils (%) (Auto) 0, Neutrophils # (Auto) 25.4H, Lymphocytes # (Auto) 1.7, Monocytes # (Auto) 2.2H, Eosinophils # (Auto) 0.0, Basophils # (Auto) 0.0, Neutrophils % (Manual) 87, Lymphocytes % (Manual) 7, Monocytes % (Manual) 4, Eosinophils % (Manual) 0, Basophils % (Manual) 0, Band Neutrophils 2, Anisocytosis SLIGHT, Macrocytosis SLIGHT, Target Cells MODERATE, Sodium Level 140, Potassium Level 3.6, Chloride Level 105, Carbon Dioxide Level 23, Anion Gap 12, Blood Urea Nitrogen 11, Creatinine 0.66, Estimat Glomerular Filtration Rate > 60, BUN/Creatinine Ratio 17, Glucose Level 141H, Calcium Level 8.9, Corrected Calcium 9.2, Total Bilirubin 0.3, Aspartate Amino Transf (AST/SGOT) 13, Alanine Aminotransferase ( ALT/SGPT) 12, Alkaline Phosphatase 74, Total Protein 6.2L, Albumin 3.6 11/08/17 04:38: White Blood Count 16.8H, Red Blood Count 3.33L, Hemoglobin 11.7L, Hematocrit 32L , Mean Corpuscular Volume 97, Mean Corpuscular Hemoglobin 35H, Mean Corpuscular Hemoglobin Concent 36, Red Cell Distribution Width 17.5H, Platelet Count 383, Mean Platelet Volume 10.3, Neutrophils (%) (Auto) 66, Lymphocytes (%) (Auto) 21 , Monocytes (%) (Auto) 13H, Eosinophils (%) (Auto) 0, Basophils (%) (Auto) 0, Neutrophils # (Auto) 11.0H, Lymphocytes # (Auto) 3.6, Monocytes # (Auto) 2.2H, Eosinophils # (Auto) 0.0, Basophils # (Auto) 0.0, Sodium Level 140, Potassium Level 2.8L, Chloride Level 106, Carbon Dioxide Level 23, Anion Gap 11, Blood Urea Nitrogen 12, Creatinine 0.62, Estimat Glomerular Filtration Rate > 60, BUN/ Creatinine Ratio 19, Glucose Level 95, Calcium Level 8.7, Corrected Calcium 9.3 , Total Bilirubin 0.3, Aspartate Amino Transf (AST/SGOT) 16, Alanine Aminotransferase (ALT/SGPT) 14, Alkaline Phosphatase 85, Total Protein 5.5L, Albumin 3.3 Microbiology 11/06/17 MRSA Screen - Final, Complete MRSA not isolated Patient resulted labs reviewed. Pending Labs Laboratory Tests 11/08/17 04:38: White Blood Count 16.8, Red Blood Count 3.33, Hemoglobin 11.7, Hematocrit 32, Mean Corpuscular Volume 97, Mean Corpuscular Hemoglobin 35, Mean Corpuscular Hemoglobin Concent 36, Red Cell Distribution Width 17.5, Platelet Count 383, Mean Platelet Volume 10.3, Neutrophils (%) (Auto) 66, Lymphocytes (%) (Auto) 21 , Monocytes (%) (Auto) 13, Eosinophils (%) (Auto) 0, Basophils (%) (Auto) 0, Neutrophils # (Auto) 11.0, Lymphocytes # (Auto) 3.6, Monocytes # (Auto) 2.2, Eosinophils # (Auto) 0.0, Basophils # (Auto) 0.0, Sodium Level 140, Potassium Level 2.8, Chloride Level 106, Carbon Dioxide Level 23, Anion Gap 11, Blood Urea Nitrogen 12, Creatinine 0.62, Estimat Glomerular Filtration Rate > 60, BUN/ Creatinine Ratio 19, Glucose Level 95, Calcium Level 8.7, Corrected Calcium 9.3 , Total Bilirubin 0.3, Aspartate Amino Transf (AST/SGOT) 16, Alanine Aminotransferase (ALT/SGPT) 14, Alkaline Phosphatase 85, Total Protein 5.5, Albumin 3.3 Discharge Home Medications: Active Scripts Active Reported Certavite Sr-Antioxidant Tab (Multivit-Min/FA/Lycopene/Lut) 1 Each Tablet 1 Tab PO DAILY Sleep Aid (Doxylamine Succinate) 25 Mg Tablet 25 Mg PO HS PRN Famotidine 20 Mg Tablet 20 Mg PO HS Loperamide (Loperamide HCl) 2 Mg Capsule 4 Mg PO BID TAKES 2 (2MG) CAPSULES Ventolin Hfa (Albuterol Sulfate) 18 Gm Hfa.aer.ad 2 Puff INH Q6H PRN Levofloxacin 500 Mg Tablet 500 Mg PO HS 7 Days 7 DAY SUPPLY FILLED 11-04-17 Robitussin Cough-Cold Cf Liq (Guaifenesin/D-Methorphan Hb/PE) 118 Ml Liquid PO UD PRN Ricola (Menthol) 4.8 Mg Lozenge 1 Tab MM UD PRN Hydrocortisone 28.35 Gm Cream..g. TP UD PRN 1% Triple Antibiotic Ointment (Neomycin/Polymyxin/Bacitracin) 0.9 Gm Oint TP UD PRN Mucus Relief (Guaifenesin) 600 Mg Tab.er.12h 600 Mg PO BID PRN Benadryl (Diphenhydramine HCl) 25 Mg Capsule 25 Mg PO UD PRN Desenex (Miconazole Nitrate) 43 Gm Powder TP UD PRN [Blue Goo] TOP QID PRN Vitamin C (Ascorbate Calcium) 500 Mg Tablet 500 Mg PO DAILY Miralax (Polyethylene Glycol 3350) 17 Gm Powd.pack 17 Gm PO DAILY PRN Dicyclomine HCl 10 Mg Capsule 10 Mg PO ACHS Humira (Adalimumab) 40 Mg/0.8 Ml Pen.ij.kit 40 Mg SC EVERY 2 WEEKS Mesalamine 800 Mg Tablet.dr 2,400 Mg PO BID TAKES 3 (800MG) TABLETS Hyoscyamine Sulfate 0.125 Mg Tablet 0.125 Mg PO Q6H PRN Colace (Docusate Sodium) 100 Mg Capsule 100 Mg PO BID Uceris (Budesonide) 9 Mg Tabdr...er 9 Mg PO DAILY Acetaminophen 325 Mg Tablet 650 Mg PO Q6H PRN TAKES 2 (325MG) TABLETS Cyanocobalamin Injection (Cyanocobalamin) 1,000 Mcg/Ml Inj 1,000 Mcg INJ MONTHLY Magnesium Oxide 400 Mg Tablet 400 Mg PO DAILY Omeprazole 40 Mg Capsule.dr 40 Mg PO BID Gabapentin 600 Mg Tablet 600 Mg PO TID Instructions to patient/family Please see electronic discharge instructions given to patient. Clinical Quality Measures DVT/VTE Risk/Contraindication: Risk Factor Score Per Nursin RFS Level Per Nursing on Admit: 2=Moderate AMBROCIOCATALINAI DO 11/08/17 1100: Diagnosis/Chief Complaint Discharge Diagnosis (1) Leukocytosis Status: Acute Assessment & Plan: Elevated due to steroids, but trending down so ready for discharge (2) RESPIRATORY FAILURE, UNSP, UNSP W HYPOXIA OR HYPERCAPNIA Status: Resolved (3) Back pain Status: Resolved (4) TBI (traumatic brain injury) Status: Chronic (5) Immunosuppressed status Status: Chronic (6) History of Crohn's disease Status: Acute Discharge Summary Discharge Physical Exam Allergies: Coded Allergies: ceftazidime (Verified Allergy, Intermediate, RASH, 06/15/16) nalbuphine (Unverified Allergy, Mild, RASH, 03/29/06) Iodinated Contrast- Oral and IV Dye (Verified Allergy, Unknown, HIVES, 05/01) Sulfa (Sulfonamide Antibiotics) (Verified Allergy, Unknown, 03/29/06) latex (Verified Allergy, Unknown, 05/03/15) strawberry (Unverified Allergy, Unknown, 12/18/13) FROM UNCODED ALLERGIES Uncoded Allergies: TAPE (Allergy, Unknown, 03/29/06) General Appearance: No Apparent Distress, WD/WN, Chronically ill, Thin Respiratory: Chest Non Tender, Lungs Clear, No Accessory Muscle Use, No Respiratory Distress, Decreased Breath Sounds Cardiovascular: Regular Rate, Rhythm, No Edema, No Gallop, No JVD, No Murmur, Normal Peripheral Pulses Neurologic/Psychiatric: Alert, Oriented x3, No Motor/Sensory Deficits, Normal Mood/Affect Hospital Course Hospital course: Patient had an uneventful hospital course was admitted for hypoxia found to have exacerbation of COPD without any evidence of pneumonia but empiric antibiotics maintain due to immunosuppression. Thrush was treated with nystatin swish and swallow and patient maintain on Zosyn. IV Solu-Medrol was initiated with good results and that was tapered down to oral steroids but did cause significant elevated white count and that was trending down to 16,000 at discharge after being changed over to oral prednisone. Smoking cessation was discussed. Patient will need 3 L of oxygen on exertion. Follow-up with primary care provider Dr. Jo on Saturday. Patient will hold Humira and budesonide while being on the oral prednisone. Discussion & Recommendations Discharge Planning: <30 minutes discharge planning Problem Qualifiers (1) Leukocytosis: Leukocytosis type: leukemoid reaction Qualified Codes: D72.823 - Leukemoid reaction (2) Back pain: Back pain location: low back pain Chronicity: unspecified Back pain laterality: unspecified Sciatica laterality: sciatica laterality unspecified (3) TBI (traumatic brain injury): Encounter type: sequela Loss of consciousness presence/duration: with LOC of unspecified duration Qualified Codes: S06.9X9S - Unspecified intracranial injury with loss of consciousness of unspecified duration, sequela INGRID WARNER MEDICAL STUDENT Nov 08, 2017 08:53 MEHDI AMBROCIO DO Nov 08, 2017 11:00
--- NOTE | 2017-11-08 08:54 | Pulmonary Progress Note ---
Subjective Time Seen by Provider: 08:53 Subjective/Events-last exam pt appears to be doing better. Sepsis Event Evaluation Height, Weight, BMI Height: 5'9.00" Weight: 126lbs. 5.0oz. [id number]; 18.7 BMI Method:Stated Exam Exam Vital Signs Date Time Temp Pulse Resp B/P (MAP) Pulse Ox O2 Delivery O2 Flow Rate FiO2 11/08/17 07:51 98.0 96 18 121/56 (77) 93 Room Air 11/08/17 07:00 100 11/08/17 06:30 91 Room Air 11/08/17 04:01 97.7 101 18 118/61 (80) 92 Room Air 11/08/17 02:09 90 Room Air 11/08/17 01:00 100 11/08/17 00:31 97.7 99 18 120/58 (78) 93 Room Air 11/07/17 22:40 90 Room Air 11/07/17 20:00 Room Air 11/07/17 20:00 98.9 100 20 115/50 (71) 93 Room Air 11/07/17 19:00 113 11/07/17 18:46 93 Room Air 11/07/17 16:10 97.3 100 18 117/68 (84) 93 Nasal Cannula 3.00 11/07/17 14:30 93 Nasal Cannula 3.00 11/07/17 13:04 99 11/07/17 12:35 98.6 98 22 121/53 (75) 93 11/07/17 10:52 96 Nasal Cannula 3.00 I & O 11/08/17 07:00 Intake Total 2050 ml Balance 2050 ml Height & Weight Height: 5'9.00" Weight: 126lbs. 5.0oz. [id number]; 18.7 BMI Method:Stated General Appearance: No Apparent Distress, WD/WN, Chronically ill, Thin HEENT: PERRL/EOMI, TMs Normal, Normal ENT Inspection, Pharynx Normal, Moist Mucous Membranes Neck: Full Range of Motion, Normal Inspection, Non Tender, Supple, Carotid Bruit Respiratory: Chest Non Tender, Lungs Clear, Normal Breath Sounds, No Accessory Muscle Use, No Respiratory Distress, Wheezing (subtle at bases) Cardiovascular: Regular Rate, Rhythm, No Edema, No Gallop, No JVD, No Murmur, Normal Peripheral Pulses Capillary Refill: Less Than 3 Seconds Gastrointestinal: normal bowel sounds, non tender, soft, no organomegaly, no pulsatile mass Extremity: No Normal Capillary Refill, No Normal Inspection, No Normal Range of Motion, No Non Tender, No No Calf Tenderness, No No Pedal Edema, No Calf Tenderness, No Inflammation, No Pedal Edema, No Pelvis Stable, No Slow Capillary Refill, No Swelling, No Other Neurologic/Psychiatric: Alert, Oriented x3, No Motor/Sensory Deficits, Normal Mood/Affect Skin: Normal Color, Warm/Dry Lymphatic: No Adenopathy Results Lab Laboratory Tests 11/07/17 09:30 11/08/17 04:38 Assessment/Plan Assessment/Plan COPDAE with hypoxemia -Pt will probably need home 02 -prednisone -SVNS add advair - DDimer is <0.22 -CT of chest reviewed Thrush -Start nystatin Lung nodules -Pt will need repeat CT of chest as out patient in 6mo. -Will consider doing out patient bronchoscopy with percepta Pt is complaining of CP and Back pain Hx of lymphoma, and crohn's disease tobacco dependance -Education Marijuana use AMINA RG DO Nov 08, 2017 08:54
[2017-11-08] MEDS ORDERED: KCL 20 MEQ TAB (K-DUR) PO ONE (09:30)
[2017-11-08] MEDS ORDERED: PRED10TA22 PO (10:04)
[2017-11-08] MEDS ORDERED: ACHD5005 PO (10:04)
[2017-11-08] MEDS ORDERED: LORA10TA7 PO (10:04)
[2017-11-08] MEDS ORDERED: NYST1000 PO (10:04)
[2017-11-08] MEDS ORDERED: MONT10TA24 PO (10:04)
[2017-11-08] MEDS ORDERED: FLUT12AE4 IH (10:04)
[2017-11-08] MEDS ORDERED: CEFD300C3 PO (10:04)
[2017-11-08] MEDS: RT-ADVAIR HFA 115/21 MCG PER PUFF IH SCH (10:53)
[2017-11-08 11:23] VITALS: BP 120/87
[2017-12-04] MEDS ORDERED: CYANOCOBALAMIN INJ 1000 MCG/ML IM SCH (09:00)
== END 2017-11-08 10:04 | disposition home or self-care (01) ==
LOC: EDUNIT# 10:57 → ER 10:58 → 4TH 15:20 → UNDOADMOB 15:20 → 4TH 15:32 → UNDODISOB 11-08 14:34
PROVIDERS: ADMIT Internal Medicine; ATTEND Internal Medicine
DX: J44.1 Chronic obstructive pulmonary disease with (acute) exacerbation (principal); J96.90 Respiratory failure, unspecified, unspecified whether with hypoxia or hypercapnia; B37.0 Candidal stomatitis; R91.8 Other nonspecific abnormal finding of lung field; F17.210 Nicotine dependence, cigarettes, uncomplicated; K50.90 Crohn's disease, unspecified, without complications; F60.9 Personality disorder, unspecified; M54.5 Low back pain; D72.829 Elevated white blood cell count, unspecified; T38.0X5A Adverse effect of glucocorticoids and synthetic analogues, initial encounter; Z85.72 Personal history of non-Hodgkin lymphomas; Z87.820 Personal history of traumatic brain injury; Z79.899 Other long term (current) drug therapy; Z76.5 Malingerer [conscious simulation]
CPT/HCPCS: 36415; 36600; 71045; 71046; 71250; 80053; 80306; 81000; 82805; 84484; 85007; 85025; 85027; 85379; 86703; 87081; 93005; 93970; 94640; 94644; 94760; 94761; 96374; 96375; G0378

== ENCOUNTER → 2017-11-27 | Outpatient (CLI) | payer MEDICARE, MEDICAID ==
[~2017-11-27] MED LIST changes: +ALBU18HF2 INH; +CEFD300C3 PO; +DOXY25TA50 PO; +FLUT12AE4 IH; +LEVO500T80 PO; +LOPE2CAP PO; +LORA10TA7 PO; +MONT10TA24 PO; +NYST1000 PO; +RT-ALBUTEROL SULF 2.5 MG/3 ML PRE-MIX VIAL INH ONE
== END ==
LOC: RT 13:20
PROVIDERS: ATTEND Internal Medicine
DX: R06.00 Dyspnea, unspecified (principal); R09.02 Hypoxemia
CPT/HCPCS: 94060; 94729

== ENCOUNTER 2018-01-29 13:21 | Outpatient (RCR) | payer MEDICARE, MEDICAID ==
[~2018-01-29 13:21] MED LIST changes: +GBPN600T PO; +GUAI-977 PO; -HYDR-3454 PO; +HYDR-3455 PO; -MESA800T3 PO; +MESA800T9 PO; -RT-ALBUTEROL SULF 2.5 MG/3 ML PRE-MIX VIAL INH ONE; -[UNRECOGNIZED DRUG - CODE] PO
[2018-01-29 13:35] LABS: BASOPHILS % (AUTO) 0 % (0-10); EOSINOPHILS # (AUTO) 0.2 10^3/uL (0.0-0.3); EOSINOPHILS % (AUTO) 2 % (0-10); HEMATOCRIT 37 % (40-54); HEMOGLOBIN 12.6 G/DL (13.3-17.7); LYMPHOCYTES # (AUTO) 1.7 X 10^3 (1.0-4.0); LYMPHOCYTES % (AUTO) 15 % (12-44); MEAN CORPUSCULAR HEMOGLOBIN 33 PG (25-34); MEAN CORPUSCULAR HGB CONC 34 G/DL (32-36); MEAN CORPUSCULAR VOLUME 96 FL (80-99); MEAN PLATELET VOLUME 9.8 FL (7.4-10.4); MONOCYTES % (AUTO) 9 % (0-12); NEUTROPHILS # (AUTO) 8.2 X 10^3 (1.8-7.8); NEUTROPHILS % (AUTO) 74 % (42-75); PLATELET COUNT 408 10^3/uL (130-400); RED CELL DISTRIBUTION WIDTH 18.3 % (10.0-14.5)
[2018-01-29 13:53] LABS: ALANINE AMINOTRANSFERASE 14 U/L (0-55); ALBUMIN 4.1 GM/DL (3.2-4.5); ALKALINE PHOSPHATASE 92 U/L (40-136); BILIRUBIN,TOTAL 0.4 MG/DL (0.1-1.0); BUN/CREATININE RATIO 14; CALCIUM 8.8 MG/DL (8.5-10.1); CARBON DIOXIDE 25 MMOL/L (21-32); CHLORIDE 106 MMOL/L (98-107); GFR ESTIMATED > 60; GLUCOSE 67 MG/DL (70-105); POTASSIUM 3.9 MMOL/L (3.6-5.0); SODIUM 142 MMOL/L (135-145); TOTAL PROTEIN 6.6 GM/DL (6.4-8.2)
== END 2018-04-29 | disposition home or self-care (01) ==
LOC: ONC 13:21
PROVIDERS: ATTEND Internal Medicine Hematology & Oncology
DX: C85.80 Other specified types of non-Hodgkin lymphoma, unspecified site (principal); D50.9 Iron deficiency anemia, unspecified; E53.8 Deficiency of other specified B group vitamins; K50.90 Crohn's disease, unspecified, without complications; K21.9 Gastro-esophageal reflux disease without esophagitis; D47.3 Essential (hemorrhagic) thrombocythemia; D72.829 Elevated white blood cell count, unspecified; Z92.21 Personal history of antineoplastic chemotherapy; Z79.899 Other long term (current) drug therapy
CPT/HCPCS: 36415; 80053; 83615; 85025; 99213

== ENCOUNTER 2018-06-05 13:13 | Outpatient (RCR) | payer MEDICARE, MEDICAID ==
[2018-04-10] MEDS: VEDOLIZUMAB 300 MG/NS 250 ML IVPB IV SCH ×2 (13:41)
[2018-04-10 14:36] VITALS: BP 122/78
[2018-04-24 13:05] VITALS: BP 112/76
[2018-04-24] MEDS: VEDOLIZUMAB 300 MG/NS 250 ML IVPB IV SCH ×2 (13:34)
[~2018-06-05] VITALS: Ht 175.3 cm; Wt 57.3 kg
[2018-06-05] MEDS: VEDOLIZUMAB 300 MG/NS 250 ML IVPB IV SCH ×2 (14:17)
[2018-06-05 14:50] VITALS: BP 118/75
== END 2018-07-09 | disposition home or self-care (01) ==
LOC: SDC 13:13
PROVIDERS: ATTEND Internal Medicine Gastroenterology
DX: K50.90 Crohn's disease, unspecified, without complications (principal)
CPT/HCPCS: 96365; J3380

== ENCOUNTER 2018-09-25 12:55 | Outpatient (RCR) | payer MEDICARE, MEDICAID ==
[2018-07-31 13:30] VITALS: BP 131/76
[2018-07-31] MEDS: VEDOLIZUMAB 300 MG/NS 250 ML IVPB IV SCH ×2 (14:02)
[~2018-09-25] VITALS: Ht 175.3 cm; Wt 57.3 kg
[2018-09-25] MEDS: VEDOLIZUMAB 300 MG/NS 250 ML IVPB IV SCH ×2 (13:28)
[2018-09-25 14:00] VITALS: BP 126/89
== END 2018-10-29 | disposition home or self-care (01) ==
LOC: SDC 12:55
PROVIDERS: ATTEND Internal Medicine Gastroenterology
DX: K50.90 Crohn's disease, unspecified, without complications (principal); Z79.899 Other long term (current) drug therapy
CPT/HCPCS: 96365; J3380

== ENCOUNTER → 2018-11-20 | Outpatient (CLI) | payer MEDICARE, MEDICAID ==
[~2018-11-20] VITALS: Ht 175.3 cm; Wt 57.3 kg
[~2018-11-20] MED LIST changes: +VEDOLIZUMAB 300 MG/NS 250 ML IVPB IV SCH
[2018-11-20 14:25] VITALS: BP 139/88
== END ==
LOC: EDSTATUS 10:00 → SDC 13:13
PROVIDERS: ATTEND Internal Medicine Gastroenterology
DX: K50.90 Crohn's disease, unspecified, without complications (principal); Z79.899 Other long term (current) drug therapy
CPT/HCPCS: 96365; J3380

== ENCOUNTER → 2019-01-26 | Outpatient (CLI) | payer MEDICARE, MEDICAID ==
[~2019-01-26] VITALS: Ht 175.3 cm; Wt 57.3 kg
[2019-01-26 14:33] VITALS: BP 134/79
== END ==
LOC: SDC 13:23
PROVIDERS: ATTEND Internal Medicine Gastroenterology
DX: K50.90 Crohn's disease, unspecified, without complications (principal)
CPT/HCPCS: 96365; J3380

== ENCOUNTER → 2019-01-26 | Outpatient (CLI) | payer MEDICARE, MEDICAID ==
[~2019-01-26] MED LIST changes: -VEDOLIZUMAB 300 MG/NS 250 ML IVPB IV SCH
[2019-01-26 10:28] LABS: BASOPHILS # (AUTO) 0.1 10^3/uL (0.0-0.1); BASOPHILS % (AUTO) 0 % (0-10); EOSINOPHILS # (AUTO) 0.3 10^3/uL (0.0-0.3); EOSINOPHILS % (AUTO) 2 % (0-10); HEMATOCRIT 39 % (40-54); LYMPHOCYTES # (AUTO) 3.1 X 10^3 (1.0-4.0); LYMPHOCYTES % (AUTO) 20 % (12-44); MEAN CORPUSCULAR HEMOGLOBIN 30 PG (25-34); MEAN CORPUSCULAR HGB CONC 34 G/DL (32-36); MEAN CORPUSCULAR VOLUME 90 FL (80-99); MEAN PLATELET VOLUME 9.4 FL (7.4-10.4); MONOCYTES # (AUTO) 1.6 X 10^3 (0.0-1.0); MONOCYTES % (AUTO) 10 % (0-12); NEUTROPHILS # (AUTO) 10.5 X 10^3 (1.8-7.8); NEUTROPHILS % (AUTO) 68 % (42-75); PLATELET COUNT 557 10^3/uL (130-400); RED CELL DISTRIBUTION WIDTH 21.4 % (10.0-14.5); WHITE BLOOD COUNT 15.6 10^3/uL (4.3-11.0)
[2019-01-26 10:51] LABS: ALANINE AMINOTRANSFERASE 19 U/L (0-55); ALBUMIN 4.4 GM/DL (3.2-4.5); ALKALINE PHOSPHATASE 96 U/L (40-136); BILIRUBIN,TOTAL 0.4 MG/DL (0.1-1.0); BUN/CREATININE RATIO 16; CALCIUM 9.5 MG/DL (8.5-10.1); CARBON DIOXIDE 28 MMOL/L (21-32); CHLORIDE 101 MMOL/L (98-107); GFR ESTIMATED > 60; GLUCOSE 89 MG/DL (70-105); POTASSIUM 3.9 MMOL/L (3.6-5.0); SODIUM 138 MMOL/L (135-145); TOTAL PROTEIN 7.4 GM/DL (6.4-8.2)
== END ==
LOC: EDSTATUS 04-30 10:19 → ONC 10:21
PROVIDERS: ATTEND Internal Medicine Hematology & Oncology
DX: C85.80 Other specified types of non-Hodgkin lymphoma, unspecified site (principal); D50.9 Iron deficiency anemia, unspecified; E53.8 Deficiency of other specified B group vitamins; K50.90 Crohn's disease, unspecified, without complications; K21.9 Gastro-esophageal reflux disease without esophagitis; D47.3 Essential (hemorrhagic) thrombocythemia; D72.829 Elevated white blood cell count, unspecified; Z92.21 Personal history of antineoplastic chemotherapy; Z79.899 Other long term (current) drug therapy
CPT/HCPCS: 36415; 80053; 85025; 99213

== ENCOUNTER 2019-03-14 13:52 | Emergency (ER) | payer MEDICARE, MEDICAID ==
[~2019-03-14] VITALS: Ht 175 cm; Wt 61.0 kg
[~2019-03-14 13:52] MED LIST changes: +MAGN400T8 PO; +OMEP40CA27 PO
[2019-03-14 14:24] LABS: BASOPHILS % (AUTO) 0 % (0-10); EOSINOPHILS # (AUTO) 0.3 10^3/uL (0.0-0.3); EOSINOPHILS % (AUTO) 2 % (0-10); HEMATOCRIT 38 % (40-54); LYMPHOCYTES # (AUTO) 3.5 X 10^3 (1.0-4.0); LYMPHOCYTES % (AUTO) 27 % (12-44); MEAN CORPUSCULAR HEMOGLOBIN 31 PG (25-34); MEAN CORPUSCULAR HGB CONC 34 G/DL (32-36); MEAN CORPUSCULAR VOLUME 90 FL (80-99); MEAN PLATELET VOLUME 9.7 FL (7.4-10.4); MONOCYTES # (AUTO) 1.4 X 10^3 (0.0-1.0); MONOCYTES % (AUTO) 11 % (0-12); NEUTROPHILS # (AUTO) 7.6 X 10^3 (1.8-7.8); NEUTROPHILS % (AUTO) 59 % (42-75); PLATELET COUNT 470 10^3/uL (130-400); RED CELL DISTRIBUTION WIDTH 20.6 % (10.0-14.5); WHITE BLOOD COUNT 12.8 10^3/uL (4.3-11.0)
[2019-03-14] MEDS ORDERED: methylPREDNISolone 125 MG (Solu-MEDROL) VIAL IVP ONE (14:30)
[2019-03-14] MEDS ORDERED: KETOROLAC 30 MG/ML VIAL IVP ONE (14:30)
[2019-03-14] MEDS ORDERED: diphenhydrAMINE 50 MG/ML INJ (BENADRYL) IVP ONE (14:30)
[2019-03-14] MEDS ORDERED: fentaNYL INJECTION 100 MCG/2 ML AMP IVP ONE ×2 (14:30→17:15)
[2019-03-14 14:45] LABS: ALANINE AMINOTRANSFERASE 17 U/L (0-55); ALBUMIN 4.4 GM/DL (3.2-4.5); ALKALINE PHOSPHATASE 86 U/L (40-136); BILIRUBIN,TOTAL 0.5 MG/DL (0.1-1.0); BUN/CREATININE RATIO 15; CALCIUM 9.2 MG/DL (8.5-10.1); CARBON DIOXIDE 23 MMOL/L (21-32); CHLORIDE 103 MMOL/L (98-107); CREATININE SERUM 0.78 MG/DL (0.60-1.30); GFR ESTIMATED > 60; GLUCOSE 99 MG/DL (70-105); POTASSIUM 3.4 MMOL/L (3.6-5.0); SODIUM 139 MMOL/L (135-145); TOTAL PROTEIN 7.3 GM/DL (6.4-8.2)
--- NOTE | 2019-03-14 15:13 | ED Abdominal Pain ---
General Chief Complaint: Abdominal/GI Problems Stated Complaint: LOWER ABD PAIN Nursing Triage Note: PT TO ED W/ C/O RT GROIN PAIN ONSET 40 MINUTES PRIOR TO ARRIVAL. PT REPORTS WAS STANDING UP TO URINATE WHEN HE NOTICE A LG LUMP IN HIS RT GROIN AREA. DENIES INJURY. NO OTHER C/O VOICED. Sepsis Screen: No Definite Risk Source of Information: Patient Exam Limitations: No Limitations History of Present Illness Date Seen by Provider: Mar 14, 2019 Time Seen by Provider: 14:00 Initial Comments To ER by caregiver with reports of right groin pain about 40 minutes prior to arrival. He was standing up to urinate when he noticed a large bulge form in this area. History of hernias as well as bowel resection as well as foreign body ingestion. Timing/Duration: 1/2 Hour Severity/Quality: Moderate Location: LLQ Radiation: No Radiation Activities at Onset: None Associated Symptoms: Denies Symptoms Allergies and Home Medications Allergies Coded Allergies: ceftazidime (Verified Allergy, Intermediate, RASH, 06/15/16) nalbuphine (Unverified Allergy, Mild, RASH, 03/29/06) Iodinated Contrast- Oral and IV Dye (Verified Allergy, Unknown, HIVES, 05/02/15) Sulfa (Sulfonamide Antibiotics) (Verified Allergy, Unknown, 03/29/06) latex (Verified Allergy, Unknown, 05/03/15) strawberry (Unverified Allergy, Unknown, 12/18/13) FROM UNCODED ALLERGIES Uncoded Allergies: TAPE (Allergy, Unknown, 03/29/06) Home Medications Acetaminophen 325 Mg Tablet, 650 MG PO Q6H PRN for PAIN-MILD OR TEMPATURE, (Reported) TAKES 2 (325MG) TABLETS Albuterol Sulfate 18 Gm Hfa.aer.ad, 2 PUFF INH Q6H PRN for SHORTNESS OF BREATH, (Reported) Ascorbate Calcium 500 Mg Tablet, 500 MG PO DAILY, (Reported) Cefdinir 300 Mg Capsule, 300 MG PO BID Prescribed by: MEHDI AMBROCIO on 11/08/17 1004 Cyanocobalamin 1,000 Mcg/Ml Inj, 1,000 MCG INJ MONTHLY, (Reported) Dicyclomine HCl 10 Mg Capsule, 10 MG PO ACHS, (Reported) Diphenhydramine HCl 25 Mg Capsule, 25 MG PO UD PRN for ITCHING, (Reported) Docusate Sodium 100 Mg Capsule, 100 MG PO BID, (Reported) Doxylamine Succinate 25 Mg Tablet, 25 MG PO HS PRN for SLEEP, (Reported) Famotidine 20 Mg Tablet, 20 MG PO HS, (Reported) Fluticasone/Salmeterol 12 Gm Hfa.aer.ad, 2 PUFF IH BID@08,20 Prescribed by: MEHDI AMBROCIO on 11/08/171003 Gabapentin 600 Mg Tablet, 600 MG PO TID, (Reported) Guaifenesin 600 Mg Tab.er.12h, 600 MG PO BID PRN for CONGESTION, (Reported) Guaifenesin/D-Methorphan Hb/PE 118 Ml Liquid, PO UD PRN for COUGH/COLD, (Reported) Hydrocodone Bit/Acetaminophen 1 Tab Tab, 1 TAB PO Q4H PRN for PAIN-MODERATE Prescribed by: MEHDI AMBROCIO on 11/08/171003 Hydrocortisone 28.35 Gm Cream..g., TP UD PRN for SKIN, (Reported) 1% Hyoscyamine Sulfate 0.125 Mg Tablet, 0.125 MG PO Q6H PRN for PAIN, (Reported) Loperamide HCl 2 Mg Capsule, 4 MG PO BID, (Reported) TAKES 2 (2MG) CAPSULES Loratadine 10 Mg Tablet, 10 MG PO DAILY Prescribed by: MEHDI AMBROCIO on 11/08/171003 Magnesium Oxide 400 Mg Tablet, 400 MG PO DAILY, (Reported) Menthol 4.8 Mg Lozenge, 1 TAB MM UD PRN for COUGH, (Reported) Mesalamine 800 Mg Tablet.dr, 2,400 MG PO BID, (Reported) TAKES 3 (800MG) TABLETS Miconazole Nitrate 43 Gm Powder, TP UD PRN for FOOT WETNESS AND ODOR, (Reported) Montelukast Sodium 10 Mg Tablet, 10 MG PO HS Prescribed by: MEHDI AMBROCIO on 11/08/171003 Multivit-Min/FA/Lycopene/Lut 1 Each Tablet, 1 TAB PO DAILY, (Reported) Neomycin/Polymyxin/Bacitracin 0.9 Gm Oint, TP UD PRN for SKIN, (Reported) Nystatin 100,000 Unit/1 Ml Oral.susp, 5 ML PO Q6HR Prescribed by: MEHDI AMBROCIO on 11/08/171003 Omeprazole 40 Mg Capsule.dr, 40 MG PO BID, (Reported) Polyethylene Glycol 3350 17 Gm Powd.pack, 17 GM PO DAILY PRN for CONSTIPATION- 2ND LINE, (Reported) Prednisone 10 Mg Tab.ds.pk, 10 MG PO DAILY Take 6 tabs(60mg)daily,decrease by 1 tab(10MG)daily. Prescribed by: MEHDI AMBROCIO on 11/08/17 1004 [Blue Goo] , TOP QID PRN for NEEDED, (Reported) Patient Home Medication List Home Medication List Reviewed: Yes Review of Systems Review of Systems Constitutional: see HPI EENTM: No Symptoms Reported Respiratory: No Symptoms Reported Cardiovascular: No Symptoms Reported Gastrointestinal: See HPI, Abdominal Pain Genitourinary: No Symptoms Reported Musculoskeletal: no symptoms reported Skin: no symptoms reported Psychiatric/Neurological: No Symptoms Reported Endocrine: No Symptoms Reported Past Ubkugtu-Hquvyi-Bzyfgb Hx Patient Social History Alcohol Use: Occasionally Uses Alcohol Beverage of Choice: Beer Recreational Drug Use: Yes Drug of Choice: MARIJUANA Smoking Status: Current Everyday Smoker Type Used: Cigarettes Recent Foreign Travel: No Contact w/Someone Who Travel: No Recent Infectious Disease Expo: No Recent Hopitalizations: No Physical Abuse: No Sexual Abuse: No Mistreated: No Fear: No Immunizations Up To Date Date of Pneumonia Vaccine: Feb 25, 2015 Date of Influenza Vaccine: Feb 25, 2015 Seasonal Allergies Seasonal Allergies: No Past Medical History Surgeries: No (EAR SURGERIES TO PREVENT HEARING LOSS CHILD, 3 BOWEL RESECTIONS, RECTAL ) Abdominal, Appendectomy, Bowel Surgery, Gallbladder, Tonsillectomy Respiratory: No Cardiac: No Neurological: Yes (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 ) Adverse Reaction/Blood Tranf: No Family Medical History No Family History of: Abdominal aortic aneurysm Ankit's disease Alcoholism Aphasia Cancer Cancer of colon Cataract Chest pain Congenital heart disease Congestive heart failure Cystic fibrosis Dementia Dysphagia Family history: Allergy Family history: Alzheimer's disease Family history: Arthritis Family history: Asthma Family history: Breast disease Family history: Cardiovascular disease Family history: Coronary thrombosis Family history: Diabetes mellitus Family history: Gastrointestinal disease Family history: Glaucoma Family history: Hypertension Family history: Osteoporosis Family history: Thyroid disorder Headache Hearing loss Heart disease Hereditary disease History of - anemia History of - disorder History of - respiratory disease History of drug abuse Human immunodeficiency virus (HIV) seropositivity Hypercholesterolemia Infertile Kidney disease Malignant neoplasm of lung Myocardial infarction Parkinson's disease Prostate cancer Psychotic disorder Seizure disorder Stroke Tuberculosis Visual impairment Diabetes Physical Exam Vital Signs Vital Signs - First Documented 03/14/19 13:59 Temp 36.7 Pulse 68 Resp 20 B/P (MAP) 158/88 (111) Pulse Ox 99 O2 Delivery Room Air Capillary Refill : Less Than 3 Seconds Height/Weight/BMI Height: 5'9.00" Weight: 126lbs. 5.0oz. [id number]; 19.00 BMI Method:Stated General Appearance: WD/WN, no apparent distress HEENT: PERRL/EOMI, normal ENT inspection Respiratory: no respiratory distress, no accessory muscle use Cardiovascular: regular rate, rhythm, no murmur Gastrointestinal: normal bowel sounds, soft, other (there is a tender bulge right inguinal are not able to reduce due to pain. We'll give pain medication, CT scan, then reattempt reduction.) Extremities: normal range of motion, non-tender Neurologic/Psychiatric: alert, normal mood/affect, oriented x 3 Skin: normal color, warm/dry Progress/Results/Core Measures Results/Orders Lab Results Laboratory Tests Test 03/14/19 14:15 03/14/19 16:28 Range/Units White Blood Count 12.8 H 4.3-11.0 10^3/uL Red Blood Count 4.20 L 4.35-5.85 10^6/uL Hemoglobin 13.0 L 13.3-17.7 G/DL Hematocrit 38 L 40-54 % Mean Corpuscular Volume 90 80-99 FL Mean Corpuscular Hemoglobin 31 25-34 PG Mean Corpuscular Hemoglobin Concent 34 32-36 G/DL Red Cell Distribution Width 20.6 H 10.0-14.5 % Platelet Count 470 H 130-400 10^3/uL Mean Platelet Volume 9.7 7.4-10.4 FL Neutrophils (%) (Auto) 59 42-75 % Lymphocytes (%) (Auto) 27 12-44 % Monocytes (%) (Auto) 11 0-12 % Eosinophils (%) (Auto) 2 0-10 % Basophils (%) (Auto) 0 0-10 % Neutrophils # (Auto) 7.6 1.8-7.8 X 10^3 Lymphocytes # (Auto) 3.5 1.0-4.0 X 10^3 Monocytes # (Auto) 1.4 H 0.0-1.0 X 10^3 Eosinophils # (Auto) 0.3 0.0-0.3 10^3/uL Basophils # (Auto) 0.0 0.0-0.1 10^3/uL Sodium Level 139 135-145 MMOL/L Potassium Level 3.4 L 3.6-5.0 MMOL/L Chloride Level 103 98-107 MMOL/L Carbon Dioxide Level 23 21-32 MMOL/L Anion Gap 13 5-14 MMOL/L Blood Urea Nitrogen 12 7-18 MG/DL Creatinine 0.78 0.60-1.30 MG/DL Estimat Glomerular Filtration Rate > 60 BUN/Creatinine Ratio 15 Glucose Level 99 70-105 MG/DL Calcium Level 9.2 8.5-10.1 MG/DL Corrected Calcium 8.9 8.5-10.1 MG/DL Total Bilirubin 0.5 0.1-1.0 MG/DL Aspartate Amino Transf (AST/SGOT) 17 5-34 U/L Alanine Aminotransferase (ALT/SGPT) 17 0-55 U/L Alkaline Phosphatase 86 40-136 U/L Total Protein 7.3 6.4-8.2 GM/DL Albumin 4.4 3.2-4.5 GM/DL Urine Color YELLOW Urine Clarity CLEAR Urine pH 7.0 5-9 Urine Specific [place] 1.025 H 1.016-1.022 Urine Protein TRACE NEGATIVE Urine Glucose (UA) NEGATIVE NEGATIVE Urine Ketones TRACE H NEGATIVE Urine Nitrite NEGATIVE NEGATIVE Urine Bilirubin NEGATIVE NEGATIVE Urine Urobilinogen 0.2 < = 1.0 MG/DL Urine Leukocyte Esterase NEGATIVE NEGATIVE Urine RBC (Auto) NEGATIVE NEGATIVE Urine RBC RARE /HPF Urine WBC RARE /HPF Urine Squamous Epithelial Cells NONE /HPF Urine Crystals NONE /LPF Urine Bacteria TRACE /HPF Urine Casts NONE /LPF Urine Mucus SMALL H /LPF Urine Culture Indicated NO My Orders Orders - MITESH WARNER [employer] HELPER Cbc With Automated Diff (03/14/19 14:18) Comprehensive Metabolic Panel (03/14/19 14:18) Ua Culture If Indicated (03/14/19 14:18) Ed Iv/Invasive Line Start (03/14/19 14:18) Fentanyl Injection (Sublimaze Injection (03/14/19 14:30) Ketorolac Injection (Toradol Injection) (03/14/19 14:30) Ct Abdomen/Pelvis Wo (03/14/19 14:18) Diphenhydramine Injection (Benadryl Inje (03/14/19 14:30) Methylprednisolone Sod Succ (Solu-Medrol (03/14/19 14:30) Diatrizoate Meglum/Sodium 37% (Gastrogra (03/14/19 16:00) Fentanyl Injection (Sublimaze Injection (03/14/19 17:15) Medications Given in ED Current Medications Medications Dose Ordered Sig/Sudheer Route Start Time Stop Time Status Last Admin Dose Admin Diatrizoate Meglum/ Diatrizoate Sod 120 ml ONCE ONCE PO 03/14/19 16:00 03/14/19 16:01 DC 03/14/19 15:53 50 ML Diphenhydramine HCl 25 mg ONCE ONCE IVP 03/14/19 14:30 03/14/19 14:31 DC 03/14/19 14:34 25 MG Fentanyl Citrate 50 mcg ONCE ONCE IVP 03/14/19 14:30 03/14/19 14:31 DC 03/14/19 14:32 50 MCG Fentanyl Citrate 75 mcg ONCE ONCE IVP 03/14/19 17:15 03/14/19 17:16 DC 03/14/19 17:14 75 MCG Ketorolac Tromethamine 15 mg ONCE ONCE IVP 03/14/19 14:30 03/14/19 14:31 DC 03/14/19 14:29 15 MG Methylprednisolone Sodium Succinate 125 mg ONCE ONCE IVP 03/14/19 14:30 03/14/19 14:31 DC 03/14/19 14:32 125 MG Vital Signs/I&O 03/14/19 13:59 Temp 36.7 Pulse 68 Resp 20 B/P (MAP) 158/88 (111) Pulse Ox 99 O2 Delivery Room Air Blood Pressure Mean: 111 Departure Communication (Admissions) 1727-I was able to partially reduce the palpable right inguinal hernia, it is reduced in size to about nickel size. No large hernias seen on CT, at least none containing loops of bowel. I will send him home with pain control and surgical follow-up. Impression Primary Impression: Right inguinal hernia Disposition: HOME, SELF-CARE Condition: Stable Departure-Patient Inst. Decision time for Depature: 17:27 Referrals: NURY BUTT BRETT D DO KIDO, TAKAAKI MD SULLIVAN, WILLIAM J DO (PCP/Family) Primary Care Physician Patient Instructions: Hernia Repair (DC) Add. Discharge Instructions: 1. Call a surgeon of your choosing on Saturday to make an appointment to be seen for follow-up. Return to ER for any concerns in the meantime such as worsening pain, inability to have a bowel movement or passed gas, vomiting high fever. All discharge instructions reviewed with patient and/or family. Voiced understanding. Scripts Docusate Sodium (Colace) 100 Mg Capsule 100 MG PO DAILY, #14 CAP Prov: MITESH WARNER [employer] HELPER 03/14/19 Hydrocodone/Acetaminophen ([place] 5-325 Tablet) 1 Each Tablet 1 TAB PO Q4-6HR for Pain MDD 10 TABS for 7 Days, #10 TAB Prov: MITESH WARNER APRN 03/14/19 MITESH WARNER APRN Mar 14, 2019 15:13
[2019-03-14] MEDS ORDERED: DIATRIZOATE MEGLUM/SODIUM 37% 120 ML (GASTROGRAFIN) PO ONE (16:00)
--- NOTE | 2019-03-14 16:01 | Diagnostic Imaging Report ---
Procedure: CT abdomen and pelvis without contrast. Technique: Multiple contiguous axial images were obtained through the abdomen and pelvis without the use of intravenous contrast. Auto Exposure Controls were utilized during the CT exam to meet ALARA standards for radiation dose reduction. Indication: Abdominal pain, dysuria, palpable right inguinal lump. Comparison: 11/15/2015. Discussion: The lung bases are unremarkable. Normal heart size. No pleural or pericardial fluid. Granulomatous disease is again noted within the liver, benign. The gallbladder appears to be surgically absent. The stomach, pancreas and adrenal glands are unremarkable. Prior splenectomy. No renal stone or hydronephrosis. The aorta is normal in caliber. Urinary bladder and prostate are unremarkable. No obstruction, pneumatosis or pneumoperitoneum. No ascites or pathologically enlarged lymph nodes are identified. The appendix is surgically absent. No osseous abnormality identified. Impression: No acute abnormality in either the abdomen or pelvis. Dictated by: Dictated on workstation # [id number]
[2019-03-14 16:37] LABS: BILIRUBIN,URINE NEGATIVE (NEGATIVE); CLARITY,URINE CLEAR; COLOR,URINE YELLOW; GLUCOSE, URINE (UA) NEGATIVE (NEGATIVE); KETONES,URINE TRACE (NEGATIVE); LEUKOCYTE ESTERASE ,URINE NEGATIVE (NEGATIVE); NITRITE,URINE NEGATIVE (NEGATIVE); PROTEIN,URINE TRACE (NEGATIVE)
[2019-03-14 16:45] LABS: BACTERIA,URINE TRACE /HPF; RBC,URINE RARE /HPF; WBC,URINE RARE /HPF
[2019-03-14] MEDS ORDERED: HYDR-4226 PO (17:29)
[2019-03-14] MEDS ORDERED: DOCU-143 PO (17:29)
[2019-03-14 17:47] VITALS: BP 117/68
== END 2019-03-14 17:50 | disposition home or self-care (01) ==
LOC: EDUNIT# 13:52 → ER 13:53
DX: K40.90 Unilateral inguinal hernia, without obstruction or gangrene, not specified as recurrent (principal); F60.9 Personality disorder, unspecified; K50.90 Crohn's disease, unspecified, without complications; Z85.72 Personal history of non-Hodgkin lymphomas; Z90.89 Acquired absence of other organs; Z87.820 Personal history of traumatic brain injury; Z88.1 Allergy status to other antibiotic agents; Z91.041 Radiographic dye allergy status; Z88.2 Allergy status to sulfonamides; Z91.040 Latex allergy status; Z88.8 Allergy status to other drugs, medicaments and biological substances; Z79.51 Long term (current) use of inhaled steroids; Z79.52 Long term (current) use of systemic steroids
CPT/HCPCS: 36415; 74176; 80053; 81000; 85025; 96374; 96375; 96376

== ENCOUNTER 2019-03-19 05:38 | Outpatient (CLI) | payer MEDICARE, MEDICAID ==
[~2019-03-19] VITALS: Ht 175.3 cm; Wt 59.1 kg
[~2019-03-19 05:38] MED LIST changes: +HYDR-4226 PO
[2019-03-19] MEDS ORDERED: BUDE9TAB PO (14:20)
== END 2019-03-19 14:22 | disposition home or self-care (01) ==
LOC: PREOP 05:38
PROVIDERS: ATTEND Surgery
DX: Z01.818 Encounter for other preprocedural examination (principal)

== ENCOUNTER 2019-03-24 13:10 | Outpatient (RCR) | payer MEDICARE, MEDICAID ==
[~2019-03-24] VITALS: Ht 172.7 cm; Wt 59.1 kg
[~2019-03-24 13:10] MED LIST changes: -CLAR-19 PO; +CLAR-31 PO; -MONT10TA24 PO; +MONT10TA26 PO
[2019-03-24 13:15] VITALS: BP 122/88
[2019-03-24] MEDS ORDERED: VEDOLIZUMAB 300 MG/NS 250 ML IVPB IV SCH ×2 (13:19)
[2019-03-26] MEDS ORDERED: DOCU-143 PO (10:42)
== END 2019-06-22 | disposition home or self-care (01) ==
LOC: SDC 13:10
PROVIDERS: ATTEND Internal Medicine Gastroenterology
DX: K50.90 Crohn's disease, unspecified, without complications (principal)
CPT/HCPCS: 96365; J3380

== ENCOUNTER 2019-03-26 08:48 | Day surgery (SDC) | payer MEDICARE, MEDICAID ==
[2019-03-26] VITALS (12 sets, daily range): BP systolic 111–130; BP diastolic 71–88
[~2019-03-26] VITALS: Ht 175.3 cm; Wt 59.1 kg
[~2019-03-26 08:48] MED LIST changes: +CLAR-19 PO; -CLAR-31 PO; +MONT10TA24 PO; -MONT10TA26 PO
[2019-03-26] MEDS ORDERED: CLINDAMYCIN 600 MG/50 ML IVPB 50 ML IV ONE (09:00)
[2019-03-26] MEDS ORDERED: BUP/EPI 0.5% 1:200,000 (SENSORCAINE) 30 ML VIAL ONE (09:03)
[2019-03-26] MEDS ORDERED: proPOfol 200 MG/20 ML (DIPRIVAN) VIAL IV ONE (09:24)
[2019-03-26] MEDS ORDERED: ROCURONIUM 10 MG/ML 5 ML SYRINGE IV ONE (09:24)
[2019-03-26] MEDS ORDERED: ONDANSETRON 4 MG/2 ML (SDV) Z0FRAN ONE (09:24)
[2019-03-26] MEDS ORDERED: LIDOCAINE PF 2% 5 ML (XYLOCAINE) VIAL ONE (09:24)
[2019-03-26] MEDS ORDERED: fentaNYL INJECTION 100 MCG/2 ML AMP ONE (09:24)
[2019-03-26] MEDS: LACTATED RINGERS 1,000 ML IV PRN ×2 (09:25→10:21)
[2019-03-26] MEDS ORDERED: MIDAZOLAM 2 MG/2 ML (VERSED) VIAL ONE (09:25)
[2019-03-26] MEDS ORDERED: SEVOFLURANE (ULTANE) 15 ML INHAL SOLN ONE ×2 (09:28→10:39)
--- NOTE | 2019-03-26 09:51 | Progress Note-Pre Operative ---
Pre-Operative Progress Note H&P Reviewed The H&P was reviewed, patient examined and no changes noted. Date Seen by Provider: Mar 26, 2019 Time Seen by Provider: 09:51 Date H&P Reviewed: Mar 26, 2019 Time H&P Reviewed: 09:51 Pre-Operative Diagnosis: right inguinal hernia MIRA CARO DO Mar 26, 2019 09:51
[2019-03-26] MEDS ORDERED: SUCCINYLCHOLINE INJ 100 MG/5 ML SYR ONE (10:01)
--- NOTE | 2019-03-26 10:40 | Progress Note-Post Operative ---
Post-Operative Progess Note Surgeon (s)/Thoracic Medicine Specialist (s) Surgeon MIRA CARO DO Thoracic Medicine Specialist: Dr. Doss Pre-Operative Diagnosis right inguinal hernia Post-Operative Diagnosis right femoral hernia Procedure & Operative Findings Date of Procedure 03/26/19 Procedure Performed/Findings open right femoral hernia Anesthesia Type general Estimated Blood Loss Estimated blood loss (mL): min Specimens/Packing Specimens Removed na MIRA CARO DO Mar 26, 2019 10:40
[2019-03-26] MEDS ORDERED: DOCU-143 PO (10:42)
--- NOTE | 2019-03-26 10:44 | Discharge Inst-Simple/Standard ---
Discharge Inst-Standard Discharge Medications New, Converted or Re-Newed RX: Transmitted to Pharmacy Patient Instructions/Follow Up Plan of Care/Instructions/FU: 2-3 weeks Gary Activity as Tolerated: No Discharge Diet: Regular Diet Other Inst to Patient Follow up Appt: Make appointment for 2-3 week. Instructions: No lifting greater than 10 pounds. No strenuous activity. May shower in 24 hours, no tub bath or soaking. Use incentive spirometer at home as directed. No Smoking Skin/Wound Care: You have special glue over incision it will fall off on its own. Symptoms to Report: Appetite Changes, Extremity Discoloration, Numbness/Tingling, Swelling Increased, Bleeding Excessive, Eyesight Changes, Pain Increased, Urine Color Change, Constipation(Persistent), Fever over 101 degree F, Pain/Pressure in chest, Urinating Difficulty, Cough Up/Vomit Blood, Heart Beat Irreg/Pounding, Pain/Pressure in jaw, Vaginal Bleeding Increase, Cramps in feet or legs, Lightheadedness, Pain/Pressure in shoulder, Diarrhea(Persistent), Memory Changes Suddenly, Questions/Concerns, Weight gain consecutive days, Dizziness/Fainting, Nausea/Vomiting, Shortness of Breath, Weight gain over 2 pounds If questions or concerns contact your physician Or seek help at emergency department. MIRA CARO DO Mar 26, 2019 10:44
[2019-03-26] MEDS ORDERED: morphine INJ 10 MG/ML 1ML (SYR OR VIAL) ONE (10:46)
[2019-03-26] MEDS ORDERED: morphine INJ 10 MG/ML 1ML (SYR OR VIAL) IVP ONE (11:00)
[2019-03-26] MEDS ORDERED: MEPERIDINE (DEMEROL) INJ 50 MG/ML IVP ONE (11:00)
[2019-03-26] MEDS ORDERED: ONDANSETRON 4 MG/2 ML (SDV) Z0FRAN IVP PRN (11:00)
[2019-03-26] MEDS ORDERED: PROMETHAZINE INJ 25 MG/ML (PHENERGAN) AMP IVP ONE (11:00)
[2019-03-26] MEDS ORDERED: HYDROmorphone 2 MG/ML VIAL (DILAUDID) IV ONE (11:00)
[2019-03-26] MEDS ORDERED: HYDROmorphone 2 MG/ML VIAL (DILAUDID) ONE (11:05)
[2019-03-26] MEDS ORDERED: HYDROcodone/APAP 5 MG/325 MG (LORTAB) TAB ONE (12:20)
[2019-03-26] MEDS ORDERED: HYDROcodone/APAP 5 MG/325 MG (LORTAB) TAB PO ONE (12:30)
--- NOTE | 2019-03-27 00:17 | OPERATIVE REPORT ---
DATE OF SERVICE: 03/26/2019 PREOPERATIVE DIAGNOSIS: Right inguinal hernia. POSTOPERATIVE DIAGNOSIS: Right femoral hernia. PROCEDURE: Open right femoral hernia repair. SURGEON: Mira Vega DO BEHAVIORAL INTERVENTION SPECIALIST: Dr. Doss, assisted in retraction, dissection and closure. ANESTHESIA: General. ESTIMATED BLOOD LOSS: Minimal. COMPLICATIONS: None. INDICATIONS: The patient is a 44-year-old male with a right inguinal hernia. He understands risks and benefits of procedure and wished to proceed with procedure. Consent was signed in the chart. DESCRIPTION OF PROCEDURE: The patient was taken to the operating suite, was prepped and draped in sterile fashion. Surgical pause was performed. Local anesthetic was infiltrated in the right lower quadrant and a 15 blade scalpel was used to make a skin incision in the right lower quadrant. Cautery was used to dissect down to the external oblique, which was then mobilized. Large amount of fat just below the shelving edge, which was then noted to be a right femoral hernia, contents were able to be reduced. A plug mesh was then inserted through the defect and then sutured in place using 3-0 Vicryl circumferentially. The wound was then irrigated with copious amounts of irrigation and suctioned. The subcutaneous tissues were then reapproximated using 3-0 Vicryl and the skin was then closed using 4-0 Monocryl in a running subcuticular fashion. The area was washed and dried and Skin Affix was placed over the incision. The patient tolerated procedure well without any complications and taken to recovery room in stable condition. Job ID: [id number] DocumentID: [id number] Dictated Date: 03/26/2019 19:19:26 Project Safety Manager Date: 03/27/2019 00:17:03 Dictated By: MIRA VEGA DO
== END 2019-03-26 12:45 | disposition home or self-care (01) ==
LOC: SDC 08:48
PROVIDERS: ATTEND Surgery
DX: K41.90 Unilateral femoral hernia, without obstruction or gangrene, not specified as recurrent (principal); K21.9 Gastro-esophageal reflux disease without esophagitis; K50.90 Crohn's disease, unspecified, without complications; D50.9 Iron deficiency anemia, unspecified; J44.9 Chronic obstructive pulmonary disease, unspecified; F41.9 Anxiety disorder, unspecified; F17.210 Nicotine dependence, cigarettes, uncomplicated; F32.9 Major depressive disorder, single episode, unspecified; Z85.72 Personal history of non-Hodgkin lymphomas; Z79.899 Other long term (current) drug therapy; Z91.041 Radiographic dye allergy status; Z91.040 Latex allergy status; Z88.2 Allergy status to sulfonamides; Z91.018 Allergy to other foods; Z91.048 Other nonmedicinal substance allergy status; Z88.8 Allergy status to other drugs, medicaments and biological substances
CPT/HCPCS: 87081; 94664

== ENCOUNTER → 2019-03-30 | Outpatient (CLI) | payer MEDICARE, MEDICAID ==
[2019-03-30 11:04] LABS: BASOPHILS % (AUTO) 0 % (0-10); EOSINOPHILS # (AUTO) 0.1 10^3/uL (0.0-0.3); EOSINOPHILS % (AUTO) 1 % (0-10); HEMATOCRIT 39 % (40-54); HEMOGLOBIN 13.1 G/DL (13.3-17.7); LYMPHOCYTES # (AUTO) 2.8 X 10^3 (1.0-4.0); LYMPHOCYTES % (AUTO) 21 % (12-44); MEAN CORPUSCULAR HEMOGLOBIN 31 PG (25-34); MEAN CORPUSCULAR HGB CONC 34 G/DL (32-36); MEAN CORPUSCULAR VOLUME 91 FL (80-99); MEAN PLATELET VOLUME 10.4 FL (7.4-10.4); MONOCYTES # (AUTO) 1.2 X 10^3 (0.0-1.0); MONOCYTES % (AUTO) 9 % (0-12); NEUTROPHILS # (AUTO) 9.1 X 10^3 (1.8-7.8); NEUTROPHILS % (AUTO) 69 % (42-75); PLATELET COUNT 405 10^3/uL (130-400); RED CELL DISTRIBUTION WIDTH 20.7 % (10.0-14.5); WHITE BLOOD COUNT 13.3 10^3/uL (4.3-11.0)
== END ==
LOC: ONC 10:51
PROVIDERS: ATTEND Internal Medicine Hematology & Oncology
DX: C85.19 Unspecified B-cell lymphoma, extranodal and solid organ sites (principal); D50.9 Iron deficiency anemia, unspecified; K50.90 Crohn's disease, unspecified, without complications; D47.3 Essential (hemorrhagic) thrombocythemia
CPT/HCPCS: 85025; 99213

== ENCOUNTER 2019-07-14 12:55 | Outpatient (RCR) | payer MEDICARE, MEDICAID ==
[~2019-07-14 12:55] MED LIST changes: -CLAR-19 PO; +CLAR-31 PO; -MONT10TA24 PO; +MONT10TA26 PO
[2019-07-14] MEDS ORDERED: VEDOLIZUMAB 300 MG/NS 250 ML IVPB IV SCH ×2 (13:06)
[2019-07-14 14:06] VITALS: BP 127/75
== END 2019-07-14 14:06 | disposition home or self-care (01) ==
LOC: SDC 12:55
PROVIDERS: ATTEND Internal Medicine Gastroenterology
DX: K50.90 Crohn's disease, unspecified, without complications (principal)
CPT/HCPCS: 96365; J3380

== ENCOUNTER 2019-09-08 12:49 | Outpatient (CLI) | payer MEDICARE, MEDICAID ==
[2019-09-08] MEDS ORDERED: VEDOLIZUMAB 300 MG/NS 250 ML IVPB IV SCH ×2 (12:58)
[2019-09-08 13:51] VITALS: BP 128/75
== END 2019-09-08 13:51 | disposition home or self-care (01) ==
LOC: SDC 12:49 → EDSTATUS 13:00 → SDC 13:51
PROVIDERS: ATTEND Internal Medicine Gastroenterology
DX: K50.90 Crohn's disease, unspecified, without complications (principal)
CPT/HCPCS: 96365; J3380

== ENCOUNTER → 2019-11-03 | Outpatient (CLI) | payer MEDICARE, MEDICAID ==
[~2019-11-03] MED LIST changes: +VEDOLIZUMAB 300 MG/NS 250 ML IVPB IV SCH
[2019-11-03 12:55] VITALS: BP 116/72
== END ==
LOC: SDC 12:48 → EDSTATUS 13:30
PROVIDERS: ATTEND Internal Medicine Gastroenterology
DX: K50.90 Crohn's disease, unspecified, without complications (principal)
CPT/HCPCS: 96365; J3380

== ENCOUNTER → 2019-11-30 | Outpatient (CLI) | payer MEDICARE, MEDICAID ==
[~2019-11-30] MED LIST changes: -VEDOLIZUMAB 300 MG/NS 250 ML IVPB IV SCH
[2019-11-30 13:40] LABS: BASOPHILS # (AUTO) 0.1 10^3/uL (0.0-0.1); BASOPHILS % (AUTO) 0 % (0-10); EOSINOPHILS # (AUTO) 0.3 10^3/uL (0.0-0.3); EOSINOPHILS % (AUTO) 2 % (0-10); HEMATOCRIT 36 % (40-54); HEMOGLOBIN 12.2 g/dL (13.3-17.7); LYMPHOCYTES # (AUTO) 3.2 10^3/uL (1.0-4.0); LYMPHOCYTES % (AUTO) 26 % (12-44); MEAN CORPUSCULAR HEMOGLOBIN 31 pg (25-34); MEAN CORPUSCULAR HGB CONC 34 g/dL (32-36); MEAN CORPUSCULAR VOLUME 91 fL (80-99); MEAN PLATELET VOLUME 9.6 fL (9.0-12.2); MONOCYTES # (AUTO) 1.1 10^3/uL (0.0-1.0); MONOCYTES % (AUTO) 9 % (0-12); NEUTROPHILS # (AUTO) 7.6 10^3/uL (1.8-7.8); NEUTROPHILS % (AUTO) 62 % (42-75); PLATELET COUNT 427 10^3/uL (130-400); WHITE BLOOD COUNT 12.2 10^3/uL (4.3-11.0)
== END ==
LOC: ONC 13:34
PROVIDERS: ATTEND Internal Medicine Hematology & Oncology
DX: C85.19 Unspecified B-cell lymphoma, extranodal and solid organ sites (principal); D50.9 Iron deficiency anemia, unspecified; K50.90 Crohn's disease, unspecified, without complications; D72.829 Elevated white blood cell count, unspecified; Z90.49 Acquired absence of other specified parts of digestive tract; Z98.890 Other specified postprocedural states
CPT/HCPCS: 85025; G0463; 99213

== ENCOUNTER 2019-12-29 13:01 | Outpatient (CLI) | payer MEDICARE, MEDICAID ==
[2019-12-29] MEDS ORDERED: VEDOLIZUMAB 300 MG/NS 250 ML IVPB IV SCH ×2 (13:09)
[2019-12-29 13:25] VITALS: BP 122/88
== END 2019-12-29 14:10 | disposition home or self-care (01) ==
LOC: SDC 13:01
PROVIDERS: ATTEND Internal Medicine Gastroenterology
DX: K50.90 Crohn's disease, unspecified, without complications (principal)
CPT/HCPCS: 96365; J3380

== ENCOUNTER 2020-02-23 13:06 | Outpatient (RCR) | payer MEDICARE, MEDICAID ==
[~2020-02-23 13:06] MED LIST changes: -MONT10TA26 PO; +MONT10TA97 PO
[2020-02-23] MEDS ORDERED: VEDOLIZUMAB 300 MG/NS 250 ML IVPB IV SCH ×2 (13:30)
[2020-02-23 13:40] VITALS: BP 122/96
== END 2020-02-23 14:40 | disposition home or self-care (01) ==
LOC: SDC 13:06
PROVIDERS: ATTEND Internal Medicine Gastroenterology
DX: K50.90 Crohn's disease, unspecified, without complications (principal)
CPT/HCPCS: 96365; J3380

== ENCOUNTER → 2020-06-06 | Outpatient (CLI) | payer MEDICARE, MEDICAID ==
[~2020-06-06] MED LIST changes: -METO10TA3 PO; +MONT10TA32 PO; -MONT10TA97 PO; +MTC10T PO
[2020-06-06 13:37] LABS: BASOPHILS % (AUTO) 0 % (0-10); EOSINOPHILS # (AUTO) 0.2 10^3/uL (0.0-0.3); EOSINOPHILS % (AUTO) 2 % (0-10); HEMATOCRIT 37 % (40-54); HEMOGLOBIN 12.3 g/dL (13.3-17.7); LYMPHOCYTES # (AUTO) 2.8 10^3/uL (1.0-4.0); LYMPHOCYTES % (AUTO) 26 % (12-44); MEAN CORPUSCULAR HEMOGLOBIN 32 pg (25-34); MEAN CORPUSCULAR HGB CONC 34 g/dL (32-36); MEAN CORPUSCULAR VOLUME 95 fL (80-99); MEAN PLATELET VOLUME 9.6 fL (9.0-12.2); MONOCYTES % (AUTO) 9 % (0-12); NEUTROPHILS # (AUTO) 6.9 10^3/uL (1.8-7.8); NEUTROPHILS % (AUTO) 63 % (42-75); PLATELET COUNT 397 10^3/uL (130-400)
[2020-06-06 13:53] LABS: ALANINE AMINOTRANSFERASE 18 U/L (0-55); ALBUMIN 3.8 GM/DL (3.2-4.5); ALKALINE PHOSPHATASE 83 U/L (40-136); BILIRUBIN,TOTAL 0.4 MG/DL (0.1-1.0); BUN/CREATININE RATIO 14; CALCIUM 8.2 MG/DL (8.5-10.1); CARBON DIOXIDE 29 MMOL/L (21-32); CHLORIDE 103 MMOL/L (98-107); CREATININE SERUM 0.66 MG/DL (0.60-1.30); GFR ESTIMATED > 60; GLUCOSE 113 MG/DL (70-105); SODIUM 140 MMOL/L (135-145); TOTAL PROTEIN 6.5 GM/DL (6.4-8.2)
== END ==
LOC: ONC 13:21
PROVIDERS: ATTEND Internal Medicine Hematology & Oncology
DX: C83.30 Diffuse large B-cell lymphoma, unspecified site (principal); D50.9 Iron deficiency anemia, unspecified; K50.90 Crohn's disease, unspecified, without complications; F41.9 Anxiety disorder, unspecified; Z72.0 Tobacco use; Z79.899 Other long term (current) drug therapy
CPT/HCPCS: 80053; 85025; G0463; 99213

== ENCOUNTER 2020-06-20 12:54 | Outpatient (RCR) | payer MEDICARE, MEDICAID ==
[2020-04-25] MEDS: VEDOLIZUMAB 300 MG/NS 250 ML IVPB IV SCH ×2 (13:33)
[2020-04-25 14:12] VITALS: BP 119/83
[~2020-06-20] VITALS: Ht 175.3 cm; Wt 59.1 kg
[2020-06-20] MEDS ORDERED: VEDOLIZUMAB 300 MG/NS 250 ML IVPB IV SCH ×2 (13:02)
[2020-06-20 13:08] VITALS: BP 154/97
[2020-06-20] MEDS: VEDOLIZUMAB 300 MG/NS 250 ML IVPB IV SCH ×2 (13:08)
== END 2020-07-24 | disposition home or self-care (01) ==
LOC: SDC 12:54
PROVIDERS: ATTEND Internal Medicine Gastroenterology
DX: K50.90 Crohn's disease, unspecified, without complications (principal)
CPT/HCPCS: 96365; J3380

== ENCOUNTER 2020-07-28 11:25 | Inpatient (IN) | payer MEDICARE, MEDICAID ==
[~2020-07-28] VITALS: Ht 175 cm; Wt 53.6 kg
--- NOTE | 2020-07-28 12:10 | ED General ---
General Chief Complaint: Cough/Cold/Flu Symptoms Stated Complaint: PNEUMONIA Source of Information: Patient Exam Limitations: No Limitations History of Present Illness Date Seen by Provider: Jul 28, 2020 Time Seen by Provider: 12:00 Initial Comments To ER by private vehicle from [facility] with reports of pneumonia. He started with a cough on Saturday (today is ). He denies fevers. He does smoke 1 pack of cigarettes per day. He has had a productive cough of greenish sputum. He has Crohn's disease and is managed with budesonide 9 mg extended release tablet daily and mesalamine 2.4 g tablet daily. Timing/Duration: 3-4 Days Severity: Moderate Associated Systoms: Cough Allergies and Home Medications Allergies Coded Allergies: ceftazidime (Verified Allergy, Intermediate, RASH, 06/15/16) nalbuphine (Unverified Allergy, Mild, RASH, 03/29/06) Iodinated Contrast Media (Verified Allergy, Unknown, HIVES, 05/02/15) Sulfa (Sulfonamide Antibiotics) (Verified Allergy, Unknown, 03/29/06) latex (Verified Allergy, Unknown, 05/03/15) strawberry (Unverified Allergy, Unknown, 12/18/13) FROM UNCODED ALLERGIES Uncoded Allergies: TAPE (Allergy, Unknown, 03/29/06) Home Medications Acetaminophen 325 Mg Tablet, 650 MG PO Q6H PRN for PAIN-MILD OR TEMPATURE, (Rep orted) TAKES 2 (325MG) TABLETS Albuterol Sulfate 18 Gm Hfa.aer.ad, 2 PUFF INH Q6H PRN for SHORTNESS OF BREATH, (Reported) Ascorbate Calcium 500 Mg Tablet, 500 MG PO DAILY, (Reported) Budesonide 9 Mg Tabdr...er, 9 MG PO DAILY, (Reported) Cyanocobalamin 1,000 Mcg/Ml Inj, 1,000 MCG INJ MONTHLY, (Reported) Dicyclomine HCl 10 Mg Capsule, 10 MG PO ACHS, (Reported) Diphenhydramine HCl 25 Mg Capsule, 25 MG PO UD PRN for ITCHING, (Reported) Docusate Sodium 100 Mg Capsule, 100 MG PO BID, (Reported) Docusate Sodium 100 Mg Capsule, 100 MG PO BID Prescribed by: MIRA CARO on 03/26/19 1042 Doxylamine Succinate 25 Mg Tablet, 25 MG PO HS PRN for SLEEP, (Reported) Famotidine 20 Mg Tablet, 20 MG PO HS, (Reported) Gabapentin 600 Mg Tablet, 600 MG PO TID, (Reported) Guaifenesin 600 Mg Tab.er.12h, 600 MG PO BID PRN for CONGESTION, (Reported) Guaifenesin/D-Methorphan Hb/PE 118 Ml Liquid, PO UD PRN for COUGH/COLD, (Reported) Loperamide HCl 2 Mg Capsule, 4 MG PO BID, (Reported) TAKES 2 (2MG) CAPSULES Magnesium Oxide 400 Mg Tablet, 400 MG PO DAILY, (Reported) Mesalamine 800 Mg Tablet.dr, 2,400 MG PO BID, (Reported) TAKES 3 (800MG) TABLETS Multivit-Min/FA/Lycopene/Lut 1 Each Tablet, 1 TAB PO DAILY, (Reported) Omeprazole 40 Mg Capsule.dr, 40 MG PO BID, (Reported) Patient Home Medication List Home Medication List Reviewed: Yes Review of Systems Review of Systems Constitutional: see HPI, malaise, weakness EENTM: see HPI Respiratory: see HPI, cough, short of breath Cardiovascular: no symptoms reported Genitourinary: no symptoms reported Musculoskeletal: no symptoms reported Skin: no symptoms reported Psychiatric/Neurological: No Symptoms Reported Hematologic/Lymphatic: No Symptoms Reported Past Nbtunas-Dddiqi-Efysnq Hx Patient Social History Alcohol Beverage of Choice: Beer Drug of Choice: MARIJUANA Type Used: Cigarettes Recent Hopitalizations: No Immunizations Up To Date PED Vaccines UTD: No Date of Pneumonia Vaccine: Feb 25, 2015 Date of Influenza Vaccine: Nov 25, 2018 Seasonal Allergies Seasonal Allergies: No Past Medical History Surgeries: No (EAR SURGERIES TO PREVENT HEARING LOSS CHILD, 3 BOWEL RESECTIONS, RECTAL ) Abdominal, Appendectomy, Bowel Surgery, Gallbladder, Tonsillectomy Respiratory: No Cardiac: No Neurological: Yes (BRAIN DAMAGE FOLLOWING MULTIPLE SURGERIES A CHILD ) Traumatic Brain Injury Reproductive Disorders: No Sexually Transmitted Disease: No Genitourinary: No Gastrointestinal: Yes (inguinal hernia) Crohns Disease Musculoskeletal: Yes (BROKEN LEG INFANT, BILAT BROKEN ELBOWS) Arthritis, Fractures Endocrine: No HEENT: No Cancer: Yes Lymphoma Psychosocial: Yes (PT IS IN CORRECTION FOR MENTAL HEALTH/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 ) Adverse Reaction/Blood Tranf: No Family Medical History No Family History of: Abdominal aortic aneurysm [place]'s disease Alcoholism Aphasia Cancer Cancer of colon Cataract Chest pain Congenital heart disease Congestive heart failure Cystic fibrosis Dementia Dysphagia Family history: Allergy Family history: Alzheimer's disease Family history: Arthritis Family history: Asthma Family history: Breast disease Family history: Cardiovascular disease Family history: Coronary thrombosis Family history: Diabetes mellitus Family history: Gastrointestinal disease Family history: Glaucoma Family history: Hypertension Family history: Osteoporosis Family history: Thyroid disorder Headache Hearing loss Heart disease Hereditary disease History of - anemia History of - disorder History of - respiratory disease History of drug abuse Human immunodeficiency virus (HIV) seropositivity Hypercholesterolemia Infertile Kidney disease Malignant neoplasm of lung Myocardial infarction Parkinson's disease Prostate cancer Psychotic disorder Seizure disorder Stroke Tuberculosis Visual impairment Diabetes Physical Exam Vital Signs Vital Signs - First Documented 07/28/20 12:00 Temp 37.3 Pulse 120 Resp 30 B/P (MAP) 126/92 (103) Pulse Ox 94 O2 Delivery Nasal Cannula O2 Flow Rate 2.00 Capillary Refill : Height, Weight, BMI Height: 5'9.00" Weight: 126lbs. 5.0oz. [id number]; 19.23 BMI Method:Stated General Appearance: No Apparent Distress, WD/WN, Thin, Other (Oxygen saturation 89% after walking to the room. Thin, tachycardic with a rate of 120. Blood pressure is fine at 130s systolic. He is dyspneic.) Eyes: Bilateral Eye Normal Inspection, Bilateral Eye PERRL, Bilateral Eye EOMI Neck: Full Range of Motion, Normal Inspection Respiratory: No Accessory Muscle Use, No Respiratory Distress, Decreased Breath Sounds (On the right), Rales (On the right) Cardiovascular: Normal Peripheral Pulses, Tachycardia Gastrointestinal: Normal Bowel Sounds, Non Tender, Soft Extremity: Normal Capillary Refill, Normal Inspection Neurologic/Psychiatric: Alert, Oriented x3 Skin: Normal Color Focused Exam Lactate Level 07/28/20 12:04: Lactic Acid Level 1.19 Lactic Acid Level Laboratory Tests Test 07/28/20 12:04 Lactic Acid Level 1.19 MMOL/L (0.50-2.00) Progress/Results/Core Measures Suspected Sepsis SIRS Temperature: Pulse: Respiratory Rate: Laboratory Tests 07/28/20 12:04: White Blood Count 20.6H Blood Pressure / Mean: 07/28/20 12:04: Lactic Acid Level 1.19 Laboratory Tests 07/28/20 12:04: Creatinine 0.72, INR Comment 1.0, Platelet Count 532H, Total Bilirubin 0.6 Results/Orders Lab Results Laboratory Tests Test 07/28/20 12:04 07/28/20 12:35 Range/Units White Blood Count 20.6 H 4.3-11.0 10^3/uL Red Blood Count 4.28 L 4.30-5.52 10^6/uL Hemoglobin 13.8 13.3-17.7 g/dL Hematocrit 40 40-54 % Mean Corpuscular Volume 94 80-99 fL Mean Corpuscular Hemoglobin 32 25-34 pg Mean Corpuscular Hemoglobin Concent 34 32-36 g/dL Red Cell Distribution Width 18.7 H 10.0-14.5 % Platelet Count 532 H 130-400 10^3/uL Mean Platelet Volume 10.2 9.0-12.2 fL Immature Granulocyte % (Auto) 0 % Neutrophils (%) (Auto) 78 H 42-75 % Lymphocytes (%) (Auto) 11 L 12-44 % Monocytes (%) (Auto) 11 0-12 % Eosinophils (%) (Auto) 0 0-10 % Basophils (%) (Auto) 0 0-10 % Neutrophils # (Auto) 16.0 H 1.8-7.8 10^3/uL Lymphocytes # (Auto) 2.2 1.0-4.0 10^3/uL Monocytes # (Auto) 2.2 H 0.0-1.0 10^3/uL Eosinophils # (Auto) 0.0 0.0-0.3 10^3/uL Basophils # (Auto) 0.1 0.0-0.1 10^3/uL Immature Granulocyte # (Auto) 0.1 0.0-0.1 10^3/uL Neutrophils % (Manual) 66 % Lymphocytes % (Manual) 15 % Monocytes % (Manual) 16 % Eosinophils % (Manual) 0 % Basophils % (Manual) 0 % Band Neutrophils 3 % Poikilocytosis SLIGHT Anisocytosis SLIGHT Target Cells SLIGHT [place]-Eddy Bodies SLIGHT Prothrombin Time 13.7 12.2-14.7 SEC INR Comment 1.0 0.8-1.4 Activated Partial Thromboplast Time 29 24-35 SEC D-Dimer < 0.27 0.00-0.49 UG/ML Sodium Level 136 135-145 MMOL/L Potassium Level 3.4 L 3.6-5.0 MMOL/L Chloride Level 96 L 98-107 MMOL/L Carbon Dioxide Level 19 L 21-32 MMOL/L Anion Gap 21 H 5-14 MMOL/L Blood Urea Nitrogen 9 7-18 MG/DL Creatinine 0.72 0.60-1.30 MG/DL Estimat Glomerular Filtration Rate > 60 BUN/Creatinine Ratio 13 Glucose Level 82 70-105 MG/DL Lactic Acid Level 1.19 0.50-2.00 MMOL/L Calcium Level 9.8 8.5-10.1 MG/DL Corrected Calcium 9.5 8.5-10.1 MG/DL Total Bilirubin 0.6 0.1-1.0 MG/DL Aspartate Amino Transf (AST/SGOT) 15 5-34 U/L Alanine Aminotransferase (ALT/SGPT) 12 0-55 U/L Alkaline Phosphatase 97 40-136 U/L Total Protein 7.8 6.4-8.2 GM/DL Albumin 4.4 3.2-4.5 GM/DL Procalcitonin 0.02 <0.10 NG/ML Influenza Type A (RT-PCR) Not Detected Not Detecte Influenza Type B (RT-PCR) Not Detected Not Detecte SARS-CoV-2 RNA (RT-PCR) Not Detected Not Detecte Urine Color YELLOW Urine Clarity CLEAR Urine pH 6.0 5-9 Urine Specific Grahn >=1.030 1.016-1.022 Urine Protein 1+ H NEGATIVE Urine Glucose (UA) NEGATIVE NEGATIVE Urine Ketones 3+ H NEGATIVE Urine Nitrite NEGATIVE NEGATIVE Urine Bilirubin NEGATIVE NEGATIVE Urine Urobilinogen 1.0 < = 1.0 MG/DL Urine Leukocyte Esterase NEGATIVE NEGATIVE Urine RBC (Auto) NEGATIVE NEGATIVE Urine RBC 2-5 H /HPF Urine WBC 0-2 /HPF Urine Squamous Epithelial Cells 0-2 /HPF Urine Crystals NONE /LPF Urine Bacteria TRACE /HPF Urine Casts NONE /LPF Urine Mucus MODERATE H /LPF Urine Culture Indicated NO My Orders Orders - MITESH WARNER APRN Cbc With Automated Diff (07/28/20 12:08) Comprehensive Metabolic Panel (07/28/20 12:08) Blood Culture (07/28/20 12:08) Sputum Culture (07/28/20 12:08) Urinalysis (07/28/20 12:08) Urine Culture (07/28/20 12:08) Protime With Inr (07/28/20 12:08) Partial Thromboplastin Time (07/28/20 12:08) Chest 1 View, Ap/Pa Only (07/28/20 12:08) Ed Iv/Invasive Line Start (07/28/20 12:08) Ed Iv/Invasive Line Start (07/28/20 12:08) Vital Signs Adult Sepsis Patie Q15M (07/28/20 12:08) O2 (07/28/20 12:08) Remove Rings In Anticipation O (07/28/20 12:08) Lactic Acid Analyzer (07/28/20 12:08) Influenza A And B By Pcr (07/28/20 12:08) Covid 19 Inhouse Test (07/28/20 12:08) Lactated Ringers (Lr 1000 Ml Iv Solution (07/28/20 12:15) Hydrocodone/Apap 5/325 Tablet (Lortab 5 (07/28/20 12:15) Ketorolac Injection (Toradol Injection) (07/28/20 12:15) Manual Differential (07/28/20 12:04) Albuterol/Ipra Inhalation Soln (Duoneb I (07/28/20 13:00) Svn Small Volume Nebulizer (07/28/20 12:51) Medications Given in ED Current Medications Medications Dose Ordered Sig/Sudheer Route Start Time Stop Time Status Last Admin Dose Admin Acetaminophen/ Hydrocodone Bitart 1 ea ONCE ONCE PO 07/28/20 12:15 07/28/20 12:16 DC 07/28/20 12:24 1 EA Ketorolac Tromethamine 15 mg ONCE ONCE IVP 07/28/20 12:15 07/28/20 12:16 DC 07/28/20 12:25 15 MG Vital Signs/I&O 07/28/20 07/28/20 12:00 12:04 Temp 37.3 Pulse 120 Resp 30 B/P (MAP) 126/92 (103) Pulse Ox 94 94 O2 Delivery Nasal Cannula Nasal Cannula O2 Flow Rate 2.00 2.00 Capillary Refill : Departure Communication (Admissions) [id number]-patient is feeling better at this time. Remains hemodynamically stable. He is about 94% SPO2 on 2 L of supplemental oxygen. Spoke with Dr. Sen, will admit. Impression Primary Impression: COPD exacerbation Additional Impression: Pneumonia Disposition: ADMITTED INPATIENT Condition: Stable Admissions Decision to Admit Reason: Admit from ER (General) Decision to Admit/Date: Jul 28, 2020 Time/Decision to Admit Time: 13:16 Departure-Patient Inst. Referrals: JUSTICE JO DO (PCP/Family) Primary Care Physician MITESH WARNER APRN Jul 28, 2020 12:10
[2020-07-28] MEDS ORDERED: LACTATED RINGERS 1,000 ML IV SCH (12:15)
[2020-07-28] MEDS ORDERED: HYDROcodone/APAP 5 MG/325 MG (LORTAB) TAB PO ONE (12:15)
[2020-07-28] MEDS ORDERED: KETOROLAC 30 MG/ML VIAL IVP ONE (12:15)
[2020-07-28 12:17] LABS: BASOPHILS # (AUTO) 0.1 10^3/uL (0.0-0.1); BASOPHILS % (AUTO) 0 % (0-10); EOSINOPHILS % (AUTO) 0 % (0-10); HEMATOCRIT 40 % (40-54); HEMOGLOBIN 13.8 g/dL (13.3-17.7); LYMPHOCYTES # (AUTO) 2.2 10^3/uL (1.0-4.0); LYMPHOCYTES % (AUTO) 11 % (12-44); MEAN CORPUSCULAR HEMOGLOBIN 32 pg (25-34); MEAN CORPUSCULAR HGB CONC 34 g/dL (32-36); MEAN CORPUSCULAR VOLUME 94 fL (80-99); MEAN PLATELET VOLUME 10.2 fL (9.0-12.2); MONOCYTES # (AUTO) 2.2 10^3/uL (0.0-1.0); MONOCYTES % (AUTO) 11 % (0-12); NEUTROPHILS % (AUTO) 78 % (42-75); PLATELET COUNT 532 10^3/uL (130-400); WHITE BLOOD COUNT 20.6 10^3/uL (4.3-11.0)
[2020-07-28 12:24] LABS: ALBUMIN 4.4 GM/DL (3.2-4.5); CHLORIDE 96 MMOL/L (98-107); POTASSIUM 3.4 MMOL/L (3.6-5.0); SODIUM 136 MMOL/L (135-145)
[2020-07-28 12:26] LABS: CALCIUM 9.8 MG/DL (8.5-10.1)
[2020-07-28 12:27] LABS: GLUCOSE 82 MG/DL (70-105); PROTHROMBIN TIME PATIENT 13.7 SEC (12.2-14.7); TOTAL PROTEIN 7.8 GM/DL (6.4-8.2)
[2020-07-28 12:28] LABS: CARBON DIOXIDE 19 MMOL/L (21-32)
[2020-07-28 12:29] LABS: BILIRUBIN,TOTAL 0.6 MG/DL (0.1-1.0)
[2020-07-28 12:30] LABS: ALKALINE PHOSPHATASE 97 U/L (40-136); CREATININE SERUM 0.72 MG/DL (0.60-1.30); GFR ESTIMATED > 60
[2020-07-28 12:31] LABS: BUN/CREATININE RATIO 13
[2020-07-28 12:33] LABS: ALANINE AMINOTRANSFERASE 12 U/L (0-55)
[2020-07-28 12:40] LABS: BILIRUBIN,URINE NEGATIVE (NEGATIVE); CLARITY,URINE CLEAR; COLOR,URINE YELLOW; GLUCOSE, URINE (UA) NEGATIVE (NEGATIVE); KETONES,URINE 3+ (NEGATIVE); LEUKOCYTE ESTERASE ,URINE NEGATIVE (NEGATIVE); NITRITE,URINE NEGATIVE (NEGATIVE); PROTEIN,URINE 1+ (NEGATIVE)
[2020-07-28 12:45] LABS: BAND NEUTROPHILS 3 %; BASOPHILS % (MANUAL) 0 %; EOSINOPHILS % (MANUAL) 0 %; LYMPHOCYTES % (MANUAL) 15 %; MONOCYTES % (MANUAL) 16 %; NEUTROPHILS % (MANUAL) 66 %
[2020-07-28 12:46] LABS: ANISOCYTOSIS SLIGHT; HOWELL-JOLLY BODIES SLIGHT; POIKILOCYTOSIS SLIGHT; TARGET CELLS SLIGHT
[2020-07-28 12:54] LABS: BACTERIA,URINE TRACE /HPF; SQUAMOUS EPITHELIAL CELL,UR 0-2 /HPF; WBC,URINE 0-2 /HPF
[2020-07-28] MEDS ORDERED: RT-ALBUTEROL/IPRATROPIUM 3 ML (DUONEB) VIAL INH ONE (13:00)
--- NOTE | 2020-07-28 13:06 | Diagnostic Imaging Report ---
Indication: Sepsis Portable chest 12:52 PM There are emphysematous changes in the lungs with air trapping. There are no infiltrates, effusions or pneumothoraces. Heart size and pulmonary vascularity are normal. IMPRESSION: COPD. No acute abnormality seen. Dictated by: Dictated on workstation # [id number]
[2020-07-28] MEDS ORDERED: PIPERACILLIN SODIUM/TAZOBACTAM 4.5 GM in NS (IVPB) 100 ML IV ONE (14:00)
[2020-07-28 14:39] VITALS: BP 116/92
[2020-07-28] MEDS ORDERED: ACETAMINOPHEN 325 MG TABLET PO PRN (14:45)
[2020-07-28] MEDS ORDERED: IBUPROFEN 600 MG (MOTRIN) TAB PO PRN (14:45)
[2020-07-28] MEDS ORDERED: CATHETER FLUSH 10 ML SYR IV PRN (14:45)
[2020-07-28] MEDS ORDERED: ONDANSETRON 4 MG/2 ML (SDV) Z0FRAN IV PRN (14:45)
[2020-07-28] MEDS ORDERED: HYDROcodone/APAP 5 MG/325 MG (LORTAB) TAB PO PRN (14:45)
[2020-07-28] MEDS ORDERED: RT-ALBUTEROL/IPRATROPIUM 3 ML (DUONEB) VIAL INH PRN (14:45)
[2020-07-28 14:50] VITALS: BP 124/63
[2020-07-28] MEDS: RT-ALBUTEROL/IPRATROPIUM 3 ML (DUONEB) VIAL INH SCH ×2 (14:58→23:38)
[2020-07-28] MEDS: methylPREDNISolone 125 MG (Solu-MEDROL) VIAL IV SCH ×2 (15:07→20:23)
[2020-07-28] MEDS: LACTATED RINGERS 1,000 ML IV SCH ×2 (15:07→22:05)
[2020-07-28] MEDS ORDERED: ENOXAPARIN 40 MG/0.4 ML (LOVENOX) SYR SQ SCH (15:15)
--- NOTE | 2020-07-28 15:20 | History & Physical-Hospitalist ---
History of Present Illness HPI/Chief Complaint Pt is a 45yoCM with a PMH of Crohn disease, COPD and Lymphoma who presented to the ER due to cough and shortness of breath. His symptoms started on 07/24 and continued to worsen over the next few days. He attempted to mow the lawn but that made it much worse and he was unable to take deep breaths. He decided to see his PCP and he was hypoxic there and sent to the ER. CXr was clear and d dimer was negative. He was admitted for COPD exacerbation. Source: patient Date Seen 07/28/20 Time Seen by a Provider: 15:10 Attending Physician Rex Ta MD PCP Contreras Jo DO Referring Physician Date of Admission Jul 28, 2020 at 12:52 Home Medications & Allergies Home Medications Reviewed patient Home Medication Reconciliation performed by pharmacy medication reconciliations diet technician registered and/or nursing. Patients Allergies have been reviewed. Allergies Allergies Coded Allergies ceftazidime (Verified Allergy, Intermediate, RASH, 06/15/16) nalbuphine (Unverified Allergy, Mild, RASH, 03/29/06) Iodinated Contrast Media (Verified Allergy, Unknown, HIVES, 05/02/15) Sulfa (Sulfonamide Antibiotics) (Verified Allergy, Unknown, 03/29/06) latex (Verified Allergy, Unknown, 05/03/15) strawberry (Unverified Allergy, Unknown, 12/18/13) FROM UNCODED ALLERGIES Uncoded Allergies TAPE ( Allergy, Unknown, 03/29/06) Past Pollduq-Fqhchx-Qtosio Hx Patient Social History Employed/Student: employed Tobacco Use?: Yes Tobacco type used: Cigarettes Smoking Status: Current Everyday Smoker Substance use?: Yes Substance type: Marijuana Substance frequency: Couple times a week Alcohol Use?: Yes Alcohol type: Beer Alcohol Frequency: Daily Pt feels they are or have been: No Immunizations Up To Date Date of Influenza Vaccine: Nov 25, 2018 First/Initial COVID19 Vaccinat: MAR 2020 Tetanus Booster (TDap): Unknown PED Vaccines UTD: No Date of Pneumonia Vaccine: Feb 25, 2015 Seasonal Allergies Seasonal Allergies: No Current Status Advance Directives: No Communicates: Verbally Primary Language: Syriac Preferred Spoken Language: Syriac Is interpretation needed?: No Implanted or Applied Medical D: None Past Medical History Surgeries: Abdominal, Appendectomy, Bowel Surgery, Gallbladder, Tonsillectomy COPD, Emphysema Traumatic Brain Injury Sexually Transmitted Disease: No Crohns Disease Arthritis, Fractures Lymphoma Personality Disorder Blood Disorders: Yes (DIC X3 TIMES. ) Adverse Reaction/Blood Tranf: No Family Medical History No Family History of: Abdominal aortic aneurysm [place]'s disease Alcoholism Aphasia Cancer Cancer of colon Cataract Chest pain Congenital heart disease Congestive heart failure Cystic fibrosis Dementia Dysphagia Family history: Allergy Family history: Alzheimer's disease Family history: Arthritis Family history: Asthma Family history: Breast disease Family history: Cardiovascular disease Family history: Coronary thrombosis Family history: Diabetes mellitus Family history: Gastrointestinal disease Family history: Glaucoma Family history: Hypertension Family history: Osteoporosis Family history: Thyroid disorder Headache Hearing loss Heart disease Hereditary disease History of - anemia History of - disorder History of - respiratory disease History of drug abuse Human immunodeficiency virus (HIV) seropositivity Hypercholesterolemia Infertile Kidney disease Malignant neoplasm of lung Myocardial infarction Parkinson's disease Prostate cancer Psychotic disorder Seizure disorder Stroke Tuberculosis Visual impairment Diabetes Review of Systems Constitutional: No chills, No fever EENTM: no symptoms reported Respiratory: cough, dyspnea on exertion, short of breath, wheezing Cardiovascular: No chest pain Gastrointestinal: no symptoms reported Genitourinary: no symptoms reported Musculoskeletal: no symptoms reported Skin: no symptoms reported Psychiatric/Neurological: No Symptoms Reported Physical Exam Physical Exam Vital Signs Vital Signs - First Documented 07/28/20 07/28/20 12:00 14:39 Temp 37.3 Pulse 120 Resp 30 B/P (MAP) 126/92 (103) Pulse Ox 94 O2 Delivery Nasal Cannula O2 Flow Rate 2.00 FiO2 32 Capillary Refill : Greater Than 3 Seconds Height, Weight, BMI Height: 5'9.00" Weight: 126lbs. 5.0oz. 57.157711wh; 17.50 BMI Method:Stated General Appearance: No Apparent Distress, Chronically ill, Thin HEENT: PERRL/EOMI, Moist Mucous Membranes Neck: Normal Inspection, Supple Respiratory: No Accessory Muscle Use; No Stridor; Wheezing, Other (On 3lpm) Cardiovascular: Regular Rate, Rhythm, No Murmur Gastrointestinal: Normal Bowel Sounds, Soft Extremity: No Calf Tenderness, No Pedal Edema Neurologic/Psychiatric: Alert, Oriented x3, Normal Mood/Affect Skin: Normal Color, Warm/Dry Results Results/Procedures Labs Laboratory Tests 07/28/20 12:04 07/29/20 05:23 Patient resulted labs reviewed. Imaging: Reviewed Imaging Report Imaging [facility] [place], [place] NAME: CAT[facility] REC#: [id number] PT STATUS: REG ER : 1975 PHYSICIAN: MITESH WARNER APRN ADMIT DATE: 07/28/20/ER Signed Date of Exam:07/28/20 CHEST 1 VIEW, AP/PA ONLY Indication: Sepsis Portable chest 12:52 PM There are emphysematous changes in the lungs with air trapping. There are no infiltrates, effusions or pneumothoraces. Heart size and pulmonary vascularity are normal. IMPRESSION: COPD. No acute abnormality seen. Dictated by: Dictated on workstation # [id number] Dict: 07/28/20 1304 Trans: 07/28/20 1305 TCB [id number] Interpreted by: ALON CHEN MD Electronically signed by: ALON CHEN MD 07/28/20 130 Assessment/Plan Admission Diagnosis Acute hypoxic respiratory failure from COPD exacerbation Admission Status: Inpatient Order (span 2 midnights) Reason for Inpatient Admission: see below Assessment and Plan Acute hypoxic respiratory failure from COPD exacerbation No formal diagnosis of COPD but 1ppd smoker for many years Wheezing still Continue steroids MAT protocol Wean oxygen as able procal negative so DC Zosyn Crohn disease Continue home meds as able Aplenic patient per previous H&P Monitor for fever dvt ppx: Lovenox Diagnosis/Problems Diagnosis/Problems (1) Personal history of lymphoma Status: Chronic (2) History of Crohn's disease Status: Acute (3) Immunosuppressed status Status: Chronic (4) Hypoxia (5) COPD exacerbation Status: Acute (6) Smoker Status: Chronic REX TA MD Jul 28, 2020 15:20
[2020-07-28] MEDS ORDERED: CHLO25TA22 PO (15:27)
[2020-07-28] MEDS ORDERED: GOLI100D SQ (15:27)
[2020-07-28] MEDS ORDERED: MESA1.2T2 PO (15:41)
[2020-07-28] MEDS ORDERED: BUDE9TAB2 PO (15:41)
[2020-07-28] MEDS: ENOXAPARIN 30 MG/0.3 ML (LOVENOX) SYR SC SCH (15:50)
[2020-07-28 16:00] VITALS: BP 112/68
[2020-07-28] MEDS ORDERED: PIPERACILLIN/TAZO 4.5 GM/NS 100 ML IV SCH ×2 (20:00)
[2020-07-28 20:02] VITALS: BP 114/73
[2020-07-28] MEDS: LOPERAMIDE 2 MG (IMODIUM) TABLET PO SCH (20:22)
[2020-07-28] MEDS: FAMOTIDINE 20 MG (PEPCID) TABLET PO SCH (20:22)
[2020-07-28] MEDS: PANTOPRAZOLE 40 MG (PROTONIX) TAB PO SCH (20:22)
[2020-07-28] MEDS: GABAPENTIN 600 MG (NEURONTIN) TAB PO SCH (20:23)
[2020-07-28] MEDS: DICYCLOMINE 10 MG (BENTYL) CAP PO SCH (20:23)
[2020-07-28] MEDS ORDERED: NON-FORMULARY MEDICATION 1 EA EA (Omeprazole 40 MG) PO SCH (21:00)
[2020-07-28] MEDS ORDERED: MESALAMINE 2.4 GM PO SCH (21:00)
[2020-07-28 23:57] VITALS: BP 115/71
[2020-07-29] MEDS: RT-ALBUTEROL/IPRATROPIUM 3 ML (DUONEB) VIAL INH SCH ×4 (03:03→20:24)
[2020-07-29 03:41] VITALS: BP 126/78
[2020-07-29] MEDS: methylPREDNISolone 125 MG (Solu-MEDROL) VIAL IV SCH ×3 (04:59→20:33)
[2020-07-29] MEDS: LACTATED RINGERS 1,000 ML IV SCH (04:59)
[2020-07-29] MEDS: DICYCLOMINE 10 MG (BENTYL) CAP PO SCH ×4 (05:12→20:33)
[2020-07-29 05:47] LABS: BASOPHILS % (AUTO) 0 % (0-10); EOSINOPHILS % (AUTO) 0 % (0-10); HEMATOCRIT 35 % (40-54); HEMOGLOBIN 12.1 g/dL (13.3-17.7); LYMPHOCYTES % (AUTO) 8 % (12-44); MEAN CORPUSCULAR HEMOGLOBIN 32 pg (25-34); MEAN CORPUSCULAR HGB CONC 35 g/dL (32-36); MEAN CORPUSCULAR VOLUME 92 fL (80-99); MONOCYTES # (AUTO) 0.4 10^3/uL (0.0-1.0); MONOCYTES % (AUTO) 3 % (0-12); NEUTROPHILS # (AUTO) 10.9 10^3/uL (1.8-7.8); NEUTROPHILS % (AUTO) 88 % (42-75); PLATELET COUNT 474 10^3/uL (130-400); WHITE BLOOD COUNT 12.4 10^3/uL (4.3-11.0)
[2020-07-29] MEDS: MULTIVIT W/MINERALS TAB (THERAGRAN M) PO SCH (05:49)
[2020-07-29 05:54] LABS: CHLORIDE 99 MMOL/L (98-107); POTASSIUM 3.4 MMOL/L (3.6-5.0); SODIUM 137 MMOL/L (135-145)
[2020-07-29 05:55] LABS: CALCIUM 8.8 MG/DL (8.5-10.1); GLUCOSE 124 MG/DL (70-105)
[2020-07-29 05:57] LABS: CARBON DIOXIDE 23 MMOL/L (21-32)
[2020-07-29 05:59] LABS: CREATININE SERUM 0.53 MG/DL (0.60-1.30); GFR ESTIMATED > 60
[2020-07-29 06:00] LABS: BUN/CREATININE RATIO 11
[2020-07-29 07:20] VITALS: BP 127/82
[2020-07-29] MEDS: PANTOPRAZOLE 40 MG (PROTONIX) TAB PO SCH ×2 (08:07→20:33)
[2020-07-29] MEDS: DOCUSATE SODIUM 100 MG (COLACE) CAP PO SCH (08:07)
[2020-07-29] MEDS: ASCORBIC ACID (VIT C) 500 MG TABLET PO SCH (08:07)
[2020-07-29] MEDS: LOPERAMIDE 2 MG (IMODIUM) TABLET PO SCH ×2 (08:08→20:33)
[2020-07-29] MEDS: GABAPENTIN 600 MG (NEURONTIN) TAB PO SCH ×3 (08:08→20:33)
[2020-07-29] MEDS: MAGNESIUM OXIDE (MAG-OX)400 MG TAB PO SCH (08:08)
--- NOTE | 2020-07-29 08:52 | Discharge Summary ---
Diagnosis/Chief Complaint Date of Admission Jul 28, 2020 at 12:52 Date of Discharge Admission Diagnosis Acute hypoxic respiratory failure from COPD exacerbation Primary Care Contreras Jo DO Discharge Diagnosis (1) Personal history of lymphoma Status: Chronic (2) History of Crohn's disease Status: Acute (3) Immunosuppressed status Status: Chronic (4) Hypoxia (5) COPD exacerbation Status: Acute (6) Smoker Status: Chronic Discharge Summary Discharge Physical Exam Allergies: Coded Allergies: ceftazidime (Verified Allergy, Intermediate, RASH, 06/15/16) nalbuphine (Unverified Allergy, Mild, RASH, 03/29/06) Iodinated Contrast Media (Verified Allergy, Unknown, HIVES, 05/02/15) Sulfa (Sulfonamide Antibiotics) (Verified Allergy, Unknown, 03/29/06) latex (Verified Allergy, Unknown, 05/03/15) strawberry (Unverified Allergy, Unknown, 12/18/13) FROM UNCODED ALLERGIES Uncoded Allergies: TAPE (Allergy, Unknown, 03/29/06) Vitals & I&Os Vital Signs Date Time Temp Pulse Resp B/P (MAP) Pulse Ox O2 Delivery O2 Flow Rate FiO2 07/29/20 10:41 90 2.00 07/29/20 09:17 Nasal Cannula 07/29/20 07:20 36.5 83 20 127/82 (97) 07/28/20 14:39 32 Hospital Course Labs (last 24 hrs) Laboratory Tests 07/28/20 12:04: White Blood Count 20.6H, Red Blood Count 4.28L, Hemoglobin 13.8, Hematocrit 40, Mean Corpuscular Volume 94, Mean Corpuscular Hemoglobin 32, Mean Corpuscular Hemoglobin Concent 34, Red Cell Distribution Width 18.7H, Platelet Count 532H, Mean Platelet Volume 10.2, Immature Granulocyte % (Auto) 0, Neutrophils (%) (Auto) 78H, Lymphocytes (%) (Auto) 11L, Monocytes (%) (Auto) 11, Eosinophils (%) (Auto) 0, Basophils (%) (Auto) 0, Neutrophils # (Auto) 16.0H, Lymphocytes # (Auto) 2.2, Monocytes # (Auto) 2.2H, Eosinophils # (Auto) 0.0, Basophils # (Auto) 0.1, Immature Granulocyte # (Auto) 0.1, Neutrophils % (Manual) 66, Lymphocytes % (Manual) 15, Monocytes % (Manual) 16, Eosinophils % (Manual) 0, Basophils % (Manual) 0, Band Neutrophils 3, Poikilocytosis SLIGHT, Anisocytosis SLIGHT, Target Cells SLIGHT, [place] Bodies SLIGHT, Prothrombin Time 13.7, INR Comment 1.0, Activated Partial Thromboplast Time 29, D-Dimer < 0.27, Sodium Level 136, Potassium Level 3.4L, Chloride Level 96L, Carbon Dioxide Level 19L, Anion Gap 21H, Blood Urea Nitrogen 9, Creatinine 0.72, Estimat Glomerular Filtration Rate > 60, BUN/Creatinine Ratio 13, Glucose Level 82, Lactic Acid Level 1.19, Calcium Level 9.8, Corrected Calcium 9.5, Total Bilirubin 0.6, Aspartate Amino Transf (AST/SGOT) 15, Alanine Aminotransferase (ALT/SGPT) 12, Alkaline Phosphatase 97, Total Protein 7.8, Albumin 4.4, Procalcitonin 0.02, Influenza Type A (RT-PCR) Not Detected, Influenza Type B (RT-PCR) Not Detected, SARS-CoV-2 RNA (RT-PCR) Not Detected 07/28/20 12:35: Urine Color YELLOW, Urine Clarity CLEAR, Urine pH 6.0, Urine Specific Allison >=1.030, Urine Protein 1+H, Urine Glucose (UA) NEGATIVE, Urine Ketones 3+H, Urine Nitrite NEGATIVE, Urine Bilirubin NEGATIVE, Urine Urobilinogen 1.0, Urine Leukocyte Esterase NEGATIVE, Urine RBC (Auto) NEGATIVE, Urine RBC 2-5H, Urine WBC 0-2, Urine Squamous Epithelial Cells 0-2, Urine Crystals NONE, Urine Bacteria TRACE, Urine Casts NONE, Urine Mucus MODERATEH, Urine Culture Indicated NO 07/29/20 05:23: White Blood Count 12.4H, Red Blood Count 3.76L, Hemoglobin 12.1L, Hematocrit 35L , Mean Corpuscular Volume 92, Mean Corpuscular Hemoglobin 32, Mean Corpuscular Hemoglobin Concent 35, Red Cell Distribution Width 18.2H, Platelet Count 474H, Mean Platelet Volume 10.0, Immature Granulocyte % (Auto) 0, Neutrophils (%) (Auto) 88H, Lymphocytes (%) (Auto) 8L, Monocytes (%) (Auto) 3, Eosinophils (%) (Auto) 0, Basophils (%) (Auto) 0, Neutrophils # (Auto) 10.9H, Lymphocytes # (Auto) 1.0, Monocytes # (Auto) 0.4, Eosinophils # (Auto) 0.0, Basophils # (Auto) 0.0, Immature Granulocyte # (Auto) 0.0, Sodium Level 137, Potassium Level 3.4L, Chloride Level 99, Carbon Dioxide Level 23, Anion Gap 15H, Blood Urea Nitrogen 6L, Creatinine 0.53L, Estimat Glomerular Filtration Rate > 60, BUN/Creatinine Ratio 11, Glucose Level 124H, Calcium Level 8.8 Patient resulted labs reviewed. Pending Labs Laboratory Tests 07/29/20 05:23: White Blood Count 12.4, Red Blood Count 3.76, Hemoglobin 12.1, Hematocrit 35, Mean Corpuscular Volume 92, Mean Corpuscular Hemoglobin 32, Mean Corpuscular Hemoglobin Concent 35, Red Cell Distribution Width 18.2, Platelet Count 474, Mean Platelet Volume 10.0, Immature Granulocyte % (Auto) 0, Neutrophils (%) (Auto) 88, Lymphocytes (%) (Auto) 8, Monocytes (%) (Auto) 3, Eosinophils (%) (Auto) 0, Basophils (%) (Auto) 0, Neutrophils # (Auto) 10.9, Lymphocytes # (Auto) 1.0, Monocytes # (Auto) 0.4, Eosinophils # (Auto) 0.0, Basophils # (Auto) 0.0, Immature Granulocyte # (Auto) 0.0, Sodium Level 137, Potassium Level 3.4, Chloride Level 99, Carbon Dioxide Level 23, Anion Gap 15, Blood Urea Nitrogen 6, Creatinine 0.53, Estimat Glomerular Filtration Rate > 60, BUN/Creatinine Ratio 11, Glucose Level 124, Calcium Level 8.8 Imaging: Reviewed Imaging Report Discharge Home Medications: Active Scripts Active Prednisone 20 Mg Tab 40 Mg PO DAILY Reported Budesonide ER (Budesonide) 9 Mg Tabdr...er 9 Mg PO DAILY Lialda (Mesalamine) 1.2 Gm Tablet.dr 2.4 Gm PO BID TAKES 2 (1.2GM) TABS Certavite Sr-Antioxidant Tab (Multivit-Min/FA/Lycopene/Lut) 1 Each Tablet 1 Tab PO DAILY Famotidine 20 Mg Tablet 20 Mg PO HS Loperamide (Loperamide HCl) 2 Mg Capsule 4 Mg PO BID TAKES 2 (2MG) CAPSULES Vitamin C (Ascorbate Calcium) 500 Mg Tablet 500 Mg PO DAILY Dicyclomine HCl 10 Mg Capsule 10 Mg PO ACHS Colace (Docusate Sodium) 100 Mg Capsule 100 Mg PO DAILY Cyanocobalamin Injection (Cyanocobalamin) 1,000 Mcg/Ml Inj 1,000 Mcg INJ MONTHLY Magnesium Oxide 400 Mg Tablet 400 Mg PO DAILY Omeprazole 40 Mg Capsule.dr 40 Mg PO BID Gabapentin 600 Mg Tablet 600 Mg PO TID Instructions to patient/family Please see electronic discharge instructions given to patient. REX PLAZA MD Jul 29, 2020 08:52
[2020-07-29] MEDS ORDERED: PRD20T PO (08:57)
--- NOTE | 2020-07-29 08:59 | Discharge Inst-Simple/Standard ---
Discharge Inst-Standard Discharge Medications New, Converted or Re-Newed RX: Transmitted to Pharmacy Patient Instructions/Follow Up Plan of Care/Instructions/FU: Please continue to take your medications as written. Please follow up with your primary care doctor next week to follow up this hospital stay. Please continue to work on quitting smoking. Activity as Tolerated: Yes Discharge Diet: No Restrictions Return to The Hospital For: Chest pain/tightness, shortness of breath, wheezing, if you feel you are getting worse. REX PLAZA MD Jul 29, 2020 08:59
[2020-07-29] MEDS ORDERED: BUDESONIDE 9 MG PO SCH (09:00)
[2020-07-29] MEDS ORDERED: [UNRECOGNIZED DRUG - OTHER] PO SCH (09:00)
[2020-07-29] MEDS ORDERED: NON-FORMULARY MEDICATION 1 EA EA (Ascorbate Calcium (Vitamin C) 500 MG) PO SCH (09:00)
--- NOTE | 2020-07-29 11:12 | Progress Note - Hospitalist ---
Subjective HPI/CC On Admission Date Seen by Provider: Jul 29, 2020 Time Seen by Provider: 11:06 Pt is a 45yoCM with a PMH of Crohn disease, COPD and Lymphoma who presented to the ER due to cough and shortness of breath. His symptoms started on 07/24 and continued to worsen over the next few days. He attempted to mow the lawn but that made it much worse and he was unable to take deep breaths. He decided to see his PCP and he was hypoxic there and sent to the ER. CXr was clear and d dimer was negative. He was admitted for COPD exacerbation. Subjective/Events-last exam Pt reports feeling much better. Took his oxygen off a while ago and was satting 91-92% when I checked. Discussed plan for home oxygen study and he was agreeable with hope to DC home. Results of this revealed a 6lpm need with exertion. Discus sed that this is too much from having no previous need. Discussed plan for 1-2 more days here Focused Exam Lactate Level 07/28/20 12:04: Lactic Acid Level 1.19 Objective Exam Vital Signs Vital Signs Date Time Temp Pulse Resp B/P (MAP) Pulse Ox O2 Delivery O2 Flow Rate FiO2 07/29/20 10:41 90 2.00 07/29/20 09:17 Nasal Cannula 07/29/20 07:20 36.5 83 20 127/82 (97) 07/28/20 14:39 32 Capillary Refill : Greater Than 3 Seconds General Appearance: No Apparent Distress Respiratory: No Accessory Muscle Use, Wheezing (expiratory) Cardiovascular: Regular Rate, Rhythm, No Murmur Results/Procedures Lab Laboratory Tests 07/28/20 12:04 07/29/20 05:23 Patient resulted labs reviewed. Imaging: Reviewed Imaging Report Assessment/Plan Assessment and Plan Assess & Plan/Chief Complaint Acute hypoxic respiratory failure from COPD exacerbation Wheezing still but improved from yesterday Continue steroids Add Advair and Singulair MAT protocol Wean oxygen as able, was off earlier but home study revealed significant nee ds still- discussed plan for at least another day to optimize respiratory status, he agrees to one more day but he will not stay 2 more days Crohn disease Continue home meds as able Aplenic patient per previous H&P Monitor for fever dvt ppx: Lovenox Diagnosis/Problems Diagnosis/Problems (1) Personal history of lymphoma Status: Chronic (2) History of Crohn's disease Status: Acute (3) Immunosuppressed status Status: Chronic (4) Hypoxia (5) COPD exacerbation Status: Acute (6) Smoker Status: Chronic REX PLAZA MD Jul 29, 2020 11:12
[2020-07-29 12:25] VITALS: BP 120/71
[2020-07-29 15:58] VITALS: BP 114/73
[2020-07-29] MEDS: ENOXAPARIN 30 MG/0.3 ML (LOVENOX) SYR SC SCH (16:53)
[2020-07-29 19:41] VITALS: BP 108/72
[2020-07-29] MEDS: RT--FLUTICASONE/SALMETEROL 113-14 (AIRDUO RespiCLICK) IH SCH (20:24)
[2020-07-29] MEDS: FAMOTIDINE 20 MG (PEPCID) TABLET PO SCH (20:33)
[2020-07-29] MEDS ORDERED: MONTELUKAST 10 MG (SINGULAIR) TAB PO SCH (21:00)
[2020-07-29 23:29] VITALS: BP 106/68
[2020-07-30] MEDS: RT-ALBUTEROL/IPRATROPIUM 3 ML (DUONEB) VIAL INH SCH ×2 (02:44→07:04)
[2020-07-30] MEDS: DICYCLOMINE 10 MG (BENTYL) CAP PO SCH (05:14)
[2020-07-30] MEDS: MULTIVIT W/MINERALS TAB (THERAGRAN M) PO SCH (05:14)
[2020-07-30] MEDS: methylPREDNISolone 125 MG (Solu-MEDROL) VIAL IV SCH (05:14)
[2020-07-30] MEDS: RT--FLUTICASONE/SALMETEROL 113-14 (AIRDUO RespiCLICK) IH SCH (07:06)
[2020-07-30 07:30] VITALS: BP 122/74
--- NOTE | 2020-07-30 08:00 | Discharge Summary ---
Diagnosis/Chief Complaint Date of Admission Jul 28, 2020 at 12:52 Date of Discharge Discharge Date: Jul 29, 2020 Admission Diagnosis Acute hypoxic respiratory failure from COPD exacerbation Primary Care Justice Jo DO Discharge Diagnosis (1) Personal history of lymphoma Status: Chronic (2) History of Crohn's disease Status: Acute (3) Immunosuppressed status Status: Chronic (4) Hypoxia (5) COPD exacerbation Status: Acute (6) Smoker Status: Chronic Discharge Summary Discharge Physical Exam Allergies: Coded Allergies: ceftazidime (Verified Allergy, Intermediate, RASH, 06/15/16) nalbuphine (Unverified Allergy, Mild, RASH, 03/29/06) Iodinated Contrast Media (Verified Allergy, Unknown, HIVES, 05/02/15) Sulfa (Sulfonamide Antibiotics) (Verified Allergy, Unknown, 03/29/06) latex (Verified Allergy, Unknown, 05/03/15) strawberry (Unverified Allergy, Unknown, 12/18/13) FROM UNCODED ALLERGIES Uncoded Allergies: TAPE (Allergy, Unknown, 03/29/06) Vitals & I&Os Vital Signs Date Time Temp Pulse Resp B/P (MAP) Pulse Ox O2 Delivery O2 Flow Rate FiO2 07/30/20 10:20 07/30/20 08:30 92 High Flow N/C 4.00 07/30/20 07:30 36.8 94 20 07/28/20 14:39 32 General Appearance: No Apparent Distress, WD/WN Respiratory: Lungs Clear, No Respiratory Distress Cardiovascular: Regular Rate, Rhythm, No Murmur Neurologic/Psychiatric: Alert, Oriented x3 Hospital Course Pt was admitted to the hospital due to COPD exacerbation. He was started on steroids and MAT protocol and did well. He required oxygen and at first this was thought to be a new requirement but his facility called and states he has a long standing oxygen need and when question he agreed and reports noncompliance. He was discharged home to continue on steroids and oxygen was arranged. He is to follow up with Dr Jo to follow up this hospital stay. Labs (last 24 hrs) Microbiology 07/28/20 Blood Culture - Preliminary, Resulted No growth 07/28/20 Urine Culture - Final, Complete NO GROWTH Patient resulted labs reviewed. Imaging: Reviewed Imaging Report Discussion & Recommendations Discharge Planning: >30 minutes discharge planning Discharge Home Medications: Active Scripts Active Prednisone 20 Mg Tab 40 Mg PO DAILY Reported Budesonide ER (Budesonide) 9 Mg Tabdr...er 9 Mg PO DAILY Lialda (Mesalamine) 1.2 Gm Tablet.dr 2.4 Gm PO BID TAKES 2 (1.2GM) TABS Certavite Sr-Antioxidant Tab (Multivit-Min/FA/Lycopene/Lut) 1 Each Tablet 1 Tab PO DAILY Famotidine 20 Mg Tablet 20 Mg PO HS Loperamide (Loperamide HCl) 2 Mg Capsule 4 Mg PO BID TAKES 2 (2MG) CAPSULES Vitamin C (Ascorbate Calcium) 500 Mg Tablet 500 Mg PO DAILY Dicyclomine HCl 10 Mg Capsule 10 Mg PO ACHS Colace (Docusate Sodium) 100 Mg Capsule 100 Mg PO DAILY Cyanocobalamin Injection (Cyanocobalamin) 1,000 Mcg/Ml Inj 1,000 Mcg INJ MONTHLY Magnesium Oxide 400 Mg Tablet 400 Mg PO DAILY Omeprazole 40 Mg Capsule.dr 40 Mg PO BID Gabapentin 600 Mg Tablet 600 Mg PO TID Instructions to patient/family Please see electronic discharge instructions given to patient. Copy Copies To 1: JUSTICE JO KATELYN M MD Jul 30, 2020 08:00
[2020-07-30] MEDS: LOPERAMIDE 2 MG (IMODIUM) TABLET PO SCH (09:05)
[2020-07-30] MEDS: ASCORBIC ACID (VIT C) 500 MG TABLET PO SCH (09:05)
[2020-07-30] MEDS: MAGNESIUM OXIDE (MAG-OX)400 MG TAB PO SCH (09:06)
[2020-07-30] MEDS: PANTOPRAZOLE 40 MG (PROTONIX) TAB PO SCH (09:06)
[2020-07-30] MEDS: DOCUSATE SODIUM 100 MG (COLACE) CAP PO SCH (09:06)
[2020-07-30] MEDS: GABAPENTIN 600 MG (NEURONTIN) TAB PO SCH (09:06)
== END 2020-07-30 10:20 | disposition home or self-care (01) | DRG 189 ==
LOC: EDUNIT# 11:25 → ER 11:31 → 4TH 12:52
PROVIDERS: ADMIT Family Medicine; ATTEND Family Medicine
DX: J96.01 Acute respiratory failure with hypoxia (principal); K50.90 Crohn's disease, unspecified, without complications; J44.1 Chronic obstructive pulmonary disease with (acute) exacerbation; D84.9 Immunodeficiency, unspecified; Z20.822 Contact with and (suspected) exposure to COVID-19; F17.210 Nicotine dependence, cigarettes, uncomplicated; M19.90 Unspecified osteoarthritis, unspecified site; F60.9 Personality disorder, unspecified; Z88.2 Allergy status to sulfonamides; Z91.041 Radiographic dye allergy status; Z91.040 Latex allergy status; Z85.72 Personal history of non-Hodgkin lymphomas
CPT/HCPCS: 36415; 71045; 80048; 80053; 81000; 83605; 84145; 85007; 85025; 85027; 85379; 85610; 85730; 87040; 87088; 87636; 94010; 94640; 94760; 94761

== ENCOUNTER 2020-10-25 12:14 | Outpatient (RCR) | payer MEDICARE, MEDICAID ==
[2020-08-15 13:33] VITALS: BP 133/79
[2020-08-15] MEDS: VEDOLIZUMAB 300 MG/NS 250 ML IVPB IV SCH ×2 (13:40)
[~2020-10-25] VITALS: Ht 177.8 cm; Wt 53.6 kg
[~2020-10-25 12:14] MED LIST changes: +BUDE9TAB2 PO; +CHLO25TA22 PO; +GOLI100D SQ; +MESA1.2T2 PO; -OMEP40CA27 PO; +OMEP40CA6 PO
[2020-10-25 12:20] VITALS: BP 151/88
[2020-10-25] MEDS: VEDOLIZUMAB 300 MG/NS 250 ML IVPB IV SCH ×2 (12:40)
== END 2020-11-13 | disposition home or self-care (01) ==
LOC: SDC 12:14
PROVIDERS: ATTEND Internal Medicine Gastroenterology
DX: K50.90 Crohn's disease, unspecified, without complications (principal)
CPT/HCPCS: 96365; J3380

== ENCOUNTER 2020-11-01 09:15 | Emergency (ER) | payer MEDICARE, MEDICAID ==
[~2020-11-01] VITALS: Ht 175 cm; Wt 56.0 kg
--- NOTE | 2020-11-01 09:35 | ED Lower Extremity ---
General Chief Complaint: Lower Extremity Stated Complaint: R FOOT PAIN/SWOLLEN BRUISED Nursing Triage Note: ARRIVED VIA AMB TO [facility] WITH COMPLAINTS OF RIGHT FOOT PAIN ET STATES HE FELL WHILE TAKING OUT THE TRASH LAST NIGHT AROUND 8PM. PT STATES HE HAS NOT TAKEN ANYTHING FOR PAIN. Source: patient Exam Limitations: no limitations History of Present Illness Date Seen by Provider: Nov 01, 2020 Time Seen by Provider: 09:28 Initial Comments 45-year-old male with no significant past medical history coming in after rolling his right ankle yesterday around 8 PM tripping. Has not taken anything for pain. Having moderate constant throbbing pain in his right ankle and foot. Has been able to take some steps on it and walk. Is otherwise denying any other acute complaints. Did not hit his head or pass out. Denying any neck or back pain. Allergies and Home Medications Allergies Coded Allergies: ceftazidime (Verified Allergy, Intermediate, RASH, 06/15/16) nalbuphine (Unverified Allergy, Mild, RASH, 03/29/06) Iodinated Contrast Media (Verified Allergy, Unknown, HIVES, 05/02/15) Sulfa (Sulfonamide Antibiotics) (Verified Allergy, Unknown, 03/29/06) latex (Verified Allergy, Unknown, 05/03/15) strawberry (Unverified Allergy, Unknown, 12/18/13) FROM UNCODED ALLERGIES Uncoded Allergies: TAPE (Allergy, Unknown, 03/29/06) Patient Home Medication List Home Medication List Reviewed: Yes Ascorbate Calcium (Vitamin C) 500 Mg Tablet, 500 MG PO DAILY, (Reported) Entered as Reported by: MARCELO ERVIN on 06/06/17 1201 Budesonide (Budesonide ER) 9 Mg Tabdr...er, 9 MG PO DAILY, (Reported) Entered as Reported by: KRYSTINA CANSECO on 07/28/20 1541 Cyanocobalamin (Cyanocobalamin Injection) 1,000 Mcg/Ml Inj, 1,000 MCG INJ MONTHLY, (Reported) Entered as Reported by: MARCELO ERVIN on 10/12/14 1200 Dicyclomine HCl (Dicyclomine HCl) 10 Mg Capsule, 10 MG PO ACHS, (Reported) Entered as Reported by: MARCELO ERVIN on 06/06/17 1114 Docusate Sodium (Colace) 100 Mg Capsule, 100 MG PO DAILY, (Reported) Entered as Reported by: MENG MCKEON on 06/11/16 1507 Famotidine (Famotidine) 20 Mg Tablet, 20 MG PO HS, (Reported) Entered as Reported by: MARCELO ERVIN on 11/06/17 1039 Gabapentin (Gabapentin) 600 Mg Tablet, 600 MG PO TID, (Reported) Entered as Reported by: MARCELO ERVIN on 10/12/14 1200 Loperamide HCl (Loperamide) 2 Mg Capsule, 4 MG PO BID, (Reported) Entered as Reported by: MARCELO ERVIN on 11/06/17 1039 Magnesium Oxide (Magnesium Oxide) 400 Mg Tablet, 400 MG PO DAILY, (Reported) Entered as Reported by: MARCELO ERIVN on 10/12/14 1200 Mesalamine (Lialda) 1.2 Gm Tablet.dr, 2.4 GM PO BID, (Reported) Entered as Reported by: KRYSTINA CANSECO on 07/28/20 1541 Multivit-Min/FA/Lycopene/Lut (Certavite Sr-Antioxidant Tab) 1 Each Tablet, 1 TAB PO DAILY, (Reported) Entered as Reported by: MARCELO ERVIN on 11/06/17 1055 Omeprazole (Omeprazole) 40 Mg Capsule.dr, 40 MG PO BID, (Reported) Entered as Reported by: MARCELO ERVIN on 10/12/14 1200 Prednisone (Prednisone) 20 Mg Tab, 40 MG PO DAILY Prescribed by: REX PLAZA on 07/29/20 0857 Review of Systems Constitutional: No chills EENTM: No blurred vision Respiratory: no symptoms reported Cardiovascular: no symptoms reported Gastrointestinal: No nausea Genitourinary: no symptoms reported Musculoskeletal: No back pain; joint pain Skin: rash Psychiatric/Neurological: No Symptoms Reported All Other Systems Reviewed Negative Unless Noted: Yes Past Fdpjnnb-Eqvxnu-Blxpgy Hx Patient Social History Tobacco Use?: Yes Immunizations Up To Date PED Vaccines UTD: No Seasonal Allergies Seasonal Allergies: No Past Medical History Surgeries: No (EAR SURGERIES TO PREVENT HEARING LOSS CHILD, 3 BOWEL RESECTIONS, RECTAL ) Abdominal, Appendectomy, Bowel Surgery, Gallbladder, Tonsillectomy Respiratory: Yes COPD, Emphysema Cardiac: No Neurological: Yes (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 ) Adverse Reaction/Blood Tranf: No Family Medical History No Family History of: Abdominal aortic aneurysm Evans's disease Alcoholism Aphasia Cancer Cancer of colon Cataract Chest pain Congenital heart disease Congestive heart failure Cystic fibrosis Dementia Dysphagia Family history: Allergy Family history: Alzheimer's disease Family history: Arthritis Family history: Asthma Family history: Breast disease Family history: Cardiovascular disease Family history: Coronary thrombosis Family history: Diabetes mellitus Family history: Gastrointestinal disease Family history: Glaucoma Family history: Hypertension Family history: Osteoporosis Family history: Thyroid disorder Headache Hearing loss Heart disease Hereditary disease History of - anemia History of - disorder History of - respiratory disease History of drug abuse Human immunodeficiency virus (HIV) seropositivity Hypercholesterolemia Infertile Kidney disease Malignant neoplasm of lung Myocardial infarction Parkinson's disease Prostate cancer Psychotic disorder Seizure disorder Stroke Tuberculosis Visual impairment Diabetes Physical Exam Vital Signs Vital Signs - First Documented 11/01/20 09:20 Temp 36.3 Pulse 89 Resp 16 B/P (MAP) 143/80 (101) Pulse Ox 99 O2 Delivery Room Air Capillary Refill : Less Than 3 Seconds Height, Weight, BMI Height: 5'9.00" Weight: 126lbs. 5.0oz. [id number]; 18.00 BMI Method:Stated General Appearance: WD/WN, no apparent distress HEENT: normal ENT inspection, pharynx normal Neck: non-tender, full range of motion, supple, normal inspection Cardiovascular: regular rate, rhythm, no edema, no murmur Respiratory: chest non-tender, lungs clear, normal breath sounds, no respiratory distress, no accessory muscle use Gastrointestinal: normal bowel sounds, non tender, soft; No distended, No guarding Hips: bilateral hip non-tender, bilateral hip normal inspection, bilateral hip normal range of motion Legs: bilateral leg non-tender, bilateral leg normal inspection, bilateral leg normal range of motion Knees: bilateral knee non-tender, bilateral knee normal inspection, bilateral knee normal range of motion, bilateral knee bone tenderness Ankles: left ankle non-tender, left ankle normal inspection, left ankle normal range of motion, left ankle no evidence of injury; right ankle bone tenderness, right ankle pain (Right ankle pain maximal over ATFL and CFL, some tenderness at the base of the fifth metatarsal, mild tenderness over the Lisfranc but swelling from ankle and bruising of the ankle does go over the foot as well) Neurologic/Tendon: normal sensation, normal motor functions, normal tendon functions Neurologic/Psychiatric: no motor/sensory deficits, alert, normal mood/affect Skin: normal color, warm/dry Lymphatic: no adenopathy Progress/Results/Core Measures Results/Orders My Orders Orders - DOMENIC CARMONA MD Foot, Right, 3 View (11/01/20 09:35) Ankle, Right, 3 Views (11/01/20 09:35) Ibuprofen Tablet (Motrin Tablet) (11/01/20 09:45) Acetaminophen Tablet (Tylenol Tablet) (11/01/20 09:45) Medications Given in ED Current Medications Medications Dose Ordered Sig/Sudheer Route Start Time Stop Time Status Last Admin Dose Admin Acetaminophen 1,000 mg ONCE ONCE PO 11/01/20 09:45 11/01/20 09:46 DC 11/01/20 09:44 1,000 MG Ibuprofen 600 mg ONCE ONCE PO 11/01/20 09:45 11/01/20 09:46 DC 11/01/20 09:44 600 MG Vital Signs/I&O 11/01/20 09:20 Temp 36.3 Pulse 89 Resp 16 B/P (MAP) 143/80 (101) Pulse Ox 99 O2 Delivery Room Air Blood Pressure Mean: 101 Progress Progress Note : Progress Note 45-year-old male with above history coming in after twisting right ankle. ABCs were intact and vitals are stable on presentation. Physical exam most notably tender over the ATFL with some bony tenderness laterally as well. X-ray of the foot and ankle ordered and interpreted by me showing potentially an old avulsion fracture of the left fifth metatarsal base, but this is well-corticated and does not appear acute. No acute fracture. Specifically, standing x-rays of the foot do not show any evidence of Lisfranc widening given his mild tenderness there. I believe he likely just has an ankle sprain. He was given a and Aircast as well as crutches. He is given information on how to follow-up with orthopedics. He was sent home in stable condition with strict return precautions Diagnostic Imaging Diagonstic Imaging: Xray Plain Films/CT/US/NM/MRI: other (right foot and ankle) Comments [facility] [place], [place] NAME: CATRACHO [facility] REC#: [id number] PT STATUS: REG ER : 1975 PHYSICIAN: DOMENIC CARMONA MD ADMIT DATE: 11/01/20/ER Draft Date of Exam:11/01/20 ANKLE, RIGHT, 3 VIEWS INDICATION: Right ankle pain. TECHNIQUE: AP, oblique, and lateral views of the right ankle were obtained. FINDINGS: No fracture or acute bony abnormality is seen. The joint spaces are unremarkable. IMPRESSION: Negative right ankle. Dictated on workstation # [id number] Dict: 11/01/20 1005 Trans: 11/01/20 1006 [id number] Interpreted by: MICKY SIMMS MD Electronically signed by: Departure Impression Primary Impression: Sprain and strain of ankle Disposition: 01 HOME, SELF-CARE Condition: Stable Departure-Patient Inst. Decision time for Depature: 10:43 Referrals: JUSTICE SAHA DO (PCP/Family) Primary Care Physician YOSEPH DANIEL MD Patient Instructions: Ankle Sprain ED Add. Discharge Instructions: You were seen in the emergency department after he twisted her right ankle. X- rays do not show any obvious fracture. Please use the Aircast and you can use the crutches as needed, but it is safe to walk on your foot. Take ibuprofen and Tylenol for pain. If you are still having significant pain within the next week, then I recommend you follow-up with the orthopedist Dr. Daniel. All discharge instructions reviewed with patient and/or family. Voiced understanding. DOMENIC CARMONA MD Nov 01, 2020 09:35
[2020-11-01] MEDS ORDERED: ACETAMINOPHEN 500 MG TAB (TYLENOL) PO ONE (09:45)
[2020-11-01] MEDS ORDERED: IBUPROFEN 600 MG (MOTRIN) TAB PO ONE (09:45)
--- NOTE | 2020-11-01 10:06 | Diagnostic Imaging Report ---
INDICATION: Right foot pain. TECHNIQUE: AP, oblique, and lateral views of the right foot were obtained. FINDINGS: No fracture or acute bony abnormality is seen. The joint spaces are unremarkable. IMPRESSION: Negative right foot. Dictated by: Dictated on workstation # [id number]
--- NOTE | 2020-11-01 10:06 | Diagnostic Imaging Report ---
INDICATION: Right ankle pain. TECHNIQUE: AP, oblique, and lateral views of the right ankle were obtained. FINDINGS: No fracture or acute bony abnormality is seen. The joint spaces are unremarkable. IMPRESSION: Negative right ankle. Dictated by: Dictated on workstation # [id number]
[2020-11-01 10:50] VITALS: BP 143/80
== END 2020-11-01 10:50 | disposition home or self-care (01) ==
LOC: EDUNIT# 09:15 → ER 09:17
DX: S93.401A Sprain of unspecified ligament of right ankle, initial encounter (principal); J44.9 Chronic obstructive pulmonary disease, unspecified; K50.90 Crohn's disease, unspecified, without complications; Z87.820 Personal history of traumatic brain injury; Z79.52 Long term (current) use of systemic steroids; Z79.899 Other long term (current) drug therapy; X50.1XXA Overexertion from prolonged static or awkward postures, initial encounter
CPT/HCPCS: 73610; 73630; 99283; L4350

== ENCOUNTER 2020-11-04 17:12 | Emergency (ER) | payer MEDICARE, MEDICAID ==
[~2020-11-04] VITALS: Ht 175.3 cm; Wt 56.7 kg
[2020-11-04] MEDS ORDERED: LIDOCAINE/EPI 1%-1:100,000 (XYLOCAINE) 20ML ONE (17:27)
[2020-11-04] MEDS ORDERED: TETANUS,DIPTH,PERTUSS P/F (BOOSTRIX) 0.5 ML VIAL IM ONE (17:30)
--- NOTE | 2020-11-04 17:48 | ED EENT ---
History of Present Illness General Chief Complaint: Laceration Stated Complaint: GASH UNDER CHIN Nursing Triage Note: PT AMB TO RM 6 WITH COMPLAINT OF LACERATION TO CHIN. STATES HE SLIPPED AND HIT CHIN ON FLOOR. STATES TOOK A HOT KNIFE AND CAUTERIZED THE WOUND. UNKNOWN LAST TDAP Source: patient History of Present Illness Date Seen by Provider: Nov 04, 2020 Time Seen by Provider: 17:20 Initial Comments PT ARRIVES VIA POV WITH STAFF MEMBER FROM [facility] PT STATES THAT HE GOT UP TO ANSWER THE PHONE AND HIS FOOT SLIPPED AND HE FELL FORWARD, HITTING CHIN ON [place] FLOOR OCCURRED "SOMETIME AFTER 2:00" PM THIS AFTERNOON STATES HE TOOK A KNIFE AND TRIED TO CAUTERIZE THE LACERATION, BUT "IT DIDN'T WORK" NO LOSS OF CONSCIOUSNESS NO NECK PAIN NO MOUTH INJURY--PT DOES NOT HAVE ANY TEETH NO PAIN ON OPENING MOUTH PT TWISTED HIS RIGHT ANKLE ON SATURDAY AND WAS SEEN HERE ON SATURDAY AND DX WITH ANKLE SPRAIN AND PLACED IN A STIRRUP SPLINT STATES WHEN HE GOT UP, HE STEPPED DOWN ON THIS FOOT AND IS WHAT CAUSED HIM TO SLIP PT STATES HE HAS HAD "1 BEER" TONIGHT, AND SMOKED SOME MARIJUANA TONIGHT LAST TETANUS WAS 2011 PCP: DR. ASHA Allergies and Home Medications Allergies Coded Allergies: ceftazidime (Verified Allergy, Intermediate, RASH, 06/15/16) nalbuphine (Unverified Allergy, Mild, RASH, 03/29/06) Iodinated Contrast Media (Verified Allergy, Unknown, HIVES, 05/02/15) Sulfa (Sulfonamide Antibiotics) (Verified Allergy, Unknown, 03/29/06) latex (Verified Allergy, Unknown, 05/03/15) strawberry (Unverified Allergy, Unknown, 12/18/13) FROM UNCODED ALLERGIES Uncoded Allergies: TAPE (Allergy, Unknown, 03/29/06) Patient Home Medication List Home Medication List Reviewed: Yes Ascorbate Calcium (Vitamin C) 500 Mg Tablet, 500 MG PO DAILY, (Reported) Entered as Reported by: MARCELO ERVIN on 06/06/17 1201 Budesonide (Budesonide ER) 9 Mg Tabdr...er, 9 MG PO DAILY, (Reported) Entered as Reported by: KRYSTINA CANSECO on 07/28/20 1541 Cyanocobalamin (Cyanocobalamin Injection) 1,000 Mcg/Ml Inj, 1,000 MCG INJ MONTHLY, (Reported) Entered as Reported by: MARCELO ERVIN on 10/12/14 1200 Dicyclomine HCl (Dicyclomine HCl) 10 Mg Capsule, 10 MG PO ACHS, (Reported) Entered as Reported by: MARCELO ERVIN on 06/06/17 1114 Docusate Sodium (Colace) 100 Mg Capsule, 100 MG PO DAILY, (Reported) Entered as Reported by: MEGN MCKEON on 06/11/16 1507 Famotidine (Famotidine) 20 Mg Tablet, 20 MG PO HS, (Reported) Entered as Reported by: MARCELO ERVIN on 11/06/17 1039 Gabapentin (Gabapentin) 600 Mg Tablet, 600 MG PO TID, (Reported) Entered as Reported by: MARCELO ERVIN on 10/12/14 1200 Loperamide HCl (Loperamide) 2 Mg Capsule, 4 MG PO BID, (Reported) Entered as Reported by: MARCELO ERVIN on 11/06/17 1039 Magnesium Oxide (Magnesium Oxide) 400 Mg Tablet, 400 MG PO DAILY, (Reported) Entered as Reported by: MARCELO ERVIN on 10/12/14 1200 Mesalamine (Lialda) 1.2 Gm Tablet.dr, 2.4 GM PO BID, (Reported) Entered as Reported by: KRYSTINA CANSECO on 07/28/20 1541 Multivit-Min/FA/Lycopene/Lut (Certavite Sr-Antioxidant Tab) 1 Each Tablet, 1 TAB PO DAILY, (Reported) Entered as Reported by: MARCELO ERVIN on 11/06/17 1055 Omeprazole (Omeprazole) 40 Mg Capsule.dr, 40 MG PO BID, (Reported) Entered as Reported by: MARCELO ERVIN on 10/12/14 1200 Prednisone (Prednisone) 20 Mg Tab, 40 MG PO DAILY Prescribed by: REX PLAZA on 07/29/20 0857 Review of Systems Review of Systems Constitutional: no symptoms reported Mouth: no symptoms reported Throat: no symptoms reported Respiratory: no symptoms reported Cardiovascular: no symptoms reported Gastrointestinal: no symptoms reported Musculoskeletal: no symptoms reported Skin: see HPI Neurological: No Symptoms Reported Hematologic/Lymphatic: No Symptoms Reported Immunological/Allergic: no symptoms reported Past Lknmuxg-Qtyjra-Bmwyuh Hx Patient Social History Tobacco Use?: Yes Tobacco type used: Cigarettes Smoking Status: Current Everyday Smoker Use of E-Cig and/or Vaping dev: No Substance use?: Yes Substance type: Marijuana Alcohol Use?: Yes Alcohol type: Beer Alcohol Frequency: Couple times a week Pt feels they are or have been: No Immunizations Up To Date Tetanus Booster (TDap): More than 5yrs PED Vaccines UTD: No First/Initial COVID19 Vaccinat: 06/15 J&J Second COVID19 Vaccination Mick: 06/15 J&J Seasonal Allergies Seasonal Allergies: No Past Medical History Surgeries: No (EAR SURGERIES TO PREVENT HEARING LOSS CHILD, 3 BOWEL RESECTIONS, RECTAL ) Abdominal, Appendectomy, Bowel Surgery, Gallbladder, Tonsillectomy Respiratory: Yes COPD, Emphysema Cardiac: No Neurological: Yes (BRAIN DAMAGE FOLLOWING MULTIPLE SURGERIES A CHILD ) Traumatic Brain Injury Reproductive Disorders: No Sexually Transmitted Disease: No Genitourinary: No Gastrointestinal: Yes (inguinal hernia) Crohns Disease Musculoskeletal: Yes (BROKEN LEG , BILAT BROKEN ELBOWS) Arthritis, Fractures Endocrine: No HEENT: No 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 ) Adverse Reaction/Blood Tranf: No Family Medical History No Family History of: Abdominal aortic aneurysm Stanislaus's disease Alcoholism Aphasia Cancer Cancer of colon Cataract Chest pain Congenital heart disease Congestive heart failure Cystic fibrosis Dementia Dysphagia Family history: Allergy Family history: Alzheimer's disease Family history: Arthritis Family history: Asthma Family history: Breast disease Family history: Cardiovascular disease Family history: Coronary thrombosis Family history: Diabetes mellitus Family history: Gastrointestinal disease Family history: Glaucoma Family history: Hypertension Family history: Osteoporosis Family history: Thyroid disorder Headache Hearing loss Heart disease Hereditary disease History of - anemia History of - disorder History of - respiratory disease History of drug abuse Human immunodeficiency virus (HIV) seropositivity Hypercholesterolemia Infertile Kidney disease Malignant neoplasm of lung Myocardial infarction Parkinson's disease Prostate cancer Psychotic disorder Seizure disorder Stroke Tuberculosis Visual impairment Diabetes Physical Exam Vital Signs Vital Signs - First Documented 11/04/20 17:17 Pulse 106 Resp 20 B/P (MAP) 127/91 (103) Pulse Ox 96 O2 Delivery Room Air Height, Weight, BMI Height: 5'9.00" Weight: 126lbs. 5.0oz. 57.252117ev; 18.00 BMI Method:Stated General Appearance: WD/WN, no apparent distress, other (STRONG ODOR OF ETOH, SPEECH CLEAR, GAIT STEADY) Eyes: bilateral eye PERRL, bilateral eye EOMI Nose: normal inspection Mouth/Throat: normal mouth inspection, other (EDENTULOUS. NO ORAL/INTRA-ORAL INJURY. NO MANDIBULAR TENDERNESS. NO TRISMUS) Neck: non-tender, full range of motion, supple, normal inspection Respiratory: chest non-tender, normal breath sounds Gastrointestinal: non tender, soft Neurologic/Psychiatric: head control clerk II-XII nml as tested, no motor/sensory deficits, alert, normal mood/affect, oriented x 3 Skin: normal color, warm/dry, other (CHIN WITH 2.5 CM FULL THICKNESS LACERATION. NO ACTIVE BLEEDING AT THIS TIME. NO BONY TENDERNESS OR ABNORMALITY. NO CHARRED SKIN OR WRIGHT NOTED. ) Procedures/Interventions Other Wound Location CHIN Wound Length (cm): 2.5 Wound's Depth, Shape: irregular, sub Q Wound Explored: clean Betadine Prep?: No (BETASEPT) Anesthesia: Lidocaine w/ Epi (1%) Suture: Prolene Suture Size: 4-0 Number of Sutures: 4 Layer Closure?: 1 Progress PT TOLERATED WELL Progress/Results/Core Measures Results/Orders My Orders Orders - SYEDA JACOBO DO Dipht,Pertuss(Acell),Tet Adult (Boostrix (11/04/20 17:30) Lidocaine/Epi 1% 1:100,000 (Xylocaine /E (11/04/20 17:27) Medications Given in ED Current Medications Medications Dose Ordered Sig/Sudheer Route Start Time Stop Time Status Last Admin Dose Admin Diphtheria/ Tetanus/Acell Pertussis 0.5 ml ONCE ONCE IM 11/04/20 17:30 11/04/20 17:31 DC 11/04/20 17:54 0.5 ML Lidocaine/ Epinephrine 20 ml STK-MED ONCE .ROUTE 11/04/20 17:27 11/04/20 17:29 DC 11/04/20 17:30 20 ML Vital Signs/I&O 11/04/20 11/04/20 17:17 17:56 Pulse 106 106 Resp 20 20 B/P (MAP) 127/91 (103) 127/91 Pulse Ox 96 96 O2 Delivery Room Air Room Air Blood Pressure Mean: 103 Departure Impression Primary Impression: Chin laceration Additional Impression: Uhaygcwjfy-rkjhpbctp-muanbrr (DPT) vaccination administered at current visit Disposition: 01 HOME, SELF-CARE Condition: Stable Departure-Patient Inst. Decision time for Depature: 17:45 Referrals: JUSTICE SAHA DO (PCP/Family) Primary Care Physician Patient Instructions: Laceration Repair With Stitches (DC), Diphtheria and Tetanus Toxoids, and Acellular Pertussis Vaccine Add. Discharge Instructions: CLEAN WOUND TWICE A DAY WITH ANTIBACTERIAL SOAP AND WATER ON A Q-TIP, OTHERWISE KEEP CLEAN AND DRY SUTURES OUT IN 7 DAYS--RETURN TO ER FOR REMOVAL TYLENOL NEEDED FOR PAIN All discharge instructions reviewed with patient and/or family. Voiced understanding. SYEDA JACOBO DO Nov 04, 2020 17:48
[2020-11-04 17:56] VITALS: BP 127/91
== END 2020-11-04 17:56 | disposition home or self-care (01) ==
LOC: EDUNIT# 17:12 → ER 17:13
DX: S01.81XA Laceration without foreign body of other part of head, initial encounter (principal); J44.9 Chronic obstructive pulmonary disease, unspecified; K50.90 Crohn's disease, unspecified, without complications; F17.210 Nicotine dependence, cigarettes, uncomplicated; Z87.820 Personal history of traumatic brain injury; Z23 Encounter for immunization; Z79.52 Long term (current) use of systemic steroids; Z79.899 Other long term (current) drug therapy; W01.198A Fall on same level from slipping, tripping and stumbling with subsequent striking against other object, initial encounter
CPT/HCPCS: 12011; 90715

== ENCOUNTER → 2020-12-05 | Outpatient (CLI) | payer MEDICARE, MEDICAID ==
[2020-12-05 13:06] LABS: BASOPHILS # (AUTO) 0.1 10^3/uL (0.0-0.1); BASOPHILS % (AUTO) 1 % (0-10); EOSINOPHILS # (AUTO) 0.2 10^3/uL (0.0-0.3); EOSINOPHILS % (AUTO) 3 % (0-10); HEMATOCRIT 39 % (40-54); HEMOGLOBIN 13.5 g/dL (13.3-17.7); LYMPHOCYTES # (AUTO) 3.2 10^3/uL (1.0-4.0); LYMPHOCYTES % (AUTO) 35 % (12-44); MEAN CORPUSCULAR HEMOGLOBIN 33 pg (25-34); MEAN CORPUSCULAR HGB CONC 35 g/dL (32-36); MEAN CORPUSCULAR VOLUME 96 fL (80-99); MEAN PLATELET VOLUME 9.5 fL (9.0-12.2); MONOCYTES % (AUTO) 11 % (0-12); NEUTROPHILS # (AUTO) 4.7 10^3/uL (1.8-7.8); NEUTROPHILS % (AUTO) 51 % (42-75); PLATELET COUNT 480 10^3/uL (130-400); WHITE BLOOD COUNT 9.2 10^3/uL (4.3-11.0)
[2020-12-05 13:36] LABS: ALBUMIN 3.8 GM/DL (3.2-4.5); BILIRUBIN,TOTAL 0.3 MG/DL (0.1-1.0); CALCIUM 9.1 MG/DL (8.5-10.1); CREATININE SERUM 0.66 MG/DL (0.60-1.30); POTASSIUM 3.7 MMOL/L (3.6-5.0); TOTAL PROTEIN 6.7 GM/DL (6.4-8.2)
== END ==
LOC: ONC 12:52
PROVIDERS: ATTEND Internal Medicine Hematology & Oncology
DX: C83.30 Diffuse large B-cell lymphoma, unspecified site (principal); D50.9 Iron deficiency anemia, unspecified; K50.90 Crohn's disease, unspecified, without complications; D75.839 Thrombocytosis, unspecified
CPT/HCPCS: 80053; 85025; G0463; 99213

== ENCOUNTER → 2020-12-20 | Outpatient (CLI) | payer MEDICARE, MEDICAID ==
[~2020-12-20] MED LIST changes: -MAGN400T8 PO; +MGX400T PO; +VEDOLIZUMAB 300 MG/NS 250 ML IVPB IV SCH
[2020-12-20 12:00] VITALS: BP 120/74
== END ==
LOC: SDC 11:55 → EDSTATUS 12:45
PROVIDERS: ATTEND Internal Medicine Gastroenterology
DX: K50.90 Crohn's disease, unspecified, without complications (principal)
CPT/HCPCS: 96365; J3380

== ENCOUNTER 2021-02-13 12:45 | Outpatient (CLI) | payer MEDICARE, MEDICAID ==
[~2021-02-13 12:45] MED LIST changes: -LEVO500T80 PO; +LEVO500T81 PO; +MONT-40 PO; -MONT10TA32 PO; -VEDOLIZUMAB 300 MG/NS 250 ML IVPB IV SCH
[2021-02-13 12:50] VITALS: BP 132/84
[2021-02-13] MEDS ORDERED: VEDOLIZUMAB 300 MG/NS 250 ML IVPB IV SCH ×2 (12:51)
== END 2021-02-13 14:06 | disposition home or self-care (01) ==
LOC: SDC 12:45
PROVIDERS: ATTEND Internal Medicine Gastroenterology
DX: K50.90 Crohn's disease, unspecified, without complications (principal)
CPT/HCPCS: 96365; J3380

== ENCOUNTER → 2021-05-25 | Outpatient (RCR) | payer MEDICARE, MEDICAID ==
[~2021-05-25] MED LIST changes: +VEDOLIZUMAB 300 MG/NS 250 ML IVPB IV SCH
[2021-05-25 12:00] VITALS: BP 137/83
== END ==
LOC: SDC 11:53
PROVIDERS: ATTEND Internal Medicine Gastroenterology
DX: K50.90 Crohn's disease, unspecified, without complications (principal)
CPT/HCPCS: 96365; J3380

== ENCOUNTER 2021-07-31 13:00 | Outpatient (RCR) | payer MEDICARE, MEDICAID ==
[~2021-07-31 13:00] MED LIST changes: -VEDOLIZUMAB 300 MG/NS 250 ML IVPB IV SCH
[2021-07-31 13:05] VITALS: BP 115/76
[2021-07-31] MEDS ORDERED: VEDOLIZUMAB 300 MG/NS 250 ML IVPB IV ONE ×2 (13:15)
== END 2021-08-24 | disposition home or self-care (01) ==
LOC: SDC 13:00
PROVIDERS: ATTEND Internal Medicine Gastroenterology
DX: K50.90 Crohn's disease, unspecified, without complications (principal)
CPT/HCPCS: 96365; J3380

== ENCOUNTER → 2021-09-21 | Outpatient (CLI) | payer MEDICARE, MEDICAID ==
[~2021-09-21] VITALS: Wt 56.7 kg
[~2021-09-21] MED LIST changes: +SODIUM CHLORIDE IV ONE; +USTEKINUMAB IV ONE
[2021-09-21 13:11] VITALS: BP 141/80
[2021-09-21 14:40] VITALS: BP 141/80
== END ==
LOC: SDC 12:48
PROVIDERS: ATTEND Internal Medicine Gastroenterology
DX: K50.90 Crohn's disease, unspecified, without complications (principal)
CPT/HCPCS: 99211

== ENCOUNTER → 2021-11-29 | Outpatient (CLI) | payer MEDICARE, MEDICAID ==
[~2021-11-29] MED LIST changes: +LEVO-55 PO; -LEVO500T81 PO; -SODIUM CHLORIDE IV ONE; -USTEKINUMAB IV ONE
[2021-11-29 15:13] LABS: BASOPHILS # (AUTO) 0.1 10^3/uL (0.0-0.1); BASOPHILS % (AUTO) 1 % (0-10); EOSINOPHILS # (AUTO) 0.4 10^3/uL (0.0-0.3); EOSINOPHILS % (AUTO) 4 % (0-10); HEMATOCRIT 29 % (40-54); HEMOGLOBIN 9.6 g/dL (13.3-17.7); LYMPHOCYTES # (AUTO) 2.5 10^3/uL (1.0-4.0); LYMPHOCYTES % (AUTO) 29 % (12-44); MEAN CORPUSCULAR HEMOGLOBIN 29 pg (25-34); MEAN CORPUSCULAR HGB CONC 33 g/dL (32-36); MEAN CORPUSCULAR VOLUME 88 fL (80-99); MEAN PLATELET VOLUME 9.6 fL (9.0-12.2); MONOCYTES # (AUTO) 1.1 10^3/uL (0.0-1.0); MONOCYTES % (AUTO) 12 % (0-12); NEUTROPHILS # (AUTO) 4.6 10^3/uL (1.8-7.8); NEUTROPHILS % (AUTO) 53 % (42-75); PLATELET COUNT 464 10^3/uL (130-400); WHITE BLOOD COUNT 8.6 10^3/uL (4.3-11.0)
[2021-11-29 15:31] LABS: ALBUMIN 3.6 GM/DL (3.2-4.5); BILIRUBIN,TOTAL 0.4 MG/DL (0.1-1.0); CALCIUM 8.3 MG/DL (8.5-10.1); CREATININE SERUM 0.67 MG/DL (0.60-1.30); POTASSIUM 3.4 MMOL/L (3.6-5.0); TOTAL PROTEIN 6.2 GM/DL (6.4-8.2)
== END ==
LOC: ONC 14:14
PROVIDERS: ATTEND Internal Medicine Hematology & Oncology
DX: C83.30 Diffuse large B-cell lymphoma, unspecified site (principal); D50.9 Iron deficiency anemia, unspecified; K50.90 Crohn's disease, unspecified, without complications; D75.839 Thrombocytosis, unspecified
CPT/HCPCS: 80053; 82728; 83540; 83550; 85025; G0463; 36415; 99213

== ENCOUNTER 2021-12-20 12:01 | Emergency (ER) | payer MEDICARE, MEDICAID ==
[~2021-12-20] VITALS: Ht 175.3 cm; Wt 67.5 kg
[2021-12-20] MEDS ORDERED: HYDROcodone/APAP 5 MG/325 MG (LORTAB) TAB PO ONE (12:30)
--- NOTE | 2021-12-20 12:46 | ED General ---
General Chief Complaint: Chest Wall Stated Complaint: RIB/SIDE PAIN Nursing Triage Note: PT AMB TO RM 3 WITH COMPLAINT OF RIGHT SIDE/RIB PAIN. STATES PAIN WORSENED ON SATURDAY WHEN HE HAD FRIEND TRY AND POP HIS BACK. Source of Information: Patient Exam Limitations: No Limitations History of Present Illness Date Seen by Provider: Dec 20, 2021 Time Seen by Provider: 13:09 Allergies and Home Medications Allergies Coded Allergies: ceftazidime (Verified Allergy, Intermediate, RASH, 06/15/16) nalbuphine (Unverified Allergy, Mild, RASH, 03/29/06) Iodinated Contrast Media (Verified Allergy, Unknown, HIVES, 05/02/15) Sulfa (Sulfonamide Antibiotics) (Verified Allergy, Unknown, 03/29/06) latex (Verified Allergy, Unknown, 05/03/15) strawberry (Unverified Allergy, Unknown, 12/18/13) FROM UNCODED ALLERGIES Uncoded Allergies: TAPE (Allergy, Unknown, 03/29/06) Patient Home Medication List Ascorbate Calcium (Vitamin C) 500 Mg Tablet, 500 MG PO DAILY, (Reported) Entered as Reported by: MARCELO ERVIN on 06/06/17 1201 Budesonide (Budesonide ER) 9 Mg Tabdr...er, 9 MG PO DAILY, (Reported) Entered as Reported by: KRYSTINA CANSECO on 07/28/20 1541 Cyanocobalamin (Cyanocobalamin Injection) 1,000 Mcg/Ml Inj, 1,000 MCG INJ MONTHLY, (Reported) Entered as Reported by: MARCELO ERVIN on 10/12/14 1200 Dicyclomine HCl (Dicyclomine HCl) 10 Mg Capsule, 10 MG PO ACHS, (Reported) Entered as Reported by: MARCELO ERVIN on 06/06/17 1114 Docusate Sodium (Colace) 100 Mg Capsule, 100 MG PO DAILY, (Reported) Entered as Reported by: MENG MCKEON on 06/11/16 1507 Famotidine (Famotidine) 20 Mg Tablet, 20 MG PO HS, (Reported) Entered as Reported by: MARCELO ERVIN on 11/06/17 1039 Gabapentin (Gabapentin) 600 Mg Tablet, 600 MG PO TID, (Reported) Entered as Reported by: MARCELO ERVIN on 10/12/14 1200 Loperamide HCl (Loperamide) 2 Mg Capsule, 4 MG PO BID, (Reported) Entered as Reported by: MARCELO ERVIN on 11/06/17 1039 Magnesium Oxide (Magnesium Oxide) 400 Mg Tablet, 400 MG PO DAILY, (Reported) Entered as Reported by: MARCELO ERVIN on 10/12/14 1200 Mesalamine (Lialda) 1.2 Gm Tablet.dr, 2.4 GM PO BID, (Reported) Entered as Reported by: KRYSTINA CANSECO on 07/28/20 1541 Multivit-Min/FA/Lycopene/Lut (Certavite Sr-Antioxidant Tab) 1 Each Tablet, 1 TAB PO DAILY, (Reported) Entered as Reported by: MARCELO ERVIN on 11/06/17 1055 Omeprazole (Omeprazole) 40 Mg Capsule.dr, 40 MG PO BID, (Reported) Entered as Reported by: MARCELO ERVIN on 10/12/14 1200 Prednisone (Prednisone) 20 Mg Tab, 40 MG PO DAILY Prescribed by: REX PLAZA on 07/29/20 0857 Past Ceezqyo-Zynoru-Egjbrz Hx Patient Social History Tobacco Use?: Yes Tobacco type used: Cigarettes Smoking Status: Current Everyday Smoker Use of E-Cig and/or Vaping dev: No Substance use?: Yes Substance type: Marijuana Alcohol Use?: Yes Alcohol Frequency: Once in a while Immunizations Up To Date Tetanus Booster (TDap): More than 5yrs PED Vaccines UTD: No First/Initial COVID19 Vaccinat: 06/15 J&J Second COVID19 Vaccination Mick: 06/15 J&J Third COVID19 Vaccination Date: 06/15 J&J Seasonal Allergies Seasonal Allergies: No Past Medical History Surgeries: No (EAR SURGERIES TO PREVENT HEARING LOSS CHILD, 3 BOWEL RESECTIONS, RECTAL ) Abdominal, Appendectomy, Bowel Surgery, Gallbladder, Tonsillectomy Respiratory: Yes COPD, Emphysema Cardiac: No Neurological: Yes (BRAIN DAMAGE FOLLOWING MULTIPLE SURGERIES A CHILD ) Traumatic Brain Injury Reproductive Disorders: No Sexually Transmitted Disease: No Genitourinary: No Gastrointestinal: Yes (inguinal hernia) Crohns Disease Musculoskeletal: Yes (BROKEN LEG INFANT, BILAT BROKEN ELBOWS) Arthritis, Fractures Endocrine: No HEENT: No 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 ) Adverse Reaction/Blood Tranf: No Family Medical History No Family History of: Abdominal aortic aneurysm Fulton's disease Alcoholism Aphasia Cancer Cancer of colon Cataract Chest pain Congenital heart disease Congestive heart failure Cystic fibrosis Dementia Dysphagia Family history: Allergy Family history: Alzheimer's disease Family history: Arthritis Family history: Asthma Family history: Breast disease Family history: Cardiovascular disease Family history: Coronary thrombosis Family history: Diabetes mellitus Family history: Gastrointestinal disease Family history: Glaucoma Family history: Hypertension Family history: Osteoporosis Family history: Thyroid disorder Headache Hearing loss Heart disease Hereditary disease History of - anemia History of - disorder History of - respiratory disease History of drug abuse Human immunodeficiency virus (HIV) seropositivity Hypercholesterolemia Infertile Kidney disease Malignant neoplasm of lung Myocardial infarction Parkinson's disease Prostate cancer Psychotic disorder Seizure disorder Stroke Tuberculosis Visual impairment Diabetes Physical Exam Vital Signs Vital Signs - First Documented 12/20/21 12:08 Temp 37.4 Pulse 106 Resp 20 B/P (MAP) 134/91 (105) Pulse Ox 94 O2 Delivery Room Air Capillary Refill : Less Than 3 Seconds Height, Weight, BMI Height: 5'9.00" Weight: 126lbs. 5.0oz. 57.609211eu; 21.00 BMI Method:Stated Procedures/Interventions Suture Size: 4-0 Progress/Results/Core Measures Suspected Sepsis SIRS Temperature: Pulse: 106 Respiratory Rate: 20 Blood Pressure 134 /91 Mean: 105 Results/Orders My Orders Orders - JOHANNY LAMB MANAGER [facility]ISSION Hydrocodone/Apap 5/325 Tablet (Lortab 5 (12/20/21 12:30) Ribs/Unilateral With Chest (12/20/21 12:22) Medications Given in ED Current Medications Medications Dose Ordered Sig/Sudheer Route Start Time Stop Time Status Last Admin Dose Admin Acetaminophen/ Hydrocodone Bitart 1 ea ONCE ONCE PO 12/20/21 12:30 12/20/21 12:31 DC 12/20/21 12:31 1 EA Vital Signs/I&O 12/20/21 12/20/21 12:08 12:23 Temp 37.4 Pulse 106 Resp 20 B/P (MAP) 134/91 (105) Pulse Ox 94 O2 Delivery Room Air Room Air Capillary Refill : Less Than 3 Seconds Blood Pressure Mean: 105 Departure Impression Primary Impression: Rib contusion Additional Impression: COPD (chronic obstructive pulmonary disease) Disposition: HOME, SELF-CARE Condition: Improved Departure-Patient Inst. Decision time for Depature: 13:23 Referrals: JUSTICE SAHA DO (PCP/Family) Primary Care Physician Patient Instructions: Rib Fracture or Bruised Rib ED Add. Discharge Instructions: Plan: 1. Use your albuterol inhaler 2 puffs every 4 hours as needed for wheezing or shortness of breath. You have been given a inhaler through the emergency department. Miller sure you follow-up with your primary care provider for refill. 2. may take tramadol 1 tablet every 6 hours as needed for pain along with steroid daily as directed. The tramadol is to be used as breakthrough pain. The steroids will help treat inflammation. You can do ice 20 minutes at a time followed by heat. You can also use Tylenol and ibuprofen. Tylenol you can do 1000 mg every 8 hours as needed and ibuprofen you can do 600 mg every 6 hours as needed. Take with food. 3. Make sure you use your incentive spirometer 10 inhalations every 4 hours to help prevent pneumonia., You can use a pillow or blanket to splint your side while you take deep breaths. 5. Return to the ER for any new, concerning, worsening symptoms. All discharge instructions reviewed with patient and/or family. Voiced understanding. Scripts Methylprednisolone (Methylprednisolone Dose Pack) 4 Mg Tab.ds.pk 4 MG PO UD for 6 Days, #21 PKG 0 Refills PER DOSE PACK INSTRUCTIONS Prov: JOHANNY LAMB MANAGER [facility]ION 12/20/21 Tramadol HCl (Tramadol HCl) 50 Mg Tablet 50 MG PO Q6H PRN for PAIN-BREAKTHROUGH, #10 TAB 0 Refills Prov: JOHANNY LAMB MANAGER [facility]ION 12/20/21 JOHANNY LAMB MANAGER [facility]ISSION Dec 20, 2021 12:46
--- NOTE | 2021-12-20 12:50 | Diagnostic Imaging Report ---
RIBS/UNILATERAL WITH CHEST INDICATION: Right rib pain. COMPARISON: CT chest from 11/05/2017. TECHNIQUE: PA chest with two views of the right ribs. FINDINGS: Stable hyperinflated lungs. No consolidation, pleural effusion, or pneumothorax. Normal cardiomediastinal silhouette. Stable postoperative changes in the left upper quadrant. No acute or healing fracture within the right ribs. IMPRESSION: No right-sided rib fracture. Dictated by: Dictated on workstation # [id number]
[2021-12-20] MEDS ORDERED: METH4TAB10 PO (13:27)
[2021-12-20] MEDS ORDERED: TRAM50TA3 PO (13:27)
[2021-12-20 13:58] VITALS: BP 121/89
[2021-12-20] MEDS ORDERED: RX-ALBUTEROL INHALER 8.5 GM HFA (PROAIR) IH ONE (14:00)
[2021-12-20] MEDS ORDERED: RX-ALBUTEROL INHALER 8.5 GM HFA (PROAIR) IH STA (14:04)
== END 2021-12-20 14:07 | disposition home or self-care (01) ==
LOC: EDUNIT# 12:01 → ER 12:03
DX: S20.20XA Contusion of thorax, unspecified, initial encounter (principal); J43.9 Emphysema, unspecified; F17.210 Nicotine dependence, cigarettes, uncomplicated; Z91.040 Latex allergy status; X50.1XXA Overexertion from prolonged static or awkward postures, initial encounter
CPT/HCPCS: 71101

== ENCOUNTER 2022-06-29 11:33 | Emergency (ER) | payer MEDICARE, MEDICAID ==
[~2022-06-29] VITALS: Ht 175.2 cm; Wt 67.5 kg
[~2022-06-29 11:33] MED LIST changes: +METH4TAB10 PO; -POTA10CA43 PO; +POTA10CA44 PO; +TRAM50TA3 PO
[2022-06-29] MEDS ORDERED: ORPHENADRINE 60 MG/2 ML (NORFLEX) AMP (ED ONLY) IV ONE (12:15)
[2022-06-29] MEDS ORDERED: KETOROLAC 30 MG/ML VIAL IVP ONE (12:15)
[2022-06-29 12:46] LABS: BASOPHILS % (AUTO) 0 % (0-10); EOSINOPHILS # (AUTO) 0.1 10^3/uL (0.0-0.3); EOSINOPHILS % (AUTO) 1 % (0-10); HEMATOCRIT 32 % (40-54); LYMPHOCYTES # (AUTO) 2.2 10^3/uL (1.0-4.0); LYMPHOCYTES % (AUTO) 23 % (12-44); MEAN CORPUSCULAR HEMOGLOBIN 30 pg (25-34); MEAN CORPUSCULAR HGB CONC 34 g/dL (32-36); MEAN CORPUSCULAR VOLUME 88 fL (80-99); MEAN PLATELET VOLUME 9.3 fL (9.0-12.2); MONOCYTES # (AUTO) 1.2 10^3/uL (0.0-1.0); MONOCYTES % (AUTO) 13 % (0-12); NEUTROPHILS # (AUTO) 5.9 10^3/uL (1.8-7.8); NEUTROPHILS % (AUTO) 63 % (42-75); PLATELET COUNT 460 10^3/uL (130-400); WHITE BLOOD COUNT 9.5 10^3/uL (4.3-11.0)
[2022-06-29 12:50] LABS: POTASSIUM 3.8 MMOL/L (3.6-5.0)
[2022-06-29 12:51] LABS: CALCIUM 8.5 MG/DL (8.5-10.1)
[2022-06-29 12:56] LABS: CREATININE SERUM 0.63 MG/DL (0.60-1.30)
--- NOTE | 2022-06-29 13:13 | Diagnostic Imaging Report ---
PROCEDURE: CT thoracic spine without contrast. TECHNIQUE: Multiple axial computerized tomography images were obtained from the base of the thoracic spine to the vertex without intravenous contrast. Auto Exposure Controls were utilized during the CT exam to meet ALARA standards for radiation dose reduction. INDICATION: Back trauma. COMPARISON: None available. FINDINGS: There is no acute fracture. Alignment is normal. No appreciable spinal canal stenosis. Visualized aspects of the posterior ribs are intact. Severe emphysema with biapical subpleural scarring. No concerning abnormality in the visualized upper abdomen. IMPRESSION: No fracture within the thoracic spine. Dictated by: Dictated on workstation # [id number]
--- NOTE | 2022-06-29 13:25 | Diagnostic Imaging Report ---
PROCEDURE: CT head and CT cervical spine without contrast. TECHNIQUE: Multiple contiguous axial images were obtained through the brain and cervical spine without the use of intravenous contrast. Sagittal and coronal reformations through the cervical spine were then performed. Auto Exposure Controls were utilized during the CT exam to meet ALARA standards for radiation dose reduction. INDICATION: Trauma, pain COMPARISON: None available FINDINGS: No intracranial hemorrhage. No intracranial mass, mass effect, midline shift, herniation, hydrocephalus, or extra-axial fluid collection. No CT evidence of an acute ischemic infarction. The orbits are unremarkable. The visualized paranasal sinuses are clear. The calvarium and extracalvarial soft tissues are unremarkable. Straightening of the normal cervical lordosis. No significant anterolisthesis or retrolisthesis. Prominent lucency is noted filling the majority of the C5 vertebral body extending into the right pedicle. This is associated with superior endplate compression deformity of C5 with approximately 50% loss of vertebral body height. There does appear to be mild bowing of the posterior aspect of the C5 vertebral body into the central canal resulting in at least mild central canal stenosis and moderate right neural foraminal stenosis. Additional ill-defined lucency is noted involving the anterior aspect of the C6 vertebral body superiorly. Vertebral body heights are otherwise well maintained. Moderate disc space height loss at C5/C6. No additional acute fracture within the cervical spine. Scattered facet joint degenerative changes. Biapical pleural scarring with associated emphysematous changes within the visualized upper lungs. IMPRESSION: Moderate compression deformity of C5 with approximately 50% loss of vertebral body height. Given underlying lucency throughout this vertebral body, this most likely relates to a pathologic fracture. Metastatic disease should be considered. Recommend clinical correlation. There is resulting at least mild central canal stenosis at this level. Additional small ill-defined lucency within the superior endplate of C6. This could relate to additional metastatic disease versus focal subchondral cyst formation. Nuclear medicine bone scan versus MRI could help to further evaluate. No acute intracranial abnormality. Emphysematous changes within the partially visualized upper lungs. Dictated by: Dictated on workstation # [id number]
[2022-06-29] MEDS ORDERED: morphine INJ 10 MG/ML 1ML (SYR OR VIAL) IVP STA ×3 (14:14→19:11)
--- NOTE | 2022-06-29 14:41 | Diagnostic Imaging Report ---
INDICATION: Screening for metallic objects prior to MRI. EXAMINATION: Chest, 06/29/2022. COMPARISON: 07/28/2020. FINDINGS: Single view chest. Lungs are hyperinflated with chronic interstitial markings noted bilaterally. No infiltrates or effusions. No pneumothorax. Heart and pulmonary vasculature are stable from previous. No radiopaque foreign bodies appreciated. IMPRESSION: 1. Chronic findings with no acute cardiopulmonary process. Dictated by: Dictated on workstation # [id number]
--- NOTE | 2022-06-29 14:43 | Diagnostic Imaging Report ---
INDICATION: abdomen pain COMPARISON: 11/13/2014 FINDINGS: Single supine radiographic view of the abdomen was obtained and demonstrates nondistended loops of small bowel. There is no large collection of free peritoneal air. Mild air and stool are seen scattered throughout the colon. No unexpected extraosseous calcifications or radiopaque foreign bodies are seen. Bony structures show no gross acute abnormalities. IMPRESSION: 1. Nonobstructed small bowel gas pattern. Dictated by: Dictated on workstation # [id number]
[2022-06-29] MEDS ORDERED: GADOTERATE 0.5 MMOL/ML (CLARISCAN) 20 ML VIAL IV ONE (15:00)
--- NOTE | 2022-06-29 15:35 | Diagnostic Imaging Report ---
PROCEDURE: MR imaging cervical spine with and without contrast. TECHNIQUE: Multiplanar and multisequence MRI of the cervical spine was performed with and without contrast. INDICATION: Pathologic cervical spine fracture. COMPARISON: Cervical spine CT without contrast 06/29/2022. FINDINGS: Normal alignment. Abnormal T1 signal replacement, enhancement, and edema within the C5 vertebral body with approximately 20% height loss. There is no retropulsion or apparent involvement of the posterior elements. There is also abnormal enhancement, T1 signal replacement, and edema in the superior anterior endplate of C6. No abnormal signal or enhancement within the C5-C6 intervertebral disc. Mild diffuse spondylotic changes including moderate right neural foraminal narrowing on the right at C5-C6. No other neural impingement in the cervical spine. No abnormal signal or enhancement in the cervical spinal cord. No acute findings in the visualized paravertebral soft tissues. IMPRESSION: 1. Superior endplate height loss of C5 of approximately 20% is suspicious for a pathologic fracture given the diffuse T1 signal replacement, enhancement, and lytic changes on the comparison CT. 2. There is also abnormal signal and enhancement in the superior anterior endplate of C6 without fracture. 3. Moderate neural foraminal narrowing on the right at C5-C6. No other high-grade neural impingement. Dictated by: Dictated on workstation # [id number]
--- NOTE | 2022-06-29 17:13 | ED General ---
General Chief Complaint: Back Problems Stated Complaint: UPPER BACK/NECK PAIN Nursing Triage Note: ARRIVES WITH C/O NECK PAIN X ONE MONTH. DENIES INJURY. STATES HAS SEEN [facility] DR AND WAS SENT TO [facility] THEN BACK TO [facility]. Source of Information: Patient, Caregiver, Family Exam Limitations: No Limitations History of Present Illness Date Seen by Provider: June 29, 2022 Time Seen by Provider: 12:05 Initial Comments This 47-year-old gentleman presents to the emergency room with complaints of 1 month of severe pain in his right neck and radiating into the right arm to his elbow. He also has a lump on the right side of his neck beneath his right ear that he noticed recently. He has been to the chiropractor multiple times and received a local injection by Dr. Saha in the clinic without improvement. He states now any movement of his arm or neck causes severe pain. Even walking causes pain. He has tried meloxicam, heat, rest, and blue goo without improvement. He has history of Crohn's disease and B-cell lymphoma. His B-cell lymphoma was initially treated in 2006. His oncologist is Dr. Alex Ronquillo. He reports recently being declared in remission and cleared by the Cancer [facility]. He is a client of [facility]. His mother is his guardian. He had some type of cognitive impairment related to medical complications early in his life resulting in necessity of guardianship. Patient is alert, oriented, and cooperative. Range of motion to the right arm is limited by pain with abduction but otherwise appears normal. Allergies and Home Medications Allergies Coded Allergies: ceftazidime (Verified Allergy, Intermediate, RASH, 06/29/22) nalbuphine (Unverified Allergy, Mild, RASH, 06/29/22) Iodinated Contrast Media (Verified Allergy, Unknown, HIVES, 06/29/22) Sulfa (Sulfonamide Antibiotics) (Verified Allergy, Unknown, 06/29/22) adalimumab (Verified Allergy, Unknown, 06/29/22) latex (Verified Allergy, Unknown, 06/29/22) levofloxacin (Verified Allergy, Unknown, 06/29/22) strawberry (Unverified Allergy, Unknown, 06/29/22) FROM UNCODED ALLERGIES Uncoded Allergies: TAPE (Allergy, Unknown, 03/29/06) Patient Home Medication List Home Medication List Reviewed: Yes Ascorbate Calcium (Vitamin C) 500 Mg Tablet, 500 MG PO DAILY, (Reported) Entered as Reported by: MARCELO ERVIN on 06/06/17 1201 Budesonide (Budesonide ER) 9 Mg Tabdr...er, 9 MG PO DAILY, (Reported) Entered as Reported by: KRYSTINA CANSECO on 07/28/20 1541 Cyanocobalamin (Cyanocobalamin Injection) 1,000 Mcg/Ml Inj, 1,000 MCG INJ MONTHLY, (Reported) Entered as Reported by: MARCELO ERVIN on 10/12/14 1200 Dicyclomine HCl (Dicyclomine HCl) 10 Mg Capsule, 10 MG PO ACHS, (Reported) Entered as Reported by: MARCELO ERVIN on 06/06/17 1114 Docusate Sodium (Colace) 100 Mg Capsule, 100 MG PO DAILY, (Reported) Entered as Reported by: MENG MCKEON on 06/11/16 1507 Famotidine (Famotidine) 20 Mg Tablet, 20 MG PO HS, (Reported) Entered as Reported by: MARCELO ERVIN on 11/06/17 1039 Gabapentin (Gabapentin) 600 Mg Tablet, 600 MG PO TID, (Reported) Entered as Reported by: MARCELO ERVIN on 10/12/14 1200 Loperamide HCl (Loperamide) 2 Mg Capsule, 4 MG PO BID, (Reported) Entered as Reported by: MARCELO ERVIN on 11/06/17 1039 Magnesium Oxide (Magnesium Oxide) 400 Mg Tablet, 400 MG PO DAILY, (Reported) Entered as Reported by: MARCELO ERVIN on 10/12/14 1200 Mesalamine (Lialda) 1.2 Gm Tablet.dr, 2.4 GM PO BID, (Reported) Entered as Reported by: KRYSTINA CANSECO on 07/28/20 1541 Methylprednisolone (Methylprednisolone Dose Pack) 4 Mg Tab.ds.pk, 4 MG PO UD Prescribed by: JOHANNY LAMB on 12/20/21 1327 Multivit-Min/FA/Lycopene/Lut (Certavite Sr-Antioxidant Tab) 1 Each Tablet, 1 TAB PO DAILY, (Reported) Entered as Reported by: MARCELO ERVIN on 11/06/17 1055 Omeprazole (Omeprazole) 40 Mg Capsule.dr, 40 MG PO BID, (Reported) Entered as Reported by: MARCELO ERVIN on 10/12/14 1200 Prednisone (Prednisone) 20 Mg Tab, 40 MG PO DAILY Prescribed by: REX PLAZA on 07/29/20 0857 Tramadol HCl (Tramadol HCl) 50 Mg Tablet, 50 MG PO Q6H PRN for PAIN-BREAKTHROUGH Prescribed by: JOHANNY LAMB on 12/20/21 1327 Review of Systems Review of Systems Constitutional: no symptoms reported EENTM: no symptoms reported Respiratory: no symptoms reported Cardiovascular: no symptoms reported Gastrointestinal: no symptoms reported Genitourinary: no symptoms reported Musculoskeletal: see HPI Skin: no symptoms reported Psychiatric/Neurological: See HPI Hematologic/Lymphatic: See HPI Immunological/Allergic: no symptoms reported Past Bxsugwx-Bynkal-Waenyx Hx Patient Social History Tobacco Use?: Yes Tobacco type used: Cigarettes Smoking Status: Current Everyday Smoker Use of E-Cig and/or Vaping dev: No Substance use?: No Alcohol Use?: No Pt feels they are or have been: No Immunizations Up To Date Tetanus Booster (TDap): More than 5yrs PED Vaccines UTD: No Influenza Vaccine Up-to-Date: No; Not Current First/Initial COVID19 Vaccinat: 06/15 J&J Second COVID19 Vaccination Mick: 06/15 J&J Third COVID19 Vaccination Date: 06/15 J&J Seasonal Allergies Seasonal Allergies: No Past Medical History Surgery/Hospitalization HX: PMH-CROHNS, MILD IDD, COPD, LYMPHOMA, COPD, SHORT BOWEL SYNDROME, B12 DEFICIENCY, ANXIETY, B, CELL LYMPHOPROLIFERATIVE DISORDER, CENTRILOBULAR EMPHYSEMA, EPHRIC ULCER DISEASE, IRON DEFICIENCY PSHX-FULL TEETH EXTRACTION, 20"LARGE INTESTINE REMOVAL/CANCER, 26" SMALL INTESTINE REMOVAL AT AGE 9-10, MULTIPLE ABCESSES/COLONOSCOPIES, ENDOSCOPE, CHOLECYSTECTOMY, SPLENECTOMY, PANCREATIC RESECTION, PERITONEAL ABCESS. 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 ) Adverse Reaction/Blood Tranf: No Family Medical History No Family History of: Abdominal aortic aneurysm Ankit's disease Alcoholism Aphasia Cancer Cancer of colon Cataract Chest pain Congenital heart disease Congestive heart failure Cystic fibrosis Dementia Dysphagia Family history: Allergy Family history: Alzheimer's disease Family history: Arthritis Family history: Asthma Family history: Breast disease Family history: Cardiovascular disease Family history: Coronary thrombosis Family history: Diabetes mellitus Family history: Gastrointestinal disease Family history: Glaucoma Family history: Hypertension Family history: Osteoporosis Family history: Thyroid disorder Headache Hearing loss Heart disease Hereditary disease History of - anemia History of - disorder History of - respiratory disease History of drug abuse Human immunodeficiency virus (HIV) seropositivity Hypercholesterolemia Infertile Kidney disease Malignant neoplasm of lung Myocardial infarction Parkinson's disease Prostate cancer Psychotic disorder Seizure disorder Stroke Tuberculosis Visual impairment Diabetes Physical Exam Vital Signs Vital Signs - First Documented 06/29/22 11:45 Temp 36.2 Pulse 81 Resp 18 B/P (MAP) 149/86 (107) Pulse Ox 98 O2 Delivery Room Air Capillary Refill : Less Than 3 Seconds Height, Weight, BMI Height: 5'9.00" Weight: 126lbs. 5.0oz. 57.174766qo; 21.00 BMI Method:Stated General Appearance: WD/WN, Mild Distress HEENT: PERRL/EOMI, Normal ENT Inspection Neck: Other (Small lump under the skin superficially inferior to the right ear. Tenderness in the posterior cervical spine and right posterior neck along the musculature. Tenderness extends into the trapezius muscle region.) Respiratory: Lungs Clear, Normal Breath Sounds, No Accessory Muscle Use, No Respiratory Distress Cardiovascular: Regular Rate, Rhythm, No Edema, No Murmur, Normal Peripheral Pulses (Normal radial pulse in the right hand) Extremity: Normal Inspection, Non Tender, No Pedal Edema, Other (Range of motion with abduction limited by pain) Neurologic/Psychiatric: Alert, Oriented x3, No Motor/Sensory Deficits, Normal Mood/Affect, component technician II-XII Norm as Tested Skin: Normal Color, Warm/Dry Procedures/Interventions Suture Size: 4-0 Progress/Results/Core Measures Suspected Sepsis SIRS Temperature: Pulse: 81 Respiratory Rate: 18 Laboratory Tests 06/29/22 12:29: White Blood Count 9.5 Blood Pressure 149 /86 Mean: 107 Laboratory Tests 06/29/22 12:29: Creatinine 0.63, Platelet Count 460H Results/Orders Lab Results Laboratory Tests Test 06/29/22 12:29 Range/Units White Blood Count 9.5 4.3-11.0 10^3/uL Red Blood Count 3.68 L 4.30-5.52 10^6/uL Hemoglobin 11.0 L 13.3-17.7 g/dL Hematocrit 32 L 40-54 % Mean Corpuscular Volume 88 80-99 fL Mean Corpuscular Hemoglobin 30 25-34 pg Mean Corpuscular Hemoglobin Concent 34 32-36 g/dL Red Cell Distribution Width 21.8 H 10.0-14.5 % Platelet Count 460 H 130-400 10^3/uL Mean Platelet Volume 9.3 9.0-12.2 fL Immature Granulocyte % (Auto) 0 % Neutrophils (%) (Auto) 63 42-75 % Lymphocytes (%) (Auto) 23 12-44 % Monocytes (%) (Auto) 13 H 0-12 % Eosinophils (%) (Auto) 1 0-10 % Basophils (%) (Auto) 0 0-10 % Neutrophils # (Auto) 5.9 1.8-7.8 10^3/uL Lymphocytes # (Auto) 2.2 1.0-4.0 10^3/uL Monocytes # (Auto) 1.2 H 0.0-1.0 10^3/uL Eosinophils # (Auto) 0.1 0.0-0.3 10^3/uL Basophils # (Auto) 0.0 0.0-0.1 10^3/uL Immature Granulocyte # (Auto) 0.0 0.0-0.1 10^3/uL Sodium Level 140 135-145 MMOL/L Potassium Level 3.8 3.6-5.0 MMOL/L Chloride Level 106 98-107 MMOL/L Carbon Dioxide Level 26 21-32 MMOL/L Anion Gap 8 5-14 MMOL/L Blood Urea Nitrogen 14 7-18 MG/DL Creatinine 0.63 0.60-1.30 MG/DL Estimat Glomerular Filtration Rate 120 BUN/Creatinine Ratio 22 Glucose Level 96 70-105 MG/DL Calcium Level 8.5 8.5-10.1 MG/DL Magnesium Level 2.0 1.6-2.4 MG/DL My Orders Orders - KEN WHEATLEY MD Ct Head/Cervical Spine Wo (06/29/22 12:15) Ct Thoracic Spine Wo (06/29/22 12:15) Ed Iv/Invasive Line Start (06/29/22 12:15) Basic Metabolic Panel (06/29/22 12:15) Cbc With Automated Diff (06/29/22 12:15) Magnesium (06/29/22 12:15) Ketorolac Injection (Toradol Injection) (06/29/22 12:15) Orphenadrine Inj (Ed Only) (Norflex Inje (06/29/22 12:15) Morphine Injection (Morphine Injection (06/29/22 14:14) Mri Cervical Spine W/Wo Con (06/29/22 14:16) Chest 1 View, Ap/Pa Only (06/29/22 14:16) Abdomen/Kub 1view (06/29/22 14:16) Gadoterate Inj (Radiology) (Clariscan In (06/29/22 15:00) Morphine Injection (Morphine Injection (06/29/22 16:47) Medications Given in ED Current Medications Medications Dose Ordered Sig/Sudheer Route Start Time Stop Time Status Last Admin Dose Admin Gadoterate Meglumine 20 ml ONCE ONCE IV 06/29/22 15:00 06/29/22 15:01 DC 06/29/22 15:06 12 ML Ketorolac Tromethamine 30 mg ONCE ONCE IVP 06/29/22 12:15 06/29/22 12:19 DC 06/29/22 12:34 30 MG Orphenadrine Citrate 60 mg ONCE ONCE IV 06/29/22 12:15 06/29/22 12:19 DC 06/29/22 12:33 60 MG Vital Signs/I&O 06/29/22 11:45 Temp 36.2 Pulse 81 Resp 18 B/P (MAP) 149/86 (107) Pulse Ox 98 O2 Delivery Room Air Capillary Refill : Less Than 3 Seconds Blood Pressure Mean: 107 Progress Note : Progress Note Patient was initially treated with Toradol and Norflex for pain. This was not effective. Patient's pain was further treated with morphine. Labs were obtained including a CBC, BMP, and magnesium. These labs were grossly unrem arkable as interpreted by me. CT imaging of the head, cervical spine, and thoracic spine were obtained. These images were reviewed by me along with the radiologist, Dr. Carrillo. There is concern for lytic lesions in the cervical spine as described below. These lesions likely represent a pathologic fracture suggestive of malignant process. I discussed the situation at length with the radiologist. The CT images were followed by MRI with similar findings as noted below. Patient is presently neurologically intact. He has been ambulating with this syndrome for about a month. This is not acutely unstable but there is potential for decompensation in the near future. A c-collar has been applied to restrict movement. After receiving MRI, case was reviewed with Dr. Garcia, neurosurgeon at [facility]. He advised consultation with oncology before committing to a transfer destination. I then reviewed the case with Dr. Alex Ronquillo, patient's primary oncologist. She does not believe this lytic process in the cervical spine is related to his prior diagnosis of B-cell lymphoma. She believes it is likely a separate process. She reports the primary goal from her perspective is to obtain a biopsy for further treatment while also consulting neurosurgery for stabilization of the cervical spine. Case was then discussed with Dr. Wiseman, hospitalist at [facility] who excepted transfer. No EMS tr ansport is available at this time. Patient is being allowed to transfer by private vehicle while remaining in the c-collar to restrict head movement and neck strain. Diagnostic Imaging Diagonstic Imaging: CT Plain Films/CT/US/NM/MRI: c-spine, head Comments NAME: CATRACHO BEASLEY [facility] REC#: [id number] PT STATUS: REG ER : 1975 PHYSICIAN: KEN WHEATLEY MD ADMIT DATE: 06/29/22/ER Signed Date of Exam:06/29/22 CT HEAD/CERVICAL SPINE WO PROCEDURE: CT head and CT cervical spine without contrast. TECHNIQUE: Multiple contiguous axial images were obtained through the brain and cervical spine without the use of intravenous contrast. Sagittal and coronal reformations through the cervical spine were then performed. Auto Exposure Controls were utilized during the CT exam to meet ALARA standards for radiation dose reduction. INDICATION: Trauma, pain COMPARISON: None available FINDINGS: No intracranial hemorrhage. No intracranial mass, mass effect, midline shift, herniation, hydrocephalus, or extra-axial fluid collection. No CT evidence of an acute ischemic infarction. The orbits are unremarkable. The visualized paranasal sinuses are clear. The calvarium and extracalvarial soft tissues are unremarkable. Straightening of the normal cervical lordosis. No significant anterolisthesis or retrolisthesis. Prominent lucency is noted filling the majority of the C5 vertebral body extending into the right pedicle. This is associated with superior endplate compression deformity of C5 with approximately 50% loss of vertebral body height. There does appear to be mild bowing of the posterior aspect of the C5 vertebral body into the central canal resulting in at least mild central canal stenosis and moderate right neural foraminal stenosis. Additional ill-defined lucency is noted involving the anterior aspect of the C6 vertebral body superiorly. Vertebral body heights are otherwise well maintained. Moderate disc space height loss at C5/C6. No additional acute fracture within the cervical spine. Scattered facet joint degenerative changes. Biapical pleural scarring with associated emphysematous changes within the visualized upper lungs. IMPRESSION: Moderate compression deformity of C5 with approximately 50% loss of vertebral body height. Given underlying lucency throughout this vertebral body, this most likely relates to a pathologic fracture. Metastatic disease should be considered. Recommend clinical correlation. There is resulting at least mild central canal stenosis at this level. Additional small ill-defined lucency within the superior endplate of C6. This could relate to additional metastatic disease versus focal subchondral cyst formation. Nuclear medicine bone scan versus MRI could help to further evaluate. No acute intracranial abnormality. Emphysematous changes within the partially visualized upper lungs. Dictated by: Dictated on workstation # [id number] Dict: 06/29/22 1303 Trans: 06/29/22 1613 [facility] [id number] Interpreted by: ELENA BYERS MD Electronically signed by: ELENA BYERS MD 06/29/22 161 Diagonstic Imaging: CT Plain Films/CT/US/NM/MRI: other (Thoracic spine) Comments NAME: CATRACHO BEASLEY [facility] REC#: [id number] PT STATUS: REG ER : 1975 PHYSICIAN: KEN WHEATLEY MD ADMIT DATE: 06/29/22/ER Signed Date of Exam:06/29/22 CT THORACIC SPINE WO PROCEDURE: CT thoracic spine without contrast. TECHNIQUE: Multiple axial computerized tomography images were obtained from the base of the thoracic spine to the vertex without intravenous contrast. Auto Exposure Controls were utilized during the CT exam to meet ALARA standards for radiation dose reduction. INDICATION: Back trauma. COMPARISON: None available. FINDINGS: There is no acute fracture. Alignment is normal. No appreciable spinal canal stenosis. Visualized aspects of the posterior ribs are intact. Severe emphysema with biapical subpleural scarring. No concerning abnormality in the visualized upper abdomen. IMPRESSION: No fracture within the thoracic spine. Dictated by: Dictated on workstation # [id number] Dict: 06/29/22 1301 Trans: 06/29/22 1602 [id number] Interpreted by: VERONICA ALBA MD Electronically signed by: VERONICA ALBA MD 06/29/22 1600 Diagonstic Imaging: MRI Plain Films/CT/US/NM/MRI: c-spine Comments NAME: RAMOSCATRACHO Lara [facility] REC#: [id number] PT STATUS: REG ER : 1975 PHYSICIAN: KEN WHEATLEY MD ADMIT DATE: 06/29/22/ER Signed Date of Exam:06/29/22 MRI CERVICAL SPINE W/WO CON PROCEDURE: MR imaging cervical spine with and without contrast. TECHNIQUE: Multiplanar and multisequence MRI of the cervical spine was performed with and without contrast. INDICATION: Pathologic cervical spine fracture. COMPARISON: Cervical spine CT without contrast 06/29/2022. FINDINGS: Normal alignment. Abnormal T1 signal replacement, enhancement, and edema within the C5 vertebral body with approximately 20% height loss. There is no retropulsion or apparent involvement of the posterior elements. There is also abnormal enhancement, T1 signal replacement, and edema in the superior anterior endplate of C6. No abnormal signal or enhancement within the C5-C6 intervertebral disc. Mild diffuse spondylotic changes including moderate right neural foraminal narrowing on the right at C5-C6. No other neural impingement in the cervical spine. No abnormal signal or enhancement in the cervical spinal cord. No acute findings in the visualized paravertebral soft tissues. IMPRESSION: 1. Superior endplate height loss of C5 of approximately 20% is suspicious for a pathologic fracture given the diffuse T1 signal replacement, enhancement, and lytic changes on the comparison CT. 2. There is also abnormal signal and enhancement in the superior anterior endplate of C6 without fracture. 3. Moderate neural foraminal narrowing on the right at C5-C6. No other high-grade neural impingement. Dictated by: Dictated on workstation # [id number] Dict: 06/29/22 1517 Trans: 06/29/22 1645 [id number] Interpreted by: LUIS DANGELO MD Electronically signed by: LUIS DANGELO MD 06/29/22 1645 Diagonstic Imaging: Xray Plain Films/CT/US/NM/MRI: chest, abdomen Comments NAME: CATRACHO BEASLEY [facility] REC#: [id number] PT STATUS: REG ER : 1975 PHYSICIAN: KEN WHEATLEY MD ADMIT DATE: 06/29/22/ER Signed Date of Exam:06/29/22 ABDOMEN/KUB 1VIEW INDICATION: abdomen pain COMPARISON: 11/13/2014 FINDINGS: Single supine radiographic view of the abdomen was obtained and demonstrates nondistended loops of small bowel. There is no large collection of free peritoneal air. Mild air and stool are seen scattered throughout the colon. No unexpected extraosseous calcifications or radiopaque foreign bodies are seen. Bony structures show no gross acute abnormalities. IMPRESSION: 1. Nonobstructed small bowel gas pattern. Dictated by: Dictated on workstation # [id number] Dict: 06/29/22 1441 Trans: 06/29/22 164 [id number] Interpreted by: GRACIELA LOMELI MD Electronically signed by: GRACIELA LOMELI MD 06/29/22 1647 NAME: CATRACHO BEASLEY [employer] REC#: [id number] PT STATUS: REG ER : 1975 PHYSICIAN: KEN WHEATLEY MD ADMIT DATE: 06/29/22/ER Signed Date of Exam:06/29/22 CHEST 1 VIEW, AP/PA ONLY INDICATION: Screening for metallic objects prior to MRI. EXAMINATION: Chest, 06/29/2022. COMPARISON: 07/28/2020. FINDINGS: Single view chest. Lungs are hyperinflated with chronic interstitial markings noted bilaterally. No infiltrates or effusions. No pneumothorax. Heart and pulmonary vasculature are stable from previous. No radiopaque foreign bodies appreciated. IMPRESSION: 1. Chronic findings with no acute cardiopulmonary process. Dictated by: Dictated on workstation # [id number] Dict: 06/29/22 1437 Trans: 06/29/22 1450 [id number] Interpreted by: SHIELA DIXON MD Electronically signed by: SHIELA DIXON MD 06/29/22 1450 Departure Impression Primary Impression: Cervical compression fracture Qualified Codes: S12.490A - Other displaced fracture of fifth cervical verte bra, initial encounter for closed fracture Additional Impressions: Pathologic fracture Qualified Codes: M84.48XA - Pathological fracture, other site, initial encounter for fracture Cervical radiculopathy Disposition: XFER SHT-TRM HOSP Condition: Stable Transfer Transfer Reason: Exceeds level of care Time Spoke to Accepting Phy: 18:15 Transfer Progress Notes Transfer accepted to [facility] by Dr. Wiseman, hospitalist with consultation with Dr. Garcia, neurosurgeon. Transfer Facility: [facility] Method of Transfer: Private Vehicle Departure-Patient Inst. Referrals: JUSTICE SAHA DO (PCP/Family) Primary Care Physician KEN WHEATLEY MD June 29, 2022 17:13
[2022-06-29 20:30] VITALS: BP 128/88
== END 2022-06-29 20:25 | disposition short-term general hospital (02) ==
LOC: EDUNIT# 11:33 → ER 11:35
DX: M48.52XA Collapsed vertebra, not elsewhere classified, cervical region, initial encounter for fracture (principal); M54.12 Radiculopathy, cervical region; C85.10 Unspecified B-cell lymphoma, unspecified site; F17.210 Nicotine dependence, cigarettes, uncomplicated
CPT/HCPCS: 36415; 70450; 71045; 72125; 72128; 72156; 74018; 80048; 83735; 85025

== ENCOUNTER 2022-08-15 12:10 | Emergency (ER) | payer MEDICARE, MEDICAID ==
[~2022-08-15] VITALS: Ht 175 cm; Wt 59.0 kg
--- NOTE | 2022-08-15 12:40 | ED Cough/URI ---
General Chief Complaint: Cough/Cold/Flu Symptoms Stated Complaint: LOW 02 | 85 PERCENT Nursing Triage Note: NOT SOB BUT HAS HAD INCREASED COUGH AND NO SPUTUM, WAS TESTED AT [facility] AND FOUND TO BE 85% ON ROOM AIR. Source: patient Exam Limitations: no limitations History of Present Illness Date Seen by Provider: Aug 15, 2022 Time Seen by Provider: 12:38 Initial Comments Patient is a 47-year-old male with newly diagnosed unknown cancer presents to ED with cough and low oxygen level. Oxygen level at home was 85%. Call Dr. Vega office recommend come to ED for breathing treatment. Patient states started developing a cough today. History of COPD and smoking. Denies of any shortness of breath, chest pain, abdominal pain, vomiting. Chronic diarrhea but does have a history of Crohn's disease. Recently finished prednisone 2 weeks ago placed on dexamethasone for neck pain. Patient does not do breathing treatments on a regular basis. Denies fever, chills, headache, dizziness, visual changes, fever. Not currently on chemotherapy or any type of radiation. Pathological report is currently pending Allergies and Home Medications Allergies Coded Allergies: ceftazidime (Verified Allergy, Intermediate, RASH, 06/29/22) nalbuphine (Unverified Allergy, Mild, RASH, 06/29/22) Iodinated Contrast Media (Verified Allergy, Unknown, HIVES, 06/29/22) Sulfa (Sulfonamide Antibiotics) (Verified Allergy, Unknown, 06/29/22) adalimumab (Verified Allergy, Unknown, 06/29/22) latex (Verified Allergy, Unknown, 06/29/22) levofloxacin (Verified Allergy, Unknown, 06/29/22) strawberry (Unverified Allergy, Unknown, 06/29/22) FROM UNCODED ALLERGIES Uncoded Allergies: TAPE (Allergy, Unknown, 03/29/06) Patient Home Medication List Home Medication List Reviewed: Yes Albuterol Sulfate (Ventolin Hfa) 1 Puff Puff, 2 PUFF INH Q4H PRN for WHEEZING Prescribed by: SUSAN FERGUSON on 08/15/22 1537 Ascorbate Calcium (Vitamin C) 500 Mg Tablet, 500 MG PO DAILY, (Reported) Entered as Reported by: MARCELO ERVIN on 06/06/17 1201 Budesonide (Budesonide ER) 9 Mg Tabdr...er, 9 MG PO DAILY, (Reported) Entered as Reported by: KRYSTINA CANSECO on 07/28/20 1541 Cyanocobalamin (Cyanocobalamin Injection) 1,000 Mcg/Ml Inj, 1,000 MCG INJ MON THLY, (Reported) Entered as Reported by: MARCELO ERVIN on 10/12/14 1200 Dicyclomine HCl (Dicyclomine HCl) 10 Mg Capsule, 10 MG PO ACHS, (Reported) Entered as Reported by: MARCELO ERVIN on 06/06/17 1114 Docusate Sodium (Colace) 100 Mg Capsule, 100 MG PO DAILY, (Reported) Entered as Reported by: MENG MCKEON on 06/11/16 1507 Doxycycline Monohydrate (Doxycycline Monohydrate) 100 Mg Tablet, 100 MG PO BID Prescribed by: SUSAN FERGUSON on 08/15/22 1537 Famotidine (Famotidine) 20 Mg Tablet, 20 MG PO HS, (Reported) Entered as Reported by: MARCELO ERVIN on 11/06/17 1039 Gabapentin (Gabapentin) 600 Mg Tablet, 600 MG PO TID, (Reported) Entered as Reported by: MARCELO ERVIN on 10/12/14 1200 Loperamide HCl (Loperamide) 2 Mg Capsule, 4 MG PO BID, (Reported) Entered as Reported by: MARCELO ERVIN on 11/06/17 1039 Magnesium Oxide (Magnesium Oxide) 400 Mg Tablet, 400 MG PO DAILY, (Reported) Entered as Reported by: MARCELO ERVIN on 10/12/14 1200 Mesalamine (Lialda) 1.2 Gm Tablet.dr, 2.4 GM PO BID, (Reported) Entered as Reported by: KRYSTINA CANSECO on 07/28/20 1541 Methylprednisolone (Methylprednisolone Dose Pack) 4 Mg Tab.ds.pk, 4 MG PO UD Prescribed by: JOHANNY LAMB on 12/20/21 1327 Multivit-Min/FA/Lycopene/Lut (Certavite Sr-Antioxidant Tab) 1 Each Tablet, 1 TAB PO DAILY, (Reported) Entered as Reported by: MARCELO ERVIN on 11/06/17 1055 Omeprazole (Omeprazole) 40 Mg Capsule.dr, 40 MG PO BID, (Reported) Entered as Reported by: MARCELO ERVIN on 10/12/14 1200 Prednisone (Prednisone) 20 Mg Tab, 40 MG PO DAILY Prescribed by: REX PLAZA on 07/29/20 0857 Tramadol HCl (Tramadol HCl) 50 Mg Tablet, 50 MG PO Q6H PRN for PAIN-BREAKTHROUGH Prescribed by: JOHANNY LAMB on 12/20/21 1327 Review of Systems Review of Systems Constitutional: No chills, No diaphoresis, No fever, No malaise, No weakness EENTM: No ear pain Respiratory: cough; No dyspnea on exertion, No short of breath Cardiovascular: No chest pain, No edema Gastrointestinal: No abdominal pain, No diarrhea, No nausea, No vomiting Genitourinary: No decreased output, No discharge Musculoskeletal: No back pain, No joint pain Skin: No change in color, No change in hair/nails All Other Systems Reviewed Negative Unless Noted: Yes Past Awsfgah-Uwuvqn-Ioxjcj Hx Patient Social History Tobacco Use?: Yes Tobacco type used: Cigarettes Smoking Status: Current Everyday Smoker Use of E-Cig and/or Vaping dev: No Substance use?: No Alcohol Use?: No Pt feels they are or have been: No Immunizations Up To Date Tetanus Booster (TDap): More than 5yrs PED Vaccines UTD: No Influenza Vaccine Up-to-Date: Yes; Up-to-Date First/Initial COVID19 Vaccinat: 06/15 J&J Second COVID19 Vaccination Mick: 06/15 J&J Third COVID19 Vaccination Date: 06/15 J&J Seasonal Allergies Seasonal Allergies: No Past Medical History Surgery/Hospitalization HX: PMH-CROHNS, MILD IDD, COPD, LYMPHOMA, COPD, SHORT BOWEL SYNDROME, B12 DEFICIENCY, ANXIETY, B, CELL LYMPHOPROLIFERATIVE DISORDER, CENTRILOBULAR EMPHYSEMA, EPHRIC ULCER DISEASE, IRON DEFICIENCY PSHX-FULL TEETH EXTRACTION, 20"LARGE INTESTINE REMOVAL/CANCER, 26" SMALL INTESTINE REMOVAL AT AGE 9-10, MULTIPLE ABCESSES/COLONOSCOPIES, ENDOSCOPE, CHOLECYSTECTOMY, SPLENECTOMY, PANCREATIC RESECTION, PERITONEAL ABCESS. 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 ) Adverse Reaction/Blood Tranf: No Family Medical History No Family History of: Abdominal aortic aneurysm Allen's disease Alcoholism Aphasia Cancer Cancer of colon Cataract Chest pain Congenital heart disease Congestive heart failure Cystic fibrosis Dementia Dysphagia Family history: Allergy Family history: Alzheimer's disease Family history: Arthritis Family history: Asthma Family history: Breast disease Family history: Cardiovascular disease Family history: Coronary thrombosis Family history: Diabetes mellitus Family history: Gastrointestinal disease Family history: Glaucoma Family history: Hypertension Family history: Osteoporosis Family history: Thyroid disorder Headache Hearing loss Heart disease Hereditary disease History of - anemia History of - disorder History of - respiratory disease History of drug abuse Human immunodeficiency virus (HIV) seropositivity Hypercholesterolemia Infertile Kidney disease Malignant neoplasm of lung Myocardial infarction Parkinson's disease Prostate cancer Psychotic disorder Seizure disorder Stroke Tuberculosis Visual impairment Diabetes Physical Exam Vital Signs - First Documented 08/15/22 12:15 Temp 36.7 Pulse 86 Resp 18 B/P (MAP) 141/96 (111) Pulse Ox 94 O2 Delivery Room Air Capillary Refill : Less Than 3 Seconds Height: 5'9.00" Weight: 126lbs. 5.0oz. [id number]; 19.00 BMI Method:Stated General Appearance: WD/WN, no apparent distress Eyes: Bilateral Eye Normal Inspection, Bilateral Eye PERRL, Bilateral Eye EOMI HEENT: PERRL/EOMI, normal ENT inspection, TMs normal, pharynx normal Neck: non-tender, full range of motion, supple Respiratory: chest non-tender, normal breath sounds, no respiratory distress, no accessory muscle use, wheezing Cardiovascular: regular rate, rhythm, no edema, no gallop, no JVD Gastrointestinal: normal bowel sounds, non tender, soft, no organomegaly Extremities: normal range of motion, non-tender, normal inspection, no pedal edema 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, no motor/sensory deficits, alert, normal mood/affect, oriented x 3 Skin: normal color, warm/dry Procedures/Interventions Suture Size: 4-0 Progress/Results/Core Measures Suspected Sepsis SIRS Temperature: Pulse: 86 Respiratory Rate: 18 Laboratory Tests 08/15/22 13:02: White Blood Count 11.8H Blood Pressure 141 /96 Mean: 111 Laboratory Tests 08/15/22 13:02: Creatinine 0.56L, Platelet Count 543H, Total Bilirubin 0.5 Results/Orders Lab Results Laboratory Tests Test 08/15/22 13:02 08/15/22 13:08 Range/Units White Blood Count 11.8 H 4.3-11.0 10^3/uL Red Blood Count 4.45 4.30-5.52 10^6/uL Hemoglobin 13.8 13.3-17.7 g/dL Hematocrit 41 40-54 % Mean Corpuscular Volume 91 80-99 fL Mean Corpuscular Hemoglobin 31 25-34 pg Mean Corpuscular Hemoglobin Concent 34 32-36 g/dL Red Cell Distribution Width 19.9 H 10.0-14.5 % Platelet Count 543 H 130-400 10^3/uL Mean Platelet Volume 9.6 9.0-12.2 fL Immature Granulocyte % (Auto) 0 % Neutrophils (%) (Auto) 88 H 42-75 % Lymphocytes (%) (Auto) 7 L 12-44 % Monocytes (%) (Auto) 5 0-12 % Eosinophils (%) (Auto) 0 0-10 % Basophils (%) (Auto) 0 0-10 % Neutrophils # (Auto) 10.3 H 1.8-7.8 10^3/uL Lymphocytes # (Auto) 0.8 L 1.0-4.0 10^3/uL Monocytes # (Auto) 0.6 0.0-1.0 10^3/uL Eosinophils # (Auto) 0.0 0.0-0.3 10^3/uL Basophils # (Auto) 0.0 0.0-0.1 10^3/uL Immature Granulocyte # (Auto) 0.0 0.0-0.1 10^3/uL Neutrophils % (Manual) 90 % Lymphocytes % (Manual) 6 % Monocytes % (Manual) 4 % Poikilocytosis SLIGHT Anisocytosis SLIGHT Target Cells SLIGHT Elliptocytes SLIGHT Sodium Level 137 135-145 MMOL/L Potassium Level 4.3 3.6-5.0 MMOL/L Chloride Level 99 98-107 MMOL/L Carbon Dioxide Level 29 21-32 MMOL/L Anion Gap 9 5-14 MMOL/L Blood Urea Nitrogen 15 7-18 MG/DL Creatinine 0.56 L 0.60-1.30 MG/DL Estimat Glomerular Filtration Rate 124 BUN/Creatinine Ratio 27 Glucose Level 117 H 70-105 MG/DL Calcium Level 10.2 H 8.5-10.1 MG/DL Corrected Calcium 10.1 8.5-10.1 MG/DL Total Bilirubin 0.5 0.1-1.0 MG/DL Aspartate Amino Transf (AST/SGOT) 18 5-34 U/L Alanine Aminotransferase (ALT/SGPT) 13 0-55 U/L Alkaline Phosphatase 118 40-136 U/L Total Protein 7.5 6.4-8.2 GM/DL Albumin 4.1 3.2-4.5 GM/DL Influenza Type A (RT-PCR) Not Detected Not Detecte Influenza Type B (RT-PCR) Not Detected Not Detecte SARS-CoV-2 RNA (RT-PCR) Not Detected Not Detecte D-Dimer 0.73 H 0.00-0.49 UG/ML My Orders Orders - DOMENIC SINGH PA Cbc With Automated Diff (08/15/22 12:36) Comprehensive Metabolic Panel (08/15/22 12:36) Covid 19 Inhouse Test (08/15/22 12:36) Influenza A And B By Pcr (08/15/22 12:36) Chest 1 View, Ap/Pa Only (08/15/22 12:36) Albuterol Pre-Mix Nebs (Rt) (Proventil (08/15/22 12:45) Svn Small Volume Nebulizer (08/15/22 12:36) Manual Differential (08/15/22 13:02) Fibrin Degradation Products (08/15/22 13:39) Ct Angio Chest W (R/O Pe) (08/15/22 14:25) Iohexol Injection (Omnipaque 350 Mg/Ml 1 (08/15/22 14:30) Received Contrast (Hold Metformin- Contr (08/15/22 14:30) Ns (Ivpb) (Sodium Chloride 0.9% Ivpb Bag (08/15/22 14:30) Diphenhydramine Injection (Benadryl Inje (08/15/22 14:45) Diphenhydramine Injection (Benadryl Inje (08/15/22 14:36) Medications Given in ED Vital Signs/I&O 08/15/22 08/15/22 08/15/22 12:15 13:03 15:56 Temp 36.7 Pulse 86 86 Resp 18 18 B/P (MAP) 141/96 (111) 147/99 Pulse Ox 94 90 93 O2 Delivery Room Air Room Air Room Air Capillary Refill : Less Than 3 Seconds Blood Pressure Mean: 111 Departure Communication (PCP) Reviewed previous ER visits, H&P, lab testing. Differential diagnoses pneumonia, COPD exacerbation, PE, pulmonary mass. Patient with a history of B- cell lymphoma. Treated in 2006 his oncologist at the time was Dr. Ronquillo. Patient was in remission. Patient was seen here earlier this month for cervical neck pain. Diagnosed with a pathological fracture of his cervical spine. Patient W as transferred to [facility] that required surgery. Currently in a cervical neck brace. Patient currently being followed by Dr. Vega. Pathology report currently pending. Concern for cancer in his neck. Patient has a history of Crohn's disease. Reports chronic diarrhea denies of any worsening diarrhea today. No current abdominal pain or chest pain, Cough or shortness of breath. Concern for an oxygen level mid 80s at home. Does not wear oxygen at home. Denies of any vomiting or fever. Oxygen level in the lower 90s. He is not tachycardic. Stable blood pressure. CBC, CMP, COVID, chest x-ray and D- dimer was ordered. No appreciation of lower leg swelling. CBC showed white blood count 11.8. Elevated platelets 543 chronic elevated and stable. Chemistry grossly unremarkable. Patient's chest x-ray compatible COPD without evidence of pneumonia, pneumothorax. Elevated D-dimer 0.73. CT angio of the chest negative for any pulmonary embolism. COPD with chronic appearing infiltrate and scarring in the left upper lobe. Debris within the left lower lobe bronchi. Consider further evaluation with bronchoscopy. Patient was discussed with Dr. Vega. Patient Was sent over for further work-up and breathing treatment. Did receive albuterol nebulizer treatment with improvement with stable oxygen in the mid to lower 90s. Did have an episode to where it dropped into the upper 80s placed 2 L of oxygen. Removed oxygen patient remained in the mid to lower 90s. Does have oxygen at home as needed. It was recommended to start patient on antibiotic and provide albuterol inhaler at this time by Dr. Vega. Recommended discharge home. Did discuss bronchoscopy and states further outpatient evaluation at this time once pathology report returns. Currently being managed for weakness of his upper extremities. Patient Was placed on dexamethasone yesterday. Dr. Vega is aware of this and recommend no further work-up. Patient will be discharged. Patient mother is his guardian. Patient lives in a nursing home. [facility]. Return back to ED if symptoms worsen such as hypoxia, chest pain, shortness of breath. Discussed wearing oxygen 1-2 L if oxygen remains below 92%. Impression Primary Impression: Bronchitis Disposition: HOME, SELF-CARE Condition: Stable Departure-Patient Inst. Decision time for Depature: 15:36 Referrals: JUSTICE SAHA DO (PCP/Family) Primary Care Physician Patient Instructions: Cough, Adult (DC) Add. Discharge Instructions: Follow-up with your primary care physician 2 to 3 days for reevaluation. Follow-up with Dr. Vega. All discharge instructions reviewed with patient and/or family. Voiced understanding. Scripts Albuterol Sulfate (VENTOLIN HFA) 1 Puff Puff 2 PUFF INH Q4H PRN for WHEEZING, #1 EA 1 PUFF = 90 MCG Prov: DOMENIC SINGH 08/15/22 Doxycycline Monohydrate (Doxycycline Monohydrate) 100 Mg Tablet 100 MG PO BID for 10 Days, #20 TAB Prov: DOMENIC SINGH 08/15/22 DOMENIC SINGH Aug 15, 2022 12:40
[2022-08-15] MEDS ORDERED: RT-ALBUTEROL SULF 2.5 MG/3 ML PRE-MIX VIAL INH ONE (12:45)
[2022-08-15 13:15] LABS: BASOPHILS % (AUTO) 0 % (0-10); EOSINOPHILS % (AUTO) 0 % (0-10); HEMATOCRIT 41 % (40-54); HEMOGLOBIN 13.8 g/dL (13.3-17.7); LYMPHOCYTES # (AUTO) 0.8 10^3/uL (1.0-4.0); LYMPHOCYTES % (AUTO) 7 % (12-44); MEAN CORPUSCULAR HEMOGLOBIN 31 pg (25-34); MEAN CORPUSCULAR HGB CONC 34 g/dL (32-36); MEAN CORPUSCULAR VOLUME 91 fL (80-99); MEAN PLATELET VOLUME 9.6 fL (9.0-12.2); MONOCYTES # (AUTO) 0.6 10^3/uL (0.0-1.0); MONOCYTES % (AUTO) 5 % (0-12); NEUTROPHILS # (AUTO) 10.3 10^3/uL (1.8-7.8); NEUTROPHILS % (AUTO) 88 % (42-75); PLATELET COUNT 543 10^3/uL (130-400); WHITE BLOOD COUNT 11.8 10^3/uL (4.3-11.0)
[2022-08-15 13:27] LABS: ALBUMIN 4.1 GM/DL (3.2-4.5); POTASSIUM 4.3 MMOL/L (3.6-5.0)
[2022-08-15 13:28] LABS: CALCIUM 10.2 MG/DL (8.5-10.1)
[2022-08-15 13:29] LABS: TOTAL PROTEIN 7.5 GM/DL (6.4-8.2)
[2022-08-15 13:31] LABS: BILIRUBIN,TOTAL 0.5 MG/DL (0.1-1.0)
[2022-08-15 13:33] LABS: CREATININE SERUM 0.56 MG/DL (0.60-1.30)
--- NOTE | 2022-08-15 13:49 | Diagnostic Imaging Report ---
INDICATION: Cough Frontal chest obtained at 0108 p.m. COMPARISON: 06/29/2022 Heart is normal in size. There is no focal infiltrate or pneumothorax or pleural fluid. There is mild hyperinflation compatible with COPD. IMPRESSION: Hyperinflation compatible with COPD. No acute infiltrate or pleural fluid. Dictated by: Dictated on workstation # [id number]
[2022-08-15 14:18] LABS: ANISOCYTOSIS SLIGHT; ELLIPT/OVALOCYTES SLIGHT; LYMPHOCYTES % (MANUAL) 6 %; MONOCYTES % (MANUAL) 4 %; NEUTROPHILS % (MANUAL) 90 %; POIKILOCYTOSIS SLIGHT; TARGET CELLS SLIGHT
[2022-08-15] MEDS ORDERED: NS 100 ML (IVPB) BAG IV ONE (14:30)
[2022-08-15] MEDS ORDERED: HOLD METFORMIN - RECEIVED CONTRAST 20 ML VIAL IV SCH (14:30)
[2022-08-15] MEDS ORDERED: IOHEXOL 350 MG/ML 100 ML (OMNIPAQUE 350) VIAL IV ONE (14:30)
[2022-08-15] MEDS ORDERED: diphenhydrAMINE 50 MG/ML INJ (BENADRYL) ONE (14:36)
[2022-08-15] MEDS ORDERED: diphenhydrAMINE 50 MG/ML INJ (BENADRYL) IVP ONE (14:45)
--- NOTE | 2022-08-15 15:14 | Diagnostic Imaging Report ---
INDICATION: Dyspnea. TECHNIQUE: CTA of the thorax was performed after bolus intravenous administration of iodinated contrast. 3D reformatted images were produced. Automatic exposure controls were utilized to keep dose as low as reasonably achievable. FINDINGS: There is good opacification of the pulmonary arteries without intraluminal filling defect to indicate embolism. Thoracic aorta is of normal caliber and there is no evidence of intimal abnormality. There is extensive centrilobular emphysema with an upper lobe predominance. There is debris within left lower lobe bronchi and probable chronic infiltrate in the upper lobe of the left lung extending to the hilum to the lateral pleural surface. No significant pleural or pericardial fluid is identified. Numerous calcified granulomas are seen within the liver. There has been apparent splenectomy and cholecystectomy. IMPRESSION: No great vessel abnormality in the thorax; however, there is extensive background emphysema and probable COPD with chronic appearing infiltrate and/or scarring in the left upper lobe. There is also debris within the left lower lobe bronchi and consideration could be given to bronchoscopy for further assessment of these findings. Dictated by: Dictated on workstation # [id number]
[2022-08-15] MEDS ORDERED: RT-ALBUINH INH (15:37)
[2022-08-15] MEDS ORDERED: DOXY100T31 PO (15:37)
[2022-08-15 15:56] VITALS: BP 147/99
== END 2022-08-15 15:57 | disposition home or self-care (01) ==
LOC: EDUNIT# 12:10 → ER 12:12
DX: J44.9 Chronic obstructive pulmonary disease, unspecified (principal); D75.839 Thrombocytosis, unspecified; R79.1 Abnormal coagulation profile; R91.8 Other nonspecific abnormal finding of lung field; R53.1 Weakness; F17.210 Nicotine dependence, cigarettes, uncomplicated; M54.2 Cervicalgia; Z79.52 Long term (current) use of systemic steroids; Z91.040 Latex allergy status; Z88.2 Allergy status to sulfonamides; Z88.1 Allergy status to other antibiotic agents; Z20.822 Contact with and (suspected) exposure to COVID-19
CPT/HCPCS: 36415; 71045; 71275; 80053; 85007; 85027; 85379; 87636; 94640